=== PATIENT | male | born 1960 | race Caucasian/White ===

== ENCOUNTER 2018-06-15 02:49 | Outpatient (CLI) | payer MEDICAID, SELFPAY ==
[2018-06-15] MEDS: Breeza Beverage 473 ML BTL PO ×2 (09:34→09:35)
[2018-06-15] MEDS: Omnipaque 350 MG/ML 50 ML BTL PO (09:35)
[2018-06-15 09:41] LABS: BUN 15 mg/dL (7-18); CREATININE 0.92 mg/dL (0.70-1.30)
--- NOTE | 2018-06-15 10:57 | DI.CT_ITS ---
SYMPTOMS/DIAGNOSIS: BOWEL INCONTINENCE, R15.9, LEFT-SIDED ABDOMINAL PAIN X A COUPLE OF MONTHS, R10.9, URGENCY OF URINATION, R39.15 CT SCAN OF THE ABDOMEN AND PELVIS: CT scan of the abdomen and pelvis was performed following the uneventful administration of intravenous and oral contrast material. There are no priors for comparison. Mild dependent atelectatic changes are seen in the lung bases. There is diffuse decreased attenuation of the liver suggesting fatty infiltration. No evidence of a hepatic mass is present. The portal and superior mesenteric veins are patent. The portal and superior mesenteric veins are patent. The gallbladder is negative. No biliary ductal dilatation is seen. The pancreas and adrenal glands are unremarkable. The spleen is unremarkable. Incidental note is made of an accessory spleen. The kidneys show normal and symmetric enhancement. No suspicious solid renal masses or obstruction is identified. There is a 3.4 cm simple cyst in the superior pole of the right kidney. The urinary bladder is intact. The reproductive organs are unremarkable. There is atherosclerosis of the abdominal aorta without aneurysmal dilatation. Incidental note is made of a circumaortic left renal vein. No significant abdominal or pelvic adenopathy, ascites or pneumoperitoneum is present. The bowel is unremarkable. There are degenerative changes seen in the spine. IMPRESSION: 1. Findings suggestive of fatty infiltration of the liver. 2. No evidence of an acute abdomen.
[2018-06-15] MEDS: Omnipaque 350 MG/ML 100 ML BTL IJ (11:00)
== END 2018-06-15 03:09 ==
PROVIDERS: PCP Family Medicine; Visit Provider Family Medicine
DX: R10.32 Left lower quadrant pain (principal); R15.9 Full incontinence of feces; R39.15 Urgency of urination; K76.0 Fatty (change of) liver, not elsewhere classified; Z13.89 Encounter for screening for other disorder
CPT/HCPCS: 84520; 74177; 82565; J3490; Q9967

== ENCOUNTER 2018-06-22 15:05 | Outpatient (CLI) | payer MEDICARE, MEDICAID, SELFPAY ==
[2018-06-22 15:34] LABS: Abs Immature Grans 0.04 k/cumm (0.0-0.09); Absolute Basophil Count 0.03 k/cumm (0.0-0.2); Absolute Lymphocyte Count 1.98 k/cumm (1.2-3.4); Absolute Monocyte Count 0.58 k/cumm (0.11-0.7); Absolute Neutrophil Count 5.53 k/cumm (1.2-6.7); Basophils % 0.4; Eosinophils % 2.4; HGB 15.8 g/dL (13.5-17.5); Immature Grans % 0.5; Lymphocytes % 23.7; Mean Corp. HGB Concentration 34.3 g/dL (32.0-36.0); Mean Corpuscular Hemoglobin 31.6 pg (27.0-33.0); Mean Platelet Volume 9.4 fL (8.0-11.0); Monocytes % 6.9; Neutrophils % 66.1; Platelet Count 187 x1000/uL (130-400); RBC Distribution Width 13.4 % (11.8-14.1); White Blood Cell Count 8.36 k/cumm (4.4-10.8)
[2018-06-22 16:33] LABS: ALT 23 U/L (12-78); AST 18 U/L (15-37); Albumin 3.7 g/dL (3.4-5.0); Alkaline Phosphatase 68 U/L (46-116); Anion Gap 9.5 mmol/L (3-11); BUN 18 mg/dL (7-18); Bilirubin, Total 0.3 mg/dL (0.2-1.0); CO2 24.5 mmol/L (21.0-32.0); CREATININE 1.09 mg/dL (0.70-1.30); Calcium 8.2 mg/dL (8.5-10.1); Chloride 104 mmol/L (98-107); Glucose 163 mg/dL (70-100); Potassium 3.9 mmol/L (3.5-5.1); Sodium 138 mmol/L (136-145); Total Protein 6.6 g/dL (6.4-8.2)
[2018-06-23 13:54] LABS: PSA, Screening 0.6 ng/ml (0-3.5)
== END 2018-06-22 15:25 ==
PROVIDERS: PCP Family Medicine; Visit Provider Family Medicine
DX: R15.9 Full incontinence of feces (principal); R10.9 Unspecified abdominal pain; Z12.5 Encounter for screening for malignant neoplasm of prostate
CPT/HCPCS: 36415; 80053; 84153; 85025

== ENCOUNTER 2018-08-22 02:01 | Outpatient (CLI) | payer MEDICAID, SELFPAY ==
--- NOTE | 2018-08-22 11:08 | PFT_ITS ---
PULMONARY FUNCTION TEST REPORT Patient identification - Morro Sahni DATE OF - 64 DATE OF SERVICE - 08/22/2018 REQUESTING PROVIDER - Nathaniel Murray M.D. INTERPRETATION OF STUDY Spirometry shows mild obstructive airways disease with no significant bronchodilator response. LUNG VOLUMES - Lung volumes show no evidence of restriction. DIFFUSION CAPACITY- Normal. AIRWAY RESISTANCE - Normal. IMPRESSION Mild obstructive airways disease with no significant bronchodilator response. Clinical correlation recommended. Sonja Romero M.D. DAINA/antelmo T - 08/24/2018
[2018-08-22] MEDS: Albuterol HFA 18 GM 200 PUFF INH IH (15:15)
[2018-08-22] MEDS: Inhaler, Assist Device 1 EACH MC (15:15)
== END 2018-08-22 02:21 ==
PROVIDERS: PCP Family Medicine; Visit Provider Family Medicine
DX: R06.02 Shortness of breath (principal); F17.200 Nicotine dependence, unspecified, uncomplicated
CPT/HCPCS: 94060; 94150; 94726; 94729

== ENCOUNTER 2018-08-26 00:35 | Outpatient (CLI) | payer MEDICAID, SELFPAY ==
--- NOTE | 2018-08-26 15:01 | DI.CTLCSR_ITS ---
SYMPTOM/DIAGNOSIS: NICOTINE ADDICTION, F17.[address] FOR LUNG CANCER SCREENING: A low dose exam was performed. Comparison is made with chest CT dated 10 April 2016 and 23 January 2018, There is a stable right paratracheal lymph node measuring 3 cm transverse. No pulmonary nodules are identified. There is a minimal area of scarring in the lateral right upper lobe. Scarring is also seen posteriorly at the right lower lobe. No acute infiltrate, pleural or pericardial effusions are seen. IMPRESSION: Stable right paratracheal lymph node. No pulmonary nodules identified. Lung Rads Category 1. Annual low dose screening CT is recommended. Lung-RAD Category: Lung RADS Category 1- Negative
== END 2018-08-26 00:55 ==
PROVIDERS: PCP Family Medicine; Visit Provider Family Medicine
DX: Z12.2 Encounter for screening for malignant neoplasm of respiratory organs (principal); F17.200 Nicotine dependence, unspecified, uncomplicated; R59.0 Localized enlarged lymph nodes
CPT/HCPCS: G0297

== ENCOUNTER 2018-09-21 15:12 | Outpatient (REF) | payer MEDICAID, SELFPAY ==
[2018-09-21 22:50] LABS: TSH (W/Ref FT4) 1.02 uIU/mL (0.358-3.74)
== END 2018-09-21 15:32 ==
LOC: NCHCN 15:12
PROVIDERS: PCP Family Medicine; Visit Provider Family Medicine
DX: R06.02 Shortness of breath (principal); E03.9 Hypothyroidism, unspecified
CPT/HCPCS: 84443

== ENCOUNTER 2018-10-04 13:58 | Emergency (ER) | payer MEDICAID, SELFPAY ==
[2018-10-04 14:03] VITALS: BP 123/75; PULSE 70; RESP 16; TEMP 36.8; O2SAT 94
--- NOTE | 2018-10-04 14:20 | W.ED.GENAD ---
Discharge Plan Disposition Patient Disposition: HOME Condition: Stable Discharge Details Chief Complaint: RespSymp Clinical Impression: Sinusitis Primary Care Provider: SORAYA GILBERT ED Provider: Edmar Corea Home Meds and New Rx's Prescriptions: New amoxicillin-pot clavulanate [Augmentin] 875-125 mg tablet 1 tab PO BID Qty: 14 RF: 0 Continued sertraline 100 MG tablet 150 mg PO DAILY RF: 0 trazodone 100 MG tablet 100 mg PO HS RF: 0 Eliquis 5 MG tablet 5 mg PO BID RF: 0 levothyroxine 25 MCG tablet 200 mcg PO DAILY RF: 0 quetiapine 100 MG tablet 100 mg PO BID RF: 0 lamotrigine [Lamictal] 25 MG tablet 50 mg PO .QHS RF: 0 omeprazole 20 MG capsule,delayed release(DR/EC) 20 mg PO DAILY RF: 0 Centrum Silver 1 EACH tablet 1 tab PO DAILY RF: 0 Discharge Instructions Instructions: Sinusitis (ED) Additional Instructions: Return to emergency department for any new or worsening symptoms. You may continue to take otny-hel-[id number] pain medication as needed for discomfort and take antibiotics as prescribed and until fully complete. If not improving by the end of your antibiotics is recommended that you follow-up with your primary care provider for reassessment Referrals: SORAYA GILBERT [Primary Care Provider] - (As needed for reassessment) Discharge Data Discharge Date/Time-TO BE ENTERED AT DEPARTURE: 10/04/18 14:42 Medical Decision Making Patient presenting the emergency department for chief complaint of sinus pain and pressure. He states that he has had symptoms for 2 weeks and over the past couple days has noticed increased malaise, pressure, change of drainage to more yellow color, and fever and chills. Physical exam is consistent with sinusitis and no signs of sinus thrombosis, no neurological deficits, patient nonseptic. Patient placed on Augmentin and encouraged to return for new or worsening symptoms otherwise follow-up with primary care provider [facility] General Mode of arrival: ambulatory. Date/Time Provider Initiated Documentation: 10/04/18 14:07. Limitations to Documentation: no limitations. Information obtained by: patient. History of Present Illness 58 year old M presents to the emergency department with the chief complaint of Sinus infection, described as moderate, with intensity rated at 5. Quality is described as aching, and is localized to the face. Patient started experiencing this week(s) (2) and it has been constant. No relieving factors improve symptom(s), No exacerbating factors reported . Patient notes no other symptoms.. Related Data Home Medications Medication Instructions Recorded Confirmed sertraline 150 mg PO DAILY 03/27/16 10/04/18 trazodone 100 mg PO HS 08/24/16 10/04/18 levothyroxine 200 mcg PO DAILY 02/25/17 10/04/18 Centrum Silver 1 tab PO DAILY 01/23/18 10/04/18 lamotrigine [Lamictal] 50 mg PO .QHS 01/23/18 10/04/18 omeprazole 20 mg PO DAILY 01/23/18 10/04/18 quetiapine 100 mg PO BID 01/23/18 10/04/18 Eliquis 5 mg PO BID 02/04/18 10/04/18 amoxicillin-pot clavulanate 1 tab PO BID #14 tab 10/04/18 [Augmentin] Previous Rx's Medication Instructions Recorded amoxicillin-pot clavulanate 1 tab PO BID #14 tab 10/04/18 [Augmentin] Allergies Allergy/AdvReac Type Severity Reaction Status Date / Time No Known Allergies Allergy Unverified 10/04/18 14:07 General Stated Complaint: RespSymp LORA: 3 Review of Systems Constitutional Reports chills, Reports fever(s) and Reports headache(s) Eyes Denies blurry vision and Denies change in vision ENT Denies otalgia, Reports headache(s), Reports nasal discharge, Reports post nasal drip, Reports sinus pain and Reports sinus pressure Cardiovascular Denies chest pain Respiratory Reports cough Gastrointestinal Denies nausea and Denies vomiting Integumentary/Breasts Denies rash Neurologic Reports headache(s) [facility] Social History Smoking/Tobacco Use Status: Current every day Exam Const General: cooperative, comfortable and no acute distress Orientation: alert and awake [facility] Head: normal to inspection, normocephalic and atraumatic Ears: hearing grossly normal bilaterally and TM's normal bilaterally General nose exam: external nose normal Face and sinus: no erythema and sinus tenderness maxillary (Left more than right); not frontal and not ethmoid Mouth: oral mucosae normal, no drooling, no muffled voice and no trismus Throat: posterior oropharynx normal Neck Neck: normal visual inspection, full ROM, no lymphadenopathy, no meningeal signs, trachea midline and supple Resp Effort & Inspection: normal respiratory effort and able to speak in complete sentences Auscultation: clear to auscultation bilaterally Cardio Rate: regular rate Rhythm: regular rhythm Heart Sounds: S1 normal, S2 normal, normal S1 and S2, no click, no gallops, no murmurs and no rubs Skin General skin exam: no rashes or lesions noted and dry skin (warm) Neuro General: alert, awake, oriented x3, gait normal, moves all extremities and other (No focal neurological deficits noted) Cognition: normal cognition Speech: speech normal Course Vital Signs Temperature 36.8 C 10/04/18 14:03 Pulse 70 10/04/18 14:03 Respiratory Rate 16 10/04/18 14:03 Blood Pressure 123/75 10/04/18 14:03 Pulse Oximetry 94 L 10/04/18 14:03 Temperature 36.8 C 10/04/18 14:03 Temperature Source Skin 10/04/18 14:03 Pulse 70 10/04/18 14:03 Respiratory Rate 16 10/04/18 14:03 Respiratory Effort 10/04/18 14:08 Blood Pressure 123/75 10/04/18 14:03 Blood Pressure Position Sitting 10/04/18 14:03 Pulse Oximetry 94 L 10/04/18 14:03 Oxygen Delivery Method Room Air 10/04/18 14:03 Oxygen Flow Rate 0 10/04/18 14:03 Pain Level 5 10/04/18 14:03
--- NOTE | 2018-10-04 14:27 | ED.GENADUL_ITS ---
Discharge Plan Disposition Patient Disposition: HOME Condition: Stable Discharge Details Chief Complaint: RespSymp Clinical Impression: Sinusitis Primary Care Provider: SORAYA GILBERT ED Provider: Edmar Corea Home Meds and New Rx's Prescriptions: New amoxicillin-pot clavulanate [Augmentin] 875-125 mg tablet 1 tab PO BID Qty: 14 RF: 0 Continued sertraline 100 MG tablet 150 mg PO DAILY RF: 0 trazodone 100 MG tablet 100 mg PO HS RF: 0 Eliquis 5 MG tablet 5 mg PO BID RF: 0 levothyroxine 25 MCG tablet 200 mcg PO DAILY RF: 0 quetiapine 100 MG tablet 100 mg PO BID RF: 0 lamotrigine [Lamictal] 25 MG tablet 50 mg PO .QHS RF: 0 omeprazole 20 MG capsule,delayed release(DR/EC) 20 mg PO DAILY RF: 0 Centrum Silver 1 EACH tablet 1 tab PO DAILY RF: 0 Discharge Instructions Instructions: Sinusitis (ED) Additional Instructions: Return to emergency department for any new or worsening symptoms. You may continue to take yiiv-zep-[id number] pain medication as needed for discomfort and take antibiotics as prescribed and until fully complete. If not improving by the end of your antibiotics is recommended that you follow-up with your primary care provider for reassessment Referrals: SORAYA GILBERT [Primary Care Provider] - (As needed for reassessment) Discharge Data Discharge Date/Time-TO BE ENTERED AT DEPARTURE: 10/04/18 14:42 Medical Decision Making Patient presenting the emergency department for chief complaint of sinus pain and pressure. He states that he has had symptoms for 2 weeks and over the past couple days has noticed increased malaise, pressure, change of drainage to more yellow color, and fever and chills. Physical exam is consistent with sinusitis and no signs of sinus thrombosis, no neurological deficits, patient nonseptic. Patient placed on Augmentin and encouraged to return for new or worsening symptoms otherwise follow-up with primary care provider [facility] General Mode of arrival: ambulatory . Date/Time Provider Initiated Documentation: 10/04/18 14:07 . Limitations to Documentation: no limitations . Information obtained by: patient . History of Present Illness 58 year old M presents to the emergency department with the chief complaint of Sinus infection, described as moderate, with intensity rated at 5. Quality is described as aching, and is localized to the face. Patient started experien cing this week(s) (2) and it has been constant. No relieving factors improve symptom(s), No exacerbating factors reported . Patient notes no other symptoms.. Related Data Home Medications Medication Instructions Recorded Confirmed sertraline 150 mg PO DAILY 03/27/16 10/04/18 trazodone 100 mg PO HS 08/24/16 10/04/18 levothyroxine 200 mcg PO DAILY 02/25/17 10/04/18 Centrum Silver 1 tab PO DAILY 01/23/18 10/04/18 lamotrigine [Lamictal] 50 mg PO .QHS 01/23/18 10/04/18 omeprazole 20 mg PO DAILY 01/23/18 10/04/18 quetiapine 100 mg PO BID 01/23/18 10/04/18 Eliquis 5 mg PO BID 02/04/18 10/04/18 amoxicillin-pot clavulanate 1 tab PO BID #14 tab 10/04/18 [Augmentin] Previous Rx's Medication Instructions Recorded amoxicillin-pot clavulanate 1 tab PO BID #14 tab 10/04/18 [Augmentin] Allergies Allergy/AdvReac Type Severity Reaction Status Date / Time No Known Allergies Allergy Unverified 10/04/18 14:07 General Stated Complaint: RespSymp LORA: 3 Review of Systems Constitutional Reports chills, Reports fever(s) and Reports headache(s) Eyes Denies blurry vision and Denies change in vision ENT Denies otalgia, Reports headache(s), Reports nasal discharge, Reports post nasal drip, Reports sinus pain and Reports sinus pressure Cardiovascular Denies chest pain Respiratory Reports cough Gastrointestinal Denies nausea and Denies vomiting Integumentary/Breasts Denies rash Neurologic Reports headache(s) [facility] Social History Smoking/Tobacco Use Status: Current every day Exam Const General: cooperative, comfortable and no acute distress Orientation: alert and awake [facility] Head: normal to inspection, normocephalic and atraumatic Ears: hearing grossly normal bilaterally and TM's normal bilaterally General nose exam: external nose normal Face and sinus: no erythema and sinus tenderness maxillary (Left more than right); not frontal and not ethmoid Mouth: oral mucosae normal, no drooling, no muffled voice and no trismus Throat: posterior oropharynx normal Neck Neck: normal visual inspection, full ROM, no lymphadenopathy, no meningeal signs, trachea midline and supple Resp Effort & Inspection: normal respiratory effort and able to speak in complete sentences Auscultation: clear to auscultation bilaterally Cardio Rate: regular rate Rhythm: regular rhythm Heart Sounds: S1 normal, S2 normal, normal S1 and S2, no click, no gallops, no murmurs and no rubs Skin General skin exam: no rashes or lesions noted and dry skin (warm) Neuro General: alert, awake, oriented x3, gait normal, moves all extremities and other (No focal neurological deficits noted) Cognition: normal cognition Speech: speech normal Course Vital Signs Temperature 36.8 C 10/04/18 14:03 Pulse 70 10/04/18 14:03 Respiratory Rate 16 10/04/18 14:03 Blood Pressure 123/75 10/04/18 14:03 Pulse Oximetry 94 L 10/04/18 14:03 Temperature 36.8 C 10/04/18 14:03 Temperature Source Skin 10/04/18 14:03 Pulse 70 10/04/18 14:03 Respiratory Rate 16 10/04/18 14:03 Respiratory Effort 10/04/18 14:08 Blood Pressure 123/75 10/04/18 14:03 Blood Pressure Position Sitting 10/04/18 14:03 Pulse Oximetry 94 L 10/04/18 14:03 Oxygen Delivery Method Room Air 10/04/18 14:03 Oxygen Flow Rate 0 10/04/18 14:03 Pain Level 5 10/04/18 14:03
[2018-10-04] MEDS: Amoxicillin 875/Clav. 125 TAB PO (14:31)
[2018-10-04 14:37] VITALS: BP 123/75; PULSE 77; RESP 16; TEMP 37.6; O2SAT 95
== END 2018-10-04 14:42 | disposition home or self-care (01) ==
LOC: ER 14:39
PROVIDERS: Emergency Provider Nurse Practitioner Family; PCP Family Medicine
DX: J01.90 Acute sinusitis, unspecified (principal)
CPT/HCPCS: 99283

== ENCOUNTER 2018-11-29 11:09 | Emergency (ER) | payer SELFPAY ==
[2018-11-29 11:12] VITALS: BP 123/78; PULSE 72; RESP 20; TEMP 36.6; O2SAT 95
--- NOTE | 2018-11-29 11:27 | ED.GENADUL_ITS ---
Discharge Plan Disposition Patient Disposition: HOME Condition: Improving Discharge Details Chief Complaint: RespSymp Clinical Impression: Acute bronchitis with bronchospasm Primary Care Provider: SORAYA GILBERT ED Provider: Dank Marcial Home Meds and New Rx's Prescriptions: New azithromycin 250 mg tablet See Rx Instructions .ROUTE .COMPLEX Qty: 6 RF: 0 Continued sertraline 100 MG tablet 150 mg PO DAILY RF: 0 trazodone 100 MG tablet 100 mg PO HS RF: 0 Eliquis 5 MG tablet 5 mg PO BID RF: 0 levothyroxine 25 MCG tablet 200 mcg PO DAILY RF: 0 quetiapine 100 MG tablet 100 mg PO BID RF: 0 lamotrigine [Lamictal] 25 MG tablet 50 mg PO .QHS RF: 0 omeprazole 20 MG capsule,delayed release(DR/EC) 20 mg PO DAILY RF: 0 Centrum Silver 1 EACH tablet 1 tab PO DAILY RF: 0 Discharge Instructions Instructions: Acute Bronchitis (ED) Additional Instructions: Continue your efforts to decrease smoking. Take prednisone and antibiotics as prescribed. Continue regular medications. Return for any acute concerns per Please follow-up with regular doctor if not improving in 5 days time Medical Decision Making 58-year-old male presents from home with cough, congestion, production of yellow sputum. States he was treated with Augmentin 3 weeks ago for sinus infection. He continues to smoke. He is afebrile, well-appearing, with normal oxygenation. Does demonstrate a cough with bilateral end expiratory wheeze on exam. Consistent with acute bronchitis and bronchospasm. I will treat him with a course of antibiotics and oral steroids. He understands return precautions and is stable for discharge at this time HPI General Mode of arrival: ambulatory . Date/Time Provider Initiated Documentation: 11/29/18 11:13 . Limitations to Documentation: no limitations . Information obtained by: patient . History of Present Illness 58 year old M presents to the emergency department with the chief complaint of Cough, congestion, wheeze, sinus pressure, described as moderate, Quality is described as dull, and is localized to the chest. Patient reports no radiation. Patient started experiencing this day(s) and it has been constant. No relieving factors improve symptom(s), No exacerbating factors reported . Patient notes cough and fever/chills. Patient did receive the following treatments prior to arrival, none Related Data Home Medications Medication Instructions Recorded Confirmed sertraline 150 mg PO DAILY 03/27/16 11/29/18 trazodone 100 mg PO HS 08/24/16 11/29/18 levothyroxine 200 mcg PO DAILY 02/25/17 11/29/18 Centrum Silver 1 tab PO DAILY 01/23/18 11/29/18 lamotrigine [Lamictal] 50 mg PO .QHS 01/23/18 11/29/18 omeprazole 20 mg PO DAILY 01/23/18 11/29/18 quetiapine 100 mg PO BID 01/23/18 11/29/18 Eliquis 5 mg PO BID 02/04/18 11/29/18 azithromycin See Rx Instructions .ROUTE 11/29/18 .COMPLEX #6 tab Previous Rx's Medication Instructions Recorded azithromycin See Rx Instructions .ROUTE 11/29/18 .COMPLEX #6 tab Allergies Allergy/AdvReac Type Severity Reaction Status Date / Time No Known Allergies Allergy Unverified 11/29/18 11:14 General Stated Complaint: RespSymp LORA: 3 Review of Systems Review of Systems 8 systems reviewed and otherwise negative [facility] Social History Smoking and Tabacco status: Current every day Exam Narrative Exam Narrative: GEN: awake, alert, oriented 3. Pleasant, well groomed, interactive. HEAD: Normocephalic, atraumatic ENT: Mucous membranes moist, oropharynx unremarkable, External ear exam unremarkable EYES: PERRL, EOMI NECK: Full ROM, no LYDIA, no menigismus CHEST/RESP: Cough noted, bilateral end expiratory wheeze, speaking in full sentences CARDIOVASCULAR: RRR, no murmur, rub steve. 2+ Rad pulse bilateral ABDOMEN: Soft, nontender, no mass. +Bowel sounds EXT: Full ROM, no edema, no rash Neuro: Grossly normal neurologic exam, conversant, interactive. Psych: Speech fluent, thoughts congruent, affect normal Course Vital Signs Temperature 36.6 C 11/29/18 11:12 Pulse 72 11/29/18 11:12 Respiratory Rate 20 11/29/18 11:12 Blood Pressure 123/78 11/29/18 11:12 Pulse Oximetry 95 11/29/18 11:12 Temperature 36.6 C 11/29/18 11:12 Temperature Source Temporal Artery Scan 11/29/18 11:12 Pulse 72 11/29/18 11:12 Respiratory Rate 20 11/29/18 11:12 Respiratory Effort Non-Labored 11/29/18 11:12 Blood Pressure 123/78 11/29/18 11:12 Blood Pressure Position Sitting 11/29/18 11:12 Pulse Oximetry 95 11/29/18 11:12 Pain Level 8 11/29/18 11:12
== END 2018-11-29 11:37 | disposition home or self-care (01) ==
LOC: ER 11:38
PROVIDERS: Emergency Provider Emergency Medicine; PCP Family Medicine
DX: R09.89 Other specified symptoms and signs involving the circulatory and respiratory systems (principal); J20.9 Acute bronchitis, unspecified; F17.210 Nicotine dependence, cigarettes, uncomplicated
CPT/HCPCS: 99283

== ENCOUNTER 2019-01-16 11:58 | Emergency (ER) | payer SELFPAY ==
[2019-01-16 12:15] VITALS: BP 140/93; PULSE 66; RESP 18; TEMP 36.7; O2SAT 94
--- NOTE | 2019-01-16 12:30 | DI.US_ITS ---
SYMPTOM/DIAGNOSIS: RT KNEE PAIN, RECENT LACERATION TO ANNE DUPLEX VENOUS ULTRASOUND RIGHT LOWER EXTREMITY: Duplex evaluation of the deep venous system of the right lower extremity was performed according to the usual protocol. There is no evidence of deep venous thrombosis. Note is made of a linear high echogenicity finding in a superficial vein on the anterior lower leg corresponding to the area of the patient's recent injury. The findings may represent an old superficial thrombus. No evidence of acute thrombus or occlusion. CONCLUSION: No evidence of DVT. Please see above discussion.
--- NOTE | 2019-01-16 12:31 | W.ED.GENAD ---
Discharge Plan Disposition Patient Disposition: HOME Condition: Stable Discharge Details Chief Complaint: Vascular Clinical Impression: Knee pain, right Primary Care Provider: SORAYA GILBERT ED Provider: Edmar Corea Home Meds and New Rx's Prescriptions: New acetaminophen 500 mg tablet 1,000 mg PO Q6H PRN (Reason: pain) Qty: 30 RF: 0 Continued sertraline 100 MG tablet 150 mg PO DAILY RF: 0 trazodone 100 MG tablet 100 mg PO HS RF: 0 Xarelto 10 mg Tablet RF: 0 levothyroxine 25 MCG tablet 200 mcg PO DAILY RF: 0 quetiapine 100 MG tablet 100 mg PO BID RF: 0 lamotrigine [Lamictal] 25 MG tablet 50 mg PO .QHS RF: 0 omeprazole 20 MG capsule,delayed release(DR/EC) 20 mg PO DAILY RF: 0 Centrum Silver 1 EACH tablet 1 tab PO DAILY RF: 0 Discharge Instructions Instructions: Knee Pain (ED) Additional Instructions: You may slowly advance activity as tolerated and apply ice to the your knee for any discomfort. Continue to take [id number] acetaminophen 2 tablets every 6 hours as needed for pain. Feel free to return to the emergency department immediately for any new or significant worsening of symptoms otherwise continue to take your medications and follow-up with your primary care provider for reassessment. Referrals: SORAYA GILBERT [Primary Care Provider] - (As needed for reassessment or if not improving over the next week) Discharge Data Discharge Date/Time-TO BE ENTERED AT DEPARTURE: 01/16/19 14:50 Medical Decision Making Patient presenting to the emergency department for chief complaint of right knee pain for the past 10 days. Patient reports minor injury but has had some posterior knee pain radiating up through the inner thigh. Patient does state history of DVT and is on Xarelto for Leiden factor V deficiency. Patient denies any missing doses or other changes. Patient denies any shortness of breath chest pain syncope, patient does state occasional floaters that he sees his eyes but this is been going on for a while and denies any acute vision change. Physical exam of the ocular system shows no obvious emergent findings so patient was recommended to follow-up with [facility] for dilated eye exam. Physical exam of the right lower extremity does show a swollen knee with popliteal tenderness and some tenderness to the right thigh. Vascular exam is otherwise unremarkable. Given patient's history I do feel DVT study is warranted. DVT study was ordered for the right lower extremity. Preliminary report from the composite bond technician shows no signs of DVT. There is consideration of possible arthritis or chronic etiology to knee pain. Patient recommended to use [id number] acetaminophen as needed for discomfort and to follow-up with primary care provider in the next week if not improving. After discussion of diagnosis and plan of care patient is no further needs, questions, or concerns and states clear understanding to return to the emergency department for any worsening symptoms. HPI General Mode of arrival: ambulatory. Date/Time Provider Initiated Documentation: 01/16/19 12:19. Limitations to Documentation: no limitations. Information obtained by: patient and RN notes reviewed. History of Present Illness 59 year old M presents to the emergency department with the chief complaint of left knee pain, described as moderate, with intensity rated at 7. Quality is described as aching, and is localized to the left and lower extremity. Patient started experiencing this day(s) (10) and it has been constant. Patient did receive the following treatments prior to arrival, none Related Data Home Medications Medication Instructions Recorded Confirmed sertraline 150 mg PO DAILY 03/27/16 01/16/19 trazodone 100 mg PO HS 08/24/16 01/16/19 levothyroxine 200 mcg PO DAILY 02/25/17 01/16/19 Centrum Silver 1 tab PO DAILY 01/23/18 01/16/19 lamotrigine [Lamictal] 50 mg PO .QHS 01/23/18 01/16/19 omeprazole 20 mg PO DAILY 01/23/18 01/16/19 quetiapine 100 mg PO BID 01/23/18 01/16/19 Xarelto 01/16/19 acetaminophen 1,000 mg PO Q6H PRN #30 tab 01/16/19 Previous Rx's Medication Instructions Recorded acetaminophen 1,000 mg PO Q6H PRN #30 tab 01/16/19 Allergies Allergy/AdvReac Type Severity Reaction Status Date / Time No Known Allergies Allergy Unverified 01/16/19 12:19 General Stated Complaint: Vascular LORA: 3 Review of Systems Constitutional Denies chills, Denies fever(s) and Denies headache(s) Eyes Reports floaters ENT Denies headache(s) Cardiovascular Denies chest pain, Denies irregular heart rhythm, Reports claudication, Reports leg edema, Denies lightheadedness and Denies dyspnea Respiratory Denies dyspnea Gastrointestinal Denies abdominal pain Musculoskeletal Reports as per HPI Neurologic Reports confusion, Denies headache(s) and Denies sensory deficit Psychiatric Reports confusion [facility] Social History Smoking/Tobacco Use Status: Current every day Drug use: Never Do you feel safe in your relationship?: Yes Exam Const General: cooperative, healthy appearing, comfortable and no acute distress Orientation: alert, awake and oriented x3 Resp Effort & Inspection: normal respiratory effort and able to speak in complete sentences Cardio Rate: regular rate Rhythm: regular rhythm Heart Sounds: S1 normal and S2 normal Pulses: normal peripheral pulses Neuro General: alert, awake, oriented x3, moves all extremities and no focal motor deficits Extrem Right lower extremity: full ROM, normal capillary refill and knee Details: tenderness Location: of the popliteal fossa and swelling Course Vital Signs Temperature 36.7 C 01/16/19 12:15 Pulse 66 01/16/19 12:15 Respiratory Rate 18 01/16/19 12:15 Blood Pressure 140/93 H 01/16/19 12:15 Pulse Oximetry 94 L 01/16/19 12:15 Temperature 36.7 C 01/16/19 12:15 Temperature Source Temporal Artery Scan 01/16/19 12:15 Pulse 66 01/16/19 12:15 Respiratory Rate 18 01/16/19 12:15 Blood Pressure 140/93 H 01/16/19 12:15 Blood Pressure Position Sitting 01/16/19 12:15 Pulse Oximetry 94 L 01/16/19 12:15 Oxygen Delivery Method Room Air 01/16/19 12:15 Oxygen Flow Rate 0 01/16/19 12:15 Pain Level 7 01/16/19 12:15
--- NOTE | 2019-01-16 12:34 | ED.GENADUL_ITS ---
Discharge Plan Disposition Patient Disposition: HOME Condition: Stable Discharge Details Chief Complaint: Vascular Clinical Impression: Knee pain, right Primary Care Provider: SORAYA GILBERT ED Provider: Edmar Corea Home Meds and New Rx's Prescriptions: New acetaminophen 500 mg tablet 1,000 mg PO Q6H PRN (Reason: pain) Qty: 30 RF: 0 Continued sertraline 100 MG tablet 150 mg PO DAILY RF: 0 trazodone 100 MG tablet 100 mg PO HS RF: 0 Xarelto 10 mg Tablet RF: 0 levothyroxine 25 MCG tablet 200 mcg PO DAILY RF: 0 quetiapine 100 MG tablet 100 mg PO BID RF: 0 lamotrigine [Lamictal] 25 MG tablet 50 mg PO .QHS RF: 0 omeprazole 20 MG capsule,delayed release(DR/EC) 20 mg PO DAILY RF: 0 Centrum Silver 1 EACH tablet 1 tab PO DAILY RF: 0 Discharge Instructions Instructions: Knee Pain (ED) Additional Instructions: You may slowly advance activity as tolerated and apply ice to the your knee for any discomfort. Continue to take [id number] acetaminophen 2 tablets every 6 hours as needed for pain. Feel free to return to the emergency department immediately for any new or significant worsening of symptoms otherwise continue to take your medications and follow-up with your primary care provider for reassessment. Referrals: SORAYA GILBERT [Primary Care Provider] - (As needed for reassessment or if not improving over the next week) Discharge Data Discharge Date/Time-TO BE ENTERED AT DEPARTURE: 01/16/19 14:50 Medical Decision Making Patient presenting to the emergency department for chief complaint of right knee pain for the past 10 days. Patient reports minor injury but has had some posterior knee pain radiating up through the inner thigh. Patient does state history of DVT and is on Xarelto for Leiden factor V deficiency. Patient denies any missing doses or other changes. Patient denies any shortness of breath chest pain syncope, patient does state occasional floaters that he sees his eyes but this is been going on for a while and denies any acute vision change. Physical exam of the ocular system shows no obvious emergent findings so patient was recommended to follow-up with [facility] for dilated eye exam. Physical exam of the right lower extremity does show a swollen knee with popliteal tenderness and some tenderness to the right thigh. Vascular exam is otherwise unremarkable. Given patient's history I do feel DVT study is warranted. DVT study was ordered for the right lower extremity. Preliminary report from the scrub technician shows no signs of DVT. There is consideration of possible arthritis or chronic etiology to knee pain. Patient recommended to use [id number] acetaminophen as needed for discomfort and to follow-up with primary care provider in the next week if not improving. After discussion of diagnosis and plan of care patient is no further needs, questions, or concerns and states clear understanding to return to the emergency department for any worsening symptoms. HPI General Mode of arrival: ambulatory . Date/Time Provider Initiated Documentation: 01/16/19 12:19 . Limitations to Documentation: no limitations . Information obtained by: patient and RN notes reviewed . History of Present Illness 59 year old M presents to the emergency department with the chief complaint of left knee pain, described as moderate, with intensity rated at 7. Quality is described as aching, and is localized to the left and lower extremity. Patient started experiencing this day(s) (10) and it has been constant. Patient did receive the following treatments prior to arrival, none Related Data Home Medications Medication Instructions Recorded Confirmed sertraline 150 mg PO DAILY 03/27/16 01/16/19 trazodone 100 mg PO HS 08/24/16 01/16/19 levothyroxine 200 mcg PO DAILY 02/25/17 01/16/19 Centrum Silver 1 tab PO DAILY 01/23/18 01/16/19 lamotrigine [Lamictal] 50 mg PO .QHS 01/23/18 01/16/19 omeprazole 20 mg PO DAILY 01/23/18 01/16/19 quetiapine 100 mg PO BID 01/23/18 01/16/19 Xarelto 01/16/19 acetaminophen 1,000 mg PO Q6H PRN #30 tab 01/16/19 Previous Rx's Medication Instructions Recorded acetaminophen 1,000 mg PO Q6H PRN #30 tab 01/16/19 Allergies Allergy/AdvReac Type Severity Reaction Status Date / Time No Known Allergies Allergy Unverified 01/16/19 12:19 General Stated Complaint: Vascular LORA: 3 Review of Systems Constitutional Denies chills, Denies fever(s) and Denies headache(s) Eyes Reports floaters ENT Denies headache(s) Cardiovascular Denies chest pain, Denies irregular heart rhythm, Reports claudication, Reports leg edema, Denies lightheadedness and Denies dyspnea Respiratory Denies dyspnea Gastrointestinal Denies abdominal pain Musculoskeletal Reports as per HPI Neurologic Reports confusion, Denies headache(s) and Denies sensory deficit Psychiatric Reports confusion [facility] Social History Smoking/Tobacco Use Status: Current every day Drug use: Never Do you feel safe in your relationship?: Yes Exam Const General: cooperative, healthy appearing, comfortable and no acute distress Orientation: alert, awake and oriented x3 Resp Effort & Inspection: normal respiratory effort and able to speak in complete sentences Cardio Rate: regular rate Rhythm: regular rhythm Heart Sounds: S1 normal and S2 normal Pulses: normal peripheral pulses Neuro General: alert, awake, oriented x3, moves all extremities and no focal motor deficits Extrem Right lower extremity: full ROM, normal capillary refill and knee Details: tenderness Location: of the popliteal fossa and swelling Course Vital Signs Temperature 36.7 C 01/16/19 12:15 Pulse 66 01/16/19 12:15 Respiratory Rate 18 01/16/19 12:15 Blood Pressure 140/93 H 01/16/19 12:15 Pulse Oximetry 94 L 01/16/19 12:15 Temperature 36.7 C 01/16/19 12:15 Temperature Source Temporal Artery Scan 01/16/19 12:15 Pulse 66 01/16/19 12:15 Respiratory Rate 18 01/16/19 12:15 Blood Pressure 140/93 H 01/16/19 12:15 Blood Pressure Position Sitting 01/16/19 12:15 Pulse Oximetry 94 L 01/16/19 12:15 Oxygen Delivery Method Room Air 01/16/19 12:15 Oxygen Flow Rate 0 01/16/19 12:15 Pain Level 7 01/16/19 12:15
--- NOTE | 2019-01-16 15:29 | NUR.NOTE ---
Nursing Note: Left prior to receiving discharge instructions. They are mailed to him. Sallie Fowler.
== END 2019-01-16 14:50 | disposition home or self-care (01) ==
PROVIDERS: Emergency Provider Nurse Practitioner Family; PCP Family Medicine
DX: M25.561 Pain in right knee (principal); M25.461 Effusion, right knee; H43.393 Other vitreous opacities, bilateral; D68.51 Activated protein C resistance; Z79.01 Long term (current) use of anticoagulants
CPT/HCPCS: 99284; 93971

== ENCOUNTER 2019-09-26 07:23 | Outpatient (CLI) | payer SELFPAY ==
[2019-09-26 09:30] LABS: ALT 25 U/L (16-63); AST 13 U/L (15-37); Albumin 3.7 g/dL (3.4-5.0); Alkaline Phosphatase 61 U/L (46-116); Anion Gap 8.4 mmol/L (3-11); BUN 16 mg/dL (7-18); Bilirubin, Total 0.5 mg/dL (0.2-1.0); CO2 28.6 mmol/L (21.0-32.0); CREATININE 0.93 mg/dL (0.70-1.30); Calcium 8.4 mg/dL (8.5-10.1); Calculated LDL 141 mg/dL; Chloride 101 mmol/L (98-107); Cholesterol 199 mg/dL (<200); Glucose 121 mg/dL (74-106); HDL Cholesterol 27 mg/dL (40-60); Potassium 4.4 mmol/L (3.5-5.1); Sodium 138 mmol/L (136-145); TSH 0.25 uIU/mL (0.36-3.74); Total Protein 6.7 g/dL (6.4-8.2); Triglyceride 157 mg/dL (<150)
== END 2019-09-26 07:43 ==
PROVIDERS: PCP Family Medicine; Visit Provider Family Medicine
DX: E03.9 Hypothyroidism, unspecified (principal); R73.9 Hyperglycemia, unspecified; I82.90 Acute embolism and thrombosis of unspecified vein
CPT/HCPCS: 36415; 80053; 80061; 84443

== ENCOUNTER 2019-10-10 10:50 | Emergency (ER) | payer SELFPAY ==
[2019-10-10] VITALS (46 sets, daily range): BP systolic 131–164; BP diastolic 71–103; PULSE 63–77; RESP 10–22; TEMP 36.8; O2SAT 89–96
--- NOTE | 2019-10-10 11:07 | W.ED.GENAD ---
Discharge Plan Discharge Details Chief Complaint: Chest Pain Primary Care Provider: Elsa Morris ED Provider: Dank Marcial Home Meds and New Rx's Prescriptions: No Action atorvastatin 20 mg tablet 20 mg PO QHS RF: 0 metformin 500 mg tablet 500 mg PO DAILY RF: 0 albuterol sulfate [ProAir HFA] 90 mcg/actuation HFA aerosol inhaler 2 puff IH Q6H PRNRF: 0 Atrovent HFA 17 mcg/actuation HFA aerosol inhaler 2 puff IH QID RF: 0 Spiriva with HandiHaler 18 mcg capsule, w/inhalation device 1 cap IH DAILY RF: 0 sertraline 100 MG tablet 150 mg PO DAILY RF: 0 trazodone 100 MG tablet 100 mg PO HS RF: 0 Xarelto 10 mg Tablet 10 mg PO DAILY RF: 0 levothyroxine 175 mcg Tablet 175 mcg PO DAILY RF: 0 tamsulosin 0.4 mg Capsule 0.8 mg PO QHS RF: 0 quetiapine 100 MG tablet 100 mg PO BID RF: 0 lamotrigine [Lamictal] 25 MG tablet 50 mg PO .QHS RF: 0 omeprazole 20 MG capsule,delayed release(DR/EC) 20 mg PO DAILY RF: 0 Medical Decision Making 59-year-old male with a history of COPD, on Xarelto for history of PE, continues to smoke. He presents from home today complaining of approximately 3 weeks of cough, congestion, production of sputum and today had 3 minutes of transient left-sided chest discomfort with coughing that radiates to his shoulder and neck. He arrives with normal vital signs, oxygenating 92% on room air, in no acute distress. Differential diagnosis includes bronchitis with bronchospasm, COPD exacerbation, must exclude acute coronary syndrome, he states he has been adherent to his anticoagulant therapy and I do not feel PE is a significant consideration. Screening EKG, laboratories, chest x-ray obtained. Patient given DuoNeb updraft, Solu-Medrol. Chest x-ray without focal consolidation or other acute finding. Laboratories reveal a white blood cell count of 6, hematocrit 48, platelets 222. Chemistries reassuring, troponin negative x2. Records reviewed with note of unremarkable stress test in February 2018. Patient improved following DuoNeb updraft and Solu-Medrol. Is noted once sleeping that his oxygenation drops to 90 to 91% and he was placed on 1 L nasal cannula. With ambulation he normalizes. Given negative cardiac work-up, improvement of pain following ketorolac, I do feel this is consistent with bronchitis and COPD exacerbation. We will treat with a course of antibiotics as well as systemic steroid burst. He understands homecare as well as indications for repeat evaluation. He will follow-up with his primary care physician Dr. Saucedo for recheck. Lab Data Lab results reviewed: Yes I reviewed the patient's lab results. Labs: Laboratory Results - last 24 hr 10/10/19 10/10/19 11:00 11:00 WBC 6.64 RBC 5.40 Hgb 16.7 Hct 48.2 MCV 89.3 MCH 30.9 MCHC 34.6 RDW 13.3 Plt Count 222 MPV 9.4 Immature Gran % 0.5 Neutrophils % 56.1 Lymphocytes % 29.5 Monocytes % 10.8 Eosinophils % 2.3 Basophils % 0.8 Absolute Neutrophils 3.73 Absolute Lymphocytes 1.96 Absolute Monocytes 0.72 H Absolute Eosinophils 0.15 Absolute Basophils 0.05 Sodium 138 Potassium 4.3 Chloride 101 Carbon Dioxide 28.6 Anion Gap 8.4 BUN 13 Creatinine 0.95 Estimated GFR/1.73 m2 >= 60.00 Glucose 121 H Calcium 8.8 Magnesium 1.8 Total Bilirubin 0.5 AST 24 ALT 28 Alkaline Phosphatase 67 Troponin I < 0.05 Total Protein 7.4 Albumin 3.8 ECG Data Attestation: I personally reviewed and interpreted this ECG (s) as follows: Interpretation: Normal sinus rhythm, rate of 66, the QRS is narrow, there is no ST segment elevation, there is nonspecific ST segment changes in the inferior leads. EKG obtained 1410 hrs. reveals normal sinus rhythm, rate of 70, QRS is narrow, nonspecific ST changes in the lateral leads, no ST segment elevation present. HPI General Mode of arrival: ambulatory. Date/Time Provider Initiated Documentation: 10/10/19 10:51. Limitations to Documentation: no limitations. Information obtained by: patient. History of Present Illness 59 year old M presents to the emergency department with the chief complaint of Cough, congestion times weeks, left-sided chest and neck pain today, described as mild, Quality is described as other, and is localized to the chest. Patient neck. Patient started experiencing this minute(s) and it has been now resolved. No relieving factors improve symptom(s), No exacerbating factors reported . Patient notes cough and fever/chills; denies syncope. Patient did receive the following treatments prior to arrival, none Related Data Home Medications Medication Instructions Recorded Confirmed sertraline 150 mg PO DAILY 03/27/16 10/10/19 trazodone 100 mg PO HS 08/24/16 10/10/19 lamotrigine [Lamictal] 50 mg PO .QHS 01/23/18 10/10/19 omeprazole 20 mg PO DAILY 01/23/18 10/10/19 quetiapine 100 mg PO BID 01/23/18 10/10/19 Xarelto 10 mg PO DAILY 01/16/19 10/10/19 albuterol sulfate 90 mcg/actuation 2 puff IH Q6H PRN 10/10/19 10/10/19 aerosol inhaler atorvastatin 20 mg tablet 20 mg PO QHS 10/10/19 10/10/19 ipratropium bromide 17 2 puff IH QID 10/10/19 10/10/19 mcg/actuation HFA aerosol inhaler levothyroxine 175 mcg PO DAILY 10/10/19 10/10/19 metformin 500 mg tablet 500 mg PO DAILY 10/10/19 10/10/19 tamsulosin 0.8 mg PO QHS 10/10/19 10/10/19 tiotropium bromide 18 mcg capsule 1 cap IH DAILY 10/10/19 10/10/19 with inhalation device Allergies Allergy/AdvReac Type Severity Reaction Status Date / Time No Known Allergies Allergy Unverified 10/10/19 11:02 General Stated Complaint: Chest Pain LORA: 2 Review of Systems Narrative: Weeks of cough with congestion, production of sputum. Chronic lower extremity swelling that is unchanged. States chest discomfort was fleeting lasting 2 to 3 minutes, now abated [facility] Medical History COPD (chronic obstructive pulmonary disease) (Chronic) Factor V Leiden (Acute) Hypercholesterolemia (Acute) Hyperglycemia (Acute) Hypothyroid (Chronic) Insomnia (Acute) Obesity (BMI 35.0-39.9 without comorbidity) (Acute) Tobacco abuse (Acute) Social History Smoking/Tobacco Use Status: Current every day Alcohol Intake: former Drug use: Never Do you feel safe at home: Yes Do you feel safe in your relationship?: Yes Exam Narrative Exam Narrative: GEN: awake, alert, oriented 3. Pleasant, well groomed, interactive. HEAD: Normocephalic, atraumatic ENT: Mucous membranes moist, oropharynx unremarkable, External ear exam unremarkable EYES: PERRL, EOMI NECK: Full ROM, no LYDIA, no menigismus CHEST/RESP: Nontender, bilateral diminished breath sounds, end expiratory wheeze present bilaterally. CARDIOVASCULAR: RRR, no murmur, rub steve. 2+ Rad pulse bilateral ABDOMEN: Soft, nontender, no mass. +Bowel sounds EXT: Full ROM, 1+ symmetric pretibial edema, no rash Neuro: Grossly normal neurologic exam, conversant, interactive. Psych: Speech fluent, thoughts congruent, affect normal Course Vital Signs Vital signs: Vital Signs Temperature 36.8 C 10/10/19 10:56 Pulse 66 10/10/19 10:56 Respiratory Rate 19 10/10/19 10:56 Blood Pressure 134/82 10/10/19 10:56 Temperature 36.8 C 10/10/19 10:56 Temperature Source Temporal Artery Scan 10/10/19 10:56 Pulse 66 10/10/19 10:56 Respiratory Rate 19 10/10/19 10:56 Respiratory Effort Non-Labored 10/10/19 10:59 Blood Pressure 134/82 10/10/19 10:56 Blood Pressure Position Sitting 10/10/19 10:56 Oxygen Delivery Method Room Air 10/10/19 10:56 Oxygen Flow Rate 0 10/10/19 10:56 Pain Level 6 10/10/19 10:56
[2019-10-10] MEDS: Normal Saline Flush 10 ML SYR IVP ×2 (11:18→11:42)
[2019-10-10] MEDS: methylPREDNISolone SUCC 125 MG VIAL IVP (11:18)
[2019-10-10] MEDS: Albuterol/Ipratropium 3 ML UPD VIAL UPD (11:19)
[2019-10-10 11:22] LABS: Abs Immature Grans 0.03 k/cumm (0.0-0.09); Absolute Basophil Count 0.05 k/cumm (0.0-0.2); Absolute Eosinophil Count 0.15 k/cumm (0.0-0.7); Absolute Lymphocyte Count 1.96 k/cumm (1.2-3.4); Absolute Monocyte Count 0.72 k/cumm (0.11-0.7); Absolute Neutrophil Count 3.73 k/cumm (1.2-6.7); Basophils % 0.8; Eosinophils % 2.3; HCT 48.2 % (40.0-50.0); HGB 16.7 g/dL (13.5-17.5); Immature Grans % 0.5 %; Lymphocytes % 29.5; Mean Corp. HGB Concentration 34.6 g/dL (32.0-36.0); Mean Corpuscular Hemoglobin 30.9 pg (27.0-33.0); Mean Corpuscular Volume 89.3 fL (80-95); Mean Platelet Volume 9.4 fL (8.0-11.0); Monocytes % 10.8; Neutrophils % 56.1; Platelet Count 222 x1000/uL (130-400); RBC Distribution Width 13.3 % (11.8-14.1); White Blood Cell Count 6.64 k/cumm (4.4-10.8)
[2019-10-10 11:40] LABS: ALT 28 U/L (16-63); AST 24 U/L (15-37); Albumin 3.8 g/dL (3.4-5.0); Alkaline Phosphatase 67 U/L (46-116); Anion Gap 8.4 mmol/L (3-11); BUN 13 mg/dL (7-18); Bilirubin, Total 0.5 mg/dL (0.2-1.0); CO2 28.6 mmol/L (21.0-32.0); CREATININE 0.95 mg/dL (0.70-1.30); Calcium 8.8 mg/dL (8.5-10.1); Chloride 101 mmol/L (98-107); Glucose 121 mg/dL (74-106); Magnesium 1.8 mg/dL (1.8-2.4); Potassium 4.3 mmol/L (3.5-5.1); Sodium 138 mmol/L (136-145); Total Protein 7.4 g/dL (6.4-8.2)
[2019-10-10 11:41] LABS: Troponin I < 0.05 ng/Ml (<0.06)
[2019-10-10] MEDS: Ketorolac 15 MG/ML VIAL IVP (11:42)
--- NOTE | 2019-10-10 11:53 | DI.RAD_ITS ---
EXAM: XR CHEST 2V PA LATERAL INDICATION: Cough, congestion, wheeze. COMPARISON: CHEST 2 VIEWS PA,LAT from 02/04/2018 CT CHEST LUNG CANCER SCREEN from 08/26/2018 TECHNIQUE: 2D digital imaging was performed. FINDINGS: The heart size is normal. The aorta is mildly tortuous. Leads overlie the chest. The lungs appear clear. No infiltrate or effusion is seen. There is hardware in the lower cervical spine. IMPRESSION: No acute abnormality.
[2019-10-10] MEDS: Normal Saline 1,000 ML 125 ML IV (12:30)
[2019-10-10 14:48] LABS: Troponin I < 0.05 ng/Ml (<0.06)
== END 2019-10-10 15:18 | disposition home or self-care (01) ==
PROVIDERS: Emergency Provider Emergency Medicine; PCP Nurse Practitioner Community Health
DX: R07.9 Chest pain, unspecified (principal); J44.0 Chronic obstructive pulmonary disease with (acute) lower respiratory infection; J20.9 Acute bronchitis, unspecified; J44.1 Chronic obstructive pulmonary disease with (acute) exacerbation; Z79.01 Long term (current) use of anticoagulants; Z86.711 Personal history of pulmonary embolism; F17.210 Nicotine dependence, cigarettes, uncomplicated; D68.51 Activated protein C resistance
CPT/HCPCS: 36415; 80053; 93005; 94640; 96361; 96374; 96375; 99285; 71046; 83735; 84484; 85025; 93010; J1885; J2930; J7620

== ENCOUNTER 2019-10-12 15:36 | Emergency (ER) | payer SELFPAY ==
[2019-10-12] VITALS (19 sets, daily range): BP systolic 128–142; BP diastolic 77–89; PULSE 69–83; RESP 13–23; TEMP 36.8; O2SAT 87–96
--- NOTE | 2019-10-12 15:54 | ED.GENADUL_ITS ---
Discharge Plan Disposition Patient Disposition: HOME Condition: Stable Discharge Details Chief Complaint: Chest Pain Clinical Impression: Chest pain Primary Care Provider: Elsa Morris ED Provider: Morro Lipscomb Home Meds and New Rx's Prescriptions: Continued atorvastatin 20 mg tablet 20 mg PO QHS RF: 0 metformin 500 mg tablet 500 mg PO DAILY RF: 0 albuterol sulfate [ProAir HFA] 90 mcg/actuation HFA aerosol inhaler 2 puff IH Q6H PRNRF: 0 Atrovent HFA 17 mcg/actuation HFA aerosol inhaler 2 puff IH QID RF: 0 Spiriva with HandiHaler 18 mcg capsule, w/inhalation device 1 cap IH DAILY RF: 0 sertraline 100 MG tablet 150 mg PO DAILY RF: 0 trazodone 100 MG tablet 100 mg PO HS RF: 0 Xarelto 10 mg Tablet 10 mg PO DAILY RF: 0 levothyroxine 175 mcg Tablet 175 mcg PO DAILY RF: 0 tamsulosin 0.4 mg Capsule 0.8 mg PO QHS RF: 0 doxycycline hyclate 100 mg capsule 100 mg PO BID 10 Days Qty: 20 RF: 0 prednisone 20 mg tablet 40 mg PO DAILY 5 Days Qty: 10 RF: 0 quetiapine 100 MG tablet 100 mg PO BID RF: 0 lamotrigine [Lamictal] 25 MG tablet 50 mg PO .QHS RF: 0 omeprazole 20 MG capsule,delayed release(DR/EC) 20 mg PO DAILY RF: 0 Discharge Instructions Instructions: Chest Pain (ED) Additional Instructions: follow up with your primary care provider withiin 1 week. You should have follow up imaging done in a few months for the enlarged lymph node seen on your cat scan if you feel more ill, have worsening shortness of breath or pain return to the emergency department Medical Decision Making 59 yo male with hx of copd, dm, hld, prior PE on xarelto, who was placed on prednisone and doxycycline for copd exacerbation 2 days ago comes in with 1 day of pleuritic right sided chest pain. Denies fevers, falls, abd pain, vomit, can't think of anything that makes the pain better but taking deep breaths does make it worse. He has clear lungs, no murmurs, does have pitting edema of both legs to the mid tibia, no calf tenderness. Gvien his history and his pain and well score being moderate will obtain CTA to eval for possible Pe vs pna vs ptx. Pain is atypical for acs, ekg shows no acute findings, will obtain troponin. No tearing back pain and normal vascular exam so doubt dissection pt's imaging and lab work including delta troponin negative and no longer has pain. Given reassuring lab work and exam feel he can f/u with his pcp and return precautions given. Advised of the increased lymph node size and understands to relay this to pcp for future f/u imaging Differential Diagnosis Differential Diagnosis: pe, ptx, pna Medical Records Medical records reviewed: Yes I reviewed the patient's medical records. Imaging Data Radiologic Study: Attestation: I personally reviewed and interpreted this imaging study as follows: Imaging: CT Scan Radiologist's impression: IMPRESSION: 1. No pulmonary embolism. 2. Compared to 01/23/2018, there is slight increased size of a right paratracheal lymph node. Recommend attention on follow-up. 3. Stable dilated ascending aorta measuring up to 4.2 cm. Lab Data Lab results reviewed: Yes I reviewed the patient's lab results. ECG Data Attestation: I personally reviewed and interpreted this ECG (s) as follows: Prior ECG tracings: not available for review Interpretation: sinus rhythm, rate of 78, pr 168, qtc 456, no acute st t wave ischemic findings HPI General Mode of arrival: ambulatory . Date/Time Provider Initiated Documentation: 10/12/19 15:40 . Limitations to Documentation: no limitations . Information obtained by: patient . History of Present Illness 59 year old M presents to the emergency department with the chief complaint of right sided chest pain, described as moderate, Quality is described as aching, and is localized to the chest. Patient reports no radiation. Patient started experiencing this day(s) (1) and it has been constant. No relieving factors improve symptom(s), No exacerbating factors reported . Patient did receive the following treatments prior to arrival, none Related Data Home Medications Medication Instructions Recorded Confirmed sertraline 150 mg PO DAILY 03/27/16 10/10/19 trazodone 100 mg PO HS 08/24/16 10/10/19 lamotrigine [Lamictal] 50 mg PO .QHS 01/23/18 10/10/19 omeprazole 20 mg PO DAILY 01/23/18 10/10/19 quetiapine 100 mg PO BID 01/23/18 10/10/19 Xarelto 10 mg PO DAILY 01/16/19 10/10/19 albuterol sulfate 90 mcg/actuation 2 puff IH Q6H PRN 10/10/19 10/10/19 aerosol inhaler atorvastatin 20 mg tablet 20 mg PO QHS 10/10/19 10/10/19 doxycycline hyclate 100 mg PO BID 10 Days #20 cap 10/10/19 ipratropium bromide 17 2 puff IH QID 10/10/19 10/10/19 mcg/actuation HFA aerosol inhaler levothyroxine 175 mcg PO DAILY 10/10/19 10/10/19 metformin 500 mg tablet 500 mg PO DAILY 10/10/19 10/10/19 prednisone 40 mg PO DAILY 5 Days #10 tab 10/10/19 tamsulosin 0.8 mg PO QHS 10/10/19 10/10/19 tiotropium bromide 18 mcg capsule 1 cap IH DAILY 10/10/19 10/10/19 with inhalation device Previous Rx's Medication Instructions Recorded doxycycline hyclate 100 mg PO BID 10 Days #20 cap 10/10/19 prednisone 40 mg PO DAILY 5 Days #10 tab 10/10/19 Allergies Allergy/AdvReac Type Severity Reaction Status Date / Time No Known Allergies Allergy Unverified 10/12/19 15:44 General Stated Complaint: Chest Pain LORA: 2 Review of Systems All systems reviewed & are unremarkable except as noted in HPI and below Constitutional Constitutional: Denies chills, Denies fever(s) and Denies weakness Respiratory Respiratory: Denies cough Gastrointestinal Gastrointestinal: Denies abdominal pain, Denies nausea and Denies vomiting Neurologic Neurologic: Denies weakness Endocrine Endocrine: Denies heat intolerance REPLACED BY [facility] Social History Smoking/Tobacco Use Status: Current every day Tobacco Type: cigarettes Smoking packs per day: 1 Smoking cigarettes per day: 20.0 Alcohol Intake: former Drug use: Never Substance use type: does not use Do you feel safe at home: Yes Do you feel safe in your relationship?: Yes Exam Const General: no acute distress Orientation: alert HENND Head: normal to inspection Ears: external ears normal General nose exam: external nose normal Mouth: moist mucous membranes Eyes General: appearance normal, both eyes and all related structures Neck Neck: normal visual inspection Resp Effort & Inspection: normal respiratory effort and able to speak in complete sentences Cardio Rate: regular rate Skin General skin exam: no rashes or lesions noted Neuro General: alert and oriented x3 Extrem General: normal capillary refill Psych Mental Status: mental status grossly normal Course Vital Signs Vital signs: Vital Signs Temperature 36.8 C 10/12/19 15:39 Pulse 78 10/12/19 15:39 Respiratory Rate 18 10/12/19 15:39 Blood Pressure 140/88 10/12/19 15:39 Pulse Oximetry 94 L 10/12/19 15:39 Temperature 36.8 C 10/12/19 15:39 Temperature Source Skin 10/12/19 15:39 Pulse 78 10/12/19 15:39 Respiratory Rate 18 10/12/19 15:39 Respiratory Effort Non-Labored 10/12/19 15:52 Respiratory Depth Normal 10/12/19 15:52 Respiratory Pattern Normal 10/12/19 15:52 Blood Pressure 140/88 10/12/19 15:39 Blood Pressure Position Supine 10/12/19 15:39 Pulse Oximetry 94 L 10/12/19 15:39 Oxygen Delivery Method Room Air 10/12/19 15:39 Oxygen Flow Rate 0 10/12/19 15:39 Pain Level 8 10/12/19 15:39
[2019-10-12] MEDS: Aspirin 81 MG CHEW 324 MG CH (16:05)
[2019-10-12 16:10] LABS: Abs Immature Grans 0.06 k/cumm (0.0-0.09); Absolute Basophil Count 0.01 k/cumm (0.0-0.2); Absolute Lymphocyte Count 1.22 k/cumm (1.2-3.4); Absolute Monocyte Count 0.66 k/cumm (0.11-0.7); Absolute Neutrophil Count 7.52 k/cumm (1.2-6.7); Basophils % 0.1; HCT 46.8 % (40.0-50.0); HGB 15.9 g/dL (13.5-17.5); Immature Grans % 0.6 %; Lymphocytes % 12.9; Mean Corpuscular Hemoglobin 30.4 pg (27.0-33.0); Mean Corpuscular Volume 89.5 fL (80-95); Mean Platelet Volume 9.4 fL (8.0-11.0); Neutrophils % 79.4; Platelet Count 215 x1000/uL (130-400); RBC 5.23 m/cumm (4.50-6.00); RBC Distribution Width 13.5 % (11.8-14.1); White Blood Cell Count 9.47 k/cumm (4.4-10.8)
[2019-10-12 16:26] LABS: Prothrombin Time 10.3 sec (9.3-11.0)
[2019-10-12 16:33] LABS: ALT 30 U/L (16-63); AST 14 U/L (15-37); Albumin 3.8 g/dL (3.4-5.0); Alkaline Phosphatase 62 U/L (46-116); Anion Gap 8.8 mmol/L (3-11); BUN 18 mg/dL (7-18); Bilirubin, Total 0.4 mg/dL (0.2-1.0); CO2 27.2 mmol/L (21.0-32.0); CREATININE 0.95 mg/dL (0.70-1.30); Calcium 8.5 mg/dL (8.5-10.1); Chloride 100 mmol/L (98-107); Glucose 258 mg/dL (74-106); Lipase 71 U/L (73-393); NT-proBNP 451 pg/mL (<300); Potassium 4.5 mmol/L (3.5-5.1); Sodium 136 mmol/L (136-145); Total Protein 7.3 g/dL (6.4-8.2)
[2019-10-12 16:41] LABS: Troponin I < 0.05 ng/Ml (<0.06)
[2019-10-12] MEDS: Omnipaque 350 MG/ML 100 ML BTL IJ (16:45)
[2019-10-12] MEDS: Normal Saline - Diluent 50 ML VIAL IV (16:45)
--- NOTE | 2019-10-12 16:50 | DI.CT_ITS ---
EXAM: CT CHEST PE CTA CLINICAL HISTORY: shortness of breath, prior PE, LT SIDED CHEST PAIN TECHNIQUE: CT angiography of the chest was performed with a bolus infusion of 100 cc of Omnipaque 35 0. FINDINGS: There is no evidence of pulmonary embolic disease. Thoracic aorta measures up to 4.3 cm in diamete r, grossly unchanged from prior study of 01/23/2018. Note is again made of an enlarged pretracheal lymph node, this now measures 31 millimeters in diamete r as compared to 27 millimeters on prior study. Mild prominence subcarinal and right hilar nodes not ed. No focal pulmonary lesion identified but the enlarged pretracheal lymph node is somewhat suspici ous for neoplastic disease and additional evaluation with PET-CT should be considered. The lungs jocelynn ear clear. No pleural effusion. Tracheobronchial tree appears intact. Images obtained through the upper abdomen show unremarkable appearance of visualized portions of live r, spleen, pancreas, adrenals, and kidneys. IMPRESSION: No evidence of pulmonary embolic disease. Interval enlargement of pretracheal lymph node which now me asures about 31 millimeters in diameter. Additional evaluation with PET-CT may be obtained to evaluat e the possibility of neoplastic disease.
--- NOTE | 2019-10-12 17:13 | DI.VRAD_ITS ---
PROCEDURE INFORMATION: Exam: CT Angiography Chest With Contrast Exam date and time: 10/12/2019 4:47 PM Age: 59 years old Clinical indication: Other: Shortness of breath, prior pe TECHNIQUE: Imaging protocol: Computed tomographic angiography of the chest with intravenous contrast. 3D rendering: MIP and/or 3D reconstructed images were created by the technologist. Radiation optimization: All CT scans at this facility use at least one of these dose optimization techniques: automated exposure control; mA and/or kV adjustment per patient size (includes targeted exams where dose is matched to clinical indication); or iterative reconstruction. Contrast material: OMNIPAQUE 350; Contrast volume: 100 ml; Contrast route: IV; COMPARISON: CT CHEST FOR PULMONARY EMBOLUS 01/23/2018 2:45 PM FINDINGS: Pulmonary arteries: No pulmonary embolism to the segmental level. Evaluation of the subsegmental arteries is limited by suboptimal contrast bolus timing. Aorta: Unchanged dilated ascending aorta measuring up to 4.2 cm. Lungs: Centrilobular and paraseptal emphysema. Scattered regions of atelectasis/scar. Lungs are otherwise clear. Pleural space: Unremarkable. No pneumothorax. No pleural effusion. Heart: Unremarkable. No cardiomegaly. No pericardial effusion. Lymph nodes: Compared to 01/23/2018 there is slight interval increased size of a right paratracheal lymph node measuring 3.1 x 2.4 cm, previously 2.8 x 2.0 cm. Bones/joints: Unremarkable. No acute fracture. Soft tissues: Unremarkable. IMPRESSION: 1. No pulmonary embolism. 2. Compared to 01/23/2018, there is slight increased size of a right paratracheal lymph node. Recommend attention on follow-up. 3. Stable dilated ascending aorta measuring up to 4.2 cm. Dictated and Authenticated by: Phil Fang MD. Ordering:TANVI Hooker MD
[2019-10-12 18:39] LABS: Troponin I < 0.05 ng/Ml (<0.06)
--- NOTE | 2019-10-13 09:15 | NUR.NOTE ---
Nursing Note: Per Dr. Lipscomb, I spoke with Natalia at [facility] that the patient needed follow up for enlarged lymph node. She acknowledged and I faxed all the information from both the visits from this week to the PCP. Sallie Fowler.
== END 2019-10-12 18:56 | disposition home or self-care (01) ==
PROVIDERS: Emergency Provider Emergency Medicine; PCP Nurse Practitioner Community Health
DX: R07.81 Pleurodynia (principal); R60.9 Edema, unspecified; R59.0 Localized enlarged lymph nodes; J44.9 Chronic obstructive pulmonary disease, unspecified; E11.65 Type 2 diabetes mellitus with hyperglycemia; Z79.84 Long term (current) use of oral hypoglycemic drugs; F17.210 Nicotine dependence, cigarettes, uncomplicated
CPT/HCPCS: 36415; 71275; 80053; 83690; 93005; 99285; 83880; 84484; 85025; 85610; 85730; 93010; 99284; J3490

== ENCOUNTER 2019-10-18 18:15 | Outpatient (REF) | payer SELFPAY | END 2019-10-18 18:35 | LOC: NCHCN 18:15 | PROVIDERS: PCP Nurse Practitioner Community Health; Visit Provider Nurse Practitioner Community Health | DX: R69 Illness, unspecified (principal) ==

== ENCOUNTER 2019-10-23 10:48 | Outpatient (REF) | payer SELFPAY ==
--- NOTE | 2019-10-23 09:30 | SOFT_PTH ---
PATIENT: Morro Sahni LOC: [facility] U#:[id number] AGE/SX: 59/M ROOM: RE10/23/[address]: Carley Geller MD : [id number] BED: DIS: 10/23/2019 SPEC #: [id number] RECD: 10/23/19 13:01 STATUS: NICK REEduardo #: [id number] FRANCIS: 10/23/19 09:[address]: Carley Geller DEPT: Surgical Specimen RECD BY: Chantel Moran ENTERED: 10/23/19 13:02 SP TYPE: SOFT OTHR DR: Elsa Morris Tissues: 1 - SOFT TISSUE MISC (INC. LIPOMA) Procedures: GROSS AND MICRO LEVEL 3 Comments: [id number]
== END 2019-10-23 11:08 ==
LOC: LBN 10:48
PROVIDERS: PCP Nurse Practitioner Community Health; Visit Provider Surgery
DX: D17.0 Benign lipomatous neoplasm of skin and subcutaneous tissue of head, face and neck (principal)
CPT/HCPCS: 88304

== ENCOUNTER 2019-11-08 09:05 | Emergency (ER) | payer SELFPAY ==
[2019-11-08] VITALS (30 sets, daily range): BP systolic 111–155; BP diastolic 69–100; PULSE 66–78; RESP 18; TEMP 36.7–37.1; O2SAT 88–97
--- NOTE | 2019-11-08 09:33 | ED.GENADUL_ITS ---
Discharge Plan Disposition Patient Disposition: HOME Condition: Good Discharge Details Chief Complaint: SOB Clinical Impression: Bronchitis, COPD (chronic obstructive pulmonary disease) Primary Care Provider: Elsa Morris ED Provider: Martín Hopkins Home Meds and New Rx's Prescriptions: New doxycycline hyclate 100 mg tablet 100 mg PO BID Qty: 20 RF: 0 prednisone 50 MG tablet 50 mg PO DAILY Qty: 5 RF: 0 Continued atorvastatin 20 mg tablet 20 mg PO QHS RF: 0 metformin 500 mg tablet 500 mg PO DAILY RF: 0 albuterol sulfate [ProAir HFA] 90 mcg/actuation HFA aerosol inhaler 2 puff IH Q6H PRNRF: 0 Atrovent HFA 17 mcg/actuation HFA aerosol inhaler 2 puff IH QID RF: 0 Spiriva with HandiHaler 18 mcg capsule, w/inhalation device 1 cap IH DAILY RF: 0 omeprazole 20 mg capsule,delayed release(DR/EC) 20 mg PO BID RF: 0 sertraline 100 MG tablet 150 mg PO DAILY RF: 0 trazodone 100 MG tablet 100 mg PO HS RF: 0 Xarelto 10 mg Tablet 10 mg PO DAILY RF: 0 levothyroxine 175 mcg Tablet 175 mcg PO DAILY RF: 0 tamsulosin 0.4 mg Capsule 0.8 mg PO QHS RF: 0 quetiapine 100 MG tablet 100 mg PO BID RF: 0 lamotrigine [Lamictal] 25 MG tablet 50 mg PO .QHS RF: 0 Discharge Instructions Instructions: Acute Bronchitis (ED), COPD (Chronic Obstructive Pulmonary Disease) (ED) Additional Instructions: At this time I would recommend that you follow-up tomorrow for your EGD. Please take your inhaler every 4-6 hours for the next 2 days. Please take the prednisone as directed. I do feel you have a mild COPD exacerbation. There is also concerned that there is mild bronchitis or an early pneumonia in your right lower lobe of your lungs. If you do not have improvement of your cough or symptoms over the next 24 to 48 hours please start taking the doxycycline as directed. If you notice any worsening of your symptoms, or any new symptoms such as vomiting, diarrhea, fever, chills, shortness of breath, chest pain, numbness, weakness, or fainting , please return immediately to the emergency department for reevaluation. Please follow up with your primary care provider as soon as possible for reassessment and reevaluation. As always, it was a pleasure participating in your medical care today. Referrals: Elsa Morris [Primary Care Provider] - Medical Decision Making This is a 59-year-old male with a past medical history of COPD, factor V Leiden disease, on chronic Xarelto, with chronic bolus sensation in his throat for the last month for which she has an EGD scheduled for tomorrow. Patient presents today for evaluation of mild shortness of breath and fatigue for the last 5 days. He denies any cough, fever or chills. He denies any chest pain, arm pain, neck pain or shoulder pain. He states that this does not feel similar in any way to his previous pulmonary embolism. He states that it feels similar to his previous COPD episodes. He denies any recent surgeries, procedures, or long trips. He has been taking his Xarelto every day as directed. He denies any acute change in sensation for the chronic bolus sensation. He is able to drink solids and liquids well without any significant difficulty. He has no previous cardiac disease. Physical exam is notably unremarkable, vital signs are normal. Currently the patient states clearly that right now he has no chest pain no shortness of breath at all. He states that he does want to be checked out though prior to his EGD that is scheduled tomorrow. Signs and symptoms are clinically inconsistent PE or ACS. EKG is unchanged and otherwise unremarkable. Physical exam does demonstrate evidence of a small amount of crackles and mild wheeze in the right lower lung keyes. We will get an x-ray to rule out pneumonia, give a breathing treatment and steroids for concern for COPD exacerbation, and reassess closely. With symptoms for 5 days, and no associated chest pain or previous cardiac disease symptoms are clinically inconsistent with ACS. 11:45 AM Laboratory work-up is unremarkable, chest x-ray negative for acute process per radiology, however bedside ultrasound does show B-lines in the right lower lung field with a small amount of consolidation concerning for very focal/localized mild pneumonia. The patient's hemoglobin is normal, no white count, normal electrolytes, troponin is normal, TSH normal. After 2 breathing treatments the patient is feeling much better. At this time with normal vital signs, no significant symptoms at this time, and close follow-up with an EGD scheduled tomorrow, I do feel that he can be discharged home. With no chest pain and unremarkable work-up is symptoms are inconsistent with ACS. With his regular use of Xarelto PE/DVT is inconsistent with his current symptoms. At this time I will give doxycycline for home use but recommend not taking it unless his symptoms persist or worsen the next 24 to 48 hours. Will discontinue steroids as I feel there is a component of a COPD exacerbation. I have extensively reviewed the treatment plan and discharge instructions with the patient. I have addressed all patient concerns at this time. The patient was made aware of what symptoms to monitor for that would warrant a return to the emergency department. Discussed the plan with the patient, they demonstrate verbal understanding and agreement with our assessment and plan at this time. EKG 9: 17 Rate 67, intervals normal, sinus rhythm, no significant ST elevations or depressions, nonspecific T wave flattening in lead III and aVF, less than 1 mm nonspecific elevation in V1, with no reciprocal depressions. Consistent with prior EKG on 10/12/2019. No acute changes. FINDINGS: The heart size and pulmonary vasculature are unremarkable. The lungs are clear. No pleural effusion or pneumothorax is identified. The lungs appear hyperinflated consistent with underlying COPD. Degenerative changes are seen in the spine. IMPRESSION: No acute pulmonary process. HPI General Date/Time Provider Initiated Documentation: 11/08/19 09:17 . HPI Narrative: This is a 59-year-old male with a past medical history of COPD, factor V Leiden disease, on chronic Xarelto, with chronic bolus sensation in his throat for the last month for which she has an EGD scheduled for tomorrow. Patient presents today for evaluation of mild shortness of breath and fatigue for the last 5 days. He denies any cough, fever or chills. He denies any chest pain, arm pain, neck pain or shoulder pain. He states that this does not feel similar in any way to his previous pulmonary embolism. He states that it feels similar to his previous COPD episodes. He denies any recent surgeries, procedures, or long trips. He has been taking his Xarelto every day as directed. He denies any acute change in sensation for the chronic bolus sensation. He is able to drink solids and liquids well without any significant difficulty. He has no other complaints at this time. He denies any other modifying factors. Related Data Home Medications Medication Instructions Recorded Confirmed sertraline 150 mg PO DAILY 03/27/16 11/06/19 trazodone 100 mg PO HS 08/24/16 11/06/19 lamotrigine [Lamictal] 50 mg PO .QHS 01/23/18 11/06/19 quetiapine 100 mg PO BID 01/23/18 11/06/19 Xarelto 10 mg PO DAILY 01/16/19 11/06/19 albuterol sulfate 90 mcg/actuation 2 puff IH Q6H PRN 10/10/19 11/06/19 aerosol inhaler atorvastatin 20 mg tablet 20 mg PO QHS 10/10/19 11/06/19 ipratropium bromide 17 2 puff IH QID 10/10/19 11/06/19 mcg/actuation HFA aerosol inhaler levothyroxine 175 mcg PO DAILY 10/10/19 11/06/19 metformin 500 mg tablet 500 mg PO DAILY 10/10/19 11/06/19 tamsulosin 0.8 mg PO QHS 10/10/19 11/06/19 tiotropium bromide 18 mcg capsule 1 cap IH DAILY 10/10/19 11/06/19 with inhalation device omeprazole 20 mg capsule,delayed 20 mg PO BID 10/24/19 11/06/19 release doxycycline hyclate 100 mg PO BID #20 tab 11/08/19 prednisone 50 mg PO DAILY #5 tab 11/08/19 Previous Rx's Medication Instructions Recorded doxycycline hyclate 100 mg PO BID #20 tab 11/08/19 prednisone 50 mg PO DAILY #5 tab 11/08/19 Allergies Allergy/AdvReac Type Severity Reaction Status Date / Time varenicline [From Chantix] Allergy Severe Verified 11/08/19 09:17 General Stated Complaint: SOB LORA: 3 Review of Systems All systems reviewed & are unremarkable except as noted in HPI and below PFS Medical History (Updated 11/08/19 @ 11:49 by Martín Hopkins DO) Anxiety (Chronic) Barretts esophagus (Acute) Bipolar disorder (Acute) COPD (chronic obstructive pulmonary disease) (Chronic) Depression (Chronic) Enlarged lymph nodes (Acute) Factor V Leiden (Acute) GERD (gastroesophageal reflux disease) (Chronic) History of deep vein thrombosis (Acute) Hypercholesterolemia (Acute) Hyperglycemia (Acute) Hypothyroid (Chronic) Insomnia (Acute) Metabolic syndrome (Acute) Neck pain, chronic (Acute) Neuropathy (Acute) Obesity (BMI 35.0-39.9 without comorbidity) (Acute) ROYCE (obstructive sleep apnea) (Chronic) uses device Peripheral vascular disease (Chronic) Suicide attempt (Acute) Tobacco abuse (Acute) Urgency of urination (Acute) Surgical History History of discectomy (Acute) S/P partial thyroidectomy (Acute) Social History Smoking/Tobacco Use Status: Current every day Tobacco Type: cigarettes Smoking packs per day: 1 Smoking cigarettes per day: 20.0 Alcohol Intake: former Drug use: Never Substance use type: does not use Do you feel safe at home: Yes Do you feel safe in your relationship?: Yes Exam Narrative Exam Narrative: 1.Const: Well-nourished, Well-developed, appearing stated age 2.Eyes: PERRL, no conjunctival injection, and symmetrical lids. 3.ENT: Atraumatic external nose and ears. Moist MM. Neck: Symmetric, trachea midline, No thyromegaly. 4.CVS: +S1/S2, No murmurs or gallops. Peripheral pulses 2+ and equal in all extremities. Brisk capillary refill in all extremities. 5.RESP: Unlabored respiratory effort. Clear to auscultation bilaterally. No wheezes rales or rhonchi 6.GI: Soft, Nontender/Nondistended, No hepatosplenomegaly. No guarding or rebound. 7.MSK: Normocephalic/Atraumatic, Extremities w/o deformity or ttp No cyanosis or clubbing, Normal movement of all extremities, no calf tenderness. Posterior oropharynx is nonedematous, nonswollen, with no abnormalities. No signs of airway compromise whatsoever. 8.Skin: Warm, Dry. No rashes or lesions. 9.Neuro: field account director II-XII grossly intact. Sensation grossly intact, no focal neurologic deficits. 10.Psych: (AAO) x3. Appropriate mood and affect Course Vital Signs Vital signs: Vital Signs Temperature 37.1 C 11/08/19 09:14 Pulse 68 11/08/19 09:14 Respiratory Rate 18 11/08/19 09:14 Blood Pressure 111/69 11/08/19 09:14 Pulse Oximetry 95 11/08/19 09:14 Temperature 37.1 C 11/08/19 09:14 Temperature Source Skin 11/08/19 09:14 Pulse 68 11/08/19 09:14 Respiratory Rate 18 11/08/19 09:25 Respiratory Effort 11/08/19 09:25 Respiratory Depth Normal 11/08/19 09:25 Respiratory Pattern Normal 11/08/19 09:25 Blood Pressure 111/69 11/08/19 09:14 Blood Pressure Position Supine 11/08/19 09:14 Pulse Oximetry 95 11/08/19 09:14 Oxygen Delivery Method Room Air 11/08/19 09:14 Oxygen Flow Rate 0 11/08/19 09:14
[2019-11-08] MEDS: Albuterol/Ipratropium 3 ML UPD VIAL 6 ML UPD (09:38)
[2019-11-08] MEDS: methylPREDNISolone SUCC 125 MG VIAL IVP (09:38)
[2019-11-08 09:52] LABS: Abs Immature Grans 0.04 k/cumm (0.0-0.09); Absolute Basophil Count 0.03 k/cumm (0.0-0.2); Absolute Eosinophil Count 0.21 k/cumm (0.0-0.7); Absolute Lymphocyte Count 1.65 k/cumm (1.2-3.4); Absolute Monocyte Count 0.64 k/cumm (0.11-0.7); Absolute Neutrophil Count 3.25 k/cumm (1.2-6.7); Basophils % 0.5; Eosinophils % 3.6; HCT 45.8 % (40.0-50.0); HGB 15.7 g/dL (13.5-17.5); Immature Grans % 0.7 %; Lymphocytes % 28.4; Mean Corp. HGB Concentration 34.3 g/dL (32.0-36.0); Mean Corpuscular Hemoglobin 30.6 pg (27.0-33.0); Mean Corpuscular Volume 89.3 fL (80-95); Mean Platelet Volume 9.3 fL (8.0-11.0); Neutrophils % 55.8; Platelet Count 202 x1000/uL (130-400); RBC 5.13 m/cumm (4.50-6.00); RBC Distribution Width 13.4 % (11.8-14.1); White Blood Cell Count 5.82 k/cumm (4.4-10.8)
[2019-11-08 10:12] LABS: ALT 29 U/L (16-63); AST 18 U/L (15-37); Albumin 3.7 g/dL (3.4-5.0); Alkaline Phosphatase 58 U/L (46-116); Anion Gap 6.1 mmol/L (3-11); BUN 12 mg/dL (7-18); Bilirubin, Total 0.5 mg/dL (0.2-1.0); CO2 28.9 mmol/L (21.0-32.0); Calcium 8.2 mg/dL (8.5-10.1); Chloride 101 mmol/L (98-107); Glucose 191 mg/dL (74-106); Sodium 136 mmol/L (136-145); TSH (W/Ref FT4) 1.36 uIU/mL (0.36-3.74); Total Protein 6.8 g/dL (6.4-8.2)
[2019-11-08 10:17] LABS: Troponin I < 0.05 ng/Ml (<0.06)
--- NOTE | 2019-11-08 10:27 | DI.RAD_ITS ---
EXAM: XR CHEST 2V PA LATERAL INDICATION: crackle/wheeze right lower lung keyes. COMPARISON: XR CHEST 2V PA LATERAL from 10/10/2019 TECHNIQUE: 2D digital imaging was performed. FINDINGS: The heart size and pulmonary vasculature are unremarkable. The lungs are clear. No pleural effusion or pneumothorax is identified. The lungs appear hyperinflated consistent with underlying COPD. Deg enerative changes are seen in the spine. IMPRESSION: No acute pulmonary process.
== END 2019-11-08 12:06 | disposition home or self-care (01) ==
PROVIDERS: Emergency Provider Student in an Organized Health Care Education/Training Program; PCP Nurse Practitioner Community Health
DX: J44.0 Chronic obstructive pulmonary disease with (acute) lower respiratory infection; J20.9 Acute bronchitis, unspecified; J44.1 Chronic obstructive pulmonary disease with (acute) exacerbation; R09.89 Other specified symptoms and signs involving the circulatory and respiratory systems; F17.210 Nicotine dependence, cigarettes, uncomplicated; D68.51 Activated protein C resistance; Z79.01 Long term (current) use of anticoagulants
CPT/HCPCS: 36415; 80053; 93005; 94640; 96374; 99285; 71046; 84443; 84484; 85025; 93010; J2930; J7620

== ENCOUNTER 2019-12-01 07:30 | Day surgery (SDC) | payer SELFPAY ==
--- NOTE | 2019-11-09 11:10 | PDOC.ANES ---
Date of service: 11/09/19 Time of Service: 11:11 Anesthesia Note Report Anesthesia Note: Patient seen in SDS room and discussed 11/08/2019 ER visit with patient. Informed patient that his gastroscopy would be postponed today until patient has completed dose of steroids and antibiotics prescribed and is improving from respiratory illness. Discussed case with Dr. Geller and stated that case was not emergent, and should be postponed today. Her office will reach out to the patient and reschedule the procedure. Patient verbalized understanding.
[2019-12-01 07:41] VITALS: BP 136/90; PULSE 68; RESP 16; TEMP 36.5; O2SAT 92
[2019-12-01] MEDS: Lactated Ringers 1,000 ML 80 ML IV (08:15)
--- NOTE | 2019-12-01 09:00 | W.PM.DSUDISC ---
Discharge Plan Disposition Patient Disposition: HOME Condition: Good Discharge Details Reason For Visit: Barretts esophagus Attending Provider: Carley Geller Primary Care Provider: Elsa Morris Home Meds and New Rx's Prescriptions: Continued atorvastatin 20 mg tablet 20 mg PO QHS RF: 0 metformin 500 mg tablet 500 mg PO DAILY RF: 0 albuterol sulfate [ProAir HFA] 90 mcg/actuation HFA aerosol inhaler 2 puff IH Q6H PRNRF: 0 Atrovent HFA 17 mcg/actuation HFA aerosol inhaler 2 puff IH QID RF: 0 Spiriva with HandiHaler 18 mcg capsule, w/inhalation device 1 cap IH DAILY RF: 0 omeprazole 20 mg capsule,delayed release(DR/EC) 20 mg PO BID RF: 0 sertraline 100 MG tablet 150 mg PO DAILY RF: 0 trazodone 100 MG tablet 100 mg PO HS RF: 0 Xarelto 10 mg Tablet 10 mg PO HS RF: 0 levothyroxine 175 mcg Tablet 175 mcg PO DAILY RF: 0 tamsulosin 0.4 mg Capsule 0.8 mg PO QHS RF: 0 quetiapine 100 MG tablet 100 mg PO BID RF: 0 lamotrigine [Lamictal] 25 MG tablet 50 mg PO .QHS RF: 0 doxycycline hyclate 100 mg tablet 100 mg PO BID Qty: 20 RF: 0 prednisone 50 MG tablet 50 mg PO DAILY Qty: 5 RF: 0 Discharge Instructions Additional Instructions: Findings: Your EGD showed minimal Barretts change in the esophagus. Routine biopsies were done. Follow up: Plan for a routine EGD in 3 years depending on biopsy results. Please call if you develop: fevers >101.5 Nausea or Vomiting Abdominal pain that is not transient DAY SURGERY UNIT POST EGD INSTRUCTIONS 1. Because there will be medication in your system for the next 24 hours, you may feel a little sleepy. Your coordination will be affected. Therefore: a. Do not drive or operate dangerous equipment for 24 hours. b. Do not drink alcohol beverages for 24 hours (not even beer). c. Plan to go home and rest for the day. 2. Generally there are no restrictions on your activity after a day or so has gone by, but you may feel a bit fatigued for a few days. 3 After you arrive home you may have a light meal and return to a normal diet as you can tolerate it without feeling sick to your stomach. 4. After surgery, you may feel pain or discomfort. This should be only transient, but if it persists please contact your doctor. 5. If there are any questions regarding the findings of your procedure, please feel free to contact your doctor. 6. If you are unable to contact your doctor with a problem, contact the hospital at [phone]. 7. Continue all your regular medications unless directed otherwise. I understand the above instructions and have no questions. Signature of Patient or Responsible Adult Escort Date/Time Name of Responsible Adult Escort Signature of Nurse Date/Time Activity:: Activity as Tolerated Diet:: As Tolerated Discharge Orders Discharge Orders: Discharge Order (Routine); Ordered 12/01/19 Ordered By: Carley Geller DS: Diagnosis Discharge Diagnosis (1) Barretts esophagus: Status: Acute
--- NOTE | 2019-12-01 09:17 | STOM_PTH ---
PATIENT: Morro Sahni LOC: [facility] U#:[id number] AGE/SX: 59/M ROOM: RE12/01/[address]: Carley Geller MD : [id number] BED: DIS: 12/01/2019 SPEC #: [id number] RECD: 12/01/19 11:39 STATUS: NICK REEduardo #: [id number] FRANCIS: 12/01/19 09:[address]: Carley Geller DEPT: Surgical Specimen RECD BY: Chantel Moran ENTERED: 12/01/19 11:40 SP TYPE: STOMACH OTHR DR: Elsa Morris Tissues: 1 - STOMACH BIOPSY 2 - ESOPHAGUS BIOPSY Procedures: GROSS AND MICRO LEVEL 4 Comments: [id number]
[2019-12-01 09:57] VITALS: BP 121/78; PULSE 69; RESP 18; TEMP 36.4; O2SAT 93
--- NOTE | 2019-12-01 11:41 | ENDO_ITS ---
DATE OF PROCEDURE December 01, 2019 PREOPERATIVE DIAGNOSIS History of Delaney's esophagus. POSTOPERATIVE DIAGNOSES Delaney's esophagus. PROCEDURE EGD with gastric and distal esophageal biopsies. SURGEON Carley Geller M.D. ANESTHESIA General. INDICATIONS This is 59-year-old man who had Delaney's diagnosed during an EGD in 2011. He was due for a followup. He currently denies symptoms with no significant heartburn or dysphagia. He did have a recent chest CT done to rule out PE that showed an enlarged right paratracheal lymph node. PROCEDURE DESCRIPTION The patient was placed in the left lateral decubitus position. Propofol was titrated to sedation. The scope was advanced into his esophagus under direct visualization and down into the stomach and duode num. There was no duodenitis or ulcers noted. The stomach itself showed some minimal gastritis. On retroflexed view with the fundus and lesser curvature was normal. Along the greater curvature, the re was a tiny submucosal nodule. The overlying tissue was biopsied. This was sent as gastric biopsy. The GE junction was inspected. There was one area of gastric epithelium that was located proximal to the GE junction. This covered only about a cm or two. This was the area of two or three circular depo sits near each other. This area was biopsied. Its appearance was consistent with some minimal Delaney 's change. The air was suctioned from the stomach and the scope was withdrawn with no other esophagea l lesions found. He tolerated the procedure well and was stable to Recovery. He will likely need a followup EGD in three years, but this will be based on the biopsy results.
== END 2019-12-01 10:10 | disposition home or self-care (01) ==
PROVIDERS: PCP Nurse Practitioner Community Health; Visit Provider Surgery
PROC: 0DJ68ZZ Inspection of Stomach, Via Natural or Artificial Opening Endoscopic (ICD-10-PCS; CPT 43235; principal; 2019-12-01 09:00)
DX: R91.8 Other nonspecific abnormal finding of lung field; Z87.19 Personal history of other diseases of the digestive system; K21.0 Gastro-esophageal reflux disease with esophagitis; K31.89 Other diseases of stomach and duodenum; J44.9 Chronic obstructive pulmonary disease, unspecified; G47.33 Obstructive sleep apnea (adult) (pediatric); Z99.89 Dependence on other enabling machines and devices
CPT/HCPCS: 43239; 88305; J2001; J2704

== ENCOUNTER 2020-01-16 11:05 | Outpatient (REF) | payer SELFPAY ==
[2020-01-16 19:53] LABS: TSH 0.06 uIU/mL (0.36-3.74)
== END 2020-01-16 11:25 ==
LOC: NCHCN 11:05
PROVIDERS: PCP Nurse Practitioner Community Health; Visit Provider Nurse Practitioner Community Health
DX: E03.9 Hypothyroidism, unspecified (principal)
CPT/HCPCS: 84443

== ENCOUNTER 2020-02-08 11:26 | Observation (INO) | payer SELFPAY ==
[2020-02-08] VITALS (48 sets, daily range): BP systolic 118–147; BP diastolic 56–88; PULSE 64–90; RESP 9–22; TEMP 36.7–37.6; O2SAT 90–97
[2020-02-08] MEDS: Normal Saline 1,000 ML 125 ML IV ×2 (11:41→21:10)
[2020-02-08] MEDS: Normal Saline Flush 10 ML SYR IVP (11:41)
--- NOTE | 2020-02-08 11:45 | DI.CT_ITS ---
EXAM: CT CHEST PE CTA CLINICAL HISTORY: Chest pain right, shortness of breath, factor V. TECHNIQUE: Imaging Protocol: Axial CT angiography was performed with multi-slice acquisition and mu lti-planar and/or 3D reconstructions. CONTRAST MATERIAL: Intravenous: Omnipaque 350 Contrast volume:100 cc COMPARISON: CT CHEST WITH CONTRAST from 04/10/[address] CHEST PE CTA from 10/12/2019 FINDINGS: Pulmonary Arteries: No evidence of filling defect to suggest pulmonary emboli. Tracheobronchial tree: Patent where visualized. Mediastinum and Lilia: Stable 3 centimeter right paratracheal lymph node mildly enlarged hilar lymph n odes. Pulmonary parenchyma: No consolidation or dominant measurable mass. Mild emphysematous changes.. Pleura: No effusion or pneumothorax. Heart: The heart is not dilated. No coronary artery calcifications are seen. Aorta: Thoracic aorta non-dilated. [id number] calcification. Upper abdomen: Unremarkable. Bones: Mild degenerative changes in the thoracic spine. IMPRESSION: No evidence of pulmonary embolism. No acute abnormality. RADIATION DOSE DELIVERED: Total DLP DATA REPOSITORY: All CT scans at this facility are submitted to the National Radiology Data Registry (NRDR) Dose Index Registry (DIR) with the [employer] (A[employer]). RADIATION OPTIMIZATION: All CT scans at this facility use at least one of these dose optimization te chniques: automated exposure control; mA and/or kV adjustment per patient size (includes targeted exa ms where dose is matched to clinical indication); or iterative reconstruction.
--- NOTE | 2020-02-08 11:52 | ED.GENADUL_ITS ---
Discharge Plan Disposition Patient Disposition: HOME Condition: Serious Discharge Details Chief Complaint: Chest Pain Clinical Impression: Chest pain, Shortness of breath Primary Care Provider: Elsa Morris ED Provider: Chin Hdez Home Meds and New Rx's Prescriptions: No Action atorvastatin 20 mg tablet 20 mg PO QHS RF: 0 metformin 500 mg tablet 500 mg PO DAILY RF: 0 albuterol sulfate [ProAir HFA] 90 mcg/actuation HFA aerosol inhaler 2 puff IH Q6H PRNRF: 0 Atrovent HFA 17 mcg/actuation HFA aerosol inhaler 2 puff IH QID RF: 0 Spiriva with HandiHaler 18 mcg capsule, w/inhalation device 1 cap IH DAILY RF: 0 omeprazole 20 mg capsule,delayed release(DR/EC) 20 mg PO BID RF: 0 sertraline 100 MG tablet 150 mg PO DAILY RF: 0 trazodone 100 MG tablet 100 mg PO HS RF: 0 Xarelto 10 mg Tablet 10 mg PO HS RF: 0 levothyroxine 175 mcg Tablet 175 mcg PO DAILY RF: 0 tamsulosin 0.4 mg Capsule 0.8 mg PO QHS RF: 0 quetiapine 100 MG tablet 100 mg PO BID RF: 0 lamotrigine [Lamictal] 25 MG tablet 50 mg PO .QHS RF: 0 Medical Decision Making 12:00 --60-year-old male with multiple medical problems including multiple risk factors for coronary artery disease, factor V Leiden deficiency, on Xarelto, here with intermittent chest discomfort over the past couple weeks, worse this morning with associated shortness of breath. Patient is hemodynamically stable. Consider ACS. Screening ECG was reviewed and interpreted by me: Sinus rhythm 84 bpm, normal axis, no STEMI, subtle ST depressions are noted V4 to V6, these were present although somewhat less pronounced on prior ECG 11/08/2019. Initial troponin is negative. Consider pulmonary embolism. CT is pending. 2:00 -- CT chest was interpreted by radiology:IMPRESSION: No evidence of pulmonary embolism. No acute abnormality. 2:06 -- I spoke with the hospitalist on-call, no call [place] [employer], discussed ED presentation and course including diagnostic results. Plan will be for hospitalization given risk factors for ACS, plan to trend troponins. Care transition to [employer] Alc[facility]. Lab Data Lab results reviewed: Yes I reviewed the patient's lab results. HPI General Mode of arrival: ambulatory . Date/Time Provider Initiated Documentation: 02/08/20 11:31 . Limitations to Documentation: no limitations . Information obtained by: patient . HPI Narrative: 60-year-old male with history of factor V Leiden deficiency, on Xarelto, multiple other medical problems including COPD, GERD, obesity, smoking, metabolic syndrome, hyperglycemia, hypercholesterolemia, here with chief complaint of chest discomfort. Patient notes intermittent chest discomfort described as shortness of breath and tightness in his chest. Symptoms were much worse earlier today. He continues to have mild tight sensation right parasternal chest. He continues to have associated mild shortness of breath. He does note that he had low-grade fever of 99 ?F yesterday. He has chronic unchanged smoker's cough . No recent long distance travel. No known sick contacts related to COVID-19 illness. Patient states he has been taking his Xarelto as prescribed. Related Data Home Medications Medication Instructions Recorded Confirmed sertraline 150 mg PO DAILY 03/27/16 02/08/20 trazodone 100 mg PO HS 08/24/16 02/08/20 lamotrigine [Lamictal] 50 mg PO .QHS 01/23/18 02/08/20 quetiapine 100 mg PO BID 01/23/18 02/08/20 Xarelto 10 mg PO HS 01/16/19 02/08/20 albuterol sulfate 90 mcg/actuation 2 puff IH Q6H PRN 10/10/19 02/08/20 aerosol inhaler atorvastatin 20 mg tablet 20 mg PO QHS 10/10/19 02/08/20 ipratropium bromide 17 2 puff IH QID 10/10/19 02/08/20 mcg/actuation HFA aerosol inhaler levothyroxine 175 mcg PO DAILY 10/10/19 02/08/20 metformin 500 mg tablet 500 mg PO DAILY 10/10/19 02/08/20 tamsulosin 0.8 mg PO QHS 10/10/19 02/08/20 tiotropium bromide 18 mcg capsule 1 cap IH DAILY 10/10/19 02/08/20 with inhalation device omeprazole 20 mg capsule,delayed 20 mg PO BID 10/24/19 02/08/20 release Allergies Allergy/AdvReac Type Severity Reaction Status Date / Time varenicline [From Chantix] Allergy Severe Verified 12/01/19 07:54 General Stated Complaint: Chest Pain LORA: 2 Review of Systems All systems reviewed & are unremarkable except as noted in HPI and below Constitutional Constitutional: Denies fever(s) Cardiovascular Cardiovascular: Reports chest pain and Reports dyspnea Respiratory Respiratory: Reports dyspnea Gastrointestinal Gastrointestinal: Reports nausea and Denies vomiting [facility] Medical History Anxiety (Chronic) Barretts esophagus (Acute) Bipolar disorder (Acute) COPD (chronic obstructive pulmonary disease) (Chronic) Depression (Chronic) Enlarged lymph nodes (Acute) Factor V Leiden (Acute) GERD (gastroesophageal reflux disease) (Chronic) History of deep vein thrombosis (Acute) Hypercholesterolemia (Acute) Hyperglycemia (Acute) Hypothyroid (Chronic) Insomnia (Acute) Metabolic syndrome (Acute) Neck pain, chronic (Acute) Neuropathy (Acute) Obesity (BMI 35.0-39.9 without comorbidity) (Acute) ROYCE (obstructive sleep apnea) (Chronic) uses device Peripheral vascular disease (Chronic) Prediabetes (Acute) Suicide attempt (Acute) Tobacco abuse (Acute) Urgency of urination (Acute) Surgical History History of discectomy (Acute) c5-c6 S/P partial thyroidectomy (Acute) pt. states this is a total thyroidectomy Social History Smoking/Tobacco Use Status: Current every day Tobacco Type: cigarettes Smoking packs per day: 1 Smoking cigarettes per day: 20.0 Tobacco: How many years used: 45 Alcohol Intake: former Drug use: Never Substance use type: does not use Do you feel safe at home: Yes Do you feel safe in your relationship?: Yes Exam Const General: cooperative and no acute distress HENMT Head: normocephalic Mouth: moist mucous membranes Eyes Conjunctivae: normal conjunctivae Sclera: normal sclerae Neck Neck: trachea midline and supple Resp Auscultation: clear to auscultation bilaterally, no rales, no rhonchi and no wheezes Cardio Jugular venous pressure: no JVD Rate: regular rate and not tachycardic Rhythm: regular rhythm GI Palpation: soft, not firm, no guarding, no masses, not rigid and nontender Skin General skin exam: no rashes or lesions noted Neuro General: patient alert, patient awake and tone normal Extrem General: no calf tenderness and no edema Psych Appearance: grossly normal Mental Status: mental status grossly normal Course Vital Signs Vital signs: Vital Signs Temperature 37.4 C 02/08/20 11:33 Pulse 85 02/08/20 11:33 Respiratory Rate 16 02/08/20 11:33 Blood Pressure 140/87 02/08/20 11:33 Pulse Oximetry 94 L 02/08/20 11:33 Temperature 37.4 C 02/08/20 11:33 Temperature Source Tympanic 02/08/20 11:33 Pulse 85 02/08/20 11:33 Respiratory Rate 16 02/08/20 11:33 Respiratory Effort Short of Breath 02/08/20 11:36 Blood Pressure 140/87 02/08/20 11:33 Blood Pressure Position Sitting 02/08/20 11:33 Pulse Oximetry 94 L 02/08/20 11:33 Oxygen Delivery Method Room Air 02/08/20 11:33 Oxygen Flow Rate 0 02/08/20 11:33 Pain Level 6 02/08/20 11:33
[2020-02-08 12:04] LABS: Abs Immature Grans 0.06 k/cumm (0.0-0.09); Absolute Basophil Count 0.03 k/cumm (0.0-0.2); Absolute Eosinophil Count 0.13 k/cumm (0.0-0.7); Absolute Lymphocyte Count 1.72 k/cumm (1.2-3.4); Absolute Monocyte Count 0.68 k/cumm (0.11-0.7); Absolute Neutrophil Count 4.97 k/cumm (1.2-6.7); Basophils % 0.4; Eosinophils % 1.7; HCT 45.4 % (40.0-50.0); HGB 15.9 g/dL (13.5-17.5); Immature Grans % 0.8 %; Lymphocytes % 22.7; Mean Corpuscular Hemoglobin 31.2 pg (27.0-33.0); Mean Corpuscular Volume 89.2 fL (80-95); Mean Platelet Volume 9.6 fL (8.0-11.0); Neutrophils % 65.4; Platelet Count 228 x1000/uL (130-400); RBC 5.09 m/cumm (4.50-6.00); RBC Distribution Width 13.2 % (11.8-14.1); White Blood Cell Count 7.59 k/cumm (4.4-10.8)
[2020-02-08 12:16] LABS: PTT Activated 24.7 sec (21.0-31.4); Prothrombin Time 10.2 sec (9.3-11.0)
[2020-02-08 12:21] LABS: ALT 37 U/L (16-63); AST 19 U/L (15-37); Albumin 3.7 g/dL (3.4-5.0); Alkaline Phosphatase 64 U/L (46-116); Anion Gap 9.1 mmol/L (3-11); BUN 18 mg/dL (7-18); Bilirubin, Total 0.4 mg/dL (0.2-1.0); CO2 25.9 mmol/L (21.0-32.0); CREATININE 1.07 mg/dL (0.70-1.30); Calcium 8.8 mg/dL (8.5-10.1); Chloride 98 mmol/L (98-107); Glucose 202 mg/dL (74-106); Magnesium 1.8 mg/dL (1.8-2.4); Potassium 4.1 mmol/L (3.5-5.1); Sodium 133 mmol/L (136-145); Total Protein 7.1 g/dL (6.4-8.2)
[2020-02-08 12:24] LABS: Troponin I < 0.05 ng/Ml (<0.06)
[2020-02-08] MEDS: Omnipaque 350 MG/ML 100 ML BTL IJ (12:53)
[2020-02-08] MEDS: Normal Saline - Diluent 50 ML VIAL IV (12:54)
--- NOTE | 2020-02-08 15:26 | HPE_ITS ---
Date of service: 02/08/20 Time of Service: 15:26 Assessment and Plan Assessment and plan (1) Chest pain: Status: Acute Assessment and plan: will refer to observation, first troponin negative, will cycle. place on telemetry. continue statin. cardiology referral, may be outpatient if not available while here. (2) COPD (chronic obstructive pulmonary disease): Status: Chronic Assessment and plan: stable. continue home inhalers. overnight oximetry, concern for ROYCE with history of fatigue and snoring that wakes me up (3) Barretts esophagus: Status: Acute Assessment and plan: continue omeprazole. Qualifiers: Delaney's esophagus type: without dysplasia Qualified Code(s): K22.70 - Delaney's esophagus without dysplasia (4) Hypothyroid: Status: Chronic Assessment and plan: last TSH January 2020 0.06 (5) Hypercholesterolemia: Status: Acute Assessment and plan: continue statin (6) Factor V Leiden: Status: Acute Assessment and plan: on xarelto, continue History of Present Illness History of Present Illness Chief Complaint: chest pain Review of Systems Constitutional Constitutional: Reports fatigue and Reports lethargy Eyes Eyes: Denies change in vision ENT Ears, Nose, Mouth, and Throat: Denies vertigo and Denies dizziness Cardiovascular Cardiovascular: Reports chest pain (right sided, no aleviating or aggravating factors identified) and Reports dyspnea (associated with cp) Respiratory Respiratory: Denies cough, Reports dyspnea (associated with cp) and Denies wheezing Gastrointestinal Gastrointestinal: Denies abdominal pain Genitourinary Genitourinary: Denies dysuria Musculoskeletal Musculoskeletal: Denies back pain and Denies myalgias Integumentary/Breasts Skin/Breast: Denies new lesions Neurologic Neurologic: Denies confusion, Denies vertigo and Denies dizziness Psychiatric Psychiatric: Denies confusion Endocrine Endocrine: Reports fatigue Allergic/Immunologic Allergic/Immunologic: Denies wheezing [facility] Medical History Anxiety (Chronic) Barretts esophagus (Acute) Bipolar disorder (Acute) COPD (chronic obstructive pulmonary disease) (Chronic) Depression (Chronic) Enlarged lymph nodes (Acute) Factor V Leiden (Acute) GERD (gastroesophageal reflux disease) (Chronic) History of deep vein thrombosis (Acute) Hypercholesterolemia (Acute) Hyperglycemia (Acute) Hypothyroid (Chronic) Insomnia (Acute) Metabolic syndrome (Acute) Neck pain, chronic (Acute) Neuropathy (Acute) Obesity (BMI 35.0-39.9 without comorbidity) (Acute) ROYCE (obstructive sleep apnea) (Chronic) uses device Peripheral vascular disease (Chronic) Prediabetes (Acute) Suicide attempt (Acute) Tobacco abuse (Acute) Urgency of urination (Acute) Surgical History History of discectomy (Acute) c5-c6 S/P partial thyroidectomy (Acute) pt. states this is a total thyroidectomy Social History Smoking/Tobacco Use Status: Current every day Tobacco Type: cigarettes Smoking packs per day: 1 Smoking cigarettes per day: 20.0 Tobacco: How many years used: 45 Alcohol Intake: former Drug use: Never Substance use type: does not use Do you feel safe at home: Yes Do you feel safe in your relationship?: Yes Meds Home Medications and Allergies Home Medications Medication Instructions Recorded Confirmed Type sertraline 150 mg PO DAILY 03/27/16 02/08/20 History trazodone 100 mg PO HS 08/24/16 02/08/20 History lamotrigine [Lamictal] 50 mg PO .QHS 01/23/18 02/08/20 History quetiapine 100 mg PO BID 01/23/18 02/08/20 History Xarelto 10 mg PO HS 01/16/19 02/08/20 History albuterol sulfate 90 mcg/actuation 2 puff IH Q6H PRN 10/10/19 02/08/20 History aerosol inhaler atorvastatin 20 mg tablet 20 mg PO QHS 10/10/19 02/08/20 History ipratropium bromide 17 2 puff IH QID 10/10/19 02/08/20 History mcg/actuation HFA aerosol inhaler levothyroxine 175 mcg PO DAILY 10/10/19 02/08/20 History metformin 500 mg tablet 500 mg PO DAILY 10/10/19 02/08/20 History tamsulosin 0.8 mg PO QHS 10/10/19 02/08/20 History tiotropium bromide 18 mcg capsule 1 cap IH DAILY 10/10/19 02/08/20 History with inhalation device omeprazole 20 mg capsule,delayed 20 mg PO BID 10/24/19 02/08/20 History release Allergies Allergy/AdvReac Type Severity Reaction Status Date / Time varenicline [From Chantix] Allergy Severe Verified 12/01/19 07:54 Exam Const General: cooperative, healthy appearing, comfortable and no acute distress Nutritional Appearance: obese HENMT Head: normal to inspection, normocephalic and atraumatic Mouth: oral mucosae normal Resp Effort & Inspection: normal respiratory effort Auscultation: rales bilaterally at the base Cardio Rate: regular rate Rhythm: regular rhythm GI Inspection: distended and obesity Palpation: soft Auscultation: normal bowel sounds Neuro General: patient alert, patient awake and patient oriented x3 Results Labs Result diagrams: 02/08/20 11:40 02/08/20 11:40 Labs: Laboratory Results - last 24 hr 02/08/20 02/08/20 02/08/20 11:40 11:40 11:40 WBC 7.59 RBC 5.09 Hgb 15.9 Hct 45.4 MCV 89.2 MCH 31.2 MCHC 35.0 RDW 13.2 Plt Count 228 MPV 9.6 Immature Gran % 0.8 Neutrophils % 65.4 Lymphocytes % 22.7 Monocytes % 9.0 Eosinophils % 1.7 Basophils % 0.4 Absolute Neutrophils 4.97 Absolute Lymphocytes 1.72 Absolute Monocytes 0.68 Absolute Eosinophils 0.13 Absolute Basophils 0.03 PT 10.2 INR 1.0 APTT 24.7 Sodium 133 L Potassium 4.1 Chloride 98 Carbon Dioxide 25.9 Anion Gap 9.1 BUN 18 Creatinine 1.07 Estimated GFR/1.73 m2 >= 60.00 Glucose 202 H Calcium 8.8 Magnesium 1.8 Total Bilirubin 0.4 AST 19 ALT 37 Alkaline Phosphatase 64 Troponin I < 0.05 Total Protein 7.1 Albumin 3.7 Last Vital Signs Temp 37.6 C H 02/08/20 13:14 Pulse 64 02/08/20 15:00 Resp 14 02/08/20 15:10 BP 133/83 02/08/20 15:00 Pulse Ox 95 02/08/20 15:10 COVID-19 Screening Traveled to [place] from one of the affected countries or regions?: NO Recent travel in the [place] within the last 14 days?: No Recent out of the country travel within the last 14 days?: No Exposure or possible exposure to illness during travel?: No Had IN PERSON contact w/suspected or confirmed C-19 person: No Have you had the following symptoms in the past few days?: Yes Symptoms noted since travel?: Fever Medical treatment received for symptoms/illness related to travel?: fever yesterday at home - no otc medications states smokers cough without change
[2020-02-08 18:04] LABS: Troponin I < 0.05 ng/Ml (<0.06)
[2020-02-08] MEDS: QUEtiapine 100 MG TAB PO (21:08)
[2020-02-08] MEDS: Varenicline 1 MG TAB PO (21:08)
[2020-02-08] MEDS: Rivaroxaban 10 MG TABLET PO (21:08)
[2020-02-08] MEDS: Tamsulosin 0.4 MG CAPCR 0.8 MG PO (21:08)
[2020-02-08] MEDS: diphenhydrAMINE 25 MG CAP PO (21:09)
[2020-02-08] MEDS: Omeprazole 20 MG CAPCR PO (21:09)
[2020-02-08] MEDS: lamoTRIgine 25 MG TAB 50 MG PO (21:09)
[2020-02-08] MEDS: Atorvastatin 20 MG TAB PO (21:10)
[2020-02-08] MEDS: traZODone 100 MG TAB PO (21:10)
[2020-02-09 03:00] VITALS: BP 121/87; PULSE 67; RESP 18; TEMP 36.3; O2SAT 89
[2020-02-09] MEDS: Normal Saline 1,000 ML 125 ML IV (05:05)
[2020-02-09 06:48] LABS: Abs Immature Grans 0.05 k/cumm (0.0-0.09); Absolute Basophil Count 0.02 k/cumm (0.0-0.2); Absolute Eosinophil Count 0.24 k/cumm (0.0-0.7); Absolute Monocyte Count 0.67 k/cumm (0.11-0.7); Absolute Neutrophil Count 3.71 k/cumm (1.2-6.7); Basophils % 0.3; Eosinophils % 3.5; HCT 43.9 % (40.0-50.0); HGB 15.2 g/dL (13.5-17.5); Immature Grans % 0.7 %; Lymphocytes % 31.9; Mean Corp. HGB Concentration 34.6 g/dL (32.0-36.0); Mean Corpuscular Volume 89.4 fL (80-95); Mean Platelet Volume 9.6 fL (8.0-11.0); Monocytes % 9.7; Neutrophils % 53.9; Platelet Count 216 x1000/uL (130-400); RBC 4.91 m/cumm (4.50-6.00); RBC Distribution Width 13.2 % (11.8-14.1); White Blood Cell Count 6.89 k/cumm (4.4-10.8)
[2020-02-09 07:14] LABS: Anion Gap 5.9 mmol/L (3-11); BUN 12 mg/dL (7-18); CO2 29.1 mmol/L (21.0-32.0); CREATININE 0.93 mg/dL (0.70-1.30); Calcium 7.9 mg/dL (8.5-10.1); Chloride 103 mmol/L (98-107); Glucose 113 mg/dL (74-106); Potassium 4.2 mmol/L (3.5-5.1); Sodium 138 mmol/L (136-145)
[2020-02-09 07:15] VITALS: BP 108/71; PULSE 67; RESP 17; TEMP 36.1; O2SAT 94
[2020-02-09 07:15] LABS: Troponin I < 0.05 ng/Ml (<0.06)
[2020-02-09] MEDS: Tiotropium Bromide-Respimat 10 PUFF INH IH (07:56)
[2020-02-09 08:24] LABS: COVID-19 RT-PCR UVMMC Result Negative (Negative)
[2020-02-09] MEDS: Levothyroxine 175 MCG TAB PO (08:25)
[2020-02-09] MEDS: Sertraline 50 MG TAB 150 MG PO (08:25)
[2020-02-09] MEDS: Varenicline 1 MG TAB PO (08:25)
[2020-02-09] MEDS: QUEtiapine 100 MG TAB PO (08:25)
[2020-02-09] MEDS: Omeprazole 20 MG CAPCR PO (08:25)
[2020-02-09] MEDS: metFORMIN 500 MG TAB PO (08:25)
[2020-02-09] MEDS: Metoprolol 12.5 MG TAB PO (09:12)
--- NOTE | 2020-02-09 10:37 | DSE_ITS ---
DS: Diagnosis Discharge Diagnosis (1) Chest pain: Start date: 02/09/20 Start time: 10:38 Status: Acute Asessment and Plan: Cardiology unavailable at this time. CP has stopped, Teley revealing SR in 60-90's. trops have been flat negative Will need outpatient studies for Echo, Stress and Sleep study to evaluate for CPAP need. Currently on xaralto for factor v, could benefit from ASA will defer to cardiology if they want patient to take asa. Will start low dose BB as this has been proven to help prevent cardiac events. Will need follow up on dosage and any potential side effects, this was discussed with patient. (2) COPD (chronic obstructive pulmonary disease): Start date: 02/09/20 Start time: 10:39 Status: Chronic Asessment and Plan: Not exacerbated at this time continue current regimen, overnight oximetery with 18 event and 87.9 average oxygen level, will need Sleep study patient would benefit from CPAP (3) Barretts esophagus: Start date: 02/09/20 Start time: 10:40 Status: Acute Asessment and Plan: continue omeprazole (4) Hypothyroid: Start date: 02/09/20 Start time: 10:42 Status: Chronic Asessment and Plan: last Tsh 0.06 (5) Hypercholesterolemia: Start date: 02/09/20 Start time: 10:42 Status: Acute Asessment and Plan: continue statin (6) Factor V Leiden: Start date: 02/09/20 Start time: 10:43 Status: Acute Asessment and Plan: Continue xaralto Above case discussed with Dr. Machado who is in agreement. Discharge Plan Disposition Patient Disposition: HOME Condition: Stable Discharge Details Chief Complaint: Chest Pain Clinical Impression: Chest pain, Shortness of breath Reason For Visit: CHEST PAIN Admit Date/Time: 02/08/20 14:07 Admit Provider: James Machado Attending Provider: James Machado Primary Care Provider: Elsa Morris ED Provider: Chin Hdez Hospital Course Hospital Course: 60 y.o male with PMH of hypothyroid, hyperlipidemia, Factor V on xaralto, COPD, Barretts esophagus, admitted to [facility] after presenting to ED with here with intermittent chest discomfort over the past couple weeks, worse the morning of admission with associated shortness of breath. Patient is hemodynamically stable. Labs in the ED unremarkable, CT with no PE, no acute abnormality. Troponins negative. Patient was admitted to hospital medicine for further management. Over the course, CP was gone. Telemetry revealing SR with 60-90's rate. Cardiology unavailable today, therefore with negative flat trops and no chest pain it is reasonable he have outpatient stress and Echo. Also start on BB, continue xaralto, continue statin add BB low dose. He did have an overnight sleep study to evaluate for possible sleep apnea. He had 18 events with average SPO2 of 87.9%. He will need an outpatient sleep study for CPAP. He denies CP, SOB NVD. Home Meds and New Rx's Prescriptions: New metoprolol tartrate [Lopressor] 50 mg tablet 12.5 mg PO DAILY Qty: 14 RF: 0 Continued atorvastatin 20 mg tablet 20 mg PO QHS RF: 0 metformin 500 mg tablet 500 mg PO DAILY RF: 0 albuterol sulfate [ProAir HFA] 90 mcg/actuation HFA aerosol inhaler 2 puff IH Q6H PRNRF: 0 Atrovent HFA 17 mcg/actuation HFA aerosol inhaler 2 puff IH QID RF: 0 Spiriva with HandiHaler 18 mcg capsule, w/inhalation device 1 cap IH DAILY RF: 0 omeprazole 20 mg capsule,delayed release(DR/EC) 20 mg PO BID RF: 0 sertraline 100 MG tablet 150 mg PO DAILY RF: 0 trazodone 100 MG tablet 100 mg PO HS RF: 0 Xarelto 10 mg Tablet 10 mg PO HS RF: 0 tamsulosin 0.4 mg Capsule 0.8 mg PO QHS RF: 0 quetiapine 100 MG tablet 100 mg PO BID RF: 0 lamotrigine [Lamictal] 25 MG tablet 50 mg PO .QHS RF: 0 No Action levothyroxine 175 mcg Tablet 175 mcg PO DAILY RF: 0 Discharge Instructions Instructions: Chest Pain (GEN), Sleep Apnea (GEN) Additional Instructions: Follow up with PCP in 1 week Follow up with Cardiology in 1-2 weeks Outpatient sleep study, echo and stress test recommended You have been started on low dose metoprolol which is a beta todd, shown to have positive effects in heart disease, follow up regarding dosing increasing and side effects. This can affect your heart rate and blood pressure, if you feel dizzy or lightheaded, consult your primary immediately. Overnight sleep study revealed you would benefit from a CPAP for sleep apnea, follow up for sleep study to obtain CPAP machine. Stand Alone Forms: Nursing Discharge Form Activity:: Activity as Tolerated Equipment/Supplies:: No Equipment Needed Diet:: Carb Counting Discharge Orders Discharge Orders: Discharge Order (Routine); Ordered 02/09/20 Ordered By: Alondra Triana DS: Summary Status at Discharge Functional status at discharge: independent ambulation Overall status at discharge: patient is back to baseline Mental Status: mental status grossly normal Speech and Movement: speech and movement normal Mood: congruent mood Affect: normal affect Exam Const General: cooperative, healthy appearing, comfortable and no acute distress Nutritional Appearance: obese HENMT Head: normal to inspection, normocephalic and atraumatic Mouth: oral mucosae normal Resp Effort & Inspection: normal respiratory effort Auscultation: rales bilaterally at the base Cardio Rate: regular rate Rhythm: regular rhythm GI Inspection: distended and obesity Palpation: soft Auscultation: normal bowel sounds Neuro General: patient alert, patient awake and patient oriented x3 Psych Mental Status: mental status grossly normal Speech and Movement: speech and movement normal Mood: congruent mood Affect: normal affect DS: Data Vitals/I&O Vitals and I&O: Vital Signs Temperature 36.1 C L 02/09/20 07:15 Temperature Source Tympanic 02/09/20 07:15 Pulse 67 02/09/20 07:15 Pulse Rhythm Regular 02/09/20 03:00 Pulse 66 02/08/20 15:10 Respiratory Rate 17 02/09/20 07:15 Respiratory Effort Non-Labored 02/09/20 03:00 Respiratory Depth Normal 02/09/20 03:00 Respiratory Pattern Normal 02/09/20 03:00 Blood Pressure 108/71 02/09/20 07:15 Blood Pressure Mean 95 02/08/20 15:00 Blood Pressure Position Sitting 02/08/20 11:33 Pulse Oximetry 94 L 02/09/20 07:15 Oxygen Delivery Method Nasal Cannula 02/09/20 07:15 Oxygen Flow Rate 1 02/09/20 07:15 Pain Level 0 02/09/20 07:15 Comment RN notified 02/08/20 22:50 Intake & Output 02/08/20 02/08/20 02/09/20 11:59 23:59 11:59 Intake Total 1400 / 1400 1469.583 / 1469.583 Output Total 825 / 825 Balance 575 / 575 1469.583 / 1469.583 Weight 117.934 kg 117.934 kg 120.9 kg Intake: IV 1000 / 1000 989.583 / 989.583 Oral 400 / 400 480 / 480 Output: Urine 825 / 825 Other: Comment voiding independently. Data Completed and Pending Completed studies during hospitalization [Text1]: Exam(s) a CT:CT chest PE CTA EXAM: CT CHEST PE CTA CLINICAL HISTORY: Chest pain right, shortness of breath, factor V. TECHNIQUE: Imaging Protocol: Axial CT angiography was performed with multi- slice acquisition and multi-planar and/or 3D reconstructions. CONTRAST MATERIAL: Intravenous: Omnipaque 350 Contrast volume:100 cc COMPARISON: CT CHEST WITH CONTRAST from 04/10/[address] CHEST PE CTA from 10/12/2019 FINDINGS: Pulmonary Arteries: No evidence of filling defect to suggest pulmonary emboli. Tracheobronchial tree: Patent where visualized. Mediastinum and Lilia: Stable 3 centimeter right paratracheal lymph node mildly enlarged hilar lymph nodes. Pulmonary parenchyma: No consolidation or dominant measurable mass. Mild emphysematous changes.. Pleura: No effusion or pneumothorax. Heart: The heart is not dilated. No coronary artery calcifications are seen. Aorta: Thoracic aorta non-dilated. Isan-hf-gdhmosat calcification. Upper abdomen: Unremarkable. Bones: Mild degenerative changes in the thoracic spine. IMPRESSION: No evidence of pulmonary embolism. No acute abnormality. Labs on day of discharge: Labs from last 24 hours 02/09/20 02/09/20 02/08/20 06:10 06:10 15:35 WBC 6.89 RBC 4.91 Hgb 15.2 Hct 43.9 MCV 89.4 MCH 31.0 MCHC 34.6 RDW 13.2 Plt Count 216 MPV 9.6 Immature Gran % 0.7 Neutrophils % 53.9 Lymphocytes % 31.9 Monocytes % 9.7 Eosinophils % 3.5 Basophils % 0.3 Absolute Neutrophils 3.71 Absolute Lymphocytes 2.20 Absolute Monocytes 0.67 Absolute Eosinophils 0.24 Absolute Basophils 0.02 PT INR APTT Sodium 138 Potassium 4.2 Chloride 103 Carbon Dioxide 29.1 Anion Gap 5.9 BUN 12 D Creatinine 0.93 Estimated GFR/1.73 m2 >= 60.00 Glucose 113 H D Calcium 7.9 L Magnesium Total Bilirubin AST ALT Alkaline Phosphatase Troponin I < 0.05 < 0.05 Total Protein Albumin COVID-19 PCR Nasopharyn COVID-19 PCR Ref Test Perform Site 02/08/20 02/08/20 02/08/20 14:40 11:40 11:40 WBC 7.59 RBC 5.09 Hgb 15.9 Hct 45.4 MCV 89.2 MCH 31.2 MCHC 35.0 RDW 13.2 Plt Count 228 MPV 9.6 Immature Gran % 0.8 Neutrophils % 65.4 Lymphocytes % 22.7 Monocytes % 9.0 Eosinophils % 1.7 Basophils % 0.4 Absolute Neutrophils 4.97 Absolute Lymphocytes 1.72 Absolute Monocytes 0.68 Absolute Eosinophils 0.13 Absolute Basophils 0.03 PT 10.2 INR 1.0 APTT 24.7 Sodium Potassium Chloride Carbon Dioxide Anion Gap BUN Creatinine Estimated GFR/1.73 m2 Glucose Calcium Magnesium Total Bilirubin AST ALT Alkaline Phosphatase Troponin I Total Protein Albumin COVID-19 PCR Negative Nasopharyn COVID-19 PCR Not Applicable Ref Test Perform Site [facility] lab 02/08/20 11:40 WBC RBC Hgb Hct MCV MCH MCHC RDW Plt Count MPV Immature Gran % Neutrophils % Lymphocytes % Monocytes % Eosinophils % Basophils % Absolute Neutrophils Absolute Lymphocytes Absolute Monocytes Absolute Eosinophils Absolute Basophils PT INR APTT Sodium 133 L Potassium 4.1 Chloride 98 Carbon Dioxide 25.9 Anion Gap 9.1 BUN 18 Creatinine 1.07 Estimated GFR/1.73 m2 >= 60.00 Glucose 202 H Calcium 8.8 Magnesium 1.8 Total Bilirubin 0.4 AST 19 ALT 37 Alkaline Phosphatase 64 Troponin I < 0.05 Total Protein 7.1 Albumin 3.7 COVID-19 PCR Nasopharyn COVID-19 PCR Ref Test Perform Site [facility] Medical History Anxiety (Chronic) Barretts esophagus (Acute) Bipolar disorder (Acute) COPD (chronic obstructive pulmonary disease) (Chronic) Depression (Chronic) Enlarged lymph nodes (Acute) Factor V Leiden (Acute) GERD (gastroesophageal reflux disease) (Chronic) History of deep vein thrombosis (Acute) Hypercholesterolemia (Acute) Hyperglycemia (Acute) Hypothyroid (Chronic) Insomnia (Acute) Metabolic syndrome (Acute) Neck pain, chronic (Acute) Neuropathy (Acute) Obesity (BMI 35.0-39.9 without comorbidity) (Acute) ROYCE (obstructive sleep apnea) (Chronic) uses device Peripheral vascular disease (Chronic) Prediabetes (Acute) Suicide attempt (Acute) Tobacco abuse (Acute) Urgency of urination (Acute) Surgical History History of discectomy (Acute) c5-c6 S/P partial thyroidectomy (Acute) pt. states this is a total thyroidectomy Social History Smoking/Tobacco Use Status: Current every day Tobacco Type: cigarettes Smoking packs per day: 1 Smoking cigarettes per day: 20.0 Tobacco: How many years used: 45 Alcohol Intake: former Drug use: Never Substance use type: does not use Do you feel safe at home: Yes Do you feel safe in your relationship?: Yes
--- NOTE | 2020-02-09 10:52 | PDOC.CMIN ---
- If Service Date Differs Date of service: 02/09/20 Time of Service: 16:34 Care Management Initial Assess REASON FOR HOSPITALIZATION:: Chest Pain PAST MEDICAL HISTORY/PAST SURGICAL HISTORY:: Anxiety, Barretts esophagus, Bipolar disorder, COPD, Depression, enlarged lymph nodes, factor V Leiden, GERD, deep vein thrombosis, hypercholesterolemia, hyperglycemia, hypothyroid, insomnia, metabolic syndrome, neck pain, neuropathy, obesity, ROYCE, PVD, prediabetes, suicide attempt, tobacco abuse, urgency of urination, discectomy, partial thyroidectomy PREVIOUS FUNCTIONAL STATUS/SOCIAL/FAMILY SUPPORTS:: Morro resides in an apartment at the [facility]. He works for [employer] at their [facility] location. He is independent with ADLs in the community, transports himself with his own vehicle and describes himself as working disabled. CURRENT FUNCTIONAL STATUS:: Morro is laying on his bed, preparing for discharge. He describes a visit with his father who is currently inpatient at [facility], which was difficult as his father did not recognize him. He is pleasant in interaction and forthcoming with information. ADVANCE DIRECTIVES:: None on file at [facility]. Has patient been provided with information about the portal?: Yes Did the patient sign up for the portal?: No CODE STATUS:: Full Code INSURANCE COVERAGE / FINANCIAL ISSUES:: Self Pay, Morro reports he will be covered under his work insurance sometime next month. He states he did not accept MCR under his disability benefit and is ineligible for [facility]. He is aware of the financial costs of follow up imaging and stress test recommended and has applied for Financial Assistance. CM reviewed limitations to FA for the procedures recommended upon discharge including ECHO, MRI and Stress Test. CURRENT HOME/COMMUNITY SERVICES/EQUIPMENT:: No current services or equipment. PRIMARY CARE PHYSICIAN:: Elsa Saucedo POTENTIAL DISCHARGE NEEDS:: Follow up appointments, imaging and stress test, as well as PCP. PATIENT/FAMILY EDUCATION NEEDS:: Review discharge instructions, discuss Ask Me Three. ANTICIPATED BARRIERS TO DISCHARGE:: None identified at this time. TRANSPORTATION:: Via private vehicle. PLAN:: Morro will return home when ready per MD. He will follow up with his PCP and additional appointments including MRI, Stress Test and ECHO. He will transport himself home.
--- NOTE | 2020-02-09 13:34 | PDOC.CMDIS ---
LACE Index Scoring Tool - Questions: Length of Stay (in days): 1 Acuity (Admit via E.D.?): Yes Comorbidities: PVD, Chronic Pulmonary Disease E.D. Visits: 4 - Answers: Total Score: 11 Risk of Readmission: High Risk Care Management Discharge Reason for Hospitalization: Chest Pain Discharge Plan: Morro will return home when ready per MD. He will follow up with his PCP and additional appointments including MRI, Stress Test and ECHO. He will transport himself home. Patient/Family Education Needs: Review discharge instructions, discuss self care needs upon discharge.
== END 2020-02-09 11:54 | disposition home or self-care (01) ==
LOC: ER 14:43 → MS 22:06
PROVIDERS: Nurse Practitioner Acute Care; Admitting Provider Internal Medicine; Emergency Provider Student in an Organized Health Care Education/Training Program; PCP Nurse Practitioner Community Health; Visit Provider Internal Medicine
DX: R07.9 Chest pain, unspecified (principal); R06.02 Shortness of breath; J44.9 Chronic obstructive pulmonary disease, unspecified; K22.70 Barrett's esophagus without dysplasia; E03.9 Hypothyroidism, unspecified; E78.00 Pure hypercholesterolemia, unspecified; D68.51 Activated protein C resistance; Z79.01 Long term (current) use of anticoagulants; R73.03 Prediabetes; Z79.84 Long term (current) use of oral hypoglycemic drugs; F17.210 Nicotine dependence, cigarettes, uncomplicated; Z03.818 Encounter for observation for suspected exposure to other biological agents ruled out
CPT/HCPCS: 36415; 71275; 80048; 80053; 93005; 94640; 96360; 96361; 99220; 99239; 99285; U0003; 83735; 84484; 85025; 85610; 85730; 93010; 94762; 99217; G0378; J3490

== ENCOUNTER 2020-05-07 08:38 | Outpatient (REF) | payer SELFPAY ==
[2020-05-07 21:34] LABS: TSH 2.28 uIU/mL (0.36-3.74)
== END 2020-05-07 08:58 ==
LOC: NCHCN 08:38
PROVIDERS: PCP Nurse Practitioner Community Health; Visit Provider Nurse Practitioner Community Health
DX: E03.9 Hypothyroidism, unspecified (principal)
CPT/HCPCS: 84443

== ENCOUNTER 2020-06-20 12:40 | Emergency (ER) | payer OTHER, SELFPAY ==
[2020-06-20] VITALS (26 sets, daily range): BP systolic 115–133; BP diastolic 59–87; PULSE 62–83; RESP 2–18; TEMP 37.1; O2SAT 86–100
--- NOTE | 2020-06-20 13:00 | DI.RAD_ITS ---
EXAM: XR PORTABLE CHEST AP CLINICAL HISTORY: SOB, R/O Pnuemonia, PUI. TECHNIQUE: 2D digital imaging was performed. COMPARISON: CR XR CHEST 2V PA LATERAL from 11/08/2019 FINDINGS: LUNGS: Clear. No pleural abnormality seen. HEART: Normal. MEDIASTINUM: Normal. OTHER FINDINGS: None. IMPRESSION: No acute pulmonary findings. DATA REPOSITORY: RADIATION DOSE DELIVERED: Total DLP
--- NOTE | 2020-06-20 13:00 | RT.EKG_ITS ---
APPROVED REPORT Exam: Resting ECG Patient Location: E HR:64 bpm ECG Measurements Heart Rate 64 AXIS CO 187 P 67 QRSd 100 QRS -23 QT 433 T [id number] QTc 447 Conclusion Sinus rhythm...normal P axis, V-rate 60- 99 Nonspecific T abnormalities, lateral leads...T <-0.10mV, I aVL V5 V6
--- NOTE | 2020-06-20 13:07 | ED.GENADUL_ITS ---
Discharge Plan Disposition Patient Disposition: HOME Condition: Stable Discharge Details Clinical Impression: Shortness of breath, COPD (chronic obstructive pulmonary disease) Primary Care Provider: Elsa Morris ED Provider: Chelle Mcgrath Home Meds and New Rx's Prescriptions: New prednisone 20 mg tablet 60 mg PO DAILY 5 Days Qty: 15 RF: 0 No Action atorvastatin 20 mg tablet 20 mg PO QHS RF: 0 metformin 500 mg tablet 500 mg PO DAILY RF: 0 albuterol sulfate [ProAir HFA] 90 mcg/actuation HFA aerosol inhaler 2 puff IH Q6H PRNRF: 0 Atrovent HFA 17 mcg/actuation HFA aerosol inhaler 2 puff IH QID RF: 0 Spiriva with HandiHaler 18 mcg capsule, w/inhalation device 1 cap IH DAILY RF: 0 omeprazole 20 mg capsule,delayed release(DR/EC) 20 mg PO BID RF: 0 sertraline 100 MG tablet 150 mg PO DAILY RF: 0 trazodone 100 MG tablet 100 mg PO HS RF: 0 Xarelto 10 mg Tablet 10 mg PO HS RF: 0 levothyroxine 175 mcg Tablet 175 mcg PO DAILY RF: 0 tamsulosin 0.4 mg Capsule 0.8 mg PO QHS RF: 0 quetiapine 100 MG tablet 100 mg PO BID RF: 0 lamotrigine [Lamictal] 25 MG tablet 50 mg PO .QHS RF: 0 metoprolol tartrate [Lopressor] 50 mg tablet 12.5 mg PO DAILY Qty: 14 RF: 0 Discharge Instructions Instructions: COPD (Chronic Obstructive Pulmonary Disease) (ED) Additional Instructions: Follow up with primary care provider in 3-5 days. Return to ED sooner if any worsening or concerns. Increase oral fluids. Please take Tylenol or Ibuprofen with food every 4-6 hours as needed for pain and swelling. Return to the ED for any worsening chest pain, worsening shortness of breath, fever or concerns. Referrals: Elsa Morris [Primary Care Provider] - Discharge Data Discharge Date/Time-TO BE ENTERED AT DEPARTURE: 06/20/20 15:39 Medical Decision Making Patient is a [age]-year-old male who presents the ER with chief complaint of shortness of breath, headache, increased urination and increased stools for the last 2 days. Patient does have a history of COPD, Delaney's esophagus, anxiety, bipolar disorder, depression, factor V Leiden, peripheral vascular disease. He is a current day smoker. Denies any alcohol. Denies any sick contacts or travel. He reports taking his normal medications including his inhalers today. He does have expiratory wheezes bilaterally to auscultation. Labs are largely within normal limits no leukocytosis, CMP shows 135 sodium, glucose 155, troponin is less than 0.05 Chest x-ray shows no evidence for infiltrate or pleural effusion. 1511: Patient reevaluation, wheezing has decreased status post albuterol ipratropium nebulizer. Patient states he feels much better. Discussed repeat troponin which is due at 4:00 patient declined waiting for this at this time. Will do another additional nebulizer prior to discharging home. HPI General Mode of arrival: ambulatory . Date/Time Provider Initiated Documentation: 06/20/20 12:53 . Limitations to Documentation: no limitations . Information obtained by: patient . HPI Narrative: Patient is a [age]-year-old male who presents the ER with chief complaint of shortness of breath, headache, increased urination and increased stools for the last 2 days. Patient does have a history of COPD, Delaney's esophagus, anxiety, bipolar disorder, depression, factor V Leiden, peripheral vascular disease. He is a current day smoker. Denies any alcohol. Denies any sick contacts or travel. He reports taking his normal medications including his inhalers today. He does have expiratory wheezes bilaterally to auscultation. Related Data Home Medications Medication Instructions Recorded Confirmed sertraline 150 mg PO DAILY 03/27/16 06/20/20 trazodone 100 mg PO HS 08/24/16 06/20/20 lamotrigine [Lamictal] 50 mg PO .QHS 01/23/18 06/20/20 quetiapine 100 mg PO BID 01/23/18 06/20/20 Xarelto 10 mg PO HS 01/16/19 06/20/20 albuterol sulfate 90 mcg/actuation 2 puff IH Q6H PRN 10/10/19 06/20/20 aerosol inhaler atorvastatin 20 mg tablet 20 mg PO QHS 10/10/19 06/20/20 ipratropium bromide 17 2 puff IH QID 10/10/19 06/20/20 mcg/actuation HFA aerosol inhaler levothyroxine 175 mcg PO DAILY 10/10/19 06/20/20 metformin 500 mg tablet 500 mg PO DAILY 10/10/19 06/20/20 tamsulosin 0.8 mg PO QHS 10/10/19 06/20/20 tiotropium bromide 18 mcg capsule 1 cap IH DAILY 10/10/19 06/20/20 with inhalation device omeprazole 20 mg capsule,delayed 20 mg PO BID 10/24/19 06/20/20 release metoprolol tartrate [Lopressor] 12.5 mg PO DAILY #14 tab 02/09/20 06/20/20 prednisone 60 mg PO DAILY 5 Days #15 tab 06/20/20 Previous Rx's Medication Instructions Recorded metoprolol tartrate [Lopressor] 12.5 mg PO DAILY #14 tab 02/09/20 prednisone 60 mg PO DAILY 5 Days #15 tab 06/20/20 Allergies Allergy/AdvReac Type Severity Reaction Status Date / Time varenicline [From Chantix] Allergy Severe Verified 06/20/20 12:54 General Stated Complaint: GenMedical LORA: 3 Review of Systems Narrative: Constitutional: Negative for weight loss, alert and oriented, well groomed, normal body habitus, appears comfortable. HEENT: Denies trauma, blurry vision, nasal discharge, sore throat, trouble swallowing. Positive headaches. Chest: Denies chest pain, palpitations, irregular rhythm, hypertension. Respiratory: Denies hemoptysis. Positive shortness of breath and productive cough. GI: Denies abdominal pain, nausea, vomiting, diarrhea, constipation. : Denies dysuria, hematuria, flank pain, rectal bleeding. Positive increased frequency of urination. Neuro: Denies dizziness, blurry vision, weakness, syncope, headache or facial numbness. Hematologic: Denies easy bruising, intolerance to heat or cold, hair loss. [facility] Medical History (Updated 06/20/20 @ 15:23 by Chelle Mcgrath) Anxiety Barretts esophagus Bipolar disorder COPD (chronic obstructive pulmonary disease) Depression Enlarged lymph nodes Factor V Leiden GERD (gastroesophageal reflux disease) History of deep vein thrombosis Hypercholesterolemia Hyperglycemia Hypothyroid Insomnia Metabolic syndrome Neck pain, chronic Neuropathy Obesity (BMI 35.0-39.9 without comorbidity) ROYCE (obstructive sleep apnea) uses device Peripheral vascular disease Prediabetes Suicide attempt Tobacco abuse Urgency of urination Surgical History History of discectomy c5-c6 S/P partial thyroidectomy pt. states this is a total thyroidectomy Social History Smoking/Tobacco Use Status: Current every day Tobacco Type: cigarettes Smoking packs per day: 1 Smoking cigarettes per day: 20.0 Tobacco: How many years used: 45 Alcohol Intake: former Drug use: Never Substance use type: does not use Do you feel safe at home: Yes Do you feel safe in your relationship?: Yes Exam Narrative Exam Narrative: Constitutional: Alert and oriented x3. Appears stated age. Normal body habitus. Head: Normocephalic, no trauma. Eyes: Pupils PERRLA, Red reflex noted, EOM's intact. Eyelids symmetrical without lesions, discharge, or swelling. ENT: Bilateral TM's WNL, External ear normal to inspection, no mastoid TTP, swelling, or erythema, Nasal turbinates WNL, no nasal discharge. Normal dentition, Posterior pharynx WNL, no exudate. Chest: RRR, Normal S1, S2, distal pulses intact. Resp: Lungs positive wheezes bilaterally, rales, or rhonchi. Musculoskeletal: Normal gait, 5/5 strength to all four extremities. Skin: No suspicious rashes or lesions. Capillary refill less than 2 sec. Neurologic: Cranial nerves II-XII intact. Alert and oriented x 3. DTR's intact. Hematologic/Lymphatic: No ecchymosis, no lymphadenopathy. Course Vital Signs Vital signs: Vital Signs Temperature 37.1 C 06/20/20 12:48 Pulse 68 06/20/20 12:48 Respiratory Rate 18 06/20/20 12:48 Blood Pressure 129/87 06/20/20 12:48 Pulse Oximetry 92 06/20/20 12:48 Temperature 37.1 C 06/20/20 12:48 Temperature Source Oral 06/20/20 12:48 Pulse 68 06/20/20 12:48 Respiratory Rate 18 06/20/20 12:57 Respiratory Effort 06/20/20 12:57 Respiratory Depth Normal 06/20/20 12:57 Respiratory Pattern Normal 06/20/20 12:57 Blood Pressure 129/87 06/20/20 12:48 Blood Pressure Position Supine 06/20/20 12:48 Pulse Oximetry 92 06/20/20 12:48 Oxygen Delivery Method Room Air 06/20/20 12:48 Oxygen Flow Rate 0 06/20/20 12:48 Pain Level 0 06/20/20 12:48
[2020-06-20] MEDS: methylPREDNISolone SUCC 125 MG VIAL IVP (13:34)
[2020-06-20] MEDS: Normal Saline 1,000 ML 1000 ML IV (13:35)
[2020-06-20 13:42] LABS: Abs Immature Grans 0.03 10^3/uL (0.0-0.06); Absolute Basophil Count 0.05 10^3/uL (0.0-0.2); Absolute Eosinophil Count 0.14 10^3/uL (0.0-0.7); Absolute Lymphocyte Count 2.01 10^3/uL (1.2-3.4); Absolute Monocyte Count 0.67 10^3/uL (0.1-0.8); Absolute Neutrophil Count 5.21 10^3/uL (1.2-6.7); Basophils % 0.6; Eosinophils % 1.7; HCT 47.9 % (40.0-50.0); HGB 16.1 g/dL (13.5-17.5); Immature Grans % 0.4; Lymphocytes % 24.8; MCHC 33.6 % (32.0-36.0); MCV 92.1 fL (80-95); MPV 9.6 fL (8.0-11.0); Monocytes % 8.3; Neutrophils % 64.2; Nucleated RBC 0 %; Platelet Count 196 10^3/uL (130-400); RDW 12.4 % (11.8-14.1); RDW-SD 42.4 fL; WBC 8.11 10^3/uL (4.4-10.8)
[2020-06-20] MEDS: Albuterol/Ipratropium 3 ML UPD VIAL UPD ×2 (13:42→15:42)
[2020-06-20 13:59] LABS: ALT 30 U/L (16-63); AST 18 U/L (15-37); Albumin 3.8 g/dL (3.4-5.0); Alkaline Phosphatase 63 U/L (46-116); Anion Gap 5.5 mmol/L (3-11); BUN 13 mg/dL (7-18); Bilirubin, Total 0.4 mg/dL (0.2-1.0); CO2 29.5 mmol/L (21.0-32.0); CREATININE 0.96 mg/dL (0.70-1.30); Calcium 8.7 mg/dL (8.5-10.1); Chloride 100 mmol/L (98-107); Glucose 155 mg/dL (74-106); Magnesium 1.9 mg/dL (1.8-2.4); Potassium 4.2 mmol/L (3.5-5.1); Sodium 135 mmol/L (136-145); Total Protein 7.4 g/dL (6.4-8.2)
[2020-06-20 14:01] LABS: Troponin I < 0.05 ng/mL (<0.06)
== END 2020-06-20 15:39 | disposition home or self-care (01) ==
PROVIDERS: Emergency Provider Registered Nurse Emergency; PCP Nurse Practitioner Community Health
DX: J44.9 Chronic obstructive pulmonary disease, unspecified (principal); R73.03 Prediabetes; Z79.84 Long term (current) use of oral hypoglycemic drugs; D68.51 Activated protein C resistance; F17.210 Nicotine dependence, cigarettes, uncomplicated
CPT/HCPCS: 36415; 80053; 93005; 94640; 96361; 96374; 99285; 71045; 83735; 84484; 85025; 93010; 99284; J2930; J7620

== ENCOUNTER 2020-07-08 18:23 | Outpatient (REF) | payer OTHER, SELFPAY ==
[2020-07-08 22:06] LABS: TSH 2.77 uIU/mL (0.36-3.74)
== END 2020-07-08 18:43 ==
LOC: NCHCN 18:23
PROVIDERS: PCP Nurse Practitioner Community Health; Visit Provider Nurse Practitioner Community Health
DX: E03.9 Hypothyroidism, unspecified (principal)
CPT/HCPCS: 84443

== ENCOUNTER 2020-08-01 16:37 | Emergency (ER) | payer SELFPAY ==
[2020-08-01 16:37] VITALS: BP 133/93; PULSE 94; RESP 16; TEMP 36.4; O2SAT 96
--- NOTE | 2020-08-01 16:52 | ED.GENADUL_ITS ---
Discharge Plan Disposition Patient Disposition: HOME Condition: Improving Discharge Details Clinical Impression: Chemical burn of eyelid, right Primary Care Provider: Elsa Mroris ED Provider: Wendy Lopez Home Meds and New Rx's Prescriptions: Continued atorvastatin 20 mg tablet 20 mg PO QHS RF: 0 metformin 500 mg tablet 500 mg PO DAILY RF: 0 albuterol sulfate [ProAir HFA] 90 mcg/actuation HFA aerosol inhaler 2 puff IH Q6H PRNRF: 0 Atrovent HFA 17 mcg/actuation HFA aerosol inhaler 2 puff IH QID RF: 0 Spiriva with HandiHaler 18 mcg capsule, w/inhalation device 1 cap IH DAILY RF: 0 omeprazole 20 mg capsule,delayed release(DR/EC) 20 mg PO BID RF: 0 sertraline 100 MG tablet 150 mg PO DAILY RF: 0 trazodone 100 MG tablet 100 mg PO HS RF: 0 Xarelto 10 mg Tablet 10 mg PO HS RF: 0 levothyroxine 175 mcg Tablet 175 mcg PO DAILY RF: 0 tamsulosin 0.4 mg Capsule 0.8 mg PO QHS RF: 0 quetiapine 100 MG tablet 100 mg PO BID RF: 0 lamotrigine [Lamictal] 25 MG tablet 50 mg PO .QHS RF: 0 metoprolol tartrate [Lopressor] 50 mg tablet 12.5 mg PO DAILY Qty: 14 RF: 0 Discharge Instructions Instructions: [facility] (ED) Additional Instructions: Apply a half-inch ribbon of the topical erythromycin ointment to the right inner lower eyelid 4 times daily for the next week. You can wash the skin of your chest and abdomen with soap and water. Follow up with your primary care doctor in 1 week as needed. Follow-up with [facility] next week for reevaluation. Return to the emergency department with any worsening or new concerning symptoms. Discharge Data Discharge Date/Time-TO BE ENTERED AT DEPARTURE: 08/01/20 19:11 Discharge Physician: Wendy Lopez Medical Decision Making 60-year-old male who presents with possible chemical burn to his eyes, face and torso after cutting a pipe at work when he was splashed with commercial ladle cleaner on his face and chest. Eyes flushed at work and by EMS. Visual acuity right eye 20/40, left eye 20/80, both eyes 20/32. He admits to known history of poor vision in left eye. Patient denies any eye pain and is complaining only of puffy sensation of the skin around his right eye. pH of eye 7. Fluorescein stain to right eye negative for corneal or scleral abrasion but does note uptake on the inner right lower lateral eyelid. There is no obvious foreign body noted. No hayden or lesions noted to skin of face, chest or abdomen. Case discussed with poison control who stated that as pH of eye is normal at 7, no other acute recommendations at this time if fluorescein staining negative. Patient given erythromycin ointment to apply within the right lower eyelid. Patient placed on care management list to arrange for follow-up appointment with [facility]. Advised to follow up with the primary care doctor for re-evaluation. Usual and customary return precautions given prior to discharge. Medical Records Medical records reviewed: Yes I reviewed the patient's medical records. HPI General Mode of arrival: ambulatory . Date/Time Provider Initiated Documentation: 08/01/20 16:56 . Limitations to Documentation: no limitations . Information obtained by: patient . HPI Narrative: Patient is a 60-year-old male with a history of COPD, obesity, peripheral vascular disease, prediabetes, bipolar disorder, factor V Leyden deficiency, hyperlipidemia who presents for evaluation after commercial ladle cleaner splashed in his face and chest at work just prior to arrival. Patient states he was cutting a pipe while wearing a face shield when the ladle cleaner splashed up from the place hitting his face under the shield as well as the chest and abdomen. Patient states his eyes were flushed at work and EMS flushed his eyes with 1.5 L of sterile water. Patient does not wear contacts or glasses. He denies pain in his eye, eye irritation, blurry vision and states he only feels a puffiness around his right eye. He denies any symptoms in his left eye. He denies any burning or itching of his chest or abdomen. Related Data Home Medications Medication Instructions Recorded Confirmed sertraline 150 mg PO DAILY 03/27/16 08/01/20 trazodone 100 mg PO HS 08/24/16 08/01/20 lamotrigine [Lamictal] 50 mg PO .QHS 01/23/18 08/01/20 quetiapine 100 mg PO BID 01/23/18 08/01/20 Xarelto 10 mg PO HS 01/16/19 08/01/20 albuterol sulfate 90 mcg/actuation 2 puff IH Q6H PRN 10/10/19 08/01/20 aerosol inhaler atorvastatin 20 mg tablet 20 mg PO QHS 10/10/19 08/01/20 ipratropium bromide 17 2 puff IH QID 10/10/19 08/01/20 mcg/actuation HFA aerosol inhaler levothyroxine 175 mcg PO DAILY 10/10/19 08/01/20 metformin 500 mg tablet 500 mg PO DAILY 10/10/19 08/01/20 tamsulosin 0.8 mg PO QHS 10/10/19 08/01/20 tiotropium bromide 18 mcg capsule 1 cap IH DAILY 10/10/19 08/01/20 with inhalation device omeprazole 20 mg capsule,delayed 20 mg PO BID 10/24/19 08/01/20 release metoprolol tartrate [Lopressor] 12.5 mg PO DAILY #14 tab 02/09/20 08/01/20 Previous Rx's Medication Instructions Recorded metoprolol tartrate [Lopressor] 12.5 mg PO DAILY #14 tab 02/09/20 Allergies Allergy/AdvReac Type Severity Reaction Status Date / Time varenicline [From Glikniktix] Allergy Severe Verified 08/01/20 16:43 General Stated Complaint: EyeProblem LORA: 2 Review of Systems All systems reviewed & are unremarkable except as noted in HPI and below Constitutional Constitutional: Reports as per HPI, Denies chills and Denies fever(s) Eyes Eyes: Denies blurry vision ENT Ears, Nose, Mouth, and Throat: Denies dizziness, Denies sore throat and Denies throat swelling Cardiovascular Cardiovascular: Denies chest pain and Denies dyspnea Respiratory Respiratory: Denies cough and Denies dyspnea Gastrointestinal Gastrointestinal: Denies abdominal pain, Denies diarrhea and Denies vomiting Genitourinary Genitourinary: Denies hematuria and Denies dysuria Musculoskeletal Musculoskeletal: Denies back pain and Denies numbness Integumentary/Breasts Skin/Breast: Denies lesions and Denies rash Neurologic Neurologic: Denies dizziness, Denies localized weakness and Denies numbness Allergic/Immunologic Allergic/Immunologic: Denies throat swelling [facility] Medical History (Updated 08/01/20 @ 18:52 by Wendy Lopez DO) Anxiety Barretts esophagus Bipolar disorder COPD (chronic obstructive pulmonary disease) Depression Enlarged lymph nodes Factor V Leiden GERD (gastroesophageal reflux disease) History of deep vein thrombosis Hypercholesterolemia Hyperglycemia Hypothyroid Insomnia Metabolic syndrome Neck pain, chronic Neuropathy Obesity (BMI 35.0-39.9 without comorbidity) ROYCE (obstructive sleep apnea) uses device Peripheral vascular disease Prediabetes Suicide attempt Tobacco abuse Urgency of urination Surgical History History of discectomy c5-c6 S/P partial thyroidectomy pt. states this is a total thyroidectomy Social History Smoking/Tobacco Use Status: Current every day Tobacco Type: cigarettes Smoking packs per day: 1 Smoking cigarettes per day: 20.0 Tobacco: How many years used: 45 Smoking risk assessment performed?: Yes Alcohol Intake: former Drug use: Never Substance use type: does not use Do you feel safe at home: Yes Do you feel safe in your relationship?: Yes Exam Const General: cooperative and no acute distress Orientation: alert, awake and oriented x3 HENMT Head: normal to inspection Ears: hearing grossly normal bilaterally and external ears normal General nose exam: external nose normal Mouth: oral mucosae normal Throat: posterior oropharynx normal Eyes General: appearance normal, both eyes and all related structures Eyelids: eyelid abnormality right upper eyelid (very minimal edema) without erythema, without foreign bodies, without lacerations and nontender, right lower eyelid (very minimal edema) without erythema, without foreign bodies, without lacerations and nontender, left upper eyelid without erythema, without swelling and nontender and left lower eyelid without erythema, without swelling and nontender Conjunctivae: conjunctivae normal Sclera: sclerae normal Cornea: corneas normal Pupils: PERRL EOM: EOM intact bilaterally Neck Neck: normal visual inspection Chest Chest: normal inspection of the chest, normal palpation of entire chest wall, no tenderness and No rash Resp Effort & Inspection: normal respiratory effort and able to speak in complete sentences Auscultation: clear to auscultation bilaterally Cardio Rate: regular rate Rhythm: regular rhythm GI Inspection: normal to inspection and obesity Palpation: soft, no masses and nontender Auscultation: hypoactive bowel sounds Skin General skin exam: no rashes or lesions noted Neuro General: patient alert, patient awake and patient oriented x3 Motor: muscle tone normal throughout Extrem General: normal to inspection and full ROM Psych Appearance: grossly normal Affect: normal affect Course Vital Signs Vital signs: Vital Signs Temperature 97.5 F L 08/01/20 16:37 Pulse 94 H 08/01/20 16:37 Respiratory Rate 16 08/01/20 16:37 Blood Pressure 133/93 H 08/01/20 16:37 Pulse Oximetry 96 08/01/20 16:37 Temperature 97.5 F L 08/01/20 16:37 Temperature Source Temporal Artery Scan 08/01/20 16:37 Pulse 94 H 08/01/20 16:37 Respiratory Rate 16 08/01/20 16:37 Respiratory Effort 08/01/20 16:45 Blood Pressure 133/93 H 08/01/20 16:37 Blood Pressure Position Sitting 08/01/20 16:37 Pulse Oximetry 96 08/01/20 16:37 Oxygen Delivery Method Room Air 08/01/20 16:37 Oxygen Flow Rate 0 08/01/20 16:37 Pain Level 7 08/01/20 16:37 Comment 08/01/20 16:37
[2020-08-01] MEDS: Erythromycin Ophth Oint 3.5 GM TUBE OU (19:08)
--- NOTE | 2020-08-02 10:44 | CMACTNOTE_ITS ---
- If Service Date Differs Date of service: 08/02/20 Time of Service: 10:44 Care Management Activity Note Morro presents to the ED for a chemical burn to the right eyelid. At the request of Dr. Lopez, ED provider, GM coordinates a referral to [facility] [place] [facility] for a follow up appointment.
== END 2020-08-01 19:11 | disposition home or self-care (01) ==
PROVIDERS: Emergency Provider Physician Assistant; PCP Nurse Practitioner Community Health
DX: T65.891A Toxic effect of other specified substances, accidental (unintentional), initial encounter (principal); T26.51XA Corrosion of right eyelid and periocular area, initial encounter; Y92.59 Other trade areas as the place of occurrence of the external cause; Y99.0 Civilian activity done for income or pay; J44.9 Chronic obstructive pulmonary disease, unspecified; F17.210 Nicotine dependence, cigarettes, uncomplicated
CPT/HCPCS: 99284

== ENCOUNTER 2020-08-09 03:03 | Outpatient (CLI) | payer OTHER, SELFPAY ==
[2020-08-11 11:44] LABS: SARS-CoV-2 RNA Not Detected (NotDetected); SARS-CoV-2 RNA Source Nasal/Nares
== END 2020-08-09 03:23 ==
PROVIDERS: PCP Nurse Practitioner Community Health; Visit Provider Nurse Practitioner
DX: Z11.59 Encounter for screening for other viral diseases (principal); Z01.818 Encounter for other preprocedural examination
CPT/HCPCS: U0003

== ENCOUNTER 2020-08-16 11:44 | Outpatient (CLI) | payer OTHER, SELFPAY ==
[2020-08-20 15:52] LABS: Patient Race White; SARS-CoV-2 RNA Undetected (Undetected); SARS-CoV-2 Specimen Source Nasal
== END 2020-08-16 12:04 ==
PROVIDERS: PCP Nurse Practitioner Community Health; Visit Provider Nurse Practitioner Community Health
DX: Z20.828 Contact with and (suspected) exposure to other viral communicable diseases (principal)
CPT/HCPCS: U0003

== ENCOUNTER → 2020-10-01 15:41 | Outpatient (REF) | payer OTHER, SELFPAY ==
--- OUTSIDE RECORDS SUMMARY | 2020-10-01 15:44 | XMS_ITS ---
:1960 Author Care Team Providers Name Role Phone [facility] Primary Care Provider [phone] Allergies Code Code System Name Reaction Severity Status Onset 334340 RxNorm Chantix ? ? Active ? Medications Name Status Start Date Stop Date ? ? albuterol sulfate (bulk) Active ? Not berhane ilable atorvastatin 20 mg tablet Active ? Not av ailable Take 1 tablet every day by oral route. Atrovent HFA 17 mcg/actuation aerosol inhaler Active ? Not available Inhale 2 puffs 4 times a day by inhalation route. Chantix 1 mg tablet Completed ? 05/09/2020 Take 1 tablet twice a day by oral route. Flomax 0.4 mg capsule Completed ? 05/09/2020 Take 1 capsule every day by oral route. lamotrigine 25 mg (35) tablets in a dose pack Active ? Not available Take by oral route. metformin 500 mg tablet Active ? Not avai lable Take 1 tablet twice a day by oral route. metoprolol tartrate Active ? Not availabl e omeprazole 20 mg capsule,delayed release Active ? Not available Take 1 capsule every day by oral route. Proair Digihaler 90 mcg/actuation aerosol powder breath act, sen sor Completed ? 05/09/2020 Inhale 2 puffs every 4 hours by inhalation route. quetiapine 100 mg tablet Active ? Not berhane ilable Take 1 tablet twice a day by oral route. sertraline 100 mg tablet Active ? Not berhane ilable Take 1 tablet every day by oral route. Spiriva with HandiHaler 18 mcg and inhalation capsules Active ? Not available Inhale by inhalation route. tamsulosin Active ? Not available trazodone 100 mg tablet Active ? Not avai lable Take 1 tablet twice a day by oral route. Xarelto 10 mg tablet Active ? Not availab le Take 1 tablet every day by oral route. zolpidem 5 mg tablet Completed ? 08/28/2020 Take 1-2 PO night of sleep if needed Problems Name Status Onset Date Source ? Hypothyroidism Active 05/07/2020 ? Metabolic Syndrome X Active 05/07/2020 ? Blood Coagulation Disorder Active 05/07/2020 ? Bipolar Disorder Active 05/07/2020 ? Anxiety Active 05/07/2020 ? Nicotine Dependence Active 05/07/2020 ? Smoker Active 05/07/2020 ? Depressive Disorder Active 05/07/2020 ? Obstructive Sleep Apnea Syndrome Active 05/07/2020 ? Neuropathy Active 05/07/2020 ? Peripheral Vascular Disease Active 05/07/2020 ? Deep Venous Thrombosis Active 05/07/2020 ? Chronic Obstructive Lung Disease Active 05/07/2020 ? Gastroesophageal Reflux Disease Active 05/07/2020 ? Delaney's Esophagus Active 05/07/2020 ? Neck Pain Active 05/07/2020 ? Excessive Daytime Sleepiness - Normal Night Active 01/2020 ? Sleep Fatigue Active 05/07/2020 ? Mass of Skin Active 05/07/2020 ? Lymphadenopathy Active 05/07/2020 ? Chest Pain Active 05/07/2020 ? Hyperglycemia Active 05/07/2020 ? Procedures None recorded. Results Lab Results None recorded. Past Encounters 08/28/2020 Obstructive Sleep Apnea Syndrome Katie Mendes [facility]ARE UN[facility] NURSE: [address] [place] [phone], Ph. 06/13/2020 Obstructive Sleep Apnea Syndrome Katie Mendes CRITICAL [facility]ARE UN[facility] NURSE: [address] [place] [phone], Ph. 05/09/2020 Excessive Daytime Sleepiness - Normal Ni ght Sleep; Nicotine Dependence Katie Mendes CR[facility]ARE UN[facility] NURSE: [address] [place] [phone], Ph. Social History Tobacco Smoking Status Heavy Tobacco Smoker (1 PPD) Vaccine List Vaccine Type influenza, injectable, quadrivalent 10/02/2019 pneumococcal polysaccharide PPV23 10/05/2006 Td (adult) 10/05/2006 Tdap 09/13/2012 Plan of Care Reminders Provider Appointments None ? ? recorded. Lab None ? ? recorded. Referral None ? ? recorded. Procedures None ? ? recorded. Surgeries None ? ? recorded. Imaging None ? ? recorded. Vitals 08/28/2020 10:00AM Office 15 Height Weight BMI Blood Pressure 181.61 cm 120.2 kg 36.4 kg/m2 113/81 mm[Hg] 06/13/2020 08:00AM Office 30 Height Weight BMI Blood Pressure 180.34 cm 119.61 kg 36.8 kg/m2 124/78 mm[Hg] 05/09/2020 02:00PM New Patient 45 Height Weight BMI Blood Pressure 180.34 cm 120.43 kg 37 kg/m2 127/81 mm[Hg]
--- OUTSIDE RECORDS SUMMARY | 2020-10-01 15:44 | XMS_ITS | Encounter Summary ---
:1960 Author Care Team Providers Name Role Phone Elsa Morris [facility] Primary Care Provider [phone] Reason for Visit None recorded. Assessment and Plan 1. Obstructive sleep apnea syndr ome ROYCE with COPD overlap syndrome with an AHI of 7.7/hr and significant hypoxemia with sp02 batsheva of 76% and 308 minutes spent with oxygen saturation <88%. He is edentulous. He recently starte d on CPAP 6-16cm. I have ordered a titra tion study to assess need for supplemental oxygen but this has not yet been completed. He is having a large air leak at 4.5 hours a night. I suspect his chin is d ropping and he is losing it that way. I am ordering a chin strap. I also gave him an Saida View size medium to try. He still feels sleepy but his ESS improved from 20 to 12/24 since starting CPAP. He is running out of water in humidifier ever y night despite using only 5 hours and humidity set at 1/5. I changed his setting form adaptive to fixed today. I also increased the pressure to 7-16 cm. He will schedule the titration study today at [facility] out and I will see him back in couple of months. I provided greater than 25 minutes in e care of this patient, more than half the time was spent in [id number] counseling. ? CPAP supplies Discussion Note: None recorded.Patient educational handouts: No information available. Plan of Care Reminders Provider Appointments Procedure 60 Sl S5 Tech 10/17/2020 8:00PM ? Office 15 Anaya giang 10/17/2020 MD Nick 11:15AM ? Office 30 Davidson Mendes, 11/07/2020 [employer] 8:00AM Lab None ? ? recorded. Referral None ? ? recorded. Procedures None ? ? recorded. Surgeries None ? ? recorded. Imaging None ? ? recorded. Medications Name Start Date ? ? albuterol sulfate (bulk) ? atorvastatin 20 mg tablet ? Take 1 tablet every day by oral route. Atrovent HFA 17 mcg/actuation aerosol inhaler ? Inhale 2 puffs 4 times a day by inhalation route. lamotrigine 25 mg (35) tablets in a dose pack ? Take by oral route. metformin 500 mg tablet ? Take 1 tablet twice a day by oral route. metoprolol tartrate ? omeprazole 20 mg capsule,delayed release ? Take 1 capsule every day by oral route. quetiapine 100 mg tablet ? Take 1 tablet twice a day by oral route. sertraline 100 mg tablet ? Take 1 tablet every day by oral route. Spiriva with HandiHaler 18 mcg and inhalation capsules ? Inhale by inhalation route. tamsulosin ? trazodone 100 mg tablet ? Take 1 tablet twice a day by oral route. Xarelto 10 mg tablet ? Take 1 tablet every day by oral route. Medications Administered None recorded. Vitals Height Weight BMI Blood Pressure 5 ft 11.5 in 265 lbs 36.4 kg/m2 113/81 mm[Hg] Results Lab Results None recorded. Allergies Code Code System Name Reaction Severity Onset 552685 RxNorm Chantix ? ? ? Problems Name Status Onset Date Source ? [...] Hyperglycemia Active 05/07/2020 ? Procedures None recorded. Vaccine List Vaccine Type influenza, injectable, quadrivalent 10/02/2019 pneumococcal polysaccharide PPV23 10/05/2006 Td (adult) 10/05/2006 Tdap 09/13/2012 Social History Tobacco Smoking Status Heavy Tobacco Smoker (1 PPD) Alcohol intake None Live alone or with others? with others Notes: wit h girlfriend Animal exposure? Y Notes: one dog Are you currently employed? Y Education 12 Blind or serious difficulty N seeing Hard of hearing or deaf in Y Notes: wea rs hearing aids one or both ears? Caffeine intake Moderate Notes: 2 cups of coffee and 3 sodas a day Occupation property maintence Tobacco-years of use 40 Functional Status No Impairment. Past Encounters 08/28/2020 Obstructive Sleep Apnea Syndrome Katie Mendes, [employer]: [address] [place] [phone], Ph. History of Present Illness Note: <p>Morro Sahni has a visit for PSG results.</p><p>
</p><p>Morro was seen by me on 06/13/20. He has a medical history to include neuropathy, COPD, GERD, Bar rett's esophagis, depression, enlarged lymph nodes, hypothyroidism and obesity. He noted symptoms ofdaytime sleepiness (ESS 20), snoring, witness apneas, and frequent night sweats.</p><p>Polysomnogram was completed on {{DATE 05/16/2020}} (BMI 36.96). Sleep efficiency was {{90# 80}}%, AHI { {7.7# NUMBER}}/hr, RDI {{13.3# NUMBER}}/hr, REM AHI {{21.6# NUMBER}}/hr, REM RDI {{33.7# NUMBER}}/hr, supine AHI {{15# NUMBER}}/hr, right lateral AHI {{6# NUMBER}}/hr, left lateral AHI {{1# NUMBER}}/hr, sp02 batsheva {{76# NUMBER}}%, {{308# NUMBER}} minutes were spent at a saturation <88%, arousalindex {{17# NUMBER}}/hr, PLMi {{8.5# NUMBER}}/hr, PLM arousal index {{0.1# NUMBER}}/hr. EKG showed {{NSR*}}. Loud snoring heard throughout the night. Almost constant BLE muscle fasciculations. Last visit I ordered CPAP 6-16 cm and a titration study not done yet).</p><p>
</p>& lt;p>Morro says he is having a lot of problems with losing pressure out of the vent so he feelslike he is not getting enough air. There is no leak from under the mask seal that he is aware of. Hestarted with a nasal mask and had oral air leak. He now has full face mask. He says the humidifier runs out of water every night even though it is now set at a 1/5. This is within five hours of use. Hedoes not burn wood or feel his house is very dry. He goes to bed at 11 pm and falls asleep easily most nights. He is not aware of waking up. A couple of times a week he wakes and the mask and/or CPAP is off. He gets up at 6 am on work days and 9 am on days off. He is not sure if he snores as he sleepsalone. He says he does not feel any better rested (but ESS is down from to 09/26 since starting).Night sweats are improved. </p><p>
</p><p>ESS today 09/26</p>& lt;p>
</p><p>COMPLIANCE REVIEW: {{07/29/20- 08/27/20# DATES}}, Used {{30# 25 30}}/30 days, average use {{5# 5 6}} hours {{44# number}} minutes a night, mean pressure {{6.5# 8 9}}cm, 90 th percentile pressure {{7.2# 9 10}}cm, time in large air leak {{4 hours 32# 5 10}} m inutes, AHI {{4.4# 1 2}}/hour.</p>Review of Systems: ROS as noted in the HPI Review of Systems None recorded. Physical Exam ? Notes: <p>General: A&O, well groome d {{over weight obese * morbidly obese normal weight thin}}.
HEAD: no rmocephalic & atraumatic.
EYES: non icteric.
LUNGS: CTA all f ields. Good air movement.
CARDIO: RRR without murmur, gallop or thrill.
NEURO: A&O. Normal gait.
PSYCH: Normal mood and affect.
CUTANEOUS: no overt lesions or rashes</p>
[2020-10-01 21:26] LABS: HGB 16.4 g/dL (13.5-17.5); MCH 30.9 pg (27.0-33.0); MCHC 34.2 % (32.0-36.0); MCV 90.6 fL (80-95); MPV 10.1 fL (8.0-11.0); Platelet Count 195 10^3/uL (130-400); RDW 12.2 % (11.8-14.1); RDW-SD 40.5 fL; WBC 8.28 10^3/uL (4.4-10.8)
[2020-10-01 21:35] LABS: ALT 36 U/L (16-63); AST 15 U/L (15-37); Albumin 3.9 g/dL (3.4-5.0); Alkaline Phosphatase 72 U/L (46-116); Anion Gap 7.8 mmol/L (3-11); BUN 16 mg/dL (7-18); Bilirubin, Total 0.5 mg/dL (0.2-1.0); CO2 29.2 mmol/L (21.0-32.0); CREATININE 1.14 mg/dL (0.70-1.30); Calcium 8.6 mg/dL (8.5-10.1); Calculated LDL 71 mg/dL (<100); Chloride 100 mmol/L (98-107); Cholesterol 126 mg/dL (<200); Glucose 235 mg/dL (74-106); HDL Cholesterol 26 mg/dL (40-60); Sodium 137 mmol/L (136-145); Total Protein 6.6 g/dL (6.4-8.2); Triglyceride 148 mg/dL (<150)
== END ==
LOC: NCHCN 15:41
PROVIDERS: PCP Nurse Practitioner Community Health; Visit Provider Internal Medicine
DX: E11.9 Type 2 diabetes mellitus without complications (principal); E78.5 Hyperlipidemia, unspecified; D68.9 Coagulation defect, unspecified
CPT/HCPCS: 80053; 80061; 85027

== ENCOUNTER 2020-10-14 02:21 | Outpatient (CLI) | payer OTHER, SELFPAY ==
[2020-10-15 13:21] LABS: COVID-19 RT-PCR UVMMC Result Negative (Negative)
== END 2020-10-14 02:41 ==
PROVIDERS: PCP Nurse Practitioner Community Health; Visit Provider Nurse Practitioner
DX: Z11.52 Encounter for screening for COVID-19 (principal); Z01.818 Encounter for other preprocedural examination
CPT/HCPCS: U0003

== ENCOUNTER → 2020-10-14 16:14 | Outpatient (REF) | payer OTHER, SELFPAY ==
[2020-10-14 21:02] LABS: TSH 0.49 uIU/mL (0.36-3.74)
== END ==
LOC: NCHCN 16:14
PROVIDERS: PCP Nurse Practitioner Community Health; Visit Provider Nurse Practitioner Community Health
DX: R63.5 Abnormal weight gain (principal); E03.9 Hypothyroidism, unspecified
CPT/HCPCS: 84443

== ENCOUNTER 2021-01-13 09:32 | Outpatient (REF) | payer MEDICARE, MEDICAID, SELFPAY ==
[2021-01-13 14:28] LABS: Anion Gap 8.2 mmol/L (3-11); BUN 17 mg/dL (7-18); CO2 29.8 mmol/L (21.0-32.0); CREATININE 0.9 mg/dL (0.70-1.30); Calcium 8.3 mg/dL (8.5-10.1); Chloride 103 mmol/L (98-107); Glucose 134 mg/dL (74-106); Potassium 4.2 mmol/L (3.5-5.1); Sodium 141 mmol/L (136-145); TSH 3.76 uIU/mL (0.36-3.74)
== END 2021-01-13 09:33 | disposition home or self-care (01) ==
LOC: NCHCN 09:32
PROVIDERS: PCP Nurse Practitioner Family; Visit Provider Nurse Practitioner Community Health
DX: E03.9 Hypothyroidism, unspecified (principal); R60.0 Localized edema; E88.81 Metabolic syndrome and other insulin resistance
CPT/HCPCS: 80048; 84443

== ENCOUNTER 2021-02-03 16:20 | Emergency (ER) | payer MEDICARE, MEDICAID, SELFPAY ==
--- NOTE | 2021-02-03 16:15 | RT.EKG_ITS ---
APPROVED REPORT Exam: Resting ECG Reason for Exam: dizzy Patient Location: E HR:62 bpm ECG Measurements Heart Rate 62 AXIS TN 192 P 33 QRSd 103 QRS -10 QT 422 T [id number] QTc 429 Conclusion Sinus rhythm...normal P axis, V-rate 60- 99
[2021-02-03 16:30] VITALS: BP 140/82; PULSE 69; RESP 20; TEMP 36.7; O2SAT 96
--- NOTE | 2021-02-03 16:38 | W.ED.GENAD ---
Discharge Plan Disposition Patient Disposition: HOME Condition: Stable Discharge Details Clinical Impression: Chest pain Primary Care Provider: Elsa Morris ED Provider: Morro Lipscomb Home Meds and New Rx's Prescriptions: Continued atorvastatin 20 mg tablet 20 mg PO QHS RF: 0 metformin 500 mg tablet 500 mg PO DAILY RF: 0 albuterol sulfate [ProAir HFA] 90 mcg/actuation HFA aerosol inhaler 2 puff IH Q6H PRNRF: 0 Atrovent HFA 17 mcg/actuation HFA aerosol inhaler 2 puff IH QID RF: 0 Spiriva with HandiHaler 18 mcg capsule, w/inhalation device 1 cap IH DAILY RF: 0 omeprazole 20 mg capsule,delayed release(DR/EC) 20 mg PO BID RF: 0 tamsulosin [Flomax] 0.4 mg capsule 0.4 mg PO QHS RF: 0 Trelegy Ellipta 100-62.5-25 mcg blister with device 1 inh inhalation DAILY RF: 0 sertraline 100 MG tablet 150 mg PO DAILY RF: 0 trazodone 100 MG tablet 100 mg PO HS RF: 0 Xarelto 10 mg Tablet 10 mg PO HS RF: 0 levothyroxine 175 mcg Tablet 175 mcg PO DAILY RF: 0 tamsulosin 0.4 mg Capsule 0.8 mg PO QHS RF: 0 quetiapine 100 MG tablet 100 mg PO BID RF: 0 lamotrigine [Lamictal] 25 MG tablet 50 mg PO .QHS RF: 0 metoprolol tartrate [Lopressor] 50 mg tablet 12.5 mg PO DAILY Qty: 14 RF: 0 Discharge Instructions Instructions: Chest Pain (ED) Additional Instructions: your blood work and cat scan did not show any concerning findings at this time follow up with your primary care provider as soon as possible if you feel more ill, have worsening pain or difficulty breathing return to the emergency department Medical Decision Making 61 yo male with hx of factor V leiden on xarelto, copd, bipolar, gerd, who comes in with 3 days of feeling tired and not sleeping well and today having a pressure sensation in the anterior chest. Denies any radiation of the pain and no diaphoresis, n/v or dyspnea. No prior cardiac history per the patient. Denies any falls or trauma.He doesn't feel weak just tired and despite feeling tired is having trouble sleeping at night. He has no abdominal tenderness, clear lungs, no leg swelling or calf pain, no focal motor or sensation deficits, cN II-XII intact and normal speech. Unclear etiology for his symptoms, will obtain troponin to evaluate for nstemi. No hypoxia or tachycardia and is on xarelto so doubt PE. No tearing back pain but dissection is on the differential, will obtain cta thorax as well. Patients labs and imaging show no acute findings and he remains stable. He hall had over 3 hours of symptoms so do not feel repeat troponin indicated. He has a heart score of 3, offered admission for obsevation but he declined and has capacity to make his own decisions. I advised him to follow up with his primary care provider as soon as possible and return precautions also given Differential Diagnosis Differential Diagnosis: anemia, nstemi, dissection, pneumonia Medical Records Medical records reviewed: Yes I reviewed the patient's medical records. Imaging Data Radiologic Study: Attestation: I personally reviewed and interpreted this imaging study as follows: Imaging: CT Scan Radiologist's impression: IMPRESSION: 1. Negative for pulmonary arterial embolism. 2. Negative for hiatal hernia or findings suggesting esophagitis, also negative for focal pneumonia. 3. There is evidence of mild chronic airways inflammatory disease, again more noticeable in the right lower lobe. 4. Other findings include fatty liver, probable simple right renal cortical cyst, bilateral accessory renal arteries and atherosclerosis. Lab Data Lab results reviewed: Yes I reviewed the patient's lab results. ECG Data Attestation: I personally reviewed and interpreted this ECG (s) as follows: Prior ECG tracings: available for review Interpretation: sinus rhythm, rate of 62, pr 192, qtc 429 HPI General Date/Time Provider Initiated Documentation: 02/03/21 16:28. Limitations to Documentation: no limitations. Information obtained by: patient. History of Present Illness 61 year old M presents to the emergency department with the chief complaint of Tired, described as moderate, Patient started experiencing this day(s) (3) and it has been constant. No relieving factors improve symptom(s), No exacerbating factors reported . Patient notes chest pain. Related Data Home Medications Medication Instructions Recorded Confirmed sertraline 150 mg PO DAILY 03/27/16 08/01/20 trazodone 100 mg PO HS 08/24/16 08/01/20 lamotrigine [Lamictal] 50 mg PO .QHS 01/23/18 08/01/20 quetiapine 100 mg PO BID 01/23/18 08/01/20 Xarelto 10 mg PO HS 01/16/19 08/01/20 albuterol sulfate 90 mcg/actuation 2 puff IH Q6H PRN 10/10/19 08/01/20 aerosol inhaler atorvastatin 20 mg tablet 20 mg PO QHS 10/10/19 08/01/20 ipratropium bromide 17 2 puff IH QID 10/10/19 08/01/20 mcg/actuation HFA aerosol inhaler levothyroxine 175 mcg PO DAILY 10/10/19 08/01/20 metformin 500 mg tablet 500 mg PO DAILY 10/10/19 08/01/20 tamsulosin 0.8 mg PO QHS 10/10/19 08/01/20 tiotropium bromide 18 mcg capsule 1 cap IH DAILY 10/10/19 08/01/20 with inhalation device omeprazole 20 mg capsule,delayed 20 mg PO BID 10/24/19 08/01/20 release metoprolol tartrate [Lopressor] 12.5 mg PO DAILY #14 tab 02/09/20 08/01/20 fluticasone fur. 100 mcg-umeclid 1 inh INHALATION DAILY 01/22/21 62.5 mcg-vilant 25 mcg inhalat.powder tamsulosin 0.4 mg capsule 0.4 mg PO QHS 01/22/21 Previous Rx's Medication Instructions Recorded metoprolol tartrate [Lopressor] 12.5 mg PO DAILY #14 tab 02/09/20 Allergies Allergy/AdvReac Type Severity Reaction Status Date / Time [facility] Allergy Severe Verified 02/03/21 16:33 bee pollen Allergy Unknown Unverified 02/03/21 16:33 bee venom protein (honey bee) Allergy Unknown Unverified 02/03/21 16:33 General Stated Complaint: Chest Pain LORA: 2 Review of Systems All systems reviewed & are unremarkable except as noted in HPI and below Constitutional Constitutional: Denies chills, Denies fever(s) and Denies weakness Cardiovascular Cardiovascular: Denies dyspnea Respiratory Respiratory: Denies cough and Denies dyspnea Gastrointestinal Gastrointestinal: Denies abdominal pain, Denies nausea and Denies vomiting Musculoskeletal Musculoskeletal: Denies joint swelling Neurologic Neurologic: Denies weakness [facility] Medical History (Updated 02/03/21 @ 18:39 by Morro Lipscomb MD) Anxiety Barretts esophagus Bilateral lower extremity edema Bipolar disorder BMI 36.0-36.9,adult Cigarette smoker Clotting disorder COPD (chronic obstructive pulmonary disease) Depression DVT (deep venous thrombosis) Enlarged lymph nodes Factor V Leiden GERD (gastroesophageal reflux disease) History of deep vein thrombosis History of depression History of neck pain Hypercholesterolemia Hyperglycemia Hyperlipidemia Hypothyroid Insomnia Intention tremor Mass of thoracic structure Metabolic syndrome Neck pain, chronic Neuropathy Nightmares Obesity (BMI 35.0-39.9 without comorbidity) ROYCE (obstructive sleep apnea) uses device Peripheral vascular disease Prediabetes Slipping, tripping and stumbling without falling due to stepping from one level to another, initial encounter Smoker Suicide attempt Tobacco abuse Type 2 diabetes mellitus Type 2 diabetes mellitus without complications Urgency of urination Surgical History History of discectomy c5-c6 S/P partial thyroidectomy pt. states this is a total thyroidectomy Social History Smoking/Tobacco Use Status: Current every day Tobacco Type: cigarettes Smoking packs per day: 1 Smoking cigarettes per day: 20.0 Tobacco: How many years used: 45 Smoking risk assessment performed?: Yes Alcohol Intake: former Drug use: Never Substance use type: does not use Do you feel safe at home: Yes Do you feel safe in your relationship?: Yes Exam Const General: no acute distress Orientation: alert HENMT Head: normal to inspection Ears: external ears normal General nose exam: external nose normal Mouth: moist mucous membranes Eyes General: appearance normal, both eyes and all related structures Neck Neck: normal visual inspection Resp Effort & Inspection: normal respiratory effort and able to speak in complete sentences Cardio Rate: regular rate GI Palpation: soft, not rigid and nontender Skin General skin exam: no rashes or lesions noted Neuro General: patient alert and patient oriented x3 Extrem General: normal to inspection Psych Mental Status: mental status grossly normal Course Vital Signs Vital signs: Vital Signs Temperature 36.7 C 02/03/21 16:30 Pulse 69 02/03/21 16:30 Respiratory Rate 20 02/03/21 16:30 Blood Pressure 140/82 02/03/21 16:30 Pulse Oximetry 96 02/03/21 16:30 Temperature 36.7 C 02/03/21 16:30 Temperature Source Skin 02/03/21 16:30 Pulse 69 02/03/21 16:30 Respiratory Rate 20 02/03/21 16:30 Respiratory Effort Non-Labored 02/03/21 16:33 Blood Pressure 140/82 02/03/21 16:30 Blood Pressure Position Sitting 02/03/21 16:30 Pulse Oximetry 96 02/03/21 16:30 Oxygen Delivery Method Room Air 02/03/21 16:30 Oxygen Flow Rate 0 02/03/21 16:30 Pain Level 0 02/03/21 16:30
[2021-02-03 16:53] LABS: Abs Immature Grans 0.05 10^3/uL (0.0-0.06); Absolute Basophil Count 0.06 10^3/uL (0.0-0.2); Absolute Lymphocyte Count 2.61 10^3/uL (1.2-3.4); Absolute Monocyte Count 0.76 10^3/uL (0.1-0.8); Absolute Neutrophil Count 5.73 10^3/uL (1.2-6.7); Basophils % 0.6; Eosinophils % 2.1; HCT 48.9 % (40.0-50.0); HGB 16.8 g/dL (13.5-17.5); Immature Grans % 0.5; Lymphocytes % 27.7; MCH 31.8 pg (27.0-33.0); MCHC 34.4 % (32.0-36.0); MCV 92.6 fL (80-95); MPV 9.1 fL (8.0-11.0); Monocytes % 8.1; Nucleated RBC 0 %; Platelet Count 219 10^3/uL (130-400); RBC 5.28 10^6/uL (4.36-5.78); RDW 12.6 % (11.8-14.1); RDW-SD 43.2 fL; WBC 9.41 10^3/uL (4.4-10.8)
--- NOTE | 2021-02-03 17:00 | DI.CT_ITS ---
Exam(s) CT THORAX CTA EXAM: CT THORAX CTA CLINICAL HISTORY: chest pain. TECHNIQUE: Imaging Protocol: Axial CT angiography was performed with multi-slice acquisition and mu lti-planar and/or 3D reconstructions. CONTRAST MATERIAL: Intravenous: Omnipaque 350 Contrast volume:[address] CHEST LUNG CANCER SCREEN from 08/26/[address] CHEST LUNG CANCER SCREEN from 08/26/[address] CHEST PE CTA from 10/12/[address] CHEST PE CTA from 02/08/2020 FINDINGS: Tracheobronchial tree: Patent where visualized. Pulmonary parenchyma: No consolidation or dominant measurable mass. There is scarring or atelectasis in the lung bases. Pulmonary Arteries: No evidence of filling defect to suggest pulmonary emboli. Mediastinum and Lilia: The right paratracheal lymph node now measures 2.5 cm compared with 3 cm on the prior examination. No significant mediastinal or axillary adenopathy is present. There is stable m ild tissue in the anterior mediastinum which may represent residual thymic tissue. It is unchanged c ompared to examinations dating back to 2018. Visualized thyroid gland: Unremarkable. Pleura: No effusion or pneumothorax. Heart: The heart is not dilated. Mild coronary artery calcification. No pericardial effusion. Aorta: Thoracic aorta non-dilated. Mild atherosclerosis. No dissection. Upper abdomen: There is diffuse fatty infiltration of the liver. There is a stable right renal cyst . Soft tissues: Unremarkable. Bones: Degenerative changes in the spine. IMPRESSION: 1. No evidence of pulmonary embolism, thoracic aortic dissection or aneurysm. 2. Mild chronic parenchymal changes. RADIATION DOSE DELIVERED: 711.25mGy.cm Total DLP 711.25mGy.cm Total DLP DATA REPOSITORY: All CT scans at this facility are submitted to the National Radiology Data Registry (NRDR) Dose Index Registry (DIR) with the [employer] (ACR). RADIATION OPTIMIZATION: All CT scans at this facility use at least one of these dose optimization te chniques: automated exposure control; mA and/or kV adjustment per patient size (includes targeted exa ms where dose is matched to clinical indication); or iterative reconstruction.
[2021-02-03 17:08] LABS: ALT 42 U/L (16-63); AST 18 U/L (15-37); Albumin 4.3 g/dL (3.4-5.0); Alkaline Phosphatase 77 U/L (46-116); Anion Gap 8.8 mmol/L (3-11); BUN 15 mg/dL (7-18); Bilirubin, Total 0.5 mg/dL (0.2-1.0); CO2 30.2 mmol/L (21.0-32.0); CREATININE 1.1 mg/dL (0.70-1.30); Calcium 8.8 mg/dL (8.5-10.1); Chloride 101 mmol/L (98-107); Glucose 107 mg/dL (74-106); PTT Activated 23.7 sec (21.0-27.5); Potassium 4.3 mmol/L (3.5-5.1); Sodium 140 mmol/L (136-145); Total Protein 7.9 g/dL (6.4-8.2)
[2021-02-03 17:09] LABS: Troponin I < 0.05 ng/mL (<0.06)
[2021-02-03] MEDS: Omnipaque 350 MG/ML 100 ML BTL IJ (17:56)
[2021-02-03] MEDS: Normal Saline - Diluent 50 ML VIAL IV (17:57)
--- NOTE | 2021-02-03 18:28 | DI.VRAD_ITS ---
PROCEDURE INFORMATION: Exam: CTA Chest With Contrast Exam date and time: 02/03/2021 5:51 PM Age: 61 years old Clinical indication: Patient HX: Chest pain; PT states burning sensation in center of chest TECHNIQUE: Imaging protocol: Computed tomographic angiography of the chest with contrast. 3D rendering (Not supervised by radiologist): MIP and/or 3D reconstructed images were created by the technologist. COMPARISON: CT CHEST PE CTA 02/08/2020 12:36 PM FINDINGS: Limitations: None. Pulmonary arteries: Normal caliber and contrast opacification. Arterial contrast enhancement is diagnostic. Aorta: Normal caliber aorta. Mild diffuse aortosclerosis. Great vessels off aortic arch: Normal caliber. No significant stenosis. Other arteries: Bilateral accessory renal arteries. Trachea: Normal. Bronchial tree: Normal caliber. No endobronchial masses or stenoses. Lungs: Mild posterior right lower lobe peribronchial thickening subtending and area pleuroparenchymal scarring. Much milder peribronchial thickening elsewhere. No focal lung consolidation or other suspicious finding. Pleural spaces: Normal. Heart: Normal. Coronary arteries: Mild scattered calcification. Mediastinal space: There is greater than the usual amount of residual thymic tissue. No thymic mass. Lymph nodes: Numerous sub threshold mediastinal lymph nodes, none pathologically enlarged. Liver: Abnormal diffuse low attenuating liver indicating hepatic steatosis. Kidneys and ureters: Chronic right renal intracortical mass with uniform low-density is technically indeterminate with this single-phase study though probably a benign cyst. Bones/joints: No acute fracture or suspicious lesion. Soft tissues: Normal. IMPRESSION: 1. Negative for pulmonary arterial embolism. 2. Negative for hiatal hernia or findings suggesting esophagitis, also negative for focal pneumonia. 3. There is evidence of mild chronic airways inflammatory disease, again more noticeable in the right lower lobe. 4. Other findings include fatty liver, probable simple right renal cortical cyst, bilateral accessory renal arteries and atherosclerosis. Dictated and Authenticated by: Cedrick Amaya MD. Ordering:TANVI Hooker MD
== END 2021-02-03 18:50 | disposition home or self-care (01) ==
PROVIDERS: Emergency Provider Emergency Medicine; PCP Nurse Practitioner Community Health
DX: R07.89 Other chest pain (principal)
CPT/HCPCS: 71275; 80053; 93005; 99285; 84484; 85025; 85610; 85730; 93010; 99283; J3490

== ENCOUNTER 2021-04-14 10:31 | Outpatient (CLI) | payer MEDICARE, MEDICAID, SELFPAY ==
[2021-04-14 17:06] LABS: Vitamin B12 260 pg/mL (193-986)
[2021-04-16 14:47] LABS: Albumin 63.1 % (55.8-66.1); Total Protein 6.4 g/dL (6.3-8.2)
== END 2021-04-14 10:32 | disposition home or self-care (01) ==
LOC: LBO 10:34
PROVIDERS: PCP Nurse Practitioner Community Health; Visit Provider Psychiatry & Neurology Neurology
DX: G62.9 Polyneuropathy, unspecified (principal); R26.89 Other abnormalities of gait and mobility; G25.0 Essential tremor
CPT/HCPCS: 36415; 82607; 84165

== ENCOUNTER 2021-05-27 14:00 | Emergency (ER) | payer MEDICARE, MEDICAID, SELFPAY ==
[2021-05-27 14:12] VITALS: BP 124/79; PULSE 66; RESP 18; TEMP 36.7; O2SAT 96
--- NOTE | 2021-05-27 14:30 | DI.US_ITS ---
Exam(s) US LOWER EXTREMITY VENOUS LT EXAM: US LOWER EXTREMITY VENOUS LT CLINICAL HISTORY: left leg pain and swelling, hx of dvt. TECHNIQUE: Lower extremity venous ultrasound performed using grayscale, color-flow, and spectral Do ppler analysis. COMPARISON: No exams were available for comparison FINDINGS: Thrombus is visible beginning in the proximal femoral vein extending into the popliteal vein measurin g 30 cm in length. Thrombus is also noted in the greater saphenous vein from the mid thigh through t he proximal calf, 21 cm in length.. No hematoma or Pérez's cyst is seen. IMPRESSION: Deep venous thrombosis involving femoral through popliteal veins. The superficial thrombosis of the saphenous vein from the mid thigh through the calf. DATA REPOSITORY:
--- NOTE | 2021-05-27 14:47 | NUR.NOTE ---
Patient to ultrasound per cart.Nursing Note:
[2021-05-27 15:22] VITALS: BP 108/64; PULSE 60; RESP 16; O2SAT 96
--- NOTE | 2021-05-27 15:22 | NUR.NOTE ---
Returns from radiologyNursing Note:
--- NOTE | 2021-05-27 15:27 | ED.GENADUL_ITS ---
Discharge Plan Disposition Patient Disposition: HOME Condition: Stable Discharge Details Clinical Impression: Factor V Leiden, DVT (deep venous thrombosis) Primary Care Provider: Elsa Morris ED Provider: Chantel Booker Home Meds and New Rx's Prescriptions: New Xarelto 15 mg tablet 15 mg PO DAILY Qty: 42 RF: 0 Continued propranolol 10 mg tablet 10 mg PO BID Qty: 180 RF: 3 atorvastatin 20 mg tablet 20 mg PO QHS RF: 0 albuterol sulfate [ProAir HFA] 90 mcg/actuation HFA aerosol inhaler 2 puff IH Q6H PRNRF: 0 omeprazole 20 mg capsule,delayed release(DR/EC) 20 mg PO DAILY RF: 0 sertraline 100 MG tablet 150 mg PO DAILY RF: 0 trazodone 100 mg tablet 100 mg PO HS RF: 0 levothyroxine 175 mcg Tablet 175 mcg PO DAILY RF: 0 quetiapine 100 MG tablet 100 mg PO BID RF: 0 lamotrigine [Lamictal] 25 MG tablet 50 mg PO .QHS RF: 0 Discontinued Xarelto 10 mg Tablet 10 mg PO HS RF: 0 Discharge Instructions Additional Instructions: Take the 15 mg starter pack of Xarelto as prescribed, please call your doctor tomorrow to let them know you have required a DVT You are confirming that your prescription will be covered by your insurance Please return immediately should you develop chest pain, shortness of breath, or with any new or worsening complaints, do not miss a dose of the increased amount of your Xarelto Please use caution with all your daily activities as this medication can make you bleed easily Discharge Data Discharge Date/Time-TO BE ENTERED AT DEPARTURE: 05/27/21 16:24 Medical Decision Making Patient with extensive DVT to left lower extremity per ultrasound and radiology per interpretation, femoral vein to popliteal, no distal involvement, superficial thrombophlebitis to greater saphenous As patient is on prophylactic dose of Xarelto I did consult with pharmacy and they recommend after he discontinued his Xarelto for a week and a half that we initiate baseline protocol with 15 mg of Xarelto twice daily for 21 days He will need close outpatient follow-up with his primary care physician as he will need an attended course of Xarelto I did involve Wendy, care management to ensure that this patient Xarelto would be covered by his insurance Patient has no signs or symptoms of pulmonary embolism at this time He is discharged home in stable condition with stable vitals, he is not hypoxic, tachypneic, or tachycardic, he has no signs or symptoms of pulmonary embolism at this time although we did discuss the need to return immediately should he develop worsening symptoms He is alert, oriented, of the past day Medical Records Medical records reviewed: Yes I reviewed the patient's medical records. HPI General Mode of arrival: ambulatory . Date/Time Provider Initiated Documentation: 05/27/21 14:14 . Limitations to Documentation: no limitations . Information obtained by: patient . HPI Narrative: This 61-year-old gentleman with history of factor V Leiden, COPD, tobacco abuse, hypercholesterolemia, hypothyroidism, metabolic syndrome, hyperlipidemia presents with reports of left leg swelling and pain. He states he has a history of DVT and PE and is anticoagulated typically on Xarelto. He states there was an issue with insuranc e and he did not have his Xarelto for a week and a half. He resumed his Xarelto 3 days ago. He is only taking his prophylactic dose of 10 mg. He adamantly denies any chest pain or shortness of breath. He denies any dizziness or weakness. he denies any fever or chills. On patient denies any falls or injuries. He states he has not had no DVT for the past several months. Related Data Home Medications Medication Instructions Recorded Confirmed sertraline 150 mg PO DAILY 03/27/16 05/27/21 lamotrigine [Lamictal] 50 mg PO .QHS 01/23/18 05/27/21 quetiapine 100 mg PO BID 01/23/18 05/27/21 albuterol sulfate 90 mcg/actuation 2 puff IH Q6H PRN 10/10/19 05/27/21 aerosol inhaler atorvastatin 20 mg tablet 20 mg PO QHS 10/10/19 05/27/21 levothyroxine 175 mcg PO DAILY 10/10/19 05/27/21 omeprazole 20 mg capsule,delayed 20 mg PO DAILY 10/24/19 05/27/21 release trazodone 100 mg tablet 100 mg PO HS 03/17/21 05/27/21 propranolol 10 mg tablet 10 mg PO BID #180 tab 04/17/21 05/27/21 rivaroxaban [Xarelto] 15 mg PO DAILY #42 tab 05/27/21 Previous Rx's Medication Instructions Recorded propranolol 10 mg tablet 10 mg PO BID #180 tab 04/17/21 rivaroxaban [Xarelto] 15 mg PO DAILY #42 tab 05/27/21 Allergies Allergy/AdvReac Type Severity Reaction Status Date / Time varenicline [From Chantix] Allergy Severe Verified 05/27/21 14:15 bee pollen Allergy Unknown Unverified 05/27/21 14:15 bee venom protein (honey bee) Allergy Unknown Unverified 05/27/21 14:15 General Stated Complaint: Vascular LORA: 3 Review of Systems All systems reviewed & are unremarkable except as noted in HPI and below PFSH Medical History Anxiety Barretts esophagus Bilateral lower extremity edema Bipolar disorder BMI 36.0-36.9,adult Cigarette smoker Clotting disorder COPD (chronic obstructive pulmonary disease) Depression DVT (deep venous thrombosis) Enlarged lymph nodes Factor V Leiden GERD (gastroesophageal reflux disease) History of neck pain Hyperlipidemia Hypothyroid Insomnia Intention tremor Mass of thoracic structure Metabolic syndrome Neuropathy Nightmares Obesity (BMI 35.0-39.9 without comorbidity) ROYCE (obstructive sleep apnea) uses device Peripheral vascular disease Smoker Suicide attempt Tobacco abuse Type 2 diabetes mellitus Urgency of urination Surgical History History of discectomy c5-c6 S/P appendectomy S/P partial thyroidectomy pt. states this is a total thyroidectomy Family History Other Diabetes Heart disease Hyperlipidemia Social History (Updated 04/17/21 @ 12:24 by Ileana Lewis LPN) Smoking/Tobacco Use Status: Current every day Tobacco: How many years used: 45 Smoking risk assessment performed?: Yes Alcohol Intake: former Drug use: Never Substance use type: does not use Household members: significant other Number of Children: 2 number of grandchildren: 5 current occupation: disabled Pets and animals: Yes Pets and animals: dog(s) What type of physical activity do you participate in: none Seatbelt use: always Do you feel safe at home: Yes Do you feel safe in your relationship?: Yes Exam Const General: cooperative and no acute distress Eyes Sclera: sclerae normal Chest Chest: normal inspection of the chest Resp Effort & Inspection: normal respiratory effort Cardio Rate: regular rate Rhythm: regular rhythm Skin General skin exam: no rashes or lesions noted Neuro General: patient alert and patient oriented x3 Sensory Exam: no sensory deficits noted Extrem Other: Left medial thigh with area of superficial thrombophlebitis, swelling noted to left lower extremity, distal pulses intact, sensation intact distally Course Vital Signs Vital signs: Vital Signs Temperature 36.7 C 05/27/21 14:12 Pulse 66 05/27/21 14:12 Respiratory Rate 18 05/27/21 14:12 Blood Pressure 124/79 05/27/21 14:12 Pulse Oximetry 96 05/27/21 14:12 Temperature 36.7 C 05/27/21 14:12 Pulse 60 05/27/21 15:22 Respiratory Rate 16 05/27/21 15:22 Respiratory Effort Non-Labored 05/27/21 14:18 Respiratory Depth Normal 05/27/21 14:18 Respiratory Pattern Normal 05/27/21 14:18 Blood Pressure 108/64 05/27/21 15:22 Blood Pressure Position Sitting 05/27/21 14:12 Pulse Oximetry 96 05/27/21 15:22 Oxygen Delivery Method Room Air 05/27/21 15:22 Oxygen Flow Rate 0 05/27/21 15:22 Pain Level 5 05/27/21 14:18 Comment 05/27/21 14:12
[2021-05-27 16:10] VITALS: BP 113/80; PULSE 60; RESP 16; O2SAT 95
--- NOTE | 2021-05-27 16:13 | NUR.NOTE ---
SENT REFERRAL TO [facility] FOLLOW UP AND PCP TO SCHEDULE US
--- NOTE | 2021-05-28 11:08 | CMPROGNOTE_ITS ---
- If Service Date Differs Date of service: 05/27/21 Time of Service: 16:00 Care Management Progress Note Morro is seen in the ED for a DVT. At the request of ED provider, GM contacts Morro's pharmacy, [facility] in [place], to ensure Xarelto prescription does not require prior authorization.
== END 2021-05-27 16:24 | disposition home or self-care (01) ==
PROVIDERS: Emergency Provider Physician Assistant; PCP Nurse Practitioner Community Health
DX: I82.412 Acute embolism and thrombosis of left femoral vein (principal); I82.812 Embolism and thrombosis of superficial veins of left lower extremity; D68.51 Activated protein C resistance; Z79.01 Long term (current) use of anticoagulants
CPT/HCPCS: 99284; 93971

== ENCOUNTER 2021-05-31 12:20 | Emergency (ER) | payer MEDICARE, MEDICAID, SELFPAY ==
--- NOTE | 2021-05-31 12:15 | RT.EKG_ITS ---
APPROVED REPORT Exam: Resting ECG Reason for Exam: possible clot Patient Location: E HR:57 bpm ECG Measurements Heart Rate 57 AXIS IN 210 P 44 QRSd 103 QRS -15 QT 428 T -38 QTc 417 Conclusion Sinus bradycardia...rate< 60 Prolonged IN interval...IN >210, V-rate 50- 90 Physician: no stemi, unchanged from 02/03/21
[2021-05-31 12:24] VITALS: BP 136/90; PULSE 60; TEMP 36.2; O2SAT 96
--- NOTE | 2021-05-31 12:32 | DI.CT_ITS ---
Exam(s) CT CHEST PE CTA EXAM: CT CHEST PE CTA CLINICAL HISTORY: SOB, known DVT. TECHNIQUE: Imaging Protocol: Axial CT angiography was performed with multi-slice acquisition and mu lti-planar and/or 3D reconstructions. CONTRAST MATERIAL: Intravenous: Omnipaque 350 Contrast volume:100 mL COMPARISON: CT CT THORAX CTA from 02/03/2021 FINDINGS: Tracheobronchial tree: Patent where visualized. Pulmonary parenchyma: No consolidation or dominant measurable mass. Mild centrilobular and paraseptal emphysematous changes are present. There is again seen infiltrate, atelectasis or scarring in the r ight lung base. Pulmonary Arteries: No evidence of filling defect to suggest pulmonary emboli. Mediastinum and Lilia: There is again seen a 2.9 x 2.4 cm right paratracheal lymph node. Visualized thyroid gland: There appear to again the surgical clips in the thyroid bed. Please correl ate clinically. Pleura: No effusion or pneumothorax. Heart: The heart is not dilated. Mild coronary artery calcification. No pericardial effusion. Aorta: Stable dilatation of the ascending aorta to of 4.4 cm. Atherosclerosis. No evidence of disse ction. Upper abdomen: Diffuse decreased attenuation of the liver consistent with fatty infiltration. Cyst in the superior pole of the right kidney. This is unchanged compared to prior examination. Soft tissues: Unremarkable. Bones: Within normal limits for the patient's age. IMPRESSION: 1. No evidence of pulmonary embolism or thoracic aortic dissection. 2. Stable enlarged mediastinal lymph node of uncertain clinical significance. RADIATION DOSE DELIVERED: 598.56mGy.cm Total DLP DATA REPOSITORY: All CT scans at this facility are submitted to the National Radiology Data Registry (NRDR) Dose Index Registry (DIR) with the [employer] ([employer]). RADIATION OPTIMIZATION: All CT scans at this facility use at least one of these dose optimization te chniques: automated exposure control; mA and/or kV adjustment per patient size (includes targeted exa ms where dose is matched to clinical indication); or iterative reconstruction.
--- NOTE | 2021-05-31 12:42 | ED.GENADUL_ITS ---
Discharge Plan Disposition Patient Disposition: HOME Condition: Stable Discharge Details Clinical Impression: Lightheadedness, Abrasion of ear, Chest pain Primary Care Provider: Elsa Morris ED Provider: Meagan Yates Home Meds and New Rx's Prescriptions: Continued propranolol 10 mg tablet 10 mg PO BID Qty: 180 RF: 3 atorvastatin 20 mg tablet 20 mg PO QHS RF: 0 albuterol sulfate [ProAir HFA] 90 mcg/actuation HFA aerosol inhaler 2 puff IH Q6H PRNRF: 0 omeprazole 20 mg capsule,delayed release(DR/EC) 20 mg PO DAILY RF: 0 sertraline 100 MG tablet 150 mg PO DAILY RF: 0 trazodone 100 mg tablet 100 mg PO HS RF: 0 levothyroxine 175 mcg Tablet 175 mcg PO DAILY RF: 0 Xarelto 15 mg tablet 15 mg PO BID RF: 0 metformin 500 mg tablet extended release 24 hr 1,000 mg PO BID RF: 0 vitamin L14-jurmn acid 500-400 mcg Tablet PO RF: 0 quetiapine 100 MG tablet 100 mg PO BID RF: 0 lamotrigine [Lamictal] 25 MG tablet 50 mg PO .QHS RF: 0 Discharge Instructions Instructions: Chest Pain (ED) Additional Instructions: Your imaging and labs are reassuring here today. No evidence of pulmonary embolism, heart attack, or other immediately life-threatening pathology. However, I would like for you to keep your upcoming appointment with your primary care physician. Please continue with his Xarelto as prescribed. Please discuss possible need for echocardiogram as well as stress testing with your primary care. If you develop any new or worsening symptoms to seek care urgently once again. Referrals: Elsa Morris [Primary Care Provider] - Medical Decision Making Patient is a pleasant 61 year old male presenting today with c/c of lightheadedness, CP and SOB that began this morning. Past medical history is pertinent for recent diagnosis of extensive DVT of the left lower extremity, type 2 diabetes, hyperlipidemia, hypothyroidism, hypercholesterolemia, factor V Leiden deficiency, COPD. Patient was seen here on 05/27/2021 after missing 1.5 of his prophylactic Xarelto due to insurance issues. Patient was found to have a 30 cm DVT to the left femoral vein. Patient was started on therapeutic dose of Xarelto. Advised on return precautions. States that this morning he developed shortness of breath, pleuritic chest and lightheadedness that is current with exertion. He states history of like when he has had pulmonary embolism historically. Numbness distally Xarelto since being prescribed increased dose. Left lower extremity remains unchanged. He denies any fevers or chills. States he has some mild nausea but no vomiting. Patient states his last PE was several years ago. No history of NM or CAD to his knowledge. On exam, patient does appear ill, fatigued. Appears anxious. He is hemodynamically stable. He appears quite fatigued. 50+ distal pulses in all extremities. His lungs are clear. Normal cardiac rotation. Do not appreciate any lower extremity swelling. Primarily concerned for PE at this time. Will obtain CT for PE protocol as well as baseline labs. Will obtain troponin in the event this is coming ACS event, BNP to evaluate for any cardiac strain associated with this. Reviewed previous notes. Patient has had stress test in 2018 which was negative. No echo on file. Contacted [facility] as he has been hospitalized there in the past, no one is available to share any records today. Bedside ultrasound was performed by Dr. Hopkins. EKG was obtained and reviewed by Dr. Hopkins. Patient is in sinus bradycardic rhythm with a rate of 57. Prolonged NC #210, no acute ischemic changes, unchanged from 02/03/2021. Labs reviewed. No leukocytosis, stable H&H. BNP is not elevated compared to previous. CMP without sigfnicant abnormality. CT reviewed by radiology: FINDINGS: Pulmonary arteries: Normal. No pulmonary emboli. Aorta: The aorta and major branches demonstrate mild atherosclerotic calcification. 4.4 cm fusiform dilatation of the ascending aorta with no appreciable changed since February 03, 2021. Lungs: No focal area of consolidation. No suspicious pulmonary nodules. Minimal dependent atelectasis and/or scar. Pleural spaces: Unremarkable. No pneumothorax. No pleural effusion. Heart: There are mild coronary vascular calcifications. Mediastinal space: Stable minimal soft tissue density in the anterior mediastinal space consistent with residual thymus. Lymph nodes: Stable 2.3 cm short axis right paratracheal lymph node. Multiple additional subcentimeter mediastinal lymph nodes and minimal soft tissue fullness both gavin similar to prior studies. Spleen: 18 mm splenule incidentally noted. Visualized portion of the spleen is unremarkable. Kidneys and ureters: Partially visualized 2.7 cm simple appearing right renal cyst. Stomach and bowel: There is nonspecific gastric wall thickening. This is likely due to incomplete distention. Bones/joints: Orthopedic hardware base of cervical spine consistent with anterior fusion partially visualized. No acute fracture. Soft tissues: Unremarkable. IMPRESSION: 1. No pulmonary embolus or other acute findings. 2. Stable mediastinal adenopathy of uncertain origin. Correlation with clinical history suggested. 3. Stable fusiform dilatation of ascending aorta. 4. Mild coronary vascular calcifications. Discussed these findings with the patient. He haw been asymptomatic since arrivval here. Patient ambulated by nursing staff. VS remained stable, no recurrence of his symptoms. Patient denies lighthededness, SOB or CP with ambulation. Repeat troponin remains WNL. Discussed again with patient. He was able to ambualte to the bathroom with no symptoms. However, he did note some blood in his right ear. He uses hearing aids. Has a small abrasion at the superior aspect of the canal. No evidence of infection. Bleeding has stopped. Consistent with injury, likely from hearing aid. No evidence of infection. He and I discussed treatmetn options. He is on appropriate treatment for his DVT. He is asymptomatic. He prefers d/c to home. As workup is without signficant abnormality and he has been aysmptomatic, I agree with this course. Advised he speak with is PCP regarding possible outpatient echo and stress test. Strict return precautions discussed. Patient lives with s/o, is able to return promptly if any worsening symptoms. jAll of his questions and cocnerns were addressed, he is in agreement with this plan. HPI General Mode of arrival: ambulatory . Date/Time Provider Initiated Documentation: 05/31/21 12:23 . Limitations to Documentation: no limitations . Information obtained by: patient, RN notes reviewed and old records reviewed . History of Present Illness 61 year old M presents to the emergency department with the chief complaint of dizziness, SOB, CP, described as moderate and similar to prior episodes (feels like PE in the past), with intensity rated at 5. Quality is described as aching, and is localized to the chest. Patient reports no radiation. Patient started experiencing this hour(s) and it has been constant. Immobilization improves symptom(s), Movement worsens symptoms . Patient notes chest pain, nausea/vomiting (nausea, no vomiting) and shortness of breath; denies cough, fever/chills, rash, syncope and weakness. Patient did receive the following treatments prior to arrival, other (on Xarelto) Related Data Home Medications Medication Instructions Recorded Confirmed sertraline 150 mg PO DAILY 03/27/16 05/31/21 lamotrigine [Lamictal] 50 mg PO .QHS 01/23/18 05/31/21 quetiapine 100 mg PO BID 01/23/18 05/31/21 albuterol sulfate 90 mcg/actuation 2 puff IH Q6H PRN 10/10/19 05/31/21 aerosol inhaler atorvastatin 20 mg tablet 20 mg PO QHS 10/10/19 05/31/21 levothyroxine 175 mcg PO DAILY 10/10/19 05/31/21 omeprazole 20 mg capsule,delayed 20 mg PO DAILY 10/24/19 05/31/21 release trazodone 100 mg tablet 100 mg PO HS 03/17/21 05/31/21 propranolol 10 mg tablet 10 mg PO BID #180 tab 04/17/21 05/31/21 Xarelto 15 mg PO BID 05/31/21 05/31/21 metformin 1,000 mg PO BID 05/31/21 05/31/21 vitamin [id number]-[id number] acid tab PO 05/31/21 Previous Rx's Medication Instructions Recorded propranolol 10 mg tablet 10 mg PO BID #180 tab 04/17/21 Allergies Allergy/AdvReac Type Severity Reaction Status Date / Time varenicline [From Chantix] Allergy Severe Verified 05/31/21 12:57 bee pollen Allergy Unknown Unverified 05/31/21 12:57 bee venom protein (honey bee) Allergy Unknown Unverified 05/31/21 12:57 General Stated Complaint: Dizzy/Sync LORA: 3 Review of Systems Constitutional Constitutional: Reports as per HPI, Denies chills, Denies fever(s), Denies headache(s), Denies lethargy and Denies poor appetite ENT Ears, Nose, Mouth, and Throat: Reports dizziness (lightheaded) and Denies headache(s) Cardiovascular Cardiovascular: Reports as per HPI, Denies chest pain with activity, Reports leg edema, Reports lightheadedness, Reports dyspnea and Reports dyspnea on exertion Respiratory Respiratory: Reports as per HPI, Denies chest congestion, Denies cough, Denies hemoptysis, Reports pain on inspiration, Reports pain with cough, Reports dyspnea, Reports dyspnea on exertion and Denies wheezing Gastrointestinal Gastrointestinal: Reports as per HPI, Denies abdominal pain, Denies diarrhea, Denies nausea and Denies vomiting Genitourinary Genitourinary: Denies system reviewed and no additional complaints, except as documented (denies change in urinary habits) Musculoskeletal Musculoskeletal: Reports as per HPI and Denies back pain Integumentary/Breasts Skin/Breast: Reports as per HPI and Denies rash Neurologic Neurologic: Reports as per HPI, Reports dizziness (lightheaded) and Denies headache(s) Allergic/Immunologic Allergic/Immunologic: Denies wheezing PFSH Medical History Anxiety Barretts esophagus Bilateral lower extremity edema Bipolar disorder BMI 36.0-36.9,adult Cigarette smoker Clotting disorder COPD (chronic obstructive pulmonary disease) Depression DVT (deep venous thrombosis) Enlarged lymph nodes Factor V Leiden GERD (gastroesophageal reflux disease) History of neck pain Hyperlipidemia Hypothyroid Insomnia Intention tremor Mass of thoracic structure Metabolic syndrome Neuropathy Nightmares Obesity (BMI 35.0-39.9 without comorbidity) ROYCE (obstructive sleep apnea) uses device Peripheral vascular disease Smoker Suicide attempt Tobacco abuse Type 2 diabetes mellitus Urgency of urination Surgical History History of discectomy c5-c6 S/P appendectomy S/P partial thyroidectomy pt. states this is a total thyroidectomy Family History Other Diabetes Heart disease Hyperlipidemia Social History Smoking/Tobacco Use Status: Current every day Tobacco Type: cigarettes Tobacco: How many years used: 45 Smoking risk assessment performed?: Yes Alcohol Intake: former Drug use: Never Substance use type: does not use Household members: significant other Number of Children: 2 number of grandchildren: 5 current occupation: disabled Pets and animals: Yes Pets and animals: dog(s) What type of physical activity do you participate in: none Seatbelt use: always Do you feel safe at home: Yes Do you feel safe in your relationship?: Yes Exam Const General: cooperative, comfortable, no acute distress, well developed and ill appearing acutely Nutritional Appearance: well nourished and overweight Orientation: alert, awake and oriented x3 Chest Chest: normal inspection of the chest, normal palpation of entire chest wall and no crepitus Resp Effort & Inspection: normal respiratory effort, able to speak in complete sentences and no respiratory distress Auscultation: clear to auscultation bilaterally, no rales, no rhonchi and no wheezes Cardio Rate: regular rate Rhythm: regular rhythm Heart Sounds: S1 normal and S2 normal GI Inspection: normal to inspection, no edema and non-distended Palpation: soft, no hepatosplenomegaly, not firm, no guarding, not rigid and nontender Auscultation: normal bowel sounds Skin General skin exam: no rashes or lesions noted Trauma: no lacerations or abrasions Neuro General: patient alert, patient awake and patient oriented x3 Cognition: normal cognition Speech: speech normal Gait: normal gait Extrem General: normal to inspection, capillary refill normal, no pedal edema, no calf tenderness, normal gait and other (2+ distal pulses) Psych Appearance: grossly normal and well kempt Mental Status: mental status grossly normal Speech and Movement: speech and movement normal Course Vital Signs Vital signs: Vital Signs Temperature 36.2 C L 05/31/21 12:24 Pulse 60 05/31/21 12:24 Blood Pressure 136/90 05/31/21 12:24 Pulse Oximetry 96 05/31/21 12:24 Temperature 36.2 C L 05/31/21 12:24 Temperature Source Temporal Artery Scan 05/31/21 12:24 Pulse 60 05/31/21 12:24 Respiratory Effort Non-Labored 05/31/21 12:27 Blood Pressure 136/90 05/31/21 12:24 Blood Pressure Position Sitting 05/31/21 12:24 Pulse Oximetry 96 05/31/21 12:24 Oxygen Delivery Method Room Air 05/31/21 12:24 Oxygen Flow Rate 0 05/31/21 12:24 Pain Level 5 05/31/21 12:24
[2021-05-31 12:50] LABS: Abs Immature Grans 0.04 10^3/uL (0.0-0.06); Absolute Basophil Count 0.04 10^3/uL (0.0-0.2); Absolute Eosinophil Count 0.19 10^3/uL (0.0-0.7); Absolute Lymphocyte Count 1.76 10^3/uL (1.2-3.4); Absolute Monocyte Count 0.67 10^3/uL (0.1-0.8); Absolute Neutrophil Count 3.96 10^3/uL (1.2-6.7); Basophils % 0.6; Eosinophils % 2.9; HCT 46.8 % (40.0-50.0); HGB 15.8 g/dL (13.5-17.5); Immature Grans % 0.6; Lymphocytes % 26.4; MCH 30.6 pg (27.0-33.0); MCHC 33.8 % (32.0-36.0); MCV 90.5 fL (80-95); MPV 9.2 fL (8.0-11.0); Monocytes % 10.1; Neutrophils % 59.4; Nucleated RBC 0 %; Platelet Count 223 10^3/uL (130-400); RBC 5.17 10^6/uL (4.36-5.78); RDW 12.1 % (11.8-14.1); RDW-SD 40.8 fL; WBC 6.66 10^3/uL (4.4-10.8)
[2021-05-31 13:00] LABS: Magnesium 2.1 mg/dL (1.8-2.4)
[2021-05-31 13:07] LABS: ALT 34 U/L (16-63); AST 16 U/L (15-37); Albumin 3.7 g/dL (3.4-5.0); Alkaline Phosphatase 65 U/L (46-116); Anion Gap 5.8 mmol/L (3-11); BUN 13 mg/dL (7-18); Bilirubin, Total 0.6 mg/dL (0.2-1.0); CO2 28.2 mmol/L (21.0-32.0); CREATININE 0.9 mg/dL (0.70-1.30); Calcium 8.8 mg/dL (8.5-10.1); Chloride 103 mmol/L (98-107); Glucose 131 mg/dL (74-106); Potassium 4.3 mmol/L (3.5-5.1); Sodium 137 mmol/L (136-145); Total Protein 7.1 g/dL (6.4-8.2)
[2021-05-31 13:08] LABS: Troponin I < 0.05 ng/mL (<0.06)
[2021-05-31] MEDS: Omnipaque 350 MG/ML 100 ML BTL IJ (13:19)
[2021-05-31 13:28] LABS: INR 1.1 (0.9-1.1); PTT Activated 27.4 sec (21.0-27.5); Prothrombin Time 10.7 sec (9.3-11.0)
[2021-05-31 13:30] LABS: NT-proBNP 363 pg/mL (<300)
--- NOTE | 2021-05-31 14:28 | DI.VRAD_ITS ---
PROCEDURE INFORMATION: Exam: CTA Chest With Contrast Exam date and time: 05/31/2021 1:17 PM Age: 61 years old Clinical indication: Other: SOB, known dvt TECHNIQUE: Imaging protocol: Computed tomographic angiography of the chest with contrast. 3D rendering (Not supervised by radiologist): MIP and/or 3D reconstructed images were created by the technologist. Radiation optimization: All CT scans at this facility use at least one of these dose optimization techniques: automated exposure control; mA and/or kV adjustment per patient size (includes targeted exams where dose is matched to clinical indication); or iterative reconstruction. Contrast material: OMNIPAQUE 350; Contrast volume: 100 ml; Contrast route: INTRAVENOUS (IV); COMPARISON: CT THORAX CTA 02/03/2021 5:53 PM FINDINGS: Pulmonary arteries: Normal. No pulmonary emboli. Aorta: The aorta and major branches demonstrate mild atherosclerotic calcification. 4.4 cm fusiform dilatation of the ascending aorta with no appreciable changed since February 03, 2021. Lungs: No focal area of consolidation. No suspicious pulmonary nodules. Minimal dependent atelectasis and/or scar. Pleural spaces: Unremarkable. No pneumothorax. No pleural effusion. Heart: There are mild coronary vascular calcifications. Mediastinal space: Stable minimal soft tissue density in the anterior mediastinal space consistent with residual thymus. Lymph nodes: Stable 2.3 cm short axis right paratracheal lymph node. Multiple additional subcentimeter mediastinal lymph nodes and minimal soft tissue fullness both gavin similar to prior studies. Spleen: 18 mm splenule incidentally noted. Visualized portion of the spleen is unremarkable. Kidneys and ureters: Partially visualized 2.7 cm simple appearing right renal cyst. Stomach and bowel: There is nonspecific gastric wall thickening. This is likely due to incomplete distention. Bones/joints: Orthopedic hardware base of cervical spine consistent with anterior fusion partially visualized. No acute fracture. Soft tissues: Unremarkable. IMPRESSION: 1. No pulmonary embolus or other acute findings. 2. Stable mediastinal adenopathy of uncertain origin. Correlation with clinical history suggested. 3. Stable fusiform dilatation of ascending aorta. 4. Mild coronary vascular calcifications. Dictated and Authenticated by: Shane Small MD. Ordering:MINDY Rhodes MD
[2021-05-31 14:54] VITALS: BP 138/95; PULSE 58; RESP 18; TEMP 36.4; O2SAT 96
[2021-05-31 15:45] VITALS: PULSE 51; O2SAT 97
[2021-05-31 15:46] VITALS: BP 149/88; PULSE 54; RESP 17; O2SAT 97
[2021-05-31 16:09] LABS: Troponin I < 0.05 ng/mL (<0.06)
== END 2021-05-31 16:50 | disposition home or self-care (01) ==
PROVIDERS: Emergency Provider Physician Assistant; PCP Nurse Practitioner Community Health
DX: R42 Dizziness and giddiness (principal); R07.9 Chest pain, unspecified; R06.02 Shortness of breath; S00.411A Abrasion of right ear, initial encounter; X58.XXXA Exposure to other specified factors, initial encounter
CPT/HCPCS: 36415; 71275; 80053; 93005; 99285; 83735; 83880; 84484; 85025; 85610; 85730; 93010; 99284; J3490

== ENCOUNTER 2021-06-07 18:22 | Emergency (ER) | payer MEDICARE, MEDICAID, SELFPAY ==
[2021-06-07 18:25] VITALS: BP 130/70; PULSE 72; RESP 16; TEMP 36.2; O2SAT 96
[2021-06-07 18:31] VITALS: RESP 16
--- NOTE | 2021-06-07 18:53 | ED.GENADUL_ITS ---
Discharge Plan Disposition Patient Disposition: HOME Condition: Stable Discharge Details Clinical Impression: DVT (deep venous thrombosis), Left leg pain Primary Care Provider: Elsa Morris ED Provider: Morro Lipscomb Home Meds and New Rx's Prescriptions: Continued propranolol 10 mg tablet 10 mg PO BID Qty: 180 RF: 3 atorvastatin 20 mg tablet 20 mg PO QHS RF: 0 albuterol sulfate [ProAir HFA] 90 mcg/actuation HFA aerosol inhaler 2 puff IH Q6H PRNRF: 0 omeprazole 20 mg capsule,delayed release(DR/EC) 20 mg PO DAILY RF: 0 sertraline 100 MG tablet 150 mg PO DAILY RF: 0 trazodone 100 mg tablet 100 mg PO HS RF: 0 levothyroxine 175 mcg Tablet 175 mcg PO DAILY RF: 0 Xarelto 15 mg tablet 15 mg PO BID RF: 0 metformin 500 mg tablet extended release 24 hr 1,000 mg PO BID RF: 0 vitamin B31-leldl acid 500-400 mcg Tablet 1 tab PO DAILY RF: 0 quetiapine 100 MG tablet 100 mg PO BID RF: 0 lamotrigine [Lamictal] 25 MG tablet 50 mg PO .QHS RF: 0 Discharge Instructions Additional Instructions: It is unlikely that your clot has moved or changed significantly since restarting your xarelto follow up as scheduled with your primary care provider this week if you feel more ill, have chest pain, fevers or difficulty breathing return to the emergency department Medical Decision Making 61 yo male with hx of factor V leiden who was diagnosed with left leg dvt from the femoral vein to popliteal vein and was associated with being off his xarelto for over a week. He was then seen a few days later for lightheadedness, had negative cta and labs and discharged. He has noticed some discomfort in mid medial thigh for a day with no known injuries. He denies fevers and no dyspnea or chest pain/pressure. He says the pain is mild. He is walking without a limp and normal gait. He has mild tenderness to the mid medial thigh, no significant leg swelling or calf tenderness, no erythema or warmth. Full range of motion of the leg. Discussed with pt that his dvt is in the femoral and popliteal vein and unlikely to have changed significantly with how long he has been back on anticoagulation and do not feel repeat u/s indicated. HAs no findings to suggest underlying infectious etiology. He has f/u this week with his pcp and return precautions given Differential Diagnosis Differential Diagnosis: dvt, strain, muscle spasm HPI General Mode of arrival: ambulatory . Date/Time Provider Initiated Documentation: 06/07/21 18:23 . Limitations to Documentation: no limitations . Information obtained by: patient . History of Present Illness 61 year old M presents to the emergency department with the chief complaint of left thigh pain, described as mild, with intensity rated at 4. Quality is described as aching, and is localized to the left and lower extremity. Patient reports no radiation. Patient started experiencing this day(s) (1) and it has been constant. No relieving factors improve symptom(s), No exacerbating factors reported . Patient notes no other symptoms.. Related Data Home Medications Medication Instructions Recorded Confirmed sertraline 150 mg PO DAILY 03/27/16 06/07/21 lamotrigine [Lamictal] 50 mg PO .QHS 01/23/18 06/07/21 quetiapine 100 mg PO BID 01/23/18 06/07/21 albuterol sulfate 90 mcg/actuation 2 puff IH Q6H PRN 10/10/19 06/07/21 aerosol inhaler atorvastatin 20 mg tablet 20 mg PO QHS 10/10/19 06/07/21 levothyroxine 175 mcg PO DAILY 10/10/19 06/07/21 omeprazole 20 mg capsule,delayed 20 mg PO DAILY 10/24/19 06/07/21 release trazodone 100 mg tablet 100 mg PO HS 03/17/21 06/07/21 propranolol 10 mg tablet 10 mg PO BID #180 tab 04/17/21 06/07/21 Xarelto 15 mg PO BID 05/31/21 06/07/21 metformin 1,000 mg PO BID 05/31/21 06/07/21 vitamin C57-dngkj acid 1 tab PO DAILY 05/31/21 06/07/21 Previous Rx's Medication Instructions Recorded propranolol 10 mg tablet 10 mg PO BID #180 tab 04/17/21 Allergies Allergy/AdvReac Type Severity Reaction Status Date / Time varenicline [From Chantix] Allergy Severe Verified 06/07/21 18:36 bee pollen Allergy Unknown Unverified 06/07/21 18:36 bee venom protein (honey bee) Allergy Unknown Unverified 06/07/21 18:36 General Stated Complaint: Vascular LORA: 3 Review of Systems All systems reviewed & are unremarkable except as noted in HPI and below Constitutional Constitutional: Denies chills, Denies fever(s) and Denies weakness Cardiovascular Cardiovascular: Denies chest pain and Denies dyspnea Respiratory Respiratory: Denies cough and Denies dyspnea Gastrointestinal Gastrointestinal: Denies abdominal pain, Denies nausea and Denies vomiting Musculoskeletal Musculoskeletal: Denies joint swelling Neurologic Neurologic: Denies weakness PFSH Medical History Anxiety Barretts esophagus Bilateral lower extremity edema Bipolar disorder BMI 36.0-36.9,adult Cigarette smoker Clotting disorder COPD (chronic obstructive pulmonary disease) Depression DVT (deep venous thrombosis) Enlarged lymph nodes Factor V Leiden GERD (gastroesophageal reflux disease) History of neck pain Hyperlipidemia Hypothyroid Insomnia Intention tremor Mass of thoracic structure Metabolic syndrome Neuropathy Nightmares Obesity (BMI 35.0-39.9 without comorbidity) ROYCE (obstructive sleep apnea) uses device Peripheral vascular disease Smoker Suicide attempt Tobacco abuse Type 2 diabetes mellitus Urgency of urination Surgical History History of discectomy c5-c6 S/P appendectomy S/P partial thyroidectomy pt. states this is a total thyroidectomy Family History Other Diabetes Heart disease Hyperlipidemia Social History Smoking/Tobacco Use Status: Current every day Tobacco Type: cigarettes Tobacco: How many years used: 45 Smoking risk assessment performed?: Yes Alcohol Intake: former Drug use: Never Substance use type: does not use Household members: significant other Number of Children: 2 number of grandchildren: 5 current occupation: disabled Pets and animals: Yes Pets and animals: dog(s) What type of physical activity do you participate in: none Seatbelt use: always Do you feel safe at home: Yes Do you feel safe in your relationship?: Yes Exam Const General: no acute distress Orientation: alert HENMT Head: normal to inspection Ears: external ears normal General nose exam: external nose normal Mouth: moist mucous membranes Eyes General: appearance normal, both eyes and all related structures Neck Neck: normal visual inspection Resp Effort & Inspection: normal respiratory effort and able to speak in complete sen tences Cardio Rate: regular rate Skin General skin exam: no rashes or lesions noted Neuro General: patient alert and patient oriented x3 Extrem General: normal to inspection Psych Mental Status: mental status grossly normal Course Vital Signs Vital signs: Vital Signs Temperature 36.2 C L 06/07/21 18:25 Pulse 72 06/07/21 18:25 Respiratory Rate 16 06/07/21 18:25 Blood Pressure 130/70 06/07/21 18:25 Pulse Oximetry 96 06/07/21 18:25 Temperature 36.2 C L 06/07/21 18:25 Temperature Source Temporal Artery Scan 06/07/21 18:25 Pulse 72 06/07/21 18:25 Respiratory Rate 16 06/07/21 18:31 Respiratory Effort Non-Labored 06/07/21 18:31 Respiratory Depth Normal 06/07/21 18:31 Respiratory Pattern Normal 06/07/21 18:31 Blood Pressure 130/70 06/07/21 18:25 Blood Pressure Position Sitting 06/07/21 18:25 Pulse Oximetry 96 06/07/21 18:25 Oxygen Delivery Method Room Air 06/07/21 18:25 Oxygen Flow Rate 0 06/07/21 18:25 Pain Level 10 06/07/21 18:31
[2021-06-07 19:15] VITALS: BP 132/72; PULSE 78; RESP 18; O2SAT 95
== END 2021-06-07 19:20 | disposition home or self-care (01) ==
PROVIDERS: Emergency Provider Emergency Medicine; PCP Nurse Practitioner Community Health
DX: I82.412 Acute embolism and thrombosis of left femoral vein (principal); Z79.01 Long term (current) use of anticoagulants; M79.605 Pain in left leg; Z86.718 Personal history of other venous thrombosis and embolism
CPT/HCPCS: 99282

== ENCOUNTER → 2021-06-23 12:49 | Outpatient (BNVA) | payer MEDICARE, MEDICAID, SELFPAY | PROVIDERS: PCP Nurse Practitioner Community Health; Visit Provider Psychiatry & Neurology Neurology | DX: R26.89 Other abnormalities of gait and mobility (principal); I82.409 Acute embolism and thrombosis of unspecified deep veins of unspecified lower extremity; D68.51 Activated protein C resistance; M48.02 Spinal stenosis, cervical region; G99.2 Myelopathy in diseases classified elsewhere; G25.0 Essential tremor | CPT/HCPCS: 99213 ==

== ENCOUNTER 2021-07-09 16:26 | Emergency (ER) | payer MEDICARE, MEDICAID, SELFPAY ==
[2021-07-09 16:30] VITALS: BP 124/92; PULSE 68; RESP 16; TEMP 36.6; O2SAT 97
--- NOTE | 2021-07-09 16:54 | ED.GENADUL_ITS ---
Discharge Plan Disposition Patient Disposition: HOME Condition: Stable Discharge Details Clinical Impression: Diarrhea Primary Care Provider: Elsa Morris ED Provider: Meagan Yates Home Meds and New Rx's Prescriptions: Continued propranolol 10 mg tablet 10 mg PO BID Qty: 180 RF: 3 atorvastatin 20 mg tablet 20 mg PO QHS RF: 0 albuterol sulfate [ProAir HFA] 90 mcg/actuation HFA aerosol inhaler 2 puff IH Q6H PRNRF: 0 omeprazole 20 mg capsule,delayed release(DR/EC) 20 mg PO DAILY RF: 0 sertraline 100 MG tablet 150 mg PO DAILY RF: 0 levothyroxine 175 mcg Tablet 175 mcg PO DAILY RF: 0 Xarelto 15 mg tablet 15 mg PO BID RF: 0 metformin 500 mg tablet extended release 24 hr 1,000 mg PO BID RF: 0 vitamin E23-wwuhv acid 500-400 mcg Tablet 1 tab PO DAILY RF: 0 melatonin 10 mg Tablet 20 mg PO .QHS RF: 0 quetiapine 100 MG tablet 100 mg PO BID RF: 0 lamotrigine [Lamictal] 25 MG tablet 50 mg PO .QHS RF: 0 Discharge Instructions Instructions: High Fiber Diet (ED), Acute Diarrhea (ED) Additional Instructions: Your labs and exam are reassuring here today. It is also good that your stool is becoming slightly more formed. Please continue to encourage hydration. Please try to stick with high-fiber diet, see attached information. You may use Imodium to help with the diarrhea, please take as directed on the packaging. Please only use this for the next 2 days. Please follow-up with your primary care next week for reevaluation. If develop fever/chills, increased pain, bloody diarrhea or other new/worsening symptoms please seek care urgently once again. Referrals: Elsa Morris [Primary Care Provider] - Discharge Data Discharge Date/Time-TO BE ENTERED AT DEPARTURE: 07/09/21 18:37 Medical Decision Making Patient is a pleasant 61 year old male presenting today with c/c of diarrhea. Reports that this started about 5 days ago. States that it occurs after eating. Has had 3 soft BM today. States that stools are becoming more firm as the days ago on. Denies fevers/chills. No abdomal pain. Denies BRBPR, no melena. Past surgical history pertient for appendectomy. No change in appetite. No N/V. On exam, patient appears nontoxic. VS stable. Lungs clear. Normal cardiac exam. Abdomen benign. No peritoneal findings. Normal bowel sounds. Patient and I discussed differential. He denies this from being associated with food, no known sick contacts. No recent antibiotics. As he has had the diarrhea for 5 days, will obtain baseline labs to evaluate for any potential electrolyte abnormalities. Will give IV hydration for possible dehydration associated with his diarrhea. Labs reviewed. No sigfnicant abnormality. Patient had 1 BM here, it was too formed for c.diff testing. Doubt c. diff without triggering cause and stool becoming more formed. Discussed findnigs with [facility] patient. Advised that he may try short course of immodium. Patient had an appointment this afternoon with PCP but missed it secodnary to being here. I advised he call to reschedule so tht he can be rechecked in the next week. return precautions discussed. Encouraged hydration. All of his quesitons and concerns were addressed, he is in agreement with this plan. HPI General Mode of arrival: ambulatory . Date/Time Provider Initiated Documentation: 07/09/21 16:54 . Limitations to Documentation: no limitations . Information obtained by: patient and RN notes reviewed . History of Present Illness 61 year old M presents to the emergency department with the chief complaint of diarrhea, described as moderate, Quality is described as other (denies pain), and is localized to the abdomen. Patient started experiencing this day(s) (5) and it has been intermittent. No relieving factors improve symptom(s), Eating worsens symptoms . Patient notes shortness of breath; denies chest pain, cough, fever/chills, loss of appetite, nausea/vomiting and rash. Patient did receive the following treatments prior to arrival, none Related Data Home Medications Medication Instructions Recorded Confirmed sertraline 150 mg PO DAILY 03/27/16 07/09/21 lamotrigine [Lamictal] 50 mg PO .QHS 01/23/18 07/09/21 quetiapine 100 mg PO BID 01/23/18 07/09/21 albuterol sulfate 90 mcg/actuation 2 puff IH Q6H PRN 10/10/19 07/09/21 aerosol inhaler atorvastatin 20 mg tablet 20 mg PO QHS 10/10/19 07/09/21 levothyroxine 175 mcg PO DAILY 10/10/19 07/09/21 omeprazole 20 mg capsule,delayed 20 mg PO DAILY 10/24/19 07/09/21 release propranolol 10 mg tablet 10 mg PO BID #180 tab 04/17/21 07/09/21 Xarelto 15 mg PO BID 05/31/21 07/09/21 metformin 1,000 mg PO BID 05/31/21 07/09/21 vitamin P38-kziao acid 1 tab PO DAILY 05/31/21 07/09/21 melatonin 20 mg PO .QHS 07/09/21 07/09/21 Previous Rx's Medication Instructions Recorded propranolol 10 mg tablet 10 mg PO BID #180 tab 04/17/21 Allergies Allergy/AdvReac Type Severity Reaction Status Date / Time varenicline [From Chantix] Allergy Severe Verified 07/09/21 16:34 bee pollen Allergy Unknown Unverified 07/09/21 16:34 bee venom protein (honey bee) Allergy Unknown Unverified 07/09/21 16:34 General Stated Complaint: Nausea/Vomit/Diar LORA: 3 Review of Systems Constitutional Constitutional: Reports as per HPI, Denies chills, Denies fatigue, Denies fever(s) and Denies headache(s) ENT Ears, Nose, Mouth, and Throat: Denies headache(s) Cardiovascular Cardiovascular: Reports as per HPI, Denies chest pain and Denies dyspnea Respiratory Respiratory: Reports as per HPI, Denies cough and Denies dyspnea Gastrointestinal Gastrointestinal: Reports as per HPI, Denies melena, Denies bloating, Denies hematochezia, Reports change in bowel habits, Denies cramping, Reports diarrhea, Reports loose stools, Denies nausea and Denies vomiting Genitourinary Genitourinary: Denies system reviewed and no additional complaints, except as documented (patient denies any change in urinary habits) Musculoskeletal Musculoskeletal: Reports as per HPI and Denies back pain Integumentary/Breasts Skin/Breast: Reports as per HPI and Denies rash Neurologic Neurologic: Reports as per HPI and Denies headache(s) Endocrine Endocrine: Denies fatigue [facility] Medical History Anxiety Barretts esophagus Bilateral lower extremity edema Bipolar disorder BMI 36.0-36.9,adult Cigarette smoker Clotting disorder COPD (chronic obstructive pulmonary disease) Depression DVT (deep venous thrombosis) Enlarged lymph nodes Factor V Leiden GERD (gastroesophageal reflux disease) History of neck pain Hyperlipidemia Hypothyroid Insomnia Intention tremor Mass of thoracic structure Metabolic syndrome Neuropathy Nightmares Obesity (BMI 35.0-39.9 without comorbidity) ROYCE (obstructive sleep apnea) uses device Peripheral vascular disease Smoker Suicide attempt Tobacco abuse Type 2 diabetes mellitus Urgency of urination Surgical History History of discectomy c5-c6 S/P appendectomy S/P partial thyroidectomy pt. states this is a total thyroidectomy Family History Other Diabetes Heart disease Hyperlipidemia Social History Smoking/Tobacco Use Status: Current every day Tobacco Type: cigarettes Tobacco: How many years used: 45 Smoking risk assessment performed?: Yes Alcohol Intake: former Drug use: Never Substance use type: does not use Household members: significant other Number of Children: 2 number of grandchildren: 5 current occupation: disabled Pets and animals: Yes Pets and animals: dog(s) What type of physical activity do you participate in: none Seatbelt use: always Do you feel safe at home: Yes Do you feel safe in your relationship?: Yes Exam Const General: cooperative, healthy appearing, comfortable, no acute distress, well developed and anxious Nutritional Appearance: average body habitus and well nourished Orientation: alert and awake HENFL Head: normal to inspection Mouth: moist mucous membranes Resp Effort & Inspection: normal respiratory effort, able to speak in complete sentences and no respiratory distress Auscultation: clear to auscultation bilaterally, no rales, no rhonchi and no wheezes Cardio Rate: regular rate Rhythm: regular rhythm Heart Sounds: S1 normal and S2 normal GI Inspection: normal to inspection Palpation: soft, no hepatosplenomegaly, not firm, no guarding, no pulsatile masses and nontender Percussion: normal to percussion Auscultation: normal bowel sounds Back/Spine/Pelvis Back: no CVA tenderness Skin General skin exam: no rashes or lesions noted Trauma: no lacerations or abrasions Neuro General: patient alert and patient awake Cognition: normal cognition Speech: speech normal Gait: normal gait Psych Appearance: grossly normal and well kempt Mental Status: mental status grossly normal Speech and Movement: speech and movement normal Course Vital Signs Vital signs: Vital Signs Temperature 36.6 C 07/09/21 16:30 Pulse 68 07/09/21 16:30 Respiratory Rate 16 07/09/21 16:30 Blood Pressure 124/92 H 07/09/21 16:30 Pulse Oximetry 97 07/09/21 16:30 Temperature 36.6 C 07/09/21 16:30 Temperature Source Skin 07/09/21 16:30 Pulse 68 07/09/21 16:30 Respiratory Rate 16 07/09/21 16:30 Respiratory Effort Non-Labored 07/09/21 16:30 Blood Pressure 124/92 H 07/09/21 16:30 Blood Pressure Position Sitting 07/09/21 16:30 Pulse Oximetry 97 07/09/21 16:30 Oxygen Delivery Method Room Air 07/09/21 16:30 Oxygen Flow Rate 0 07/09/21 16:30 Pain Level 0 07/09/21 16:30
[2021-07-09] MEDS: Normal Saline 1,000 ML 1000 ML IV (16:59)
[2021-07-09 17:07] LABS: Abs Immature Grans 0.04 10^3/uL (0.0-0.06); Absolute Basophil Count 0.06 10^3/uL (0.0-0.2); Absolute Eosinophil Count 0.22 10^3/uL (0.0-0.7); Absolute Lymphocyte Count 1.94 10^3/uL (1.2-3.4); Absolute Monocyte Count 0.65 10^3/uL (0.1-0.8); Absolute Neutrophil Count 4.51 10^3/uL (1.2-6.7); Basophils % 0.8; HCT 48.9 % (40.0-50.0); HGB 16.4 g/dL (13.5-17.5); Immature Grans % 0.5; Lymphocytes % 26.1; MCH 30.6 pg (27.0-33.0); MCHC 33.5 % (32.0-36.0); MCV 91.2 fL (80-95); MPV 9.4 fL (8.0-11.0); Monocytes % 8.8; Neutrophils % 60.8; Nucleated RBC 0 %; Platelet Count 236 10^3/uL (130-400); RBC 5.36 10^6/uL (4.36-5.78); RDW 12.8 % (11.8-14.1); WBC 7.42 10^3/uL (4.4-10.8)
[2021-07-09 17:55] LABS: ALT 41 U/L (16-63); AST 18 U/L (15-37); Albumin 3.9 g/dL (3.4-5.0); Alkaline Phosphatase 66 U/L (46-116); Anion Gap 7.6 mmol/L (3-11); BUN 13 mg/dL (7-18); Bilirubin, Total 0.7 mg/dL (0.2-1.0); CO2 27.4 mmol/L (21.0-32.0); Calcium 8.6 mg/dL (8.5-10.1); Chloride 102 mmol/L (98-107); Glucose 125 mg/dL (74-106); Sodium 137 mmol/L (136-145); Total Protein 7.6 g/dL (6.4-8.2)
[2021-07-09 18:35] VITALS: BP 139/87; PULSE 62; TEMP 36.2; O2SAT 96
== END 2021-07-09 18:37 | disposition home or self-care (01) ==
PROVIDERS: Emergency Provider Physician Assistant; PCP Nurse Practitioner Community Health
DX: R19.7 Diarrhea, unspecified (principal)
CPT/HCPCS: 36415; 80053; 96360; 99284; 83630; 83735; 85025; 99283

== ENCOUNTER 2021-07-16 22:56 | Outpatient (REF) | payer MEDICARE, MEDICAID, SELFPAY ==
[2021-07-16 22:31] LABS: TSH 2.21 uIU/mL (0.36-3.74)
== END 2021-07-16 22:57 | disposition home or self-care (01) ==
LOC: NCHCN 22:56
PROVIDERS: PCP Nurse Practitioner Community Health; Visit Provider Nurse Practitioner Community Health
DX: R22.2 Localized swelling, mass and lump, trunk (principal)
CPT/HCPCS: 84443

== ENCOUNTER → 2021-08-12 08:30 | Outpatient (BNVA) | payer MEDICARE, MEDICAID, SELFPAY | PROVIDERS: PCP Nurse Practitioner Community Health; Referring Provider Nurse Practitioner Community Health; Visit Provider Surgery | DX: K22.70 Barrett's esophagus without dysplasia (principal); R19.7 Diarrhea, unspecified; D68.51 Activated protein C resistance; J44.9 Chronic obstructive pulmonary disease, unspecified; I82.409 Acute embolism and thrombosis of unspecified deep veins of unspecified lower extremity | CPT/HCPCS: 99213; 99214 ==

== ENCOUNTER 2021-09-02 02:35 | Outpatient (CLI) | payer MEDICARE, MEDICAID, SELFPAY ==
[2021-09-02 12:21] LABS: Source Nasal/Nares
[2021-09-02 15:08] LABS: COVID-19 PCR Negative (Negative)
== END 2021-09-02 02:36 | disposition home or self-care (01) ==
LOC: LBO 02:35
PROVIDERS: PCP Nurse Practitioner Community Health; Visit Provider Surgery
DX: Z20.822 Contact with and (suspected) exposure to COVID-19 (principal)
CPT/HCPCS: 87635

== ENCOUNTER 2021-09-29 03:43 | Outpatient (CLI) | payer MEDICARE, MEDICAID, SELFPAY ==
[2021-09-29 10:33] LABS: Source Nasal/Nares
[2021-09-29 14:17] LABS: COVID-19 PCR Negative (Negative)
== END 2021-09-29 03:44 | disposition home or self-care (01) ==
LOC: LBO 03:43
PROVIDERS: PCP Nurse Practitioner Community Health; Visit Provider Surgery
DX: Z20.822 Contact with and (suspected) exposure to COVID-19 (principal)
CPT/HCPCS: 87635

== ENCOUNTER 2021-10-01 07:09 | Day surgery (SDC) | payer MEDICARE, MEDICAID, SELFPAY ==
--- NOTE | 2021-10-01 06:36 | HPE_ITS ---
Assessment and Plan Assessment and plan (1) Screening for colon cancer: Status: Acute Assessment and plan: Mr. Sanhi is a 61-year-old gentleman who had a colonoscopy about 9 years ago which was normal. He did develop some watery diarrhea a month or two ago. It has slowly been getting better so I suspect that he might have had a viral infection which is just taking a while to resolve. He does feel like when he eats anything with high fiber it makes his diarrhea worse. We did discuss that if he did have a viral infection sometimes there can be some lingering inflammation and a low fiber diet would be appropriate for the next 3 to 4 weeks until hopefully his diarrhea is completely resolved. He did lose some weight at the beginning of all of this but his weight has now stabilized. We will proceed with a screening colonoscopy. Colonoscopy under sedation (2) Barretts esophagus: Status: Acute Assessment and plan: Mr. Sahni is a 61-year-old gentleman with a past medical history of Delaney's esophagitis. He does take omeprazole on a daily basis but continues to have some breakthrough symptoms depending on what he eats. It has been a while since he had an upper endoscopy for surveillance and as he has been losing some weight we will repeat his upper endoscopy. My biggest concern is keeping him from having a DVT while off of his Xarelto. My plan would be to put him on Lovenox, weight-based, forward 2 days before the procedure and 2 days post procedure. I would like to discuss his case with hematology and make sure that this would be the right thing to do for him. Risks, benefits and complications have been reviewed. Complications include but are not limited to bleeding, pain, perforation, sore throat, aspiration, and adverse reaction to the medications. Questions were entertained and answered to their satisfaction and they wished to proceed. No guarantees were given or implied. EGD under sedation Qualifiers: Delaney's esophagus type: without dysplasia Qualified Code(s): K22.70 - Delaney's esophagus without dysplasia History of Present Illness Narrative: Mr Sahni is a pleasant 61-year-old gentleman who has a past medical history significant for factor V Leiden deficiency, COPD, GERD, diabetes and sleep apnea. About 2 to 3 months ago he started with acute onset of diarrhea. At that time he was going to the bathroom 5-6 times a day and it was watery stools. They were never bloody. Over the last few weeks his diarrhea has slowed down to 2-3 loose bowel movements a day. He continues to not have any blood. He also denies any melena. He did have some weight loss for the first couple of months that he had diarrhea but over the last few weeks his weight has stabilized. His last colonoscopy was about 9 years ago and was normal per patient. He did have an EGD in the past as well and he was diagnosed with Delaney's. He at this time does not complain of any dysphagia. He is chronically on a PPI and has breakthr ough symptoms if he eats something spicy or tomato-based. If he does get heartburn from what he eats he will take an extra omeprazole at night. He was taken off his Xarelto back in May for a surgery and developed a DVT. Per our anesthesia guidelines he would be able to have a procedure done 3 months out from his DVT. That would put him at the end of August. He does have a hematology appointment but it is not until November. He has neck issues and is awaiting this appointment in order to be able to have surgery on his C-spine. He denies a family history of colon, rectal or esophageal cancer. He does continue to smoke. He was admitted to [facility] back in February for chest discomfort. His troponins continued to be negative throughout his 24-hour stay. He was set up with cardiology. Per patient he did have a stress test which was normal I will try to get those results. His last stress test which we have on file was in 2019 which was also normal. No changes in his health since he was last seen Review of Systems Cardiovascular Cardiovascular: Denies chest pain, Denies chest pain at rest, Denies irregular heart rhythm, Denies dyspnea and Denies dyspnea on exertion Respiratory Respiratory: Denies cough, Denies dyspnea and Denies dyspnea on exertion Gastrointestinal Gastrointestinal: Reports as per HPI Genitourinary Genitourinary: Denies dysuria, Denies urinary incontinence and Denies urinary urgency Endocrine Endocrine: Reports system reviewed and no additional complaints, except as documented Hematologic/Lymphatic Hematologic/Lymphatic: Denies easy bruising and Denies lymphadenopathy PFSH All Active Problems Screening for colon cancer (Acute) Barretts esophagus (Acute) Diarrhea (Acute) Myelopathy concurrent with and due to spinal stenosis of cervical region (Acute) DVT (deep venous thrombosis) (Chronic) Lightheadedness (Acute) Abrasion of ear (Acute) Left leg pain (Acute) Essential tremor (Acute) Babinski reflex (Acute) Imbalance (Acute) Nightmares (Acute) Cigarette smoker (Acute) Type 2 diabetes mellitus without complications (Acute) Hyperlipidemia (Acute) Metabolic syndrome (Acute) Hypothyroid (Chronic) Hypercholesterolemia (Acute) Factor V Leiden (Acute) Chest pain (Acute) Shortness of breath (Acute) Skin mass (Acute) Sensorineural hearing loss of both ears (Acute) Lipoma (Acute) Bronchitis (Acute) COPD (chronic obstructive pulmonary disease) (Chronic) Barretts esophagus (Acute) Medical History Anxiety Bilateral lower extremity edema Bipolar disorder BMI 36.0-36.9,adult Clotting disorder COPD (chronic obstructive pulmonary disease) Depression DVT (deep venous thrombosis) Enlarged lymph nodes GERD (gastroesophageal reflux disease) History of neck pain Insomnia Intention tremor Mass of thoracic structure Neuropathy Obesity (BMI 35.0-39.9 without comorbidity) ROYCE (obstructive sleep apnea) uses device Peripheral vascular disease Smoker Suicide attempt Tobacco abuse Type 2 diabetes mellitus Urgency of urination Surgical History History of discectomy c5-c6 S/P appendectomy S/P partial thyroidectomy pt. states this is a total thyroidectomy Family History Other Diabetes Heart disease Hyperlipidemia Social History Smoking/Tobacco Use Status: Current every day Tobacco Type: cigarettes Tobacco: How many years used: 45 Smoking risk assessment performed?: Yes Alcohol Intake: former Drug use: Never Substance use type: does not use Household members: significant other Number of Children: 2 number of grandchildren: 5 current occupation: disabled Pets and animals: Yes Pets and animals: dog(s) What type of physical activity do you participate in: none Seatbelt use: always Do you feel safe at home: Yes Do you feel safe in your relationship?: Yes Meds Allergies and Home Medications Allergies Allergy/AdvReac Type Severity Reaction Status Date / Time varenicline [From Chantix] Allergy Severe Verified 10/01/21 07:40 bee pollen Allergy Unknown Anaphylaxis Verified 10/01/21 07:40 bee venom protein (honey bee) Allergy Unknown Anaphylaxis Verified 10/01/21 07:40 Home Medications Medication Instructions Recorded Confirmed Type sertraline 150 mg PO DAILY 03/27/16 10/01/21 History lamotrigine [Lamictal] 50 mg PO .QHS 01/23/18 10/01/21 History quetiapine 100 mg PO BID 01/23/18 10/01/21 History albuterol sulfate 90 mcg/actuation 2 puff IH Q6H PRN 10/10/19 10/01/21 History aerosol inhaler atorvastatin 20 mg tablet 20 mg PO QHS 10/10/19 10/01/21 History levothyroxine 175 mcg PO DAILY 10/10/19 10/01/21 History omeprazole 20 mg capsule,delayed 20 mg PO DAILY 10/24/19 10/01/21 History release propranolol 10 mg tablet 10 mg PO BID #180 tab 04/17/21 10/01/21 Rx metformin 1,000 mg PO BID 05/31/21 10/01/21 History vitamin X25-lvvtf acid 1 tab PO DAILY 05/31/21 09/30/21 History melatonin 20 mg PO .QHS 07/09/21 09/30/21 History acetylcysteine 600 mg capsule 1,200 mg PO DAILY cap 07/29/21 10/01/21 History fluticasone fur. 100 mcg-umeclid 1 inh INHALATION DAILY 07/29/21 10/01/21 History 62.5 mcg-vilant 25 mcg inhalat.powder prazosin 1 mg capsule 1 mg PO QHS 07/29/21 10/01/21 History rivaroxaban 15 mg tablet 20 mg PO BID tab 07/29/21 10/01/21 History tamsulosin 0.4 mg capsule 0.4 mg PO DAILY 07/29/21 09/30/21 History Exam Const General: healthy appearing and comfortable Resp Effort & Inspection: normal respiratory effort Auscultation: clear to auscultation bilaterally Cardio Rate: regular rate Rhythm: regular rhythm Heart Sounds: no click, no gallops and no murmurs
--- NOTE | 2021-10-01 06:38 | PDOC.DSDIS_ITS ---
Discharge Plan Disposition Patient Disposition: HOME Condition: Good Discharge Details Reason For Visit: [place]/EGD Attending Provider: Mariana Morrow Primary Care Provider: Elsa Morris Home Meds and New Rx's Prescriptions: Continued propranolol 10 mg tablet 10 mg PO BID Qty: 180 RF: 3 atorvastatin 20 mg tablet 20 mg PO QHS RF: 0 albuterol sulfate [ProAir HFA] 90 mcg/actuation HFA aerosol inhaler 2 puff IH Q6H PRNRF: 0 omeprazole 20 mg capsule,delayed release(DR/EC) 20 mg PO DAILY RF: 0 tamsulosin [Flomax] 0.4 mg capsule 0.4 mg PO DAILY RF: 0 Trelegy Ellipta 100-62.5-25 mcg blister with device 1 inh inhalation DAILY RF: 0 prazosin 1 mg capsule 1 mg PO QHS RF: 0 acetylcysteine 600 mg capsule 1,200 mg PO DAILY RF: 0 Xarelto 15 mg tablet 20 mg PO BID RF: 0 sertraline 100 MG tablet 150 mg PO DAILY RF: 0 levothyroxine 175 mcg Tablet 175 mcg PO DAILY RF: 0 metformin 500 mg tablet extended release 24 hr 1,000 mg PO BID RF: 0 vitamin I12-jficy acid 500-400 mcg Tablet 1 tab PO DAILY RF: 0 melatonin 10 mg Tablet 20 mg PO .QHS RF: 0 quetiapine 100 MG tablet 100 mg PO BID RF: 0 lamotrigine [Lamictal] 25 MG tablet 50 mg PO .QHS RF: 0 Discharge Instructions Instructions: Colorectal Polyps (DC), Hemorrhoids (DC) Additional Instructions: Findings: GAstritis Internal hemorrhoids 2 colorectal polyps Follow up: 3-5 years Please call if you develop: fevers >101.5 Nausea or Vomiting Abdominal pain that is not transient Rectal bleeding that is more then a tbsp A hard abdomen and inability to pass gas DAY SURGERY UNIT POST ENDOSCOPY INSTRUCTIONS Instructions for everyone who is given Anesthesia: For your safety, please do the following for the next 24 Hours: a. Do not drive or operate dangerous equipment b. Do not drink alcohol beverages or use any recreational drugs for the first 24 hours or while taking pain medications. The medications in your body may have a reaction that can be dangerous. c. Do not make any important decisions or sign any important papers 1. Generally there are no restrictions on your activity after a day or so has gone by, but you may feel a bit fatigued for a few days. 2. After you arrive home you may have a light meal and return to a normal diet as you can tolerate it without feeling sick to your stomach. 3. After surgery, you may feel pain or discomfort. This should be only transient, but if it persists please contact your doctor. 4. If there are any questions regarding the findings of your procedure, please feel free to contact your doctor. 6. If you are unable to contact your doctor with a problem, contact the hospital at [phone]. 7. Continue all your regular medications unless directed otherwise. I understand the above instructions and have no questions. Signature of Patient or Responsible Adult Escort Date/Time Name of Responsible Adult Escort Signature of Nurse Date/Time Activity:: Activity as Tolerated Diet:: As Tolerated Discharge Orders Discharge Orders: Discharge Order (Routine); Ordered 10/01/21 Ordered By: Mariana Morrow DS: Diagnosis Discharge Diagnosis (1) Screening for colon cancer: Status: Acute (2) Barretts esophagus: Status: Acute
--- NOTE | 2021-10-01 06:39 | ENDO_ITS ---
Date of service: 10/01/21 Time of Service: 10:03 Endoscopy Report DATE OF PROCEDURE: 10/01/21 PRE-OP DIAGNOSIS: Hx of Delaney's and screening colonoscopy PROCEDURE: 1. EGD with biopsies 2. Colonoscopy with polypectomy SURGEON: Mariana Morrow ANESTHESIA TYPE: General:No Airway (Niels Garner, DARION) ESTIMATED BLOOD LOSS: 5 PATHOLOGY: other (Antrum bx, body bx, gastric polyp bx, GE junction bx, Transverse polyp and descending polyp) COMPLICATIONS: None DISPOSITION: same day INDICATIONS: (1) Barretts esophagus: Mr. Sahni is a 61-year-old gentleman with a past medical history of Delaney's esophagitis. He does take omeprazole on a daily basis but continues to have some breakthrough symptoms depending on what he eats. It has been a while since he had an upper endoscopy for surveillance and as he has been losing some weight we will repeat his upper endoscopy. My biggest concern is keeping him from having a DVT while off of his Xarelto. My plan would be to put him on Lovenox, weight-based, forward 2 days before the procedure and 2 days post procedure. I would like to discuss his case with hematology and make sure that this would be the right thing to do for him. Risks, benefits and complications have been reviewed. Complications include but are not limited to bleeding, pain, perforation, sore throat, aspiration, and adverse reaction to the medications. Questions were entertained and answered to their satisfaction and they wished to proceed. No guarantees were given or implied. EGD under sedation (2) Screening for colon cancer: Mr. Sahni is a 61-year-old gentleman who had a colonoscopy about 9 years ago which was normal. He did develop some watery diarrhea a month or two ago. It has slowly been getting better so I suspect that he might have had a viral infection which is just taking a while to resolve. He does feel like when he eats anything with high fiber it makes his diarrhea worse. We did discuss that if he did have a viral infection sometimes there can be some lingering inflammation and a low fiber diet would be appropriate for the next 3 to 4 weeks until hopefully his diarrhea is completely resolved. He did lose some weight at the beginning of all of this but his weight has now stabilized. We will proceed with a screening colonoscopy. Colonoscopy under sedation PREP: Miralax/Dulcolax PROCEDURE START TIME: 09:05 PROCEDURE END TIME: 09:50 COLONOSCOPY RETRACTION TIME: 16 minutes FINDINGS: Mild inflammation of the stomach Gastric polyp colon polyps PROCEDURE DESCRIPTION: After informed consent was obtained the patient was take to the procedure room and placed in a supine position. Monitors were appl ied and a time out was done. The patients name, date of , procedure type, allergies to medications and metal in their body was reviewed. A bite block was placed and the patient was sedated. Once sedated and comfortable the gastroscope was advanced through the oropharynx which was grossly normal into the esophagus. The proximal and mid- esophagus were normal. In the distal esophagus there was mild inflammation noted. The scope was advanced into the stomach and through the pylorus into the 3rd portion of the duodenum. The duodenum was noted to be normal. The scope was retracted back into the stomach. There was mild inflammation noted in the antrum and body. Biopsies were done to rule out H. pylori. There were no ulcers. There was one polyp in the cardia which was removed. The scope was retro-flexed. The cardia and fundus were noted to be normal. There was no hiatal hernia noted. The scope was retracted back into the esophagus and biopsies were done of the GE junction to rule out Delaney's. The Z line was regular. The GE junction was at 45 cm. While the patient was still sedated they were placed in a left decubitous position. A rectal exam was done. External exam was normal. Internal exam revealed a normal sphincter tone and no palpable masses. The prostate felt smooth. The scope was then introduced and retro-flexed. Grade 1 internal hemorrhoids were identified. There were no masses or polyps identified on retroflexion. The scope was then advanced to the cecum without difficulty. The ileocecal valve and appendiceal orifice were identified. The prep was adequate. The scope was then slowly retracted over 16 minutes back into the rectum. Polyps were removed with cold forceps in the Transverse colon and descending colon. There was no diverticulosis noted. The scope was removed and the patient was woken up and taken back to Same day surgery in stable condition. The patient tolerated the procedure well and there were no immediate compli cations. Follow up: 3-5 years for next colonoscopy and 3 years for EGD
[2021-10-01 07:25] VITALS: BP 126/86; PULSE 65; RESP 16; TEMP 36.5; O2SAT 97
[2021-10-01] MEDS: Lactated Ringers 1,000 ML 80 ML IV (07:30)
--- NOTE | 2021-10-01 07:59 | ANES.PREOP_ITS ---
General Info Date of Service Date Performed: 10/01/21 Height: 5 ft 11 in Weight: 108.2 kg Body Mass Index (BMI): 33.3 Surgical Procedure: Operation Date: 10/01/21 09:05 Proposed Procedures Side Surgeon p Colonoscopy/Gastroscopy Mariana Morrow MD Meds Allergies and Home Medications Allergies Allergy/AdvReac Type Severity Reaction Status Date / Time varenicline [From Chantix] Allergy Severe Verified 10/01/21 07:40 bee pollen Allergy Unknown Anaphylaxis Verified 10/01/21 07:40 bee venom protein (honey bee) Allergy Unknown Anaphylaxis Verified 10/01/21 07:40 Home Medication Medication Instructions Recorded sertraline 150 mg PO DAILY 03/27/16 lamotrigine [Lamictal] 50 mg PO .QHS 01/23/18 quetiapine 100 mg PO BID 01/23/18 albuterol sulfate 90 mcg/actuation 2 puff IH Q6H PRN 10/10/19 aerosol inhaler atorvastatin 20 mg tablet 20 mg PO QHS 10/10/19 levothyroxine 175 mcg PO DAILY 10/10/19 omeprazole 20 mg capsule,delayed 20 mg PO DAILY 10/24/19 release propranolol 10 mg tablet 10 mg PO BID #180 tab 04/17/21 metformin 1,000 mg PO BID 05/31/21 vitamin X61-useik acid 1 tab PO DAILY 05/31/21 melatonin 20 mg PO .QHS 07/09/21 acetylcysteine 600 mg capsule 1,200 mg PO DAILY cap 07/29/21 fluticasone fur. 100 mcg-umeclid 1 inh INHALATION DAILY 07/29/21 62.5 mcg-vilant 25 mcg inhalat.powder prazosin 1 mg capsule 1 mg PO QHS 07/29/21 rivaroxaban 15 mg tablet 20 mg PO BID tab 07/29/21 tamsulosin 0.4 mg capsule 0.4 mg PO DAILY 07/29/21 Current Visit Medications: Current Medications Generic Name Dose Route Start Last Admin Trade Name Freq PRN Reason Stop Dose Admin Hyoscyamine Sulfate 0.125 mg 10/01/21 06:38 Hyoscyamine 0.125 Mg Sl/Oral/Chew SL DIRECTED PRN Ringer's Solution 1,000 mls @ 80 mls/hr 10/01/21 06:00 10/01/21 07:30 IV 10/03/21 23:59 80 mls/hr INFUSION CITLALI Administration IV Miscellaneous Supplies 1 each 10/01/21 06:00 Iv Access IV 10/03/21 23:59 DIRECTED CITLALI Ondansetron HCl 4 mg 10/01/21 06:38 Ondansetron 4 Mg/2 Ml Vial IVP Q4H PRN PRN Nausea / Vomiting Sodium Chloride 0 ml 10/01/21 06:00 Normal Saline Flush 10 Ml Syr IV 10/03/21 23:59 PRN PRN Sodium Chloride 0 ml 10/01/21 06:00 Normal Saline 10 Ml Vial IJ 10/03/21 23:59 DIRECTED PRN Sterile Water 0 ml 10/01/21 06:00 Water,Injection,Sterile 10 Ml Vial IJ 10/03/21 23:59 DIRECTED PRN PFSH Active Problems Active Problems: Problem Status Onset Code Screening for colon cancer Z12.11 Barretts esophagus K22.70 Diarrhea R19.7 Myelopathy concurrent with and due to spinal stenosis of cervical region M48.02, G99.2 DVT (deep venous thrombosis) I82.409 Lightheadedness R42 Abrasion of ear S00.419A Left leg pain M79.605 Essential tremor G25.0 Babinski reflex R29.2 Imbalance R26.89 Nightmares F51.5 Cigarette smoker F17.210 Type 2 diabetes mellitus without complications E11.9 Hyperlipidemia E78.5 Metabolic syndrome E88.81 Hypothyroid E03.9 Hypercholesterolemia E78.00 Factor V Leiden D68.51 Chest pain R07.9 Shortness of breath R06.02 Skin mass R22.9 Sensorineural hearing loss of both ears H90.3 Lipoma D17.9 Bronchitis J40 COPD (chronic obstructive pulmonary disease) J44.9 Barretts esophagus K22.70 Medical History Medical History Anxiety Bilateral lower extremity edema Bipolar disorder BMI 36.0-36.9,adult Clotting disorder COPD (chronic obstructive pulmonary disease) Depression DVT (deep venous thrombosis) Enlarged lymph nodes GERD (gastroesophageal reflux disease) History of neck pain Insomnia Intention tremor Mass of thoracic structure Neuropathy Obesity (BMI 35.0-39.9 without comorbidity) ROYCE (obstructive sleep apnea) uses device Peripheral vascular disease Smoker Suicide attempt Tobacco abuse Type 2 diabetes mellitus Urgency of urination Surgical History Surgical History History of discectomy c5-c6 S/P appendectomy S/P partial thyroidectomy pt. states this is a total thyroidectomy Tobacco Smoking/Tobacco Use Status: Current every day Tobacco Type: cigarettes Smoking cigarettes per day: 15 Tobacco: How many years used: 45 Alcohol Alcohol Intake: former Substance Use Substance use: Never Substance use type: does not use Vital Signs and Lab Results Vital Signs Most Recent Vital Signs in EMR: Most Recent Vital Signs Temp Pulse Resp BP Pulse Ox 36.5 C 65 16 126/86 97 10/01/21 07:25 10/01/21 07:25 10/01/21 07:25 10/01/21 07:25 10/01/21 07:25 Point of Care Results Point of Care Results: Finger Stick Blood Glucose 105 10/01/21 07:28 Lab Results Blood Type / Crossmatch: No Data to Display Complete Blood Count: No Data to Display Complete Metabolic Panel: No Data to Display Liver Function Panel: No Data to Display Coagulation Panel: No Data to Display Cardiac Panel: 2 No Data to Display Arterial Blood Gas: No Data to Display Venous Blood Gas: No Data to Display Pancreas Panel: No Data to Display Thyroid Panel: No Data to Display Infectious Disease: Coronavirus (COVID-19)(PCR) Negative (Negative) 09/29/21 09:22 09/29/21 Coronavirus 2019 Source Nasal/Nares 09/29/21 09:22 09/29/21 Blood Cultures: No Data to Display Toxicology Panel: No Data to Display Anesthesia Assessment and Plan Anesthesia History Personal History: Delayed Emergence Family History: No Family History of Anesthesia Complications Exercise Tolerance Exercise Tolerance: Metabolic Equivalents>4 Pertinent Negatives Pertinent Negatives: No Symptoms of GERD, No Major Cardiovascular Symptoms or Complaints, No Major Pulmonary Symptoms or Complaints (Uses inhaler daily to control COPD sx's / SMOKER) and No History of CVA/TIA Cardiac & Pulmonary Exam Cardiac Exam: Normal S1/S2 Heart Sounds Pulmonary Exam: Clear Bilateral Breath Sounds Implantable Cardiac Device Does patient have a Pacemaker or an ICD?: No Airway Exam Known Difficult Airway: No Mallampati Class: 1 Mouth Opening: Normal (> 3cm) Thyromental Distance: Greater than 3 cm Neck Range of Motion: Full ROM Neck Circumference: Normal Teeth Condition: Edentulous ASA Classification ASA Score: ASA 2 Emergency Case?: No NPO Status NPO Status: NPO Clears >2 hours, Solids >8 hours Anesthesia Plan Resuscitation Status: Full Code Anesthesia Technique: General Anesthesia Airway Planned: Natural Airway Monitors Used: Standard Monitors
[2021-10-01 08:03] VITALS: BMI 33.3
--- NOTE | 2021-10-01 09:08 | STOM_PTH ---
PATIENT: Morro Sahni LOC: [facility] U#:[id number] AGE/SX: 61/M ROOM: RE10/01/[address]: Mariana Morrow MD : [id number] BED: DIS: 10/01/2021 SPEC #: [id number] RECD: 10/01/21 12:47 STATUS: NICK REEduardo #: [id number] FRANCIS: 10/01/21 09:[address]: Mariana Morrow DEPT: Surgical Specimen RECD BY: Chantel Moran ENTERED: 10/01/21 12:49 SP TYPE: STOMACH OTHR DR: Elsa Morris Tissues: 1 - STOMACH BIOPSY 2 - STOMACH BIOPSY 3 - STOMACH BIOPSY 4 - ESOPHAGUS BIOPSY 5 - BIOPSY BOWEL 6 - BIOPSY BOWEL Procedures: GROSS AND MICRO LEVEL 4 Comments: [id number]
[2021-10-01 10:01] VITALS: BP 117/84; PULSE 62; RESP 16; TEMP 36.6; O2SAT 93
--- NOTE | 2021-10-01 10:02 | W.ANESPOSTOP ---
Postoperative Evaluation Date, Time and Location Date Performed: 10/01/21 Time Performed: 10:02 Patient Location: Day Surgery Unit Vital Signs Most Recent Imported Vital Signs: Most Recent Vital Signs Temp Pulse Resp BP Pulse Ox 36.5 C 65 16 126/86 97 10/01/21 07:25 10/01/21 07:25 10/01/21 07:25 10/01/21 07:25 10/01/21 07:25 Most Recent Manually Entered Vital Signs: Adult Blood Pressure: 117/84 Heart Rate: 62 Respirations: 12 Oxygen Saturation (%): 94 Temperature (C): 36.3 C Pain Score (0-10 Scale): 0 Pain Score Most Recent Pain Score: Most Recent Pain Score Pain Level 0 10/01/21 07:25 Assessment Mental Status: Awake (Alert & Oriented to Patient Baseline) Airway and Respiratory Function: Patent airway with normal (patient baseline) respiratory exam Cardiovascular Function: Hemodynamically Stable Hydration Status: Adequately Hydrated Nausea & Vomiting: No Nausea or Vomiting Pain: Pt. Denies Any Pain Peripheral Nerve Block: Patient did not receive a nerve block
[2021-10-01 10:03] VITALS: BP 117/84; PULSE 62; RESP 12; TEMPC 36.3; O2SAT 94
[2021-10-01 10:32] VITALS: BP 127/89; PULSE 62; RESP 16; TEMP 36.5; O2SAT 93
== END 2021-10-01 10:55 | disposition home or self-care (01) ==
LOC: SUR 07:10
PROVIDERS: PCP Nurse Practitioner Community Health; Visit Provider Surgery
PROC: (CPT 45380; principal; 2021-10-01 09:00)
DX: Z12.11 Encounter for screening for malignant neoplasm of colon (principal); D12.3 Benign neoplasm of transverse colon; D12.2 Benign neoplasm of ascending colon; K31.89 Other diseases of stomach and duodenum; K22.70 Barrett's esophagus without dysplasia; K64.0 First degree hemorrhoids; K31.7 Polyp of stomach and duodenum; E11.9 Type 2 diabetes mellitus without complications; J44.9 Chronic obstructive pulmonary disease, unspecified; D68.2 Hereditary deficiency of other clotting factors
CPT/HCPCS: 45380; 43239; 88305

== ENCOUNTER 2021-10-09 18:40 | Outpatient (REF) | payer MEDICARE, MEDICAID, SELFPAY ==
[2021-10-11 10:19] LABS: COVID-19 RT-PCR UVMMC Result Negative (Negative)
== END 2021-10-09 18:41 | disposition home or self-care (01) ==
LOC: NCHCN 18:40
PROVIDERS: PCP Nurse Practitioner Community Health; Visit Provider Registered Nurse
DX: Z20.822 Contact with and (suspected) exposure to COVID-19 (principal)
CPT/HCPCS: U0003

== ENCOUNTER 2021-11-28 18:50 | Outpatient (REF) | payer MEDICARE, MEDICAID, SELFPAY ==
[2021-11-30 11:07] LABS: COVID-19 RT-PCR UVMMC Result Negative (Negative)
== END 2021-11-28 18:51 | disposition home or self-care (01) ==
LOC: LBN 18:50
PROVIDERS: PCP Family Medicine; Visit Provider Family Medicine
DX: Z20.822 Contact with and (suspected) exposure to COVID-19 (principal)
CPT/HCPCS: U0003

== ENCOUNTER 2021-11-28 19:13 | Outpatient (CLI) | payer MEDICARE, MEDICAID, SELFPAY ==
[2021-11-28 13:40] LABS: Abs Immature Grans 0.04 10^3/uL (0.0-0.06); Absolute Basophil Count 0.07 10^3/uL (0.0-0.2); Absolute Lymphocyte Count 2.53 10^3/uL (1.2-3.4); Absolute Monocyte Count 0.72 10^3/uL (0.1-0.8); Basophils % 0.7; Eosinophils % 2.1; HCT 49.5 % (40.0-50.0); HGB 16.7 g/dL (13.5-17.5); Immature Grans % 0.4; MCH 30.5 pg (27.0-33.0); MCHC 33.7 % (32.0-36.0); MCV 90.3 fL (80-95); MPV 8.8 fL (8.0-11.0); Monocytes % 7.7; Neutrophils % 62.1; Nucleated RBC 0 %; Platelet Count 245 10^3/uL (130-400); RBC 5.48 10^6/uL (4.36-5.78); RDW 12.6 % (11.8-14.1); RDW-SD 41.9 fL; WBC 9.36 10^3/uL (4.4-10.8)
[2021-11-28 13:45] LABS: Bilirubin Negative (Negative); Blood Trace-intact (Negative); Clarity Clear (Clear); Glucose Negative (Negative); Ketones Negative (Negative); Leukocyte Esterase Small (Negative); Nitrite Negative (Negative); Urobilinogen 0.2 EU/dL (Up TO 0.2); pH 6.5 (5-8)
[2021-11-28 13:50] LABS: Bacteria Negative HPF (Negative); C & S Indicated? Yes; Casts 0-2 Hyaline LPF (Negative); Crystals Negative HPF (Negative); Epithelial Cells Rare HPF (Negative); Mucus Negative (Negative); RBC 0-2 HPF (0-2)
[2021-11-28 13:51] LABS: ALT 30 U/L (16-63); AST 16 U/L (15-37); Albumin 4.3 g/dL (3.4-5.0); Alkaline Phosphatase 67 U/L (46-116); Anion Gap 6.5 mmol/L (3-11); BUN 12 mg/dL (7-18); Bilirubin, Total 0.7 mg/dL (0.2-1.0); CO2 30.5 mmol/L (21.0-32.0); CREATININE 0.9 mg/dL (0.70-1.30); Calcium 8.7 mg/dL (8.5-10.1); Chloride 100 mmol/L (98-107); Glucose 117 mg/dL (74-106); Potassium 3.9 mmol/L (3.5-5.1); Sodium 137 mmol/L (136-145); Total Protein 7.9 g/dL (6.4-8.2)
== END 2021-11-28 19:14 | disposition home or self-care (01) ==
LOC: LBO 19:17
PROVIDERS: PCP Family Medicine; Visit Provider Family Medicine
DX: R11.2 Nausea with vomiting, unspecified (principal); Z00.00 Encounter for general adult medical examination without abnormal findings
CPT/HCPCS: 36415; 80053; 81003; 81015; 85025; 87086

== ENCOUNTER 2021-11-28 19:17 | Outpatient (CLI) | payer MEDICARE, MEDICAID, SELFPAY ==
--- NOTE | 2021-11-28 12:45 | DI.US_ITS ---
Exam(s) US ABDOMEN LIMITED EXAM: US ABDOMEN LIMITED CLINICAL HISTORY: nausea, RUQ abd pain R10.11 R11.0 NAUSEA TECHNIQUE: Ultrasound abdomen performed using standard protocol. COMPARISON: CT CT CHEST PE CTA from 05/31/2021 FINDINGS: There is no ascites evident. LIVER: There is hyperechoic indicating steatosis. There are no discrete focal hepatic lesions identi fied. GALLBLADDER/BILIARY: There is subtle densities in the gallbladder lumen including what appears to be a 5 millimeter polyp and possible 7 millimeter calculus. There is no gallbladder wall edema or peric holecystic fluid. The common hepatic duct isnot dilated, measuring 3-4mm at the level of devin hepatis. PANCREAS: There is no evidence of pancreatic mass nor dilatation of the pancreatic duct. RIGHT KIDNEY:No evidence of solid mass, calculus, nor hydronephrosis. No cortical cysts evident. IMPRESSION: 1. Cholelithiasis and/or small polyp. No evidence of cholecystitis. Common hepatic duct is not dil ated 2. Attic steatosis noted, as evident on the prior CT scan of May 2021 3. There is no ascites. DATA REPOSITORY:
== END 2021-11-28 19:37 ==
PROVIDERS: PCP Family Medicine; Visit Provider Family Medicine
DX: R10.11 Right upper quadrant pain (principal); R11.0 Nausea; K80.20 Calculus of gallbladder without cholecystitis without obstruction; K76.0 Fatty (change of) liver, not elsewhere classified
CPT/HCPCS: 36415; 80053; 76705; 81003; 81015; 85025; 87086

== ENCOUNTER 2021-11-30 13:04 | Emergency (ER) | payer MEDICARE, MEDICAID, SELFPAY ==
[2021-11-30] VITALS (16 sets, daily range): BP systolic 126–141; BP diastolic 69–84; PULSE 54–96; RESP 14–24; TEMP 37; O2SAT 93–97
--- NOTE | 2021-11-30 13:15 | RT.EKG_ITS ---
APPROVED REPORT Exam: Resting ECG Reason for Exam: nausea Patient Location: E HR:56 bpm ECG Measurements Heart Rate 56 AXIS OK 198 P 45 QRSd 100 QRS -15 QT 436 T 243 QTc 423 Conclusion Sinus bradycardia...rate< 60. Sinus. No STEMI. I have reviewed and interpreted ECG and agree with software generated interpretation.
--- NOTE | 2021-11-30 13:36 | W.ED.GENAD ---
Discharge Plan Disposition Patient Disposition: HOME Condition: Improving Discharge Details Clinical Impression: Chronic nausea Primary Care Provider: Raymundo Arango ED Provider: Madiha Lopez Home Meds and New Rx's Prescriptions: Continued propranolol 10 mg tablet 10 mg PO BID Qty: 180 3RF ondansetron 8 mg tablet,disintegrating 8 mg PO Q8H PRN (Reason: nausea and vomiting) Qty: 14 0RF trazodone 100 mg tablet 100 mg PO HS Qty: 30 3RF atorvastatin 20 mg tablet 20 mg PO QHS 0RF albuterol sulfate [ProAir HFA] 90 mcg/actuation HFA aerosol inhaler 2 puff IH Q6H PRN0RF omeprazole 20 mg capsule,delayed release(DR/EC) 20 mg PO DAILY 0RF Trelegy Ellipta 100-62.5-25 mcg blister with device 1 inh inhalation DAILY 0RF prazosin 1 mg capsule 1 mg PO QHS 0RF acetylcysteine 600 mg capsule 1,200 mg PO DAILY 0RF sertraline 100 MG tablet 150 mg PO DAILY 0RF levothyroxine 175 mcg Tablet 175 mcg PO DAILY 0RF metformin 500 mg tablet extended release 24 hr 1,000 mg PO BID 0RF Label Comments: TAKE 4 TABLETS BY MOUTH ONCE DAILY vitamin V74-ulrad acid 500-400 mcg Tablet 1 tab PO DAILY 0RF melatonin 10 mg Tablet 20 mg PO .QHS 0RF quetiapine 100 MG tablet 100 mg PO BID 0RF lamotrigine [Lamictal] 25 MG tablet 50 mg PO .QHS 0RF Xarelto 20 mg tablet 20 mg PO HS 0RF Label Comments: TAKE 1 TABLET BY MOUTH EVERY DAY Trelegy Ellipta 100-62.5-25 mcg blister with device INHALATION 0RF Label Comments: INHALE 1 PUFF BY MOUTH EVERY DAY acetylcysteine 600 mg capsule 0RF acetylcysteine 600 mg capsule 600 mg PO BID 0RF Discharge Instructions Instructions: Acute Nausea and Vomiting (ED) Additional Instructions: Your lab work, EKG and imaging today is reassuring and shows no evidence of acute concerning or significant findings. Your CAT scan did note evidence of a 10 mm mass within your left kidney and is recommended for further evaluation potentially with an MRI as an outpatient. You have been placed on care management list to arrange for a follow-up appoint with your primary care doctor within the next week for reevaluation of your nausea and to schedule this outpatient MRI. Take the Zofran that you have at home as needed and directed for your nausea. Return immediately to the emergency department if you develop any worsening or new concerning symptoms. Discharge Data Discharge Physician: Madiha Lopez Medical Decision Making 57-year-old male with a history of anxiety, depression, GERD, hypertension, hyperlipidemia, metabolic syndrome, diabetes, chronic smoker, COPD, Delaney's esophagus, history of DVT on Xarelto presents for chronic nausea for the past week. EKG done on arrival notes a rate of 56, sinus, no STEMI and nondiagnostic. Vitals within normal limits. Patient appears comfortable and nontoxic. His abdomen is soft and nontender.. Considering patient's age and history including tobacco smoking, will obtain CT chest abdomen pelvis to rule out mass or other acute process. Will obtain screening labs and give a dose of Pepcid, Zofran fluids and reassess. Labs and imaging reviewed. Normal white blood cell count and electrolytes. Normal lipase. Urinalysis negative. CT chest notes a stable thoracic aortic aneurysm seen in previous imaging without any other acute findings. CT abdomen notes a 10 mm left kidney mass. This is discussed with virtual radiologist Dr. Rosales who recommends considering an outpatient MRI for further evaluation. Results discussed with patient. Patient reassessed and he feels better. Patient feels comfortable going home. He states he has Zofran at home. Patient placed on care management list to arrange for follow-up appointment with his primary care doctor this week for reevaluation and for referral for outpatient MRI patient of the left kidney mass for further evaluation of the left kidney mass. Medical Records Medical records reviewed: Yes I reviewed the patient's medical records. Imaging Data Radiologic Study: Radiologist's impression: Addendum created by Christian Rosales MD on 11/30/2021 4:54:36 PM EST: THIS REPORT CONTAINS FINDINGS THAT MAY BE CRITICAL TO PATIENT CARE. The findings were verbally communicated via telephone conference with madiha lopez at 4:54 PM EST on 11/30/2021. The findings were acknowledged and understood. Initial report created on 11/30/2021 4:29:17 PM EST: CT Chest With Contrast; Diagnostic Exam date and time: 11/30/2021 2:01 PM Age: 61 years old Clinical indication: Other: Chronic nausea, R/O acute process, mass TECHNIQUE: Imaging protocol: Diagnostic computed tomography of the chest with contrast. Radiation optimization: All CT scans at this facility use at least one of these dose optimization techniques: automated exposure control; mA and/or kV adjustment per patient size (includes targeted exams where dose is matched to clinical indication); or iterative reconstruction. Contrast material: OMNIPAQUE 350; Contrast volume: 100 ml; Contrast route: INTRAVENOUS (IV);? COMPARISON: CT CHEST PE CTA 05/31/2021 1:31 PM FINDINGS: Lungs: Bibasilar atelectasis Pleural spaces: Small left pleural effusion. Heart: Unremarkable. No cardiomegaly. No pericardial effusion. Aorta: Unruptured aneurysm of the ascending aorta 4.2 x 4 cm.. Lymph nodes: 2.8 x 2.7 cm enlarged lymph node adjacent to the trachea. Series 4, image 21.. Bones/joints: Anterior cervical fusion Soft tissues: Unremarkable. IMPRESSION: 1. Unruptured aneurysm of the ascending aorta 4.2 x 4 cm.. 2. 2.8 x 2.7 cm enlarged lymph node adjacent to the trachea. Series 4, image 21.. 3. Small left pleural effusion. CT Abdomen And Pelvis With Contrast Exam date and time: 11/30/2021 2:01 PM Age: 61 years old Clinical indication: Other: Chronic nausea, R/O acute process, mass TECHNIQUE: Imaging protocol: Computed tomography of the abdomen and pelvis with contrast. Radiation optimization: All CT scans at this facility use at least one of these dose optimization techniques: automated exposure control; mA and/or kV adjustment per patient size (includes targeted exams where dose is matched to clinical indication); or iterative reconstruction. Contrast material: OMNIPAQUE 350; Contrast volume: 100 ml; Contrast route: INTRAVENOUS (IV);? COMPARISON: CT CHEST PE CTA 05/31/2021 1:31 PM FINDINGS: Liver: Normal. No mass. Gallbladder and bile ducts: Normal. No calcified stones. No ductal dilation. Pancreas: Normal. No ductal dilation. Spleen: Normal. No splenomegaly. Adrenal glands: Normal. No mass. Kidneys and ureters: 3 cm simple cyst right kidney. . No follow-up imaging recommended . 10 mm low-attenuation area anterior left kidney 30 Hounsfield units. Series 4, image 80.. Stomach and bowel: Unremarkable. No obstruction. No mucosal thickening. Appendix: No evidence of appendicitis. Intraperitoneal space: Unremarkable. No free air. No significant fluid collection. Vasculature: Unremarkable. No abdominal aortic aneurysm. Lymph nodes: Unremarkable. No enlarged lymph nodes. Urinary bladder: Unremarkable as visualized. Reproductive: Unremarkable as visualized. Bones/joints: Unremarkable. No acute fracture. Soft tissues: Bilateral inguinal hernias contain fat IMPRESSION: 10 mm low-attenuation area anterior left kidney 30 Hounsfield units. Series 4, image 80.Recommend MR without and with contrast or CT without and with contrast. MR is preferred for masses under 1.5 cm. . Lab Data Lab results reviewed: Yes I reviewed the patient's lab results. Labs: Laboratory Tests Range/Units 11/30/21 11/30/21 11/30/21 13:50 13:50 14:20 WBC (4.4-10.8) 10^3/uL 6.96 RBC (4.36-5.78) 10^6/uL 5.05 Hgb (13.5-17.5) g/dL 15.7 Hct (40.0-50.0) % 45.6 MCV (80-95) fL 90.3 MCH (27.0-33.0) pg 31.1 MCHC (32.0-36.0) % 34.4 RDW (11.8-14.1) % 13.0 Plt Count (130-400) 10^3/uL 216 MPV (8.0-11.0) fL 9.3 Immature Gran % 0.4 Neutrophils % 60.9 Lymphocytes % 27.9 Monocytes % 6.9 Eosinophils % 3.2 Basophils % 0.7 Nucleated RBC % % 0 Absolute Neutrophils (1.2-6.7) 10^3/uL 4.24 Absolute Lymphocytes (1.2-3.4) 10^3/uL 1.94 Absolute Monocytes (0.1-0.8) 10^3/uL 0.48 Absolute Eosinophils (0.0-0.7) 10^3/uL 0.22 Absolute Basophils (0.0-0.2) 10^3/uL 0.05 Sodium (136-145) mmol/L 138 Potassium (3.5-5.1) mmol/L 4.3 Chloride (98-107) mmol/L 103 Carbon Dioxide (21.0-32.0) mmol/L 25.8 Anion Gap (3-11) mmol/L 9.2 BUN (7-18) mg/dL 17 Creatinine (0.70-1.30) mg/dL 0.9 Estimated GFR/1.73 m2 (mL/min/1.73m2) >= 60.00 Glucose (74-106) mg/dL 164 H Calcium (8.5-10.1) mg/dL 8.4 L Total Bilirubin (0.2-1.0) mg/dL 0.6 AST (15-37) U/L 16 ALT (16-63) U/L 30 Alkaline Phosphatase (46-116) U/L 57 Total Protein (6.4-8.2) g/dL 6.9 Albumin (3.4-5.0) g/dL 3.6 Lipase (73-393) U/L 49 Urine Color (Yellow) Yellow Urine Clarity (Clear) Clear Urine pH (5-8) 5.5 Ur Specific [place] (1.005-1.025) >= 1.030 H Urine Protein (Negative) mg/dL Negative Urine Ketones (Negative) mg/dL Negative Urine Blood (Negative) Negative Urine Nitrite (Negative) Negative Urine Bilirubin (Negative) Negative Urine Urobilinogen (Up TO 0.2) EU/dL 0.2 Ur Leukocyte Esterase (Negative) Negative Urine Glucose (Negative) mg/dL Negative ECG Data Attestation: I personally reviewed and interpreted this ECG (s) as follows: Interpretation: Rate of 56, sinus, no STEMI. HPI General Mode of arrival: ambulatory. Date/Time Provider Initiated Documentation: 11/30/21 13:32. Limitations to Documentation: no limitations. Information obtained by: patient. HPI Narrative: Patient is a 61-year-old male with a history of anxiety, depression, GERD, COPD, chronic smoker, obesity, diabetes Delaney's esophagus, metabolic syndrome, DVT on xarelto presents from home for nausea for the past week. Patient states his nausea has been constant but denies any vomiting. He states he normally has a daily bowel movement but states he has only had 3 bowel movements this week. He denies any significant diarrhea, rectal bleeding. He denies any abdominal pain at any time. He states he has been able to eat and keep down food but states he has had a diminished appetite. Patient went to the [facility] 2 days ago for the symptoms and had outpatient labs which were unremarkable and a gallbladder ultrasound which noted gallstones. Patient states he was given Zofran which she took once with relief. Patient states he is here because he does not know why he is sick. He is vaccinated for COVID and denies any known exposure to coronavirus. Patient states he lives at the [facility] and believes that the car monoxide detectors are working properly. Related Data Home Medications Medication Instructions Recorded Confirmed sertraline 100 mg tablet 150 mg PO DAILY 03/27/16 11/30/21 lamotrigine 25 mg tablet (Lamictal) 50 mg PO .QHS 01/23/18 11/30/21 quetiapine 100 mg tablet 100 mg PO BID 01/23/18 11/30/21 albuterol sulfate 90 mcg/actuation 2 puff IH Q6H PRN 10/10/19 11/30/21 aerosol inhaler (ProAir HFA) atorvastatin 20 mg tablet 20 mg PO QHS 10/10/19 11/28/21 levothyroxine 175 mcg tablet 175 mcg PO DAILY 10/10/19 11/30/21 omeprazole 20 mg capsule,delayed 20 mg PO DAILY 10/24/19 11/30/21 release propranolol 10 mg tablet 10 mg PO BID #180 tab 04/17/21 11/30/21 metformin 500 mg tablet,extended 1,000 mg PO BID 05/31/21 11/30/21 release 24 hr vitamin B12 500 mcg-folic acid 400 1 tab PO DAILY 05/31/21 11/30/21 mcg tablet melatonin 10 mg tablet 20 mg PO .QHS 07/09/21 11/30/21 acetylcysteine 600 mg capsule 1,200 mg PO DAILY cap 07/29/21 11/28/21 fluticasone fur. 100 mcg-umeclid 1 inh INHALATION DAILY 07/29/21 11/30/21 62.5 mcg-vilant 25 mcg inhalat.powder (Trelegy Ellipta) prazosin 1 mg capsule 1 mg PO QHS 07/29/21 11/30/21 ondansetron 8 mg disintegrating 8 mg PO Q8H PRN #14 tab 11/28/21 11/30/21 tablet trazodone 100 mg tablet 100 mg PO HS #30 tab 11/28/21 11/30/21 acetylcysteine 600 mg capsule 600 mg PO BID 11/30/21 11/30/21 acetylcysteine 600 mg capsule mg 11/30/21 11/30/21 fluticasone fur. 100 mcg-umeclid INHALATION 11/30/21 11/30/21 62.5 mcg-vilant 25 mcg inhalat.powder (Trelegy Ellipta) rivaroxaban 20 mg tablet (Xarelto) 20 mg PO HS 11/30/21 11/30/21 Previous Rx's Medication Instructions Recorded propranolol 10 mg tablet 10 mg PO BID #180 tab 04/17/21 ondansetron 8 mg disintegrating 8 mg PO Q8H PRN #14 tab 11/28/21 tablet trazodone 100 mg tablet 100 mg PO HS #30 tab 11/28/21 Allergies Allergy/AdvReac Type Severity Reaction Status Date / Time varenicline [From Chantix] Allergy Severe Verified 11/30/21 13:27 bee pollen Allergy Unknown Anaphylaxis Verified 11/30/21 13:27 bee venom protein (honey bee) Allergy Unknown Anaphylaxis Verified 11/30/21 13:27 General Stated Complaint: Abd Prob LORA: 3 Review of Systems All systems reviewed & are unremarkable except as noted in HPI and below Constitutional Constitutional: Reports as per HPI, Denies chills and Denies fever(s) Eyes Eyes: Denies blurry vision ENT Ears, Nose, Mouth, and Throat: Denies dizziness, Denies sore throat and Denies throat swelling Cardiovascular Cardiovascular: Denies chest pain and Denies dyspnea Respiratory Respiratory: Denies cough and Denies dyspnea Gastrointestinal Gastrointestinal: Denies abdominal pain, Denies diarrhea, Reports nausea and Reports vomiting Genitourinary Genitourinary: Denies hematuria and Denies dysuria Musculoskeletal Musculoskeletal: Denies back pain and Denies numbness Integumentary/Breasts Skin/Breast: Denies lesions and Denies rash Neurologic Neurologic: Denies dizziness, Denies localized weakness and Denies numbness Allergic/Immunologic Allergic/Immunologic: Denies throat swelling PFSH All Active Problems (Updated 11/30/21 @ 17:21 by Madiha Lopez DO) Chronic nausea (Acute) Bipolar disorder (Acute) Tubular adenoma of colon (Acute) Screening for colon cancer (Acute) Barretts esophagus (Acute) Diarrhea (Acute) Myelopathy concurrent with and due to spinal stenosis of cervical region (Acute) DVT (deep venous thrombosis) (Chronic) Lightheadedness (Acute) Abrasion of ear (Acute) Left leg pain (Acute) Essential tremor (Acute) Babinski reflex (Acute) Imbalance (Acute) Nightmares (Acute) Cigarette smoker (Acute) Type 2 diabetes mellitus without complications (Acute) Hyperlipidemia (Acute) Metabolic syndrome (Acute) Hypothyroid (Chronic) Hypercholesterolemia (Acute) Factor V Leiden (Acute) Chest pain (Acute) Shortness of breath (Acute) Skin mass (Acute) Sensorineural hearing loss of both ears (Acute) Lipoma (Acute) Bronchitis (Acute) COPD (chronic obstructive pulmonary disease) (Chronic) Barretts esophagus (Acute) Medical History (Updated 11/30/21 @ 17:21 by Madiha Lopez DO) Anxiety Bilateral lower extremity edema BMI 36.0-36.9,adult Clotting disorder COPD (chronic obstructive pulmonary disease) Depression DVT (deep venous thrombosis) Enlarged lymph nodes GERD (gastroesophageal reflux disease) History of neck pain Insomnia Intention tremor Mass of thoracic structure Neuropathy Obesity (BMI 35.0-39.9 without comorbidity) ROYCE (obstructive sleep apnea) uses device Peripheral vascular disease Smoker Suicide attempt Tobacco abuse Type 2 diabetes mellitus Urgency of urination Surgical History (Updated 10/07/21 @ 07:48 by Lizeth Bird RN) History of colonoscopy (~09/2021) History of discectomy c5-c6 History of esophagogastroduodenoscopy (EGD) (~09/2021) S/P appendectomy S/P partial thyroidectomy pt. states this is a total thyroidectomy Family History (Updated 11/14/21 @ 11:32 by Sindy Hoffmann) Mother , 67 Heart disease Father , 82 Depression Diabetes Sister , 11 Brain cancer Sister Depression Diabetes Hyperlipidemia Hypertension Son Substance use disorder Daughter Depression Diabetes Paternal Grandfather , 73 Diabetes Hyperlipidemia Paternal Grandmother , 83 Diabetes Heart disease Social History (Updated 11/14/21 @ 11:30 by Sindy Hoffmann) Smoking/Tobacco Use Status: Current every day Tobacco Type: cigarettes Tobacco: How many years used: 45 Quit status: considering quitting Second Hand Exposure: Yes Smoking risk assessment performed?: Yes Alcohol Intake: former Drug use: Never Substance use type: does not use Household members: significant other Number of Children: 2 number of grandchildren: 5 Communication Needs: Hard of Hearing Do you need help understanding health information?: Never current occupation: disabled Pets and animals: Yes Pets and animals: dog(s) Sexually active: No Do you think of yourself as: straight/heterosexual Current gender identity: neither exclusively male nor female What is your relationship status?: living with partner How often do you talk on the phone with friends or family?: three or more times per week How often do you get together with friends or relatives?: once per week How often do you attend alevism or jain services?: decline to answer Do you belong to any clubs or organized social groups?: no Panel score (0-1 are the most socially isolated patients): 2 Duration: < 15 minutes/day Frequency: 1-2 times per week Maira/Tenriism: Other Special maira needs: No Seatbelt use: always Helmet use: No Drive 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 Do you feel safe at home: Yes Do you feel safe in your relationship?: Yes Exam Const General: cooperative and no acute distress Nutritional Appearance: obese morbidly obese Orientation: alert, awake and oriented x3 HENMT Head: normal to inspection Mouth: oral mucosae normal Eyes General: appearance normal, both eyes and all related structures Neck Neck: normal visual inspection Resp Effort & Inspection: normal respiratory effort and able to speak in complete sentences Auscultation: clear to auscultation bilaterally Cardio Rate: regular rate Skin General skin exam: no rashes or lesions noted Neuro General: patient alert, patient awake and patient oriented x3 Motor: muscle tone normal throughout Extrem General: normal to inspection and full ROM Psych Appearance: grossly normal Affect: normal affect Course Vital Signs Vital signs: Vital Signs Temperature 98.6 F 11/30/21 13:21 Pulse 96 H 11/30/21 13:21 Respiratory Rate 16 11/30/21 13:21 Blood Pressure 141/83 H 11/30/21 13:21 Pulse Oximetry 96 11/30/21 13:21 Temperature 98.6 F 11/30/21 13:21 Temperature Source Temporal Artery Scan 11/30/21 13:21 Pulse 96 H 11/30/21 13:21 Respiratory Rate 16 11/30/21 13:21 Blood Pressure 141/83 H 11/30/21 13:21 Blood Pressure Position Sitting 11/30/21 13:21 Pulse Oximetry 96 11/30/21 13:21 Oxygen Delivery Method Room Air 02/27/22 13:21 Oxygen Flow Rate 0 11/30/21 13:21 Pain Level 0 11/30/21 13:21
[2021-11-30 13:57] LABS: Abs Immature Grans 0.03 10^3/uL (0.0-0.06); Absolute Basophil Count 0.05 10^3/uL (0.0-0.2); Absolute Eosinophil Count 0.22 10^3/uL (0.0-0.7); Absolute Lymphocyte Count 1.94 10^3/uL (1.2-3.4); Absolute Monocyte Count 0.48 10^3/uL (0.1-0.8); Absolute Neutrophil Count 4.24 10^3/uL (1.2-6.7); Basophils % 0.7; Eosinophils % 3.2; HCT 45.6 % (40.0-50.0); HGB 15.7 g/dL (13.5-17.5); Immature Grans % 0.4; Lymphocytes % 27.9; MCH 31.1 pg (27.0-33.0); MCHC 34.4 % (32.0-36.0); MCV 90.3 fL (80-95); MPV 9.3 fL (8.0-11.0); Monocytes % 6.9; Neutrophils % 60.9; Nucleated RBC 0 %; Platelet Count 216 10^3/uL (130-400); RBC 5.05 10^6/uL (4.36-5.78); RDW-SD 42.9 fL; WBC 6.96 10^3/uL (4.4-10.8)
--- NOTE | 2021-11-30 14:00 | DI.CT_ITS ---
Exam(s) CT CHEST/ABD/PEL W EXAM: CT CHEST/ABD/PEL W CLINICAL HISTORY: chronic nausea, r/o acute process, mass. TECHNIQUE: Imaging Protocol: Axial computed tomography images with coronal and sagittal reformatted images were created and reviewed CONTRAST MATERIAL: Intravenous: Omnipaque 350 Contrast volume:100 ml Oral: no COMPARISON: CT CT CHEST W/CONTRAST/PE from 12/10/2004 CT CHEST WITH CONTRAST from 04/10/2016 CT CHEST FOR PULMONARY EMBOLUS from 01/23/2018 CT CHEST FOR PULMONARY EMBOLUS from 02/04/[address] CHEST PE CTA from 05/31/2021 FINDINGS: CHEST: Tracheobronchial tree: Patent where visualized. Mediastinum and Lilia: Stable right paratracheal lymph node versus fluid collection. Pulmonary parenchyma: No consolidation or dominant measurable mass. Mild dependent changes. Pleura: Trace left pleural effusion. No pneumothorax. Aorta: Stable dilatation the ascending aorta 4.2 cm Heart: Normal size. Coronary artery calcifications. Bones: Unremarkable for age. No lytic or blastic lesions. Anterior fusion lower cervical spine. De generative disc changes. ABDOMEN: Liver: Fatty infiltration. Focal fatty sparing adjacent to gallbladder.. No measurable mass. Gallbladder and biliary tract: No radiodense calculus or dilation. Pancreas: Normal density, no abnormal calcifications or inflammatory process. Spleen: Normal. Kidneys: Normal size, contour and axis. No radiodense stones or obstructive uropathy. No masses seen. Stable cysts upper and lower pole right kidney. Stable tiny cyst lower pole left kidney. Adrenal glands: No masses seen. Aorta: Abdominal portion non-dilated. Atherosclerotic changes. Mild mural thrombus. Lymph nodes: Within normal limits. Soft tissues: Unremarkable. PELVIS: Bladder: Symmetric distention, no gross wall thickening. Bowel: No obstruction or bowel wall thickening. Peritoneal cavity: No ascites, collection or mesenteric inflammatory response. Bones: Degenerative disc changes. Reproductive organs: Within normal limits. IMPRESSION: No acute abnormality in the chest abdomen or pelvis.. RADIATION DOSE DELIVERED: 1,805.83mGy.cm Total DLP DATA REPOSITORY: All CT scans at this facility are submitted to the National Radiology Data Registry (NRDR) Dose Index Registry (DIR) with the [employer] (ACR). RADIATION OPTIMIZATION: All CT scans at this facility use at least one of these dose optimization te chniques: automated exposure control; mA and/or kV adjustment per patient size (includes targeted exa ms where dose is matched to clinical indication); or iterative reconstruction.
[2021-11-30 14:19] LABS: ALT 30 U/L (16-63); AST 16 U/L (15-37); Albumin 3.6 g/dL (3.4-5.0); Alkaline Phosphatase 57 U/L (46-116); Anion Gap 9.2 mmol/L (3-11); BUN 17 mg/dL (7-18); Bilirubin, Total 0.6 mg/dL (0.2-1.0); CO2 25.8 mmol/L (21.0-32.0); CREATININE 0.9 mg/dL (0.70-1.30); Calcium 8.4 mg/dL (8.5-10.1); Chloride 103 mmol/L (98-107); Glucose 164 mg/dL (74-106); Lipase 49 U/L (73-393); Potassium 4.3 mmol/L (3.5-5.1); Sodium 138 mmol/L (136-145); Total Protein 6.9 g/dL (6.4-8.2)
[2021-11-30 14:33] LABS: Bilirubin Negative (Negative); Blood Negative (Negative); Clarity Clear (Clear); Glucose Negative (Negative); Ketones Negative (Negative); Leukocyte Esterase Negative (Negative); Nitrite Negative (Negative); Specific Gravity >= 1.030 (1.005-1.025); Urobilinogen 0.2 EU/dL (Up TO 0.2); pH 5.5 (5-8)
[2021-11-30] MEDS: Normal Saline Flush 10 ML SYR IVP ×2 (14:34→15:02)
[2021-11-30] MEDS: Normal Saline 500 ML IV (14:34)
[2021-11-30] MEDS: Famotidine 20 MG/2 ML VIAL IVP (14:34)
[2021-11-30] MEDS: Normal Saline 100 ML 400 ML (14:34)
[2021-11-30] MEDS: Ondansetron 4 MG/2 ML VIAL IVP (14:34)
[2021-11-30] MEDS: Omnipaque 350 MG/ML 100 ML BTL IJ (15:01)
--- NOTE | 2021-11-30 16:30 | DI.VRAD_ITS ---
Addendum created by Christian Rosales MD on 11/30/2021 4:54:36 PM EST: THIS REPORT CONTAINS FINDINGS THAT MAY BE CRITICAL TO PATIENT CARE. The findings were verbally communicated via telephone conference with madiha tsai at 4:54 PM EST on 11/30/2021. The findings were acknowledged and understood. Initial report created on 11/30/2021 4:29:17 PM EST: PROCEDURE INFORMATION: Exam: CT Chest With Contrast; Diagnostic Exam date and time: 11/30/2021 2:01 PM Age: 61 years old Clinical indication: Other: Chronic nausea, R/O acute process, mass TECHNIQUE: Imaging protocol: Diagnostic computed tomography of the chest with contrast. Radiation optimization: All CT scans at this facility use at least one of these dose optimization techniques: automated exposure control; mA and/or kV adjustment per patient size (includes targeted exams where dose is matched to clinical indication); or iterative reconstruction. Contrast material: OMNIPAQUE 350; Contrast volume: 100 ml; Contrast route: INTRAVENOUS (IV); COMPARISON: CT CHEST PE CTA 05/31/2021 1:31 PM FINDINGS: Lungs: Bibasilar atelectasis Pleural spaces: Small left pleural effusion. Heart: Unremarkable. No cardiomegaly. No pericardial effusion. Aorta: Unruptured aneurysm of the ascending aorta 4.2 x 4 cm.. Lymph nodes: 2.8 x 2.7 cm enlarged lymph node adjacent to the trachea. Series 4, image 21.. Bones/joints: Anterior cervical fusion Soft tissues: Unremarkable. IMPRESSION: 1. Unruptured aneurysm of the ascending aorta 4.2 x 4 cm.. 2. 2.8 x 2.7 cm enlarged lymph node adjacent to the trachea. Series 4, image 21.. 3. Small left pleural effusion. PROCEDURE INFORMATION: Exam: CT Abdomen And Pelvis With Contrast Exam date and time: 11/30/2021 2:01 PM Age: 61 years old Clinical indication: Other: Chronic nausea, R/O acute process, mass TECHNIQUE: Imaging protocol: Computed tomography of the abdomen and pelvis with contrast. Radiation optimization: All CT scans at this facility use at least one of these dose optimization techniques: automated exposure control; mA and/or kV adjustment per patient size (includes targeted exams where dose is matched to clinical indication); or iterative reconstruction. Contrast material: OMNIPAQUE 350; Contrast volume: 100 ml; Contrast route: INTRAVENOUS (IV); COMPARISON: CT CHEST PE CTA 05/31/2021 1:31 PM FINDINGS: Liver: Normal. No mass. Gallbladder and bile ducts: Normal. No calcified stones. No ductal dilation. Pancreas: Normal. No ductal dilation. Spleen: Normal. No splenomegaly. Adrenal glands: Normal. No mass. Kidneys and ureters: 3 cm simple cyst right kidney. . No follow-up imaging recommended . 10 mm low-attenuation area anterior left kidney 30 Hounsfield units. Series 4, image 80.. Stomach and bowel: Unremarkable. No obstruction. No mucosal thickening. Appendix: No evidence of appendicitis. Intraperitoneal space: Unremarkable. No free air. No significant fluid collection. Vasculature: Unremarkable. No abdominal aortic aneurysm. Lymph nodes: Unremarkable. No enlarged lymph nodes. Urinary bladder: Unremarkable as visualized. Reproductive: Unremarkable as visualized. Bones/joints: Unremarkable. No acute fracture. Soft tissues: Bilateral inguinal hernias contain fat IMPRESSION: 10 mm low-attenuation area anterior left kidney 30 Hounsfield units. Series 4, image 80.Recommend MR without and with contrast or CT without and with contrast. MR is preferred for masses under 1.5 cm. . Dictated and Authenticated by: Christian Rosales MD. Ordering:CARLA Nguyen MD
--- NOTE | 2021-11-30 18:13 | NUR.NOTE ---
faxed request to [facility] for evaluation and follow up. Dr. Haider recommends Outpatient MRI for 1 cm Mass.
== END 2021-11-30 17:52 | disposition home or self-care (01) ==
PROVIDERS: Emergency Provider Physician Assistant; PCP Family Medicine
DX: R11.0 Nausea (principal); N28.89 Other specified disorders of kidney and ureter
CPT/HCPCS: 36415; 74177; 80053; 83690; 93005; 96361; 96374; 96375; 99285; 71260; 81003; 85025; 93010; 99284; J2405; J3490

== ENCOUNTER 2021-12-05 11:08 | Outpatient (CLI) | payer MEDICARE, MEDICAID, SELFPAY ==
[2021-12-05 12:27] LABS: Source Nasal/Nares
[2021-12-05 17:20] LABS: COVID-19 PCR Negative (Negative)
== END 2021-12-05 11:09 | disposition home or self-care (01) ==
PROVIDERS: PCP Family Medicine; Visit Provider Neurological Surgery
DX: Z20.822 Contact with and (suspected) exposure to COVID-19 (principal)
CPT/HCPCS: 87635; U0005

== ENCOUNTER → 2021-12-22 08:16 | Outpatient (BNVA) | payer MEDICARE, MEDICAID, SELFPAY | PROVIDERS: PCP Family Medicine; Referring Provider Family Medicine; Visit Provider Psychiatry & Neurology Neurology | DX: G25.0 Essential tremor (principal); Z98.890 Other specified postprocedural states; R26.89 Other abnormalities of gait and mobility; R29.2 Abnormal reflex; D68.51 Activated protein C resistance | CPT/HCPCS: 99442 ==

== ENCOUNTER 2022-01-05 02:54 | Outpatient (CLI) | payer MEDICARE, MEDICAID, SELFPAY ==
--- NOTE | 2022-01-05 | DI.RAD_ITS ---
Exam(s) XR CERVICAL SP COOPER TRAUMA 2-3V EXAM: XR CERVICAL SP COOPER TRAUMA 2-3V CLINICAL HISTORY: EVALUATE INSTRUEMENTATION ALIGNMENT, ARTHRODESIS,H/O C3-4 ACDF 12/08/21. TECHNIQUE: 2D digital imaging was performed. COMPARISON: MR MR CERVICAL SPINE WO from 03/27/2021 FINDINGS: 3 views There has been interval bilevel fusion surgery. At C3-4 level there is an anterior fusion plate secu red by 2 screws in each vertebra and there is an intervertebral disc space plug at this level which i s confined to the anterior half of the disc space. The disc space at this level exhibits normal heig ht and there is no evidence of loosening of the hardware at this level. At C6-7 level there is also and anterior fusion plate noted which was previously present on the MRI s can of the March 2021. There is fusion of anterior osseous elements at this level, as evident on the MRI of 03/27/2021. No hardware fracture nor loosening evident of the hardware at this level.. The amount of mild disc space narrowing at C 4-5 and C5-6 levels is unchanged from the MRI scan of . There is no narrowing of C2-3 level. There is no opposite of the spinolaminar line. IMPRESSION: Satisfactory appearance, as described above. DATA REPOSITORY: RADIATION DOSE DELIVERED:
== END 2022-01-05 03:14 ==
PROVIDERS: PCP Family Medicine; Visit Provider Neurological Surgery
DX: M48.02 Spinal stenosis, cervical region (principal); Z98.1 Arthrodesis status
CPT/HCPCS: 72040

== ENCOUNTER 2022-02-05 20:09 | Emergency (ER) | payer MEDICARE, MEDICAID, SELFPAY ==
[2022-02-05 20:16] VITALS: BP 147/92; PULSE 71; RESP 22; TEMP 37.2; O2SAT 96
--- NOTE | 2022-02-05 20:30 | DI.CT_ITS ---
Exam(s) CT HEAD WO EXAM: CT HEAD WO CLINICAL HISTORY: fall, head trauma. TECHNIQUE: Imaging Protocol: Axial computed tomography images with coronal and sagittal reformatted images were created and reviewed COMPARISON: CT HEAD WITHOUT CONTRAST from 02/06/2010 FINDINGS: There are no skull fractures nor fluid in the visualized paranasal sinuses. There is no evidence of intracranial hemorrhage, mass effect, or shift of midline structures. There are no extra-axial fluid collections. The ventricles are not enlarged or shifted and there is no blo od within the ventricular system nor within the basal cisterns. IMPRESSION: No acute intracranial findings on this noninfused CT scan of the brain. RADIATION DOSE DELIVERED: 800.64mGy.cm Total DLP DATA REPOSITORY: All CT scans at this facility are submitted to the National Radiology Data Registry (NRDR) Dose Index Registry (DIR) with the [employer] (A[employer]). RADIATION OPTIMIZATION: All CT scans at this facility use at least one of these dose optimization te chniques: automated exposure control; mA and/or kV adjustment per patient size (includes targeted exa ms where dose is matched to clinical indication); or iterative reconstruction.
--- NOTE | 2022-02-05 20:32 | DI.RAD_ITS ---
Exam(s) XR RIBS LT PA CHEST 3V EXAM: XR RIBS LT PA CHEST 3V CLINICAL HISTORY: fall, left chest pain. TECHNIQUE: 2D digital imaging was performed. COMPARISON: CR XR PORTABLE CHEST AP from 06/20/2020 FINDINGS: Left rib cage 4 views: There is a minimally displaced fracture of the posterior aspect of the left 5t h rib. No other obvious rib fractures. No rib lesions. Chest x-ray single PA view: Heart size normal. Mediastinum is not widened. Lungs are clear. No inf iltrates nor pleural effusions. No pneumothorax. No lung contusion IMPRESSION: There is a minimally displaced fracture of the posterior aspect of the left 5th rib. No pneumothorax no other lung findings. Incidentally noted is a fusion plate in the lower cervical spine DATA REPOSITORY: RADIATION DOSE DELIVERED:
--- NOTE | 2022-02-05 20:34 | ED.GENADUL_ITS ---
Discharge Plan Disposition Patient Disposition: HOME Condition: Stable Discharge Details Clinical Impression: Fall, Abrasion of elbow, left, Left rib fracture, Contusion of head Primary Care Provider: Raymundo Arango ED Provider: Chin Hdez Home Meds and New Rx's Prescriptions: Continued trazodone 100 mg tablet 100 mg PO HS Qty: 30 3RF sildenafil 50 mg tablet 50 mg PO DAILY PRN (Reason: sexual activity) Qty: 10 11RF Rx Instructions: administer 30 minutes to 4 hours before activity prazosin 1 mg capsule 1 mg PO QHS 0RF acetylcysteine 600 mg capsule 1,200 mg PO DAILY 0RF Xarelto 20 mg tablet 20 mg PO HS Qty: 90 3RF atorvastatin 20 mg tablet 20 mg PO QHS Qty: 90 3RF albuterol sulfate [ProAir HFA] 90 mcg/actuation HFA aerosol inhaler 2 puff IH Q6H PRN (Reason: shortness of breath or wheezing) Qty: 8.5 11RF Trelegy Ellipta 100-62.5-25 mcg blister with device 1 inh inhalation DAILY Qty: 60 5RF metformin 500 mg tablet extended release 24 hr 1,000 mg PO BID Qty: 360 3RF omeprazole 20 mg capsule,delayed release(DR/EC) 20 mg PO DAILY Qty: 90 3RF propranolol 10 mg tablet 10 mg PO BID Qty: 180 3RF sertraline 100 mg tablet 150 mg PO DAILY Qty: 135 1RF quetiapine 100 mg tablet 100 mg PO BID Qty: 180 1RF levothyroxine 175 mcg Tablet 175 mcg PO DAILY 0RF vitamin P60-vgkoh acid 500-400 mcg Tablet 1 tab PO DAILY 0RF melatonin 10 mg tablet 10 mg PO .QHS 0RF lamotrigine [Lamictal] 25 MG tablet 50 mg PO .QHS 0RF Discharge Instructions Instructions: How to Use an Incentive Spirometer (ED), Rib Fracture (ED), Abrasion (ED), Fall Prevention (ED) Additional Instructions: Please perform incentive spirometry every 2 hours while awake for the next 1 week. Please take acetaminophen (tylenol) - 650mg every 6 hours by mouth as needed for pain. Apply lidocaine patches. Dose according to label. Please contact your primary care physician to arrange follow-up. Return to the ER immediately for any worsening or new concerning symptoms. Referrals: Raymundo Arango MD [Primary Care Provider] - Medical Decision Making 2037?test 62-year-old male on rivaroxaban, here after recent fall from pickup truck bed to the ground with head trauma and injury to his left chest. Patient mentating well, neurologically intact. No respiratory distress. Hemodynamically stable. Consider acute life-threatening intracranial traumatic hemorrhage. Plan to obtain CT of the head. Consider pneumothorax and rib fracture and will obtain x-ray series. -- Chest x-ray was reviewed and interpreted by radiology: Minimally displaced fracture and left posterior fifth rib, no pneumothorax. CT of the head was interpreted by radiology: No acute intracranial abnormality. Patient reassessed and is remained stable. Wound was cleansed and dressed by nursing. Patient is due for tetanus immunization which will be provided today. All results were discussed with the patient. Usual customary discharge instructions were reviewed with the patient. He was provided incentive spirometry and instructed on use by nursing. Lidocaine patch was placed for pain. He was encouraged to continue to use these as well as Tylenol for discomfort. HPI General Mode of arrival: ambulatory . Date/Time Provider Initiated Documentation: 02/05/22 20:15 . Limitations to Documentation: no limitations . Information obtained by: patient . HPI Narrative: 62-year-old male presents with chief complaint of head injury. Patient notes he slipped and fell off the back of a pickup and fell to the ground striking his head. He did not lose consciousness but did see stars. Patient is on rivaroxaban. Patient has mild head discomfort left parietal. No modifiers. He also note left-sided anterior lateral rib pain. He states he landed on his posterior right back. Rib pain is worse with deep inspiration. He has no associated abdominal pain. No neck pain or back pain. No numbness or tingling Related Data Home Medications Medication Instructions Recorded Confirmed lamotrigine 25 mg tablet (Lamictal) 50 mg PO .QHS 01/23/18 02/05/22 levothyroxine 175 mcg tablet 175 mcg PO DAILY 10/10/19 02/05/22 vitamin B12 500 mcg-folic acid 400 1 tab PO DAILY 05/31/21 02/05/22 mcg tablet acetylcysteine 600 mg capsule 1,200 mg PO DAILY cap 07/29/21 02/05/22 prazosin 1 mg capsule 1 mg PO QHS 07/29/21 02/05/22 trazodone 100 mg tablet 100 mg PO HS #30 tab 11/28/21 02/05/22 melatonin 10 mg tablet 10 mg PO .QHS tab 12/05/21 02/05/22 sildenafil 50 mg tablet 50 mg PO DAILY PRN #10 tab 12/29/21 02/05/22 albuterol sulfate 90 mcg/actuation 2 puff IH Q6H PRN #8.5 g 01/05/22 02/05/22 aerosol inhaler (ProAir HFA) atorvastatin 20 mg tablet 20 mg PO QHS #90 tab 01/05/22 02/05/22 fluticasone fur. 100 mcg-umeclid 1 inh INHALATION DAILY #60 ea 01/05/22 02/05/22 62.5 mcg-vilant 25 mcg inhalat.powder (Trelegy Ellipta) metformin 500 mg tablet,extended 1,000 mg PO BID #360 tab 01/05/22 02/05/22 release 24 hr omeprazole 20 mg capsule,delayed 20 mg PO DAILY #90 cap 01/05/22 02/05/22 release propranolol 10 mg tablet 10 mg PO BID #180 tab 01/05/22 02/05/22 rivaroxaban 20 mg tablet (Xarelto) 20 mg PO HS #90 tab 01/05/22 02/05/22 quetiapine 100 mg tablet 100 mg PO BID #180 tab 01/30/22 02/05/22 sertraline 100 mg tablet 150 mg PO DAILY #135 tab 01/30/22 02/05/22 Previous Rx's Medication Instructions Recorded trazodone 100 mg tablet 100 mg PO HS #30 tab 11/28/21 sildenafil 50 mg tablet 50 mg PO DAILY PRN #10 tab 12/29/21 albuterol sulfate 90 mcg/actuation 2 puff IH Q6H PRN #8.5 g 01/05/22 aerosol inhaler (ProAir HFA) atorvastatin 20 mg tablet 20 mg PO QHS #90 tab 01/05/22 fluticasone fur. 100 mcg-umeclid 1 inh INHALATION DAILY #60 ea 01/05/22 62.5 mcg-vilant 25 mcg inhalat.powder (Trelegy Ellipta) metformin 500 mg tablet,extended 1,000 mg PO BID #360 tab 01/05/22 release 24 hr omeprazole 20 mg capsule,delayed 20 mg PO DAILY #90 cap 01/05/22 release propranolol 10 mg tablet 10 mg PO BID #180 tab 01/05/22 rivaroxaban 20 mg tablet (Xarelto) 20 mg PO HS #90 tab 01/05/22 quetiapine 100 mg tablet 100 mg PO BID #180 tab 01/30/22 sertraline 100 mg tablet 150 mg PO DAILY #135 tab 01/30/22 Allergies Allergy/AdvReac Type Severity Reaction Status Date / Time varenicline [From Chantix] Allergy Severe Verified 02/05/22 20:20 bee pollen Allergy Unknown Anaphylaxis Verified 02/05/22 20:20 bee venom protein (honey bee) Allergy Unknown Anaphylaxis Verified 02/05/22 20:20 General Stated Complaint: Trauma LORA: 2 PFSH All Active Problems (Updated 02/05/22 @ 22:40 by Chin Hdez MD) Fall (Acute) Abrasion of elbow, left (Acute) Left rib fracture (Acute) Contusion of head (Acute) Obstructive sleep apnea (Chronic) Ascending aortic aneurysm (Acute) 12/2021-4.[address] scan Personal history of nicotine dependence (Acute) 12/2019-10/05 ppd, prior 1 to 2 pack/day history, estimated 30-87-vafc-year history Hypothyroidism (acquired) (Acute) Spindle cell lipoma (Acute) soft tissue of scalp, excision Bowel incontinence (Acute) Multinodular goiter (Acute) s/p thyroidectomy Peritracheal mass (Acute) Bipolar disorder (Acute) Tubular adenoma of colon (Acute) Barretts esophagus (Acute) Remote diagnosis, unclear how this was diagnosed 12/2021-EGD with biopsy was unremarkable Myelopathy concurrent with and due to spinal stenosis of cervical region (Acute) 12/2021-cervical fusion at [facility] DVT (deep venous thrombosis) (Chronic) Essential tremor (Acute) Type 2 diabetes mellitus without complications (Acute) hgba1c 8.5% Hyperlipidemia (Acute) Hypothyroid (Chronic) Associated with thyroidectomy for benign reasons Factor V Leiden (Acute) Per patient 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 Sensorineural hearing loss of both ears (Acute) hearing aids Lipoma (Acute) COPD (chronic obstructive pulmonary disease) (Chronic) Medical History Anxiety Bilateral lower extremity edema BMI 36.0-36.9,adult Clotting disorder COPD (chronic obstructive pulmonary disease) Depression DVT (deep venous thrombosis) Enlarged lymph nodes GERD (gastroesophageal reflux disease) History of drug overdose History of neck injury History of neck pain Insomnia Intention tremor Mass of thoracic structure Neuropathy Obesity (BMI 35.0-39.9 without comorbidity) ROYCE (obstructive sleep apnea) uses device Peripheral vascular disease Pulmonary embolism Smoker Suicide attempt (~2011) Tobacco abuse Type 2 diabetes mellitus Urgency of urination Surgical History H/O arthroscopy of right knee H/O total thyroidectomy (~2015) History of biopsy thyroid fna, stomach and esophagus 12/01/19 History of colonoscopy (~09/2021) History of discectomy c5-c6 History of esophagogastroduodenoscopy (EGD) (~09/2021) History of surgical procedure parathroid autotransplantation S/P appendectomy S/P partial thyroidectomy pt. states this is a total thyroidectomy Family History Mother , 67 Heart disease Father , 82 Depression Diabetes Sister , 11 Brain cancer Sister Depression Diabetes Hyperlipidemia Hypertension Son Substance use disorder Daughter Depression Diabetes Paternal Grandfather , 73 Diabetes Hyperlipidemia Paternal Grandmother , 83 Diabetes Heart disease Social History Smoking/Tobacco Use Status: Current every day Tobacco Type: cigarettes Tobacco: How many years used: 45 Quit status: considering quitting Second Hand Exposure: Yes Smoking risk assessment performed?: Yes Alcohol Intake: former Drug use: Never Substance use type: does not use Household members: significant other Number of Children: 2 number of grandchildren: 5 Communication Needs: Hard of Hearing Do you need help understanding health information?: Never current occupation: disabled Pets and animals: Yes Pets and animals: dog(s) Sexually active: No Do you think of yourself as: straight/heterosexual Current gender identity: neither exclusively male nor female What is your relationship status?: living with partner How often do you talk on the phone with friends or family?: three or more times per week How often do you get together with friends or relatives?: once per week How often do you attend catholic or islam services?: decline to answer Do you belong to any clubs or organized social groups?: no Panel score (0-1 are the most socially isolated patients): 2 Duration: < 15 minutes/day Frequency: 1-2 times per week Maira/Uatsdin: Other Special maira needs: No Seatbelt use: always Helmet use: No Drive intox or ride w/intox refrigerated company driver: No Do you feel safe at home: Yes Do you feel safe in your relationship?: Yes Exam Const General: cooperative and no acute distress HENMT Head: normocephalic Mouth: moist mucous membranes Eyes EOM: EOM intact bilaterally Neck Neck: trachea midline and supple Chest Chest: no crepitus and tenderness rib (Anterior lateral left 4-6) Resp Auscultation: clear to auscultation bilaterally, no rales, no rhonchi and no wheezes Cardio Rate: regular rate and not tachycardic Rhythm: regular rhythm GI Palpation: soft, not firm, no guarding, no masses, not rigid and nontender Back/Spine/Pelvis Cervical Spine: cervical ROM normal, No cervical spinal tenderness and No step off deformity Thoracic/Lumbar Spine: No thoracic spinal tenderness and No lumbar spinal tenderness Skin Trauma: abrasion (lt elbow) Neuro General: patient alert, patient awake, patient oriented x3 and tone normal Cognition: normal cognition Speech: speech normal Motor: strength 5/5 throughout Sensory Exam: no sensory deficits noted Extrem Left upper extremity: elbow/forearm Details: normal ROM and abrasion; Negative for no tenderness Psych Appearance: grossly normal Mental Status: mental status grossly normal Speech and Movement: speech and movement normal Course Vital Signs Vital signs: Vital Signs Temperature 37.2 C 02/05/22 20:16 Pulse 71 02/05/22 20:16 Respiratory Rate 02/05/22 20:16 Blood Pressure 147/92 H 02/05/22 20:16 Pulse Oximetry 96 02/05/22 20:16 Temperature 37.2 C 02/05/22 20:16 Temperature Source Temporal Artery Scan 02/05/22 20:16 Pulse 71 02/05/22 20:16 Respiratory Rate 02/05/22 20:16 Respiratory Effort 02/05/22 20:27 Respiratory Pattern Normal 02/05/22 20:27 Blood Pressure 147/92 H 02/05/22 20:16 Blood Pressure Position Sitting 02/05/22 20:16 Pulse Oximetry 96 02/05/22 20:16 Oxygen Delivery Method Room Air 02/05/22 20:16 Oxygen Flow Rate 0 02/05/22 20:16 Pain Level 9 02/05/22 20:16
--- NOTE | 2022-02-05 21:30 | DI.VRAD_ITS ---
PROCEDURE INFORMATION: Exam: CT Head Without Contrast Exam date and time: 02/05/2022 8:49 PM Age: 62 years old Clinical indication: Injury or trauma; Fall; Concussion/head injury; Consciousness not specified; Injury date: 02/05/22; Injury details: PT stated he fell from the tailgate of a parked truck; Additional info: Head trauma TECHNIQUE: Imaging protocol: Computed tomography of the head without contrast. Radiation optimization: All CT scans at this facility use at least one of these dose optimization techniques: automated exposure control; mA and/or kV adjustment per patient size (includes targeted exams where dose is matched to clinical indication); or iterative reconstruction. COMPARISON: MR BRAIN WO 04/16/2021 8:08 AM FINDINGS: Brain: Normal. No hemorrhage. Unremarkable white matter. No mass effect. Cerebral ventricles: No ventriculomegaly. Paranasal sinuses: Visualized sinuses are unremarkable. No fluid levels. Mastoid air cells: Visualized mastoid air cells are well aerated. Bones/joints: Unremarkable. No acute fracture. Soft tissues: Unremarkable. IMPRESSION: No acute intracranial abnormality. Dictated and Authenticated by: Adrienne Jenkins MD. Ordering:MOON Neely MD
--- NOTE | 2022-02-05 22:03 | DI.VRAD_ITS ---
PROCEDURE INFORMATION: Exam: XR Left Ribs with PA Chest Exam date and time: 02/05/2022 8:50 PM Age: 62 years old Clinical indication: Injury or trauma; Fall; Rib area, left side; Blunt trauma; Additional info: Head trauma TECHNIQUE: Imaging protocol: XR Left ribs with PA chest. Views: 3 views COMPARISON: CT CHEST/ABD/PEL W 11/30/2021 3:09 PM FINDINGS: Lungs: No consolidation. Pleural spaces: No pleural effusion. No pneumothorax. Heart/Mediastinum: No cardiomegaly. Bones/joints: There is a minimally displaced fracture at the posterior left 5th rib. IMPRESSION: 1. Minimally displaced fracture in the left posterior 5th rib. 2. No consolidation in the visualized lung keyes. Dictated and Authenticated by: Adrienne Jenkins MD. Ordering:MOON Neely MD
[2022-02-05] MEDS: Acetaminophen 325 MG TAB 650 MG PO (22:30)
[2022-02-05] MEDS: Lidocaine 5% Patch 1 PATCH TP (22:30)
[2022-02-05 22:54] VITALS: BP 149/96; PULSE 66; RESP 18; O2SAT 96
== END 2022-02-05 22:47 | disposition home or self-care (01) ==
PROVIDERS: Emergency Provider Student in an Organized Health Care Education/Training Program; PCP Family Medicine
DX: S00.83XA Contusion of other part of head, initial encounter (principal); S22.32XA Fracture of one rib, left side, initial encounter for closed fracture; S50.312A Abrasion of left elbow, initial encounter; W17.89XA Other fall from one level to another, initial encounter
CPT/HCPCS: 71101; 90471; 99284; 70450; 99283

== ENCOUNTER 2022-02-25 04:22 | Outpatient (CLI) | payer MEDICARE, MEDICAID, SELFPAY ==
[2022-02-25 09:22] LABS: Hemoglobin A1C 6.3 % (<5.7)
[2022-02-25 10:20] LABS: COMMENT (LAB VIEW ONLY) 145.18 mg/dL; Microalb ug/mg Crea 14.5 ug/mg Cr
[2022-02-25 10:29] LABS: ALT 29 U/L (16-63); AST 17 U/L (15-37); Albumin 4.1 g/dL (3.4-5.0); Alkaline Phosphatase 80 U/L (46-116); Anion Gap 10.1 mmol/L (3-11); BUN 17 mg/dL (7-18); Bilirubin, Total 0.5 mg/dL (0.2-1.0); CO2 25.9 mmol/L (21.0-32.0); CREATININE 0.9 mg/dL (0.70-1.30); Calcium 8.9 mg/dL (8.5-10.1); Chloride 104 mmol/L (98-107); Glucose 130 mg/dL (74-106); Potassium 4.5 mmol/L (3.5-5.1); Sodium 140 mmol/L (136-145); TSH (W/Ref FT4) 1.95 uIU/mL (0.36-3.74); Total Protein 6.8 g/dL (6.4-8.2)
[2022-02-25 10:49] LABS: Vitamin B12 308 pg/mL (193-986)
[2022-02-26 07:40] LABS: Calculated LDL 71 mg/dL (<100); Cholesterol 126 mg/dL (<200); HDL Cholesterol 30 mg/dL (40-60); Triglyceride 128 mg/dL (<150)
[2022-02-26 09:35] LABS: Hepatitis C Ab w Rflx HCV PCR Negative (Negative)
[2022-02-26 09:50] LABS: HIV-1/2 Ag & Ab Screen Negative (Negative)
== END 2022-02-25 04:23 | disposition home or self-care (01) ==
LOC: LBO 04:22
PROVIDERS: Psychiatry & Neurology Neurology; PCP Family Medicine; Visit Provider Family Medicine
DX: E11.9 Type 2 diabetes mellitus without complications; E03.9 Hypothyroidism, unspecified; E78.5 Hyperlipidemia, unspecified; Z11.59 Encounter for screening for other viral diseases; Z12.5 Encounter for screening for malignant neoplasm of prostate; Z87.891 Personal history of nicotine dependence; G99.2 Myelopathy in diseases classified elsewhere; M48.02 Spinal stenosis, cervical region
CPT/HCPCS: 36415; 80053; 80061; 84153; 86803; 87389; 82043; 82570; 82607; 83036; 84443

== ENCOUNTER → 2022-06-22 10:15 | Outpatient (BNVA) | payer MEDICARE, MEDICAID, SELFPAY | PROVIDERS: Referring Provider Family Medicine; Visit Provider Psychiatry & Neurology Neurology | DX: R26.89 Other abnormalities of gait and mobility (principal); Z98.890 Other specified postprocedural states; E11.42 Type 2 diabetes mellitus with diabetic polyneuropathy; E53.9 Vitamin B deficiency, unspecified; D68.51 Activated protein C resistance; Z79.01 Long term (current) use of anticoagulants; Z86.73 Personal history of transient ischemic attack (TIA), and cerebral infarction without residual deficits; R13.10 Dysphagia, unspecified; R22.1 Localized swelling, mass and lump, neck; Z87.891 Personal history of nicotine dependence | CPT/HCPCS: 99215 ==

== ENCOUNTER 2022-09-14 13:59 | Emergency (ER) | payer MEDICARE, MEDICAID, SELFPAY ==
[2022-09-14 14:04] VITALS: BP 141/100; PULSE 55; RESP 16; TEMP 37.4; O2SAT 96
--- NOTE | 2022-09-14 14:45 | DI.RAD_ITS ---
Exam(s) XR CHEST 2V PA LATERAL EXAM: XR CHEST 2V PA LATERAL CLINICAL HISTORY: flu, increased cough, crackles LLL. TECHNIQUE: 2D digital imaging was performed. COMPARISON: CR,XR XR RIBS LT PA CHEST 3V from 02/05/2022 FINDINGS: 2 views: Fusion plate again noted in the lower cervical spine. Heart size is normal. The mediastinum is not widened. Lungs are clear. No infiltrates nor pleural effusions. Previously described fracture in the posterior aspect of the left 5th rib is again noted. No obvious new additional fractures evident. IMPRESSION: No acute pulmonary findings. Left 5th rib fracture again noted. DATA REPOSITORY: RADIATION DOSE DELIVERED:
--- NOTE | 2022-09-14 14:54 | W.ED.GENAD ---
Discharge Plan Disposition Patient Disposition: Home Condition: Good Discharge Details Clinical Impression: Flu, Pneumonia Primary Care Provider: Yanick Gauthier ED Provider: Meagan Yates Home Meds and New Rx's Prescriptions: New doxycycline hyclate 100 mg tablet 100 mg PO BID Qty: 10 0RF ondansetron 4 mg tablet,disintegrating 4 mg PO Q6H PRN (Reason: nausea and vomiting) Qty: 10 0RF Continued levothyroxine 175 mcg tablet 175 mcg PO DAILY Qty: 90 3RF epinephrine [EpiPen] 0.3 mg/0.3 mL auto-injector 0.3 ml subcut ONCE PRN (Reason: hypersensitivity reaction) Qty: 2 1RF Rx Instructions: as a single dose; may repeat once sildenafil 50 mg tablet 50 mg PO DAILY PRN (Reason: sexual activity) Qty: 10 11RF Rx Instructions: administer 30 minutes to 4 hours before activity prazosin 1 mg capsule 1 mg PO QHS Xarelto 20 mg tablet 20 mg PO HS Qty: 90 3RF atorvastatin 20 mg tablet 20 mg PO QHS Qty: 90 3RF albuterol sulfate [ProAir HFA] 90 mcg/actuation HFA aerosol inhaler 2 puff IH Q6H PRN (Reason: shortness of breath or wheezing) Qty: 8.5 11RF Trelegy Ellipta 100-62.5-25 mcg blister with device 1 inh inhalation DAILY Qty: 60 5RF metformin 500 mg tablet extended release 24 hr 1,000 mg PO BID Qty: 360 3RF omeprazole 20 mg capsule,delayed release(DR/EC) 20 mg PO DAILY Qty: 90 3RF propranolol 10 mg tablet 10 mg PO BID Qty: 180 3RF sertraline 100 mg tablet 150 mg PO DAILY Qty: 135 1RF quetiapine 100 mg tablet 100 mg PO BID Qty: 180 1RF cyanocobalamin (vitamin B-12) 1,000 mcg/mL solution 1,000 mcg IM .COMPLEX Qty: 25 0RF Rx Instructions: 1,000 mcg intramuscularly Once weekly for 4 weeks then once monthly; (DME) insulin syringe-needle U-100 [Advocate Syringes] 1 mL 30 gauge x 5/16 syringe See Rx Instructions .Route Qty: 10 1RF Rx Instructions: As directed trazodone 100 mg tablet 100 mg PO HS Qty: 30 5RF vitamin O42-goafs acid 500-400 mcg Tablet 1 tab PO DAILY lamotrigine [Lamictal] 25 MG tablet 50 mg PO .QHS Discharge Instructions Instructions: Influenza (ED), Pneumonia (ED) Additional Instructions: Your labs and imaging are reassuring here today. However, with your increased symtoms and crackles heard in your left lower lung, we will treat you for possible bacterial pneumonia that may be developing as you recover from your recent flu infection. If you develop shortness of breath, difficulty breathing, chest pain or other new/worsening symptoms please seek care urgently once again. Please follow up with primary care in the next 1-2 weeks for reevaluation. Referrals: Yanick Gauthier NP [Primary Care Provider] - Discharge Data Discharge Date/Time-TO BE ENTERED AT DEPARTURE: 09/14/22 16:37 Medical Decision Making <ELOSIA Hendrix - Last Filed: 09/29/22 07:39> Patient is a pleasant 62-year-old male presenting today with chief complaint of increased fatigue, cough general malaise, anorexia. Patient has known flu. Was diagnosed 6 days ago. Did take Tamiflu. States that initially he was feeling improved. However, he states he did have a fever associated with the initial illness about 2 days ago. However, over the past 24 hours his symptoms have worsened prompting him to seek care in the urgent care. They are concerned for potential dehydration and sent him here. Patient does report that he has had very limited p.o. intake associated with decreased appetite. Denies any fevers or chills over the past 48 hours. Denies any chest pain or shortness of breath. No recent travel. Patient is a smoker. Past medical history pertinent fo diabetes, factor V. Patient is on a beta-todd. Takes rivaroxaban, states he has been taking this medication as prescribed. On exam, patient appears nontoxic. He has some crackles in the left lower lobe. Does appear slightly dehydrated on ENT exam. Abdomen benign. Patient reports chronic lower extremity edema but none is appreciated today. No calf tenderness. This may be associated with continued influenza infection. Alternative, patient may have developed a bacterial pneumonia in the setting of a previous viral pneumonia which would account for his increased symptoms and crackles in the left lower lobe. As the patient has had diminished p.o. intake and has had minimal fluids, will hydrate the patient. With his limited p.o. intake, also considered potential electrolyte abnormalities and will obtain baseline labs. Will give Zofran for nausea. At the end of my shift, care transitioned to Saad Corea NP <Edmar Corea NP - Last Filed: 09/16/22 11:08> Medical Records Medical records narrative: 1600- Patient not signed out to me and was discharged by Meagan AMIN. Sign Out No HPI <ELOISA Hendrix - Last Filed: 09/29/22 07:39> General Date/Time Provider Initiated Documentation: 09/14/22 14:43. Limitations to Documentation: no limitations. Information obtained by: patient and RN notes reviewed. History of Present Illness 62 year old M presents to the emergency department with the chief complaint of flu symptoms, diminished PO intake, described as moderate, with intensity rated at 7 (general body aches). Quality is described as aching, Patient started experiencing this day(s) and it has been constant. No relieving factors improve symptom(s), No exacerbating factors reported . Patient notes cough, fever/chills, loss of appetite and malaise; denies chest pain, headaches, nausea/vomiting, rash, shortness of breath and weakness. Patient did receive the following treatments prior to arrival, none Related Data Home Medications Medication Instructions Recorded Confirmed lamotrigine 25 mg tablet (Lamictal) 50 mg PO .QHS 01/23/18 09/18/22 vitamin B12 500 mcg-folic acid 400 1 tab PO DAILY 05/31/21 09/18/22 mcg tablet prazosin 1 mg capsule 1 mg PO QHS 07/29/21 09/18/22 sildenafil 50 mg tablet 50 mg PO DAILY PRN sexual activity 12/29/21 09/18/22 #10 tabs albuterol sulfate 90 mcg/actuation 2 puff inhalation Q6H PRN 01/05/22 09/18/22 aerosol inhaler (ProAir HFA) shortness of breath or wheezing #8.5 grams atorvastatin 20 mg tablet 20 mg PO QHS #90 tabs 01/05/22 09/18/22 fluticasone fur. 100 mcg-umeclid 1 inh inhalation DAILY #60 ea 01/05/22 09/18/22 62.5 mcg-vilant 25 mcg inhalat.powder (Trelegy Ellipta) metformin 500 mg tablet,extended 1,000 mg PO BID #360 tabs 01/05/22 09/18/22 release 24 hr omeprazole 20 mg capsule,delayed 20 mg PO DAILY #90 caps 01/05/22 09/18/22 release propranolol 10 mg tablet 10 mg PO BID #180 tabs 01/05/22 09/18/22 rivaroxaban 20 mg tablet (Xarelto) 20 mg PO HS #90 tabs 01/05/22 09/18/22 quetiapine 100 mg tablet 100 mg PO BID #180 tabs 01/30/22 09/18/22 sertraline 100 mg tablet 150 mg PO DAILY #135 tabs 01/30/22 09/18/22 epinephrine 0.3 mg/0.3 mL 0.3 ml subcut ONCE PRN 03/06/22 09/18/22 injection, auto-injector (EpiPen) hypersensitivity reaction #2 ea levothyroxine 175 mcg tablet 175 mcg PO DAILY #90 tabs 03/06/22 09/18/22 cyanocobalamin (vitamin B-12) 1,000 mcg IM .COMPLEX #25 mL 08/05/22 09/18/22 1,000 mcg/mL injection solution insulin syringe-needle U-100 1 mL #10 ea 08/05/22 09/18/22 30 gauge x 5/16 (Advocate Syringes) trazodone 100 mg tablet 100 mg PO HS #30 tabs 08/24/22 09/18/22 doxycycline hyclate 100 mg tablet 100 mg PO BID #10 tabs 09/14/22 09/18/22 ondansetron 4 mg disintegrating 4 mg PO Q6H PRN nausea and 09/14/22 09/18/22 tablet vomiting #10 tabs Previous Rx's Medication Instructions Recorded sildenafil 50 mg tablet 50 mg PO DAILY PRN sexual activity 12/29/21 #10 tabs albuterol sulfate 90 mcg/actuation 2 puff inhalation Q6H PRN 01/05/22 aerosol inhaler (ProAir HFA) shortness of breath or wheezing #8.5 grams atorvastatin 20 mg tablet 20 mg PO QHS #90 tabs 01/05/22 fluticasone fur. 100 mcg-umeclid 1 inh inhalation DAILY #60 ea 01/05/22 62.5 mcg-vilant 25 mcg inhalat.powder (Trelegy Ellipta) metformin 500 mg tablet,extended 1,000 mg PO BID #360 tabs 01/05/22 release 24 hr omeprazole 20 mg capsule,delayed 20 mg PO DAILY #90 caps 01/05/22 release propranolol 10 mg tablet 10 mg PO BID #180 tabs 01/05/22 rivaroxaban 20 mg tablet (Xarelto) 20 mg PO HS #90 tabs 01/05/22 quetiapine 100 mg tablet 100 mg PO BID #180 tabs 01/30/22 sertraline 100 mg tablet 150 mg PO DAILY #135 tabs 01/30/22 epinephrine 0.3 mg/0.3 mL 0.3 ml subcut ONCE PRN 03/06/22 injection, auto-injector (EpiPen) hypersensitivity reaction #2 ea levothyroxine 175 mcg tablet 175 mcg PO DAILY #90 tabs 03/06/22 cyanocobalamin (vitamin B-12) 1,000 mcg IM .COMPLEX #25 mL 08/05/22 1,000 mcg/mL injection solution insulin syringe-needle U-100 1 mL #10 ea 08/05/22 30 gauge x 5/16 (Advocate Syringes) trazodone 100 mg tablet 100 mg PO HS #30 tabs 08/24/22 doxycycline hyclate 100 mg tablet 100 mg PO BID #10 tabs 09/14/22 ondansetron 4 mg disintegrating 4 mg PO Q6H PRN nausea and 09/14/22 tablet vomiting #10 tabs Allergies Allergy/AdvReac Type Severity Reaction Status Date / Time bee pollen Allergy Unknown Anaphylaxis Verified 09/18/22 09:46 bee venom protein (honey bee) Allergy Unknown Anaphylaxis Verified 09/18/22 09:46 varenicline [From Chantix] AdvReac Severe Nausea Verified 09/18/22 09:46 General Stated Complaint: GenMedical LORA: 3 Review of Systems <ELOISA Hendrix - Last Filed: 09/29/22 07:39> Constitutional Constitutional: Reports as per HPI and Denies headache(s) Eyes Eyes: Reports as per HPI, Denies eye discharge and Denies irritation ENT Ears, Nose, Mouth, and Throat: Reports as per HPI and Denies headache(s) Cardiovascular Cardiovascular: Reports as per HPI, Denies chest pain and Denies dyspnea Respiratory Respiratory: Reports as per HPI and Denies dyspnea Gastrointestinal Gastrointestinal: Reports as per HPI, Denies abdominal pain, Denies change in bowel habits, Denies nausea and Denies vomiting Integumentary/Breasts Skin/Breast: Reports as per HPI and Denies rash Neurologic Neurologic: Reports as per HPI and Denies headache(s) PFSH <ELOISA Hendrix - Last Filed: 09/29/22 07:39> All Active Problems Flu (Acute) Pneumonia (Acute) Diabetic peripheral neuropathy (Acute) Dysphagia (Acute) Obstructive sleep apnea (Chronic) 03/2022, PCPAP recommneded Ascending aortic aneurysm (Acute) 12/2021-4.[address] scan Personal history of nicotine dependence (Acute) 12/2019-1 ppd, prior 1 to 2 pack/day history, estimated 83-58-vndc-year history Hypothyroidism (acquired) (Acute) Spindle cell lipoma (Acute) soft tissue of scalp, excision Bowel incontinence (Acute) Multinodular goiter (Acute) s/p thyroidectomy 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-2021 Bipolar disorder (Acute) Tubular adenoma of colon (Acute) 2020, due 2025 Barretts esophagus (Acute) Remote diagnosis, unclear how this was diagnosed 12/2021-EGD with biopsy was unremarkable Myelopathy concurrent with and due to spinal stenosis of cervical region (Acute) 12/2021-cervical fusion at [facility] DVT (deep venous thrombosis) (Chronic) Essential tremor (Acute) Type 2 diabetes mellitus without complications (Acute) hgba1c 8.5% Hyperlipidemia (Acute) Hypothyroid (Chronic) Associated with thyroidectomy for benign reasons Factor V Leiden (Acute) Per patient 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 Sensorineural hearing loss of both ears (Acute) hearing aids Lipoma (Acute) COPD (chronic obstructive pulmonary disease) (Chronic) Medical History Anxiety Bilateral lower extremity edema BMI 36.0-36.9,adult Clotting disorder COPD (chronic obstructive pulmonary disease) Depression DVT (deep venous thrombosis) Enlarged lymph nodes GERD (gastroesophageal reflux disease) History of drug overdose History of neck injury History of neck pain Insomnia Intention tremor Left rib fracture Mass of thoracic structure Neuropathy Obesity (BMI 35.0-39.9 without comorbidity) ROYCE (obstructive sleep apnea) uses device Peripheral vascular disease Pulmonary embolism Smoker Suicide attempt (~2011) Tobacco abuse Type 2 diabetes mellitus Urgency of urination Surgical History H/O arthroscopy of right knee H/O total thyroidectomy (~2015) History of biopsy thyroid fna, stomach and esophagus 12/01/19 History of colonoscopy (~09/2021) History of discectomy c5-c6 History of esophagogastroduodenoscopy (EGD) (~09/2021) History of surgical procedure parathroid autotransplantation S/P appendectomy S/P partial thyroidectomy pt. states this is a total thyroidectomy Family History Mother , 67 Heart disease Father , 82 Depression Diabetes Sister , 11 Brain cancer Sister Depression Diabetes Hyperlipidemia Hypertension Son Substance use disorder Daughter Depression Diabetes Paternal Grandfather , 73 Diabetes Hyperlipidemia Paternal Grandmother , 83 Diabetes Heart disease Social History Smoking/Tobacco Use Status: Current every day Tobacco Type: cigarettes Tobacco: How many years used: 45 Quit status: considering quitting Second Hand Exposure: Yes Smoking risk assessment performed?: Yes Alcohol Intake: former Drug use: Never Substance use type: does not use Household members: significant other Number of Children: 2 number of grandchildren: 5 Communication Needs: Hard of Hearing Do you need help understanding health information?: Never current occupation: disabled Pets and animals: Yes Pets and animals: dog(s) Sexually active: No Do you think of yourself as: straight/heterosexual Current gender identity: neither exclusively male nor female What is your relationship status?: living with partner How often do you talk on the phone with friends or family?: three or more times per week How often do you get together with friends or relatives?: once per week How often do you attend cheondoism or confucianist services?: decline to answer Do you belong to any clubs or organized social groups?: no Panel score (0-1 are the most socially isolated patients): 2 Duration: < 15 minutes/day Frequency: 1-2 times per week Maira/Nondenominational: Other Special maira needs: No Seatbelt use: always Helmet use: No 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 Do you feel safe at home: Yes Do you feel safe in your relationship?: Yes Exam <ELOISA Hendrix - Last Filed: 09/29/22 07:39> Const General: cooperative, healthy appearing, comfortable, no acute distress, well developed and well groomed Nutritional Appearance: average body habitus and well nourished Orientation: alert and awake [facility] Head: normal to inspection, normocephalic and atraumatic Ears: hearing grossly normal bilaterally, external ears normal and TM's normal bilaterally General nose exam: external nose normal and nares normal Face and sinus: normal facial exam, sinuses nontender and face symmetric Mouth: oral mucosae normal, lip normal, tongue normal, oropharynx normal and moist mucous membranes Teeth and gingiva: dentition normal Throat: posterior oropharynx normal, tonsils normal and uvula midline Eyes General: appearance normal, both eyes and all related structures Neck Neck: normal visual inspection, full ROM, no lymphadenopathy and no meningeal signs Resp Effort & Inspection: normal respiratory effort, able to speak in complete sentences and no respiratory distress Auscultation: crackles on the left at the base, no rales, no rhonchi and no wheezes Cardio Rate: regular rate Rhythm: regular rhythm Heart Sounds: S1 normal and S2 normal Skin General skin exam: no rashes or lesions noted Neuro General: patient alert and patient awake Cognition: normal cognition Speech: speech normal Gait: normal gait Psych Appearance: grossly normal and well kempt Mental Status: mental status grossly normal Speech and Movement: speech and movement normal Course <ELOISA Hendrix - Last Filed: 09/29/22 07:39> Vital Signs Vital signs: Vital Signs Temperature 37.4 C 09/14/22 14:04 Pulse 55 L 09/14/22 14:04 Respiratory Rate 16 09/14/22 14:04 Blood Pressure 141/100 H 09/14/22 14:04 Pulse Oximetry 96 09/14/22 14:04 Temperature 37.4 C 09/14/22 14:04 Temperature Source Skin 09/14/22 14:04 Pulse 55 L 09/14/22 14:04 Respiratory Rate 16 09/14/22 14:04 Respiratory Effort 09/14/22 14:06 Blood Pressure 141/100 H 09/14/22 14:04 Blood Pressure Position Sitting 09/14/22 14:04 Pulse Oximetry 96 09/14/22 14:04 Oxygen Delivery Method Room Air 09/14/22 14:04 Oxygen Flow Rate 0 09/14/22 14:04 Pain Level 0 09/14/22 14:04
[2022-09-14 15:12] LABS: Abs Immature Grans 0.03 10^3/uL (0.0-0.06); Absolute Basophil Count 0.05 10^3/uL (0.0-0.2); Absolute Eosinophil Count 0.22 10^3/uL (0.0-0.7); Absolute Lymphocyte Count 2.12 10^3/uL (1.2-3.4); Absolute Monocyte Count 0.48 10^3/uL (0.1-0.8); Absolute Neutrophil Count 3.73 10^3/uL (1.2-6.7); Basophils % 0.8; Eosinophils % 3.3; HCT 47.7 % (40.0-50.0); HGB 16.8 g/dL (13.5-17.5); Immature Grans % 0.5; MCH 30.9 pg (27.0-33.0); MCHC 35.2 % (32.0-36.0); MCV 88 fL (80-95); MPV 9.2 fL (8.0-11.0); Monocytes % 7.2; Neutrophils % 56.2; Platelet Count 215 10^3/uL (130-400); RBC 5.43 10^6/uL (4.36-5.78); RDW 12.7 % (11.8-14.1); WBC 6.63 10^3/uL (4.4-10.8)
[2022-09-14] MEDS: Ondansetron 4 MG/2 ML VIAL IVP (15:13)
[2022-09-14] MEDS: Normal Saline 500 ML IV (15:14)
[2022-09-14 15:16] VITALS: RESP 18
[2022-09-14 15:48] LABS: ALT 29 U/L (16-63); AST 21 U/L (15-37); Albumin 3.8 g/dL (3.4-5.0); Alkaline Phosphatase 62 U/L (46-116); Anion Gap 7.5 mmol/L (3-11); BUN 13 mg/dL (7-18); Bilirubin, Total 0.8 mg/dL (0.2-1.0); CO2 27.5 mmol/L (21.0-32.0); Calcium 8.5 mg/dL (8.5-10.1); Chloride 100 mmol/L (98-107); Estimated GFR 86.16 (mL/min/1.73m2); Glucose 135 mg/dL (74-106); Magnesium 2.1 mg/dL (1.8-2.4); Potassium 3.9 mmol/L (3.5-5.1); Sodium 135 mmol/L (136-145); Total Protein 7.2 g/dL (6.4-8.2)
[2022-09-14 16:19] VITALS: BP 136/85; PULSE 54; O2SAT 94
[2022-09-14 16:35] VITALS: BP 135/99; PULSE 57; RESP 16; TEMP 36.8; O2SAT 95
== END 2022-09-14 16:37 | disposition home or self-care (01) ==
PROVIDERS: Emergency Provider Physician Assistant; PCP Nurse Practitioner Family
DX: J11.1 Influenza due to unidentified influenza virus with other respiratory manifestations (principal); J18.9 Pneumonia, unspecified organism; E11.9 Type 2 diabetes mellitus without complications; J44.9 Chronic obstructive pulmonary disease, unspecified; R11.0 Nausea
CPT/HCPCS: 80053; 96361; 96374; 99284; 71046; 83735; 85025; J2405

== ENCOUNTER → 2022-10-20 12:30 | Outpatient (BNVA) | payer OTHER, MEDICAID, SELFPAY | PROVIDERS: PCP Nurse Practitioner Family; Referring Provider Nurse Practitioner Family; Visit Provider Psychiatry & Neurology Neurology | DX: R26.89 Other abnormalities of gait and mobility (principal); E11.42 Type 2 diabetes mellitus with diabetic polyneuropathy; D68.51 Activated protein C resistance; M48.02 Spinal stenosis, cervical region; G95.9 Disease of spinal cord, unspecified; G25.0 Essential tremor | CPT/HCPCS: 99214 ==

== ENCOUNTER 2023-03-16 18:36 | Outpatient (CLI) | payer OTHER, MEDICAID, SELFPAY ==
--- NOTE | 2023-03-16 15:03 | DI.RAD_ITS ---
Exam(s) XR LUMBAR SPINE COMPLETE EXAM: XR LUMBAR SPINE COMPLETE CLINICAL HISTORY: back pain with radiation M54.9 DORSALGIA. TECHNIQUE: 2D digital imaging was performed. COMPARISON: CT CT CHEST/ABD/PEL W from 11/30/2021 FINDINGS: Five views No evidence of fracture, listhesis, nor pars interarticularis defects. There is multilevel disc space narrowing which is noted to be most prominent at L1-2 and L2-3 levels. At these levels are also left-sided bridging osteophytes. Lesser amount of disc space narrowing at L3-4 noted. Relative preservation of disc height at L4-5 and L5-S1 level noted.. No osseous lesion s. Bone density normal. There appears to be short AP dimensions of the pedicles. There may be an element of multilevel spina l canal stenosis here. IMPRESSION: As above. Clinically indicated MRI can be performed to determine the amount of spinal canal stenosis here. Also noted is calcification in the distal abdominal aorta which appears slightly aneurysmal. DATA REPOSITORY: RADIATION DOSE DELIVERED:
== END 2023-03-16 18:56 ==
LOC: DI 18:36
PROVIDERS: PCP Nurse Practitioner Family; Visit Provider Physician Assistant
DX: I70.0 Atherosclerosis of aorta; M48.062 Spinal stenosis, lumbar region with neurogenic claudication
CPT/HCPCS: 72110

== ENCOUNTER 2023-04-05 01:46 | Outpatient (CLI) | payer OTHER, MEDICAID, SELFPAY ==
--- NOTE | 2023-04-05 07:45 | DI.MRI_ITS ---
Exam(s) MR LUMBAR SPINE WO EXAM: MR LUMBAR SPINE WO CLINICAL HISTORY: back pain with radiation, M54.9, DORSALGIA. TECHNIQUE: Multiplanar multisequence MRI of the Lumbar spine was performed. COMPARISON: CR XR LUMBAR SPINE COMPLETE from 03/16/2023 FINDINGS: Bones: The last intervertebral disc space is designated the L5/S1 level for the numbering purpose of this examination. The vertebral body heights are well maintained. Alignment is satisfactory. The ma rrow signal characteristics are unremarkable. There is a hemangioma in the L2 vertebral body. Cord: The conus tip ends at the T12 level. It is of normal size and signal intensity. T12-L1: No disc herniations or bulges are present. No central spinal canal or neural foraminal stenos is. L1-2: Loss of disc height. Endplate osteophytes which project mainly anteriorly. No central spinal canal or neural foraminal stenosis. L2-3: Loss of disc height. Endplate osteophytes anteriorly and toward the right, causing right neura l foraminal narrowing.. No central spinal canal or left foraminal stenosis. L3-4: Disc height is maintained. Endplate osteophytes and broad-based disc bulging, eccentric toward the right. This causes severe right bilateral foraminal and mild central spinal canal stenosis. L4-5: Broad-based disc bulging eccentric toward the right. Severe bilateral neural foraminal narrowi ng. Mild facet degenerative changes. Mild central canal stenosis.. L5-S1: Mild disc bulging. Mild facet degenerative changes. Amlk-[id number] left neural foraminal n arrowing. No central canal stenosis. The visualized SI joints show spurring. Soft tissues: The paraspinal soft tissues are unremarkable. IMPRESSION: Multilevel degenerative disc changes. There is severe bilateral neural foraminal narrowing and mild central canal stenosis at L3-4 and L4-5. DATA REPOSITORY:
== END 2023-04-05 02:06 ==
LOC: DI 01:46
PROVIDERS: PCP Nurse Practitioner Family; Visit Provider Physician Assistant
DX: M47.25 Other spondylosis with radiculopathy, thoracolumbar region
CPT/HCPCS: 72148

== ENCOUNTER → 2023-05-14 00:34 | Outpatient (CLI) | payer OTHER, MEDICAID, SELFPAY ==
--- NOTE | 2023-05-14 07:15 | DI.CT_ITS ---
Exam(s) CT THORAX ABD/PEL CTA EXAM: CT THORAX ABD/PEL CTA CLINICAL HISTORY: MONITOR ASCENDING AORTIC ANEURYSM,I71.2. TECHNIQUE: Imaging Protocol: Axial CT angiography was performed with multi-slice acquisition and mu lti-planar and/or 3D reconstructions. CONTRAST MATERIAL: Intravenous: Omnipaque 350 Contrast volume:100 ml COMPARISON: CT CT CHEST/ABD/PEL W from 11/30/2021 FINDINGS: CHEST: Ascending aorta is stable at 4.2 cm. Descending aorta 2.7 cm. Mild coronary artery calcifications. Heart normal size. Minimal calcifications at aortic arch. Lungs generally clear with exception of mild scarring or atelectasis at the right posterior lung base . Minimal emphysematous changes. ABDOMEN and pelvis: Liver is enlarged and shows severe fatty infiltration, unchanged. Spleen, pancreas, kidneys, gallbladder and adrenals are unremarkable. Bowel unremarkable. Bladder a nd prostate unremarkable. Degenerative changes are seen in the spine. Aorta in shows moderate atherosclerotic changes. There is a mild amount of mural thrombus.. Maximum dimension 2.7 cm.. Iliac arteries show no evidence of occlusion or significant stenosis.. IMPRESSION: 1. Stable dilatation of ascending aorta 4.2 cm 2. Stable appearance of atherosclerotic changes of the abdominal aorta maximal dimension 2.7 cm. RADIATION DOSE DELIVERED: 1,279.21mGy.cm Total DLP DATA REPOSITORY: All CT scans at this facility are submitted to the National Radiology Data Registry (NRDR) Dose Index Registry (DIR) with the [employer] (A[employer]). RADIATION OPTIMIZATION: All CT scans at this facility use at least one of these dose optimization te chniques: automated exposure control; mA and/or kV adjustment per patient size (includes targeted exa ms where dose is matched to clinical indication); or iterative reconstruction.
[2023-05-14 09:44] LABS: CREATININE 1.1 mg/dL (0.70-1.30); Estimated GFR 76.37 (mL/min/1.73m2)
[2023-05-14] MEDS: Normal Saline - Diluent 50 ML VIAL IJ (09:58)
[2023-05-14] MEDS: Omnipaque 350 MG/ML 500 ML BTL-Imaging package IJ (09:59)
[2023-05-14 10:04] LABS: Calculated LDL 63 mg/dL (<100); Cholesterol 128 mg/dL (<200); HDL Cholesterol 30 mg/dL (40-60); TSH (W/Ref FT4) 0.76 uIU/mL (0.36-3.74); Triglyceride 175 mg/dL (<150)
== END ==
PROVIDERS: PCP Nurse Practitioner Family; Visit Provider Nurse Practitioner Family
DX: E78.5 Hyperlipidemia, unspecified (principal); E03.9 Hypothyroidism, unspecified; I71.20 Thoracic aortic aneurysm, without rupture, unspecified
CPT/HCPCS: 71275; 80061; 74174; 82565; 84443

== ENCOUNTER 2023-07-29 10:47 | Outpatient (CLI) | payer OTHER, MEDICAID, SELFPAY ==
[2023-07-29 11:00] VITALS: BP 131/90; PULSE 64; RESP 20; TEMP 36.8; O2SAT 95
[2023-07-29 11:49] VITALS: BP 136/93; PULSE 63; RESP 20; O2SAT 95
--- NOTE | 2023-07-29 11:50 | DI.RAD_ITS ---
Exam(s) XR PAIN CLINIC LUMBAR SP 2V EXAM: XR PAIN CLINIC LUMBAR SP 2V CLINICAL HISTORY: DX: Lumbar spondylosis. TECHNIQUE: Fluoroscopy was provided for the referring physician for guidance with performing pain cl inic injection procedure. COMPARISON: No exams were available for comparison FINDINGS: Please see procedure note for details. Fluoro time: 60.3 seconds RADIATION DOSE DELIVERED: Chaitanyar=22.7 mGy
[2023-07-29] MEDS: Omnipaque 240 MG/ML 50 ML BTL IJ (11:58)
[2023-07-29] MEDS: Bupivacaine 0.5% Pres-Free 10 ML VIAL IJ (11:58)
--- NOTE | 2023-08-03 08:34 | PDOC.PAIN_ITS ---
Date of service: 07/29/23 Time of Service: 11:30 Pain Managment Procedure Note Procedure Note Procedure Note: PROCEDURE NOTE Bilateral Lumbar Medial Branch Blocks #1 Date of Service: July 29, 2023 Patient: Morro Sahni Provider: Niels Nogueira DO, MPH Morro Sahni has been [facility] to the [facility] for lumbar medial branch blocks. Pre-operative diagnosis: Lumbar Spondylosis without Myelopathy Post-operative diagnosis: Same Pre-procedure pain: VAS= 7/10 COMMENTS: I previously evaluated him in the office. There is a no-stop on the Xarelto and he will stop the Ibuprofen for 24 hours after the procedure. Jamie was interviewed and the medical records were reviewed. There were no medical, pharmacologic, radiographic or other structural contraindications to attempting fluoroscopically guided local anesthetic lumbar medial branch blocks. Risks and potential side effects were discussed. I also discussed the potential benefit(s) of the procedure with Morro, and voiced concerns were addressed. After Morro was completely informed about the procedure, the printed consent form was signed. A standard time-out procedure was performed. Morro was placed in the prone position on the fluoroscopy table. Automated blood pressure cuff and pulse oximeter were applied. The skin entry points for approaching the anatomic target points of the segmental medial branches of bilateral L3,L4,L5 were identified with fluoroscopy and marked. The skin at the target site area was thoroughly prepared with Chlorhexadine. The skin was then draped. Next, a 25 gauge 3.5 spinal needle was placed under fluoroscopic guidance down on to the target point (the articular pillar) for each respective segmental medial branch. Position was confirmed in A/P and lateral views. Aspiration revealed no blood or clear fluid. Next, 0.25ml of omnipaque 240 was injected at each level. No contrast following a vascular or neural pattern was visualized under continuous fluoroscopy. Next, 0.25 ml of preservative-free 0.5% bupivicaine was injected at each level. There was no unusual discomfort expressed by Morro. The needles were withdrawn without difficulty. (49 mls of Omnipaque was wasted) Morro was observed and was without hemodynamic, neurologic, or allergic reactions.? Fluoroscopic images were digitally archived. Provacative testing using the Modified Muse's facet loading test- Left side Right Side Directly before the block VAS (0-10) = 7/10 VAS (0-10) = 7/10 Five minutes after the block VAS (0-10) = 1/10 VAS (0-10) = 1/10 Percentage relief obtained with this diagnostic block 80% 80% Any improved physical functioning directly after the blocks? Able to move much easier. Follow up plans and appointments were discussed with Morro. Morro was instructed to keep careful note of how the usual pain was modified by these injections. Specifically, to keep a pain diary for the next 4 hours using a numeric pain scale of 0-10 and report these results. Post procedure instruction was given as documented in the nursing documentation and having met discharge criteria, the patient was [facility] from the [facility]. Based on the medial branches blocked today, if they patient has adequate relief and we are able to proceed to radiofrequency ablation, the treatment should result in the denervation of the bilateral L4-L5 and L5-S1 facet joints. We would expect to denervate a total of 4 facets during the radiofrequency ablati on. COMMENTS: No apparent complications. Post-procedure pain: VAS= 1/10 Morro will call back with 0-4 hour post-procedure pain scores. I personally performed the entire procedure. NIELS NOGUEIRA DO, MPH ABPM&R-subspecialty board certification in Pain Medicine [facility] [facility]
== END 2023-07-29 10:48 | disposition home or self-care (01) ==
LOC: PC 10:48
PROVIDERS: PCP Nurse Practitioner Family; Visit Provider Preventive Medicine Occupational Medicine
DX: M54.50 Low back pain, unspecified (principal); M47.816 Spondylosis without myelopathy or radiculopathy, lumbar region
CPT/HCPCS: 00123; 64493; 64494; 72100; Q9967

== ENCOUNTER 2023-09-09 07:39 | Outpatient (CLI) | payer OTHER, SELFPAY ==
[2023-09-09 07:45] VITALS: BP 150/92; PULSE 63; RESP 20; TEMP 36.7; O2SAT 96
--- NOTE | 2023-09-09 08:17 | PDOC.PAIN ---
Date of service: 09/09/23 Time of Service: 08:18 Pain Managment Procedure Note Procedure Note Procedure Note: PROCEDURE NOTE Bilateral Lumbar Medial Branch Blocks #2 Date of Service: September 09, 2023 Patient: Morro Sahni Provider: Niels Nogueira DO, MPH Morro Sahni has been referred to the [facility] for lumbar medial branch blocks. Pre-operative diagnosis: Lumbar Spondylosis without Myelopathy Post-operative diagnosis: Same Pre-procedure pain: VAS= 7/10 COMMENTS: He did very well with his first LMBB on 08/03/23. His symptoms have returned. Jamie was interviewed and the medical records were reviewed. There were no medical, pharmacologic, radiographic or other structural contraindications to attempting fluoroscopically guided local anesthetic lumbar medial branch blocks. Risks and potential side effects were discussed. I also discussed the potential benefit(s) of the procedure with Morro, and voiced concerns were addressed. After Morro was completely informed about the procedure, the printed consent form was signed. A standard time-out procedure was performed. Morro was placed in the prone position on the fluoroscopy table. Automated blood pressure cuff and pulse oximeter were applied. The skin entry points for approaching the anatomic target points of the segmental medial branches of bilateral L3,L4,L5 were identified with fluoroscopy and marked. The skin at the target site area was thoroughly prepared with Chlorhexadine. The skin was then draped. Next, a 25 gauge 3.5 spinal needle was placed under fluoroscopic guidance down on to the target point (the articular pillar) for each respective segmental medial branch. Position was confirmed in A/P and lateral views. Aspiration revealed no blood or clear fluid. Next, 0.25ml of omnipaque 240 was injected at each level. No contrast following a vascular or neural pattern was visualized under continuous fluoroscopy. Next, 0.25 ml of preservative-free 0.5% bupivicaine was injected at each level. There was no unusual discomfort expressed by Morro. The needles were withdrawn without difficulty. (49 mls of Omnipaque was wasted) Morro was observed and was without hemodynamic, neurologic, or allergic reactions.? Fluoroscopic images were digitally archived. Provacative testing using the Modified Muse's facet loading test- Left side Right Side Directly before the block VAS (0-10) = 7/10 VAS (0-10) = 7/10 Five minutes after the block VAS (0-10) = 1/10 VAS (0-10) = 1/10 Percentage relief obtained with this diagnostic block 80% 80% Any improved physical functioning directly after the blocks? Able to move easily Follow up plans and appointments were discussed with Morro. Morro was instructed to keep careful note of how the usual pain was modified by these injections. Specifically, to keep a pain diary for the next 4 hours using a numeric pain scale of 0-10 and report these results. Post procedure instruction was given as documented in the nursing documentation and having met discharge criteria, the patient was discharged from the [facility]. Based on the medial branches blocked today, if they patient has adequate relief and we are able to proceed to radiofrequency ablation, the treatment should result in the denervation of the bilateral L4-L5 and L5-S1 facet joints. We would expect to denervate a total of 4 facets during the radiofrequency ablation. COMMENTS: No apparent complications. Post-procedure pain: VAS= 1/10 Morro will call back with 0-4 hour post-procedure pain scores. I personally performed the entire procedure. NIELS NOGUEIRA DO, MPH ABPM&R-subspecialty board certification in Pain Medicine [facility] [facility]
--- NOTE | 2023-09-09 08:20 | DI.RAD_ITS ---
Exam(s) XR PAIN CLINIC LUMBAR SP 2V EXAM: XR PAIN CLINIC LUMBAR SP 2V CLINICAL HISTORY: DX: Lumbar spondylosis. TECHNIQUE: Fluoroscopy was provided for the referring physician for guidance with performing pain cl inic injection procedure. COMPARISON: No exams were available for comparison FINDINGS: Please see procedure note for details. Fluoro time: 58.8 seconds RADIATION DOSE DELIVERED: Chaitanyar=21.8 mGy
[2023-09-09 08:23] VITALS: BP 121/71; PULSE 63; RESP 19; O2SAT 96
[2023-09-09] MEDS: Omnipaque 240 MG/ML 50 ML BTL IJ (08:25)
[2023-09-09] MEDS: Bupivacaine 0.5% Pres-Free 10 ML VIAL IJ (08:25)
== END 2023-09-09 07:40 | disposition home or self-care (01) ==
LOC: PC 07:40
PROVIDERS: PCP Nurse Practitioner Family; Visit Provider Preventive Medicine Occupational Medicine
DX: M54.50 Low back pain, unspecified (principal); M47.816 Spondylosis without myelopathy or radiculopathy, lumbar region
CPT/HCPCS: 00123; 64493; 64494; 72100; Q9967

== ENCOUNTER 2023-12-29 13:40 | Outpatient (CLI) | payer OTHER, SELFPAY ==
--- NOTE | 2023-12-29 06:00 | DI.RAD_ITS ---
Exam(s) XR PAIN CLINIC LUMBAR SP 2V EXAM: XR PAIN CLINIC LUMBAR SP 2V CLINICAL HISTORY: DX: Lumbar spondylosis. TECHNIQUE: Fluoroscopy was provided for the referring physician for guidance with performing pain cl inic injection procedure. COMPARISON: No exams were available for comparison FINDINGS: Please see procedure note for details. Fluoro time: 57.6 seconds RADIATION DOSE DELIVERED: laci Tavares=26.73 mGy
[2023-12-29 13:51] VITALS: BP 172/97; PULSE 59; RESP 20; TEMP 36.6; O2SAT 97
[2023-12-29] MEDS: Midazolam 2 MG/2 ML VIAL IVP (14:25)
[2023-12-29] MEDS: fentaNYL 100 MCG/2 ML VIAL IVP (14:25)
--- NOTE | 2023-12-29 15:04 | PDOC.PAIN_ITS ---
Date of service: 12/29/23 Time of Service: 15:04 Pain Managment Procedure Note Procedure Note Procedure Note: PROCEDURE NOTE BILATERAL LUMBAR RADIOFREQUENCY ABLATION Date of Service: December 29, 2023 Patient:Morro Merrill? Provider:? Niels Washington DO, MPH Morro Sahni has been [facility] to the [facility] for Bilateral Lumbar Radiofrequency Ablation with the [employer] Machine.? Pre Operative Diagnosis: Lumbosacral Spondylosis without Myelopathy Post Operative Diagnosis: Same Pre procedure pain; VAS= 8/10 Comments: Excellent relief with his LMBBs. His blood pressure was slightly elevated prior to the procedure. He denied headache, dizziness, blurred vision or any other new symptom. His blood pressure was near normal and stable during the procedure and he remained asymptomatic in terms of those potentially related to an elevated blood pressure. PROCEDURE: Radiofrequency Ablation of medial branches - bilateral L3, L4, L5 and lateral branches of bilateral S1. Morro?was interviewed and the medical record was reviewed.? There were no medical, pharmacologic, radiographic or other structural contraindications to attempting fluoroscopically guided BILATERAL Lumbar Radiofrequency Ablation.?Risks and expected side effects as well as potential benefit of the procedure were reviewed with Morro, and the patient's voiced concerns were addressed.? The printed consent form was signed.? Standard time-out procedure was performed. Morro was brought into the fluoroscopy suite and positioned into the prone position on the fluoroscopy table and allowed to adjust to a position of comfort. A grounding pad was placed on the left abdomen. The sterile field was prepared using chlorhexidine preparation of the skin and sterile draping. Local anesthesia superficial and deep was provided by local infiltration of 2% lidocaine. A 17g 100 mm radiofrequency introducer needle was placed to the planned anatomic targets guided with intermittent fluoroscopy with a perpendicular approach to terminally place at the junction of the superior articular process and the transverse process of the bilateral L4, L5, the base of the sacral ala on the bilateral for the L5 medial branch nerve and the area between base of the sacral ala to the S1 foramen bilaterally. The stylets were removed and radiofrequency probes with a 4mm active tip were then inserted. Needle tip position of the probes was verified in the AP, oblique, and lateral views. At each site, the medial branch nerve was stimulated at 2 Hz to a maximum 1-2 volts determined to finalize safe needle and electrode placement. The patient was awake and responsive during this portion of the procedure. Each target was anesthetized with 1-2 mL of 2 % Lidocaine for anesthesia for lesioning and then each target was lesioned at 80 degrees Celsius for 2 minutes and 30 seconds. Tissue impedances were noted to be between 250 and 500 Ohms. I then injected 1/4 cc of Depomedrol (40 mg/cc) followed by 1 cc of 0.5% Bupivacaine. There was no unusual discomfort expressed by Morro. The needles were withdrawn without difficulty and bandages placed over the needle placement sites, the patient was observed and was without hemodynamic, neurologic, or allergic reactions. Fluoroscopic images were digitally archived. POST PROCEDURE EVALUATION: IMPRESSION: 1. Summary of procedure. Medication given is documented in the MAR. 2. Follow up plan: Morro to contact [place] [facility] as needed.?This procedure may be repeated if the patient achieves at least 50% improvement in pain/function for at least 6 months. 3. Estimated Blood Loss: <5 mls 4. Fluoroscopy time: Documented in the EMR. Follow up plans and appointments were discussed with the Morro. Post procedure instruction was given as documented in nursing documentation and having met discharge criteria, Morro was discharged from the [facility]. COMMENTS: No apparent complications. Post-procedure pain: VAS= 0/10. I personally completed the entire procedure. NIELS WASHINGTON DO, MPH ABPM&R - Subspecialty board certification in Pain Medicine [facility]-[place] [facility]
[2023-12-29] MEDS: Nerve Block Tray 1 EACH MC (15:05)
[2023-12-29] MEDS: Lidocaine 2% Pres-Free 5 ML VIAL IJ (15:06)
[2023-12-29] MEDS: Bupivacaine 0.5% Pres-Free 10 ML VIAL IJ (15:06)
[2023-12-29] MEDS: methylPREDNISolone ACETATE 40 MG/ML VIAL IJ (15:09)
[2023-12-29] MEDS: Lactated Ringers 500 ML 80 ML IV (15:10)
[2023-12-29 15:14] VITALS: BP 140/103; PULSE 62; RESP 14; O2SAT 94
== END 2023-12-29 13:41 | disposition home or self-care (01) ==
LOC: PC 13:40
PROVIDERS: PCP Nurse Practitioner Family; Visit Provider Preventive Medicine Occupational Medicine
DX: M54.50 Low back pain, unspecified (principal); M47.817 Spondylosis without myelopathy or radiculopathy, lumbosacral region
CPT/HCPCS: 00123; 64635; 64636; 72100; J0665; J1030; J2250; J3010

== ENCOUNTER 2024-05-04 11:47 | Outpatient (REF) | payer OTHER, SELFPAY ==
[2024-05-04 13:03] LABS: Abs Immature Grans 0.05 10^3/uL (0.0-0.06); Absolute Basophil Count 0.04 10^3/uL (0.0-0.2); Absolute Eosinophil Count 0.12 10^3/uL (0.0-0.7); Absolute Neutrophil Count 5.83 10^3/uL (1.2-6.7); Basophils % 0.4 %; Eosinophils % 1.1 %; HCT 47.6 % (40.0-50.0); HGB 16.1 g/dL (13.5-17.5); Immature Grans % 0.5 %; Lymphocytes % 35.1 %; MCH 30.8 pg (27.0-33.0); MCHC 33.8 % (32.0-36.0); MCV 91 fL (80-95); MPV 10.3 fL (8.0-11.0); Monocytes % 7.6 %; Neutrophils % 55.3 %; Platelet Count 246 10^3/uL (130-400); RBC 5.23 10^6/uL (4.36-5.78); RDW 12.5 % (11.8-14.1); RDW-SD 41.7 fL; WBC 10.54 10^3/uL (4.4-10.8)
[2024-05-05 11:29] LABS: Campylobacter PCR Negative (Negative); Salmonella PCR Negative (Negative); Shiga Toxin PCR Negative (Negative); Shigella/Enteroinvasive Ecoli Negative (Negative)
[2024-05-08 13:11] LABS: IgA 189 mg/dL (85-499); Interpretation (See Note); Tissue Transglutaminase IgA <4.0 CU (<20.0)
== END 2024-05-04 11:48 | disposition home or self-care (01) ==
LOC: LBN 11:47
PROVIDERS: PCP Nurse Practitioner Family; Visit Provider Nurse Practitioner Family
DX: R19.7 Diarrhea, unspecified (principal)
CPT/HCPCS: 82784; 83516; 87329; 87493; 87505; 83630; 85025; 87177

== ENCOUNTER → 2024-11-13 12:21 | Outpatient (BNVA) | payer MEDICARE, SELFPAY | PROVIDERS: PCP Nurse Practitioner Family; Referring Provider Nurse Practitioner Family; Visit Provider Psychiatry & Neurology Neurology | DX: R26.89 Other abnormalities of gait and mobility (principal); R29.2 Abnormal reflex; G25.0 Essential tremor; M48.02 Spinal stenosis, cervical region; G99.2 Myelopathy in diseases classified elsewhere; E11.42 Type 2 diabetes mellitus with diabetic polyneuropathy | CPT/HCPCS: 99214 ==

== ENCOUNTER 2025-01-15 01:06 | Outpatient (CLI) | payer MEDICARE, MEDICAID, SELFPAY ==
--- NOTE | 2025-01-15 06:30 | DI.CTLCSR_ITS ---
Exam(s) CT CHEST LUNG CANCER SCREEN EXAM: CT CHEST LUNG CANCER SCREEN CLINICAL HISTORY: Screening for lung cancer,cigarette nicotine dependence,f17.210. TECHNIQUE: Imaging Protocol: Low Dose Technique CONTRAST MATERIAL: None COMPARISON: CT CT CHEST/ABD/PEL W from 11/30/2021 FINDINGS: CHEST: LUNGS: There is some unchanged sub pleural scarring-infiltrate in the posterior aspect of the right l ower lobe, unchanged from 11/30/2021 CT scan are not associated with pleural effusion nor rib destruc tion. There is a small 2 millimeter nodule in the lateral aspect of the right middle lobe. There ar e no new ominous pulmonary nodules. There are no pleural effusions. No new findings in the trachea and mainstem bronchi. MEDIASTINUM: There is no obvious new hilar adenopathy. No subcarinal adenopathy. No adenopathy in t he anterior mediastinal fat. Previously described right paratracheal node or fluid collection is aga in noted, unchanged, measuring 2.5 cm AP by 2.8 cm wide by 3.7 cm craniocaudal. CARDIAC: Heart size is normal. There is no pericardial effusion.The diameter of the ascending thorac ic aorta is again noted be enlarged, presently measuring 4.8 cm which is larger than previous (4.2 cm ). OTHER: No new adrenal masses. No splenomegaly. OSSEOUS: No significant osseous lesions.No fractures.. IMPRESSION: 1. Stable unchanged subpleural scarring in the right lower lobe, unchanged from 11/30/2021 (3 years). There is a small 2 mm benign-appearing nodule in the lateral aspect of the right middle lobe, more evident than previous. 2. Stable right paratracheal fluid collection with measurements as above. 3. Lung RADS Cat 2 - Benign Appearance / Behavior: Nodules with a very low likelihood of becoming a c linically active cancer due to size or lack of growth Lung-RADS 1.0 CATEGORIES: Category 0 - Prior chest CT exam(s) being located for comparison. Category 1 - Annual screening in 12 months. No nodules or definitely benign nodules. Category 2 - Annual screening in 12 months. Benign appearance. Nodules with low likelihood of becomin g active cancer. Category 3 - 6-month follow-up. Probably benign. Short-term follow-up suggested. Nodules with low lik elihood of becoming active cancer. Category 4A - 3-month follow-up and CT/PET if >8 mm in size. Suspicious finding. Findings which requi re additional testing. Category 4B - Findings which require additional testing and tissue sampling. Category 4X - Category 3 or 4 nodules with additional features or imaging findings that increases the suspicion of malignancy. Modifier S- Potentially clinically significant findings (non lung cancer) RADIATION DOSE DELIVERED: 102.55mGy.cm Total DLP DATA REPOSITORY: All CT scans at this facility are submitted to the National Radiology Data Registry (NRDR) Dose Index Registry (DIR) with the [employer] (ACR). RADIATION OPTIMIZATION: All CT scans at this facility use at least one of these dose optimization te chniques: automated exposure control; mA and/or kV adjustment per patient size (includes targeted exa ms where dose is matched to clinical indication); or iterative reconstruction.
--- NOTE | 2025-01-15 06:30 | DI.US_ITS ---
Exam(s) US RENAL EXAM: US RENAL CLINICAL HISTORY: urgency of urination with incontinence TECHNIQUE: Ultrasound of both kidneys performed using standard protocol. COMPARISON: US US ABDOMEN LIMITED from 11/28/[address] THORAX ABD/PEL CTA from 05/14/2023 FINDINGS: RIGHT KIDNEY: Measures 12 cm in length. There is a 2.6 x 2.1 cm cyst in the superior pole. Does not require furthe r imaging investigation. Normal cortical thickness and corticomedullary differentiation .No solid ma sses No intrarenal calculi nor hydronephrosis. LEFT KIDNEY: Measures 11 cm in length. There is a small 8 x 9 mm cyst in the inferior pole. Normal cortical thic kness and corticomedullary differentiaion. No solids masses. No intrarenal calculi nor hydonephrosis . URINARY BLADDER: Prevoid volume is 64 cc Postvoid volume is 0 cc No evidence of bladder mass nor diverticuli. Ureterovesical jets: Right identified; left was not seen. PROSTATE GLAND: Measures 4 cm wide x 3 cm x 2.75 cm: Volume = 17 cc (normal). IMPRESSION: 1. No significant ultrasound findings in the kidneys. No solid renal masses. No calculi. No hydro nephrosis. 2. No obvious abnormality in urinary bladder. Prostate size upper normal. DATA REPOSITORY:
== END 2025-01-15 01:26 ==
PROVIDERS: PCP Nurse Practitioner Family; Visit Provider Nurse Practitioner Family
DX: F17.210 Nicotine dependence, cigarettes, uncomplicated (principal); R39.15 Urgency of urination; Z12.2 Encounter for screening for malignant neoplasm of respiratory organs; R91.8 Other nonspecific abnormal finding of lung field
CPT/HCPCS: 71271; 76770

== ENCOUNTER → 2025-03-27 12:57 | Outpatient (BNVA) | payer MEDICARE, MEDICAID, SELFPAY | PROVIDERS: PCP Nurse Practitioner Family; Referring Provider Nurse Practitioner Family; Visit Provider Nurse Practitioner Gerontology | DX: R39.15 Urgency of urination (principal); R35.0 Frequency of micturition; N40.1 Benign prostatic hyperplasia with lower urinary tract symptoms; R39.9 Unspecified symptoms and signs involving the genitourinary system | CPT/HCPCS: 99215; 81002 ==

== ENCOUNTER 2025-03-27 13:47 | Outpatient (CLI) | payer MEDICARE, SELFPAY ==
[2025-03-27 14:21] LABS: Hemoglobin A1C 5.8 % (<5.7)
[2025-03-27 14:32] LABS: ALT 22 U/L (16-63); AST 11 U/L (15-37); Albumin 3.6 g/dL (3.4-5.0); Alkaline Phosphatase 54 U/L (46-116); Anion Gap 5.4 mmol/L (3-11); BUN 23 mg/dL (7-18); Bilirubin, Total 0.6 mg/dL (0.2-1.0); CO2 28.6 mmol/L (21.0-32.0); Calcium 8.7 mg/dL (8.5-10.1); Calculated LDL 75 mg/dL (<100); Chloride 102 mmol/L (98-107); Cholesterol 126 mg/dL (<200); Estimated GFR 84.57 (mL/min/1.73m2); Glucose 131 mg/dL (74-106); HDL Cholesterol 31 mg/dL (>or=40); Potassium 4.4 mmol/L (3.5-5.1); Sodium 136 mmol/L (136-145); TSH (W/Ref FT4) 0.83 uIU/mL (0.36-3.74); Total Protein 6.9 g/dL (6.4-8.2); Triglyceride 104 mg/dL (<150)
[2025-03-28 09:26] LABS: PSA, Screening 0.8 ng/mL (<=4.5)
[2025-03-28 10:17] LABS: HBs Antibody, Quant <3.1 mIU/mL (See Note); Hep B Surface Ab Negative (See Note); Hepatitis B Core Antibody Negative (Negative); Hepatitis B Surface Antigen Negative (Negative)
== END 2025-03-27 13:48 | disposition home or self-care (01) ==
LOC: LBO 13:49
PROVIDERS: PCP Nurse Practitioner Family; Visit Provider Nurse Practitioner Gerontology
DX: E78.5 Hyperlipidemia, unspecified (principal); E11.9 Type 2 diabetes mellitus without complications; E03.9 Hypothyroidism, unspecified; Z11.59 Encounter for screening for other viral diseases; N40.1 Benign prostatic hyperplasia with lower urinary tract symptoms; R39.9 Unspecified symptoms and signs involving the genitourinary system
CPT/HCPCS: 36415; 80053; 80061; 84153; 86704; 86706; 87340; 83036; 84443

== ENCOUNTER 2025-04-05 15:48 | Outpatient (REF) | payer MEDICARE, SELFPAY ==
[2025-04-06 23:52] LABS: Campylobacter PCR Negative (Negative); Shiga Toxin PCR Negative (Negative); Shigella/Enteroinvasive Ecoli Negative (Negative)
== END 2025-04-05 15:49 | disposition home or self-care (01) ==
LOC: LBN 15:48
PROVIDERS: PCP Nurse Practitioner Family; Visit Provider Nurse Practitioner Family
DX: R19.7 Diarrhea, unspecified (principal)
CPT/HCPCS: 87015; 87269; 87272; 87505

== ENCOUNTER → 2025-04-27 10:24 | Outpatient (BNVA) | payer MEDICARE, SELFPAY | PROVIDERS: PCP Nurse Practitioner Family; Referring Provider Nurse Practitioner Family; Visit Provider Surgery | DX: R19.7 Diarrhea, unspecified (principal); R39.15 Urgency of urination; K21.9 Gastro-esophageal reflux disease without esophagitis; D68.51 Activated protein C resistance; Z79.01 Long term (current) use of anticoagulants | CPT/HCPCS: 99214 ==

== ENCOUNTER 2025-05-21 10:11 | Day surgery (SDC) | payer MEDICARE, SELFPAY ==
[2025-05-21 10:37] VITALS: BP 156/93; PULSE 63; RESP 18; TEMP 36.4; O2SAT 97
[2025-05-21] MEDS: Lactated Ringers 1,000 ML 80 ML IV (10:50)
--- NOTE | 2025-05-21 11:10 | W.ANESPRE ---
General Info Date of Service Date Performed: 05/21/25 Height: 5 ft 11 in Weight: 101.3 kg Body Mass Index (BMI): 31.1 Surgical Procedure: Operation Date: 05/21/25 11:35 Proposed Procedure Side Surgeon p Colonoscopy/Gastroscopy Angelica Barrow MD Meds Allergies and Home Medications Allergies Allergy/AdvReac Type Severity Reaction Status Date / Time bee pollen Allergy Unknown Anaphylaxis Verified 05/21/25 10:42 bee venom protein (honey bee) Allergy Unknown Anaphylaxis Verified 05/21/25 10:42 varenicline (From Chantix) AdvReac Severe Nausea Verified 05/21/25 10:42 Home Medication ?Medication ?Instructions ?Recorded vitamin B12 500 mcg-folic acid 400 1 tab PO DAILY 05/31/21 mcg tablet albuterol sulfate 90 mcg/actuation 2 puff inhalation Q6H PRN 04/28/24 aerosol inhaler shortness of breath or wheezing #8.5 grams quetiapine 100 mg tablet 100 mg PO QHS #90 tabs 06/12/24 amlodipine 5 mg tablet 5 mg PO DAILY #90 tabs 06/26/24 prazosin 2 mg capsule 2 mg PO QHS 06/26/24 sertraline 100 mg tablet See Rx Instructions .Route 06/29/24 .COMPLEX #135 tabs omeprazole 40 mg capsule,delayed 40 mg PO DAILY #90 caps 08/23/24 release propranolol 20 mg tablet 20 mg PO BID #180 tabs 11/13/24 insulin syringe-needle U-100 1 mL #10 ea 11/17/24 30 gauge x 5/16 (Advocate Syringes) levothyroxine 175 mcg tablet 175 mcg PO DAILY #90 tabs 02/14/25 rivaroxaban 20 mg tablet (Xarelto) 20 mg PO HS #90 tabs 02/19/25 vibegron 75 mg tablet (Gemtesa) 75 mg PO DAILY #30 tabs 03/27/25 cyanocobalamin (vitamin B-12) 1,000 mcg IM QMONTH #10 mL 04/19/25 1,000 mcg/mL injection solution epinephrine 0.3 mg/0.3 mL 0.3 ml subcut ONCE PRN 04/19/25 injection, auto-injector (EpiPen) hypersensitivity reaction #2 ea atorvastatin 20 mg tablet See Rx Instructions .Route 05/15/25 .COMPLEX #90 tabs fluticasone fur. 100 mcg-umeclid 1 inh inhalation DAILY #60 ea 05/15/25 62.5 mcg-vilant 25 mcg inhalat.powder (Trelegy Ellipta) lisinopril 20 mg tablet 20 mg PO DAILY #90 tabs 05/15/25 metformin 500 mg tablet,extended See Rx Instructions .Route 05/15/25 release 24 hr .COMPLEX #360 tabs bisacodyl 5 mg tablet,delayed 5 mg PO ONCE #4 tabs 05/16/25 release (Dulcolax (bisacodyl)) polyethylene glycol 3350 17 17 g PO ONCE #238 grams 05/16/25 gram/dose oral powder Current Visit Medications: Current Medications Generic Name Dose Route Start Last Admin Trade Name Freq PRN Reason Stop Dose Admin Ringer's Solution 1,000 mls @ 80 mls/hr 05/21/25 06:00 05/21/25 10:50 IV 05/21/25 23:59 80 mls/hr INFUSION CITLALI Administration IV Miscellaneous Supplies 1 each 05/21/25 06:00 Iv Access IV 05/21/25 23:59 DIRECTED CITLALI Sodium Biphosphate/Sodium Phosphate 133 ml 05/21/25 06:00 Na Phosphate Enema-Adult 133 Ml Btl MD 05/21/25 23:59 DIRECTED PRN Sodium Chloride 0 ml 05/21/25 06:00 Normal Saline Flush 10 Ml Syr IV 05/21/25 23:59 PRN PRN Sodium Chloride 0 ml 05/21/25 06:00 Normal Saline 10 Ml Vial IJ 05/21/25 23:59 DIRECTED PRN Sterile Water 0 ml 05/21/25 06:00 Water,Injection,Sterile 10 Ml Vial IJ 05/21/25 23:59 DIRECTED PRN PFSH Active Problems Active Problems: Problem Status Onset Code Hypertension Chronic I10 Ganglion, right hand Acute M67.441 Post traumatic stress disorder (PTSD) Acute F43.10 Spondylosis of lumbar region without myelopathy or radiculopathy Acute M47.816 Sensorineural hearing loss Acute H90.5 Back pain of lumbar region with sciatica Acute M54.40 Nightmares associated with chronic post-traumatic stress disorder Acute F51.5, F43.12 Diabetic peripheral neuropathy Acute E11.42 Obstructive sleep apnea Chronic G47.33 Ascending aortic aneurysm Acute I71.2 Personal history of nicotine dependence Acute Z87.891 Hypothyroidism (acquired) Acute E03.9 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 Bowel incontinence Acute R15.9 Multinodular goiter Acute E04.2 Peritracheal mass Acute R22.2 Tubular adenoma of colon Acute D12.6 Barretts esophagus Acute K22.70 Myelopathy concurrent with and due to spinal stenosis of cervical region Acute M48.02, G99.2 Essential tremor Acute G25.0 Type 2 diabetes mellitus without complications Acute E11.9 Hyperlipidemia Acute E78.5 COPD (chronic obstructive pulmonary disease) Chronic J44.9 Urgency of urination Acute R39.15 Bipolar disorder Acute F31.9 Sensorineural hearing loss of both ears Acute H90.3 Factor V Leiden Acute D68.51 Hypothyroid Chronic E03.9 Medical History Medical History Dysphagia Left rib fracture Pulmonary embolism History of drug overdose History of neck injury DVT (deep venous thrombosis) History of neck pain Smoker Clotting disorder Dactor V Leiden Mass of thoracic structure BMI 36.0-36.9,adult Type 2 diabetes mellitus Bilateral lower extremity edema Intention tremor DVT (deep venous thrombosis) Peripheral vascular disease ROYCE (obstructive sleep apnea) uses device GERD (gastroesophageal reflux disease) Suicide attempt (~2011) Depression Neuropathy Enlarged lymph nodes Anxiety Lipoma Insomnia Tobacco abuse Obesity (BMI 35.0-39.9 without comorbidity) COPD (chronic obstructive pulmonary disease) Surgical History Surgical History H/O total thyroidectomy (~2015) History of surgical procedure parathroid autotransplantation History of biopsy thyroid fna, stomach and esophagus 12/01/19 H/O arthroscopy of right knee History of esophagogastroduodenoscopy (EGD) (~09/2021) History of colonoscopy (~09/2021) S/P appendectomy S/P partial thyroidectomy pt. states this is a total thyroidectomy History of discectomy c5-c6 Tobacco Smoking/Tobacco Use Status: Current every day Tobacco Type: cigarettes and pipe Passive smoking exposure: No Second hand exposure: Yes Alcohol Alcohol Intake: former Substance Use Substance use: Current Sobriety Substance use type: does not use Vital Signs and Lab Results Vital Signs Most Recent Vital Signs in EMR: Most Recent Vital Signs Temp Pulse Resp BP Pulse Ox 36.4 C L 63 18 156/93 H 97 05/21/25 10:37 05/21/25 10:37 05/21/25 10:37 05/21/25 10:37 05/21/25 10:37 Point of Care Results Point of Care Results: Finger Stick Blood Glucose 114 05/21/25 10:45 Imaging and Studies Imaging and Studies Study information below may be from another EMR and interpreted by another provider. Please see original notes in EMR for more complete details. EKG Summary: 11/30/21 Conclusion Sinus bradycardia...rate< 60. Sinus. No STEMI. Stress Test Summary: 02/09/18 Stress results: Maximal heart rate during stress was 145bpm (88% of maximal predicted heart rate). The maximal predicted heart rate was 164bpm. The target heart rate was achieved. The heart rate response to stress is normal. There is a normal resting blood pressure with an appropriate response to stress. The rate-pressure product for the peak heart rate and blood pressure was 74753ua Hg/min. The patient experienced no chest pain during stress. Exercise capacity is average for age. Stress ECG: STRESS TEST ENDED IN 8 MINUTES & 30 SECONDS DUE TO FATIGUE NORMAL BLOOD PRESSURE AND HEART RATE RESPONSE TO EXERCISE MAX HR = 145 % OF TARGET = 88 NO ECTOPY APPROXIMATE METS ACHIEVED = 10.16 NO ANGINA NO SIGNIFICANT ST SEGMENT CHANGES AVERAGE FUNCTIONAL CAPACITY FOR EXERCISE. The stress ECG is negative. Soriano treadmill score: 9. This score predicts a low risk of cardiac events. Pulmonary Function Summary: 08/22/18 IMPRESSION Mild obstructive airways disease with no significant bronchodilator response. Clinical correlation recommended. Anesthesia Assessment and Plan Anesthesia History Personal History: No History of Anesthesia Complications Family History: No Family History of Anesthesia Complications Exercise Tolerance Exercise Tolerance: Metabolic Equivalents<4 Pertinent Negatives Pertinent Negatives: No Major Cardiovascular Symptoms or Complaints, No Major Pulmonary Symptoms or Complaints and No History of CVA/TIA Cardiac & Pulmonary Exam Cardiac Exam: Normal S1/S2 Heart Sounds Pulmonary Exam: Clear Bilateral Breath Sounds Cardiac and Pulmonary Comment:: No inhaler use for a few weeks Implantable Cardiac Device Does patient have a Pacemaker or an ICD?: No Airway Exam Known Difficult Airway: No Mallampati Class: 2 Mouth Opening: Normal (> 3cm) Thyromental Distance: Greater than 3 cm Neck Range of Motion: Full ROM Neck Circumference: Normal Teeth Condition: Edentulous (dentures left at home) ASA Classification ASA Score: ASA 3 Emergency Case?: No NPO Status NPO Status: NPO Clears >2 hours, Solids >8 hours Anesthesia Plan Resuscitation Status: Full Code Anesthesia Technique: General Anesthesia Airway Planned: Natural Airway Monitors Used: Standard Monitors
[2025-05-21 11:57] VITALS: BMI 31.1
--- NOTE | 2025-05-21 12:07 | BOWEL_PTH ---
PATIENT: Morro Sahni LOC: [facility] U#:[id number] AGE/SX: 65/M ROOM: RE05/21/[address]: Angelica Barrow MD : [id number] BED: DIS: 05/21/2025 SPEC #: [id number] RECD: 05/21/25 13:27 STATUS: NCIK RE #: [id number] FRANCIS: 05/21/25 12:[address]: Angelica Barrow DEPT: Surgical Specimen RECD BY: Chantel Moran ENTERED: 05/21/25 13:28 SP TYPE: Bowel OTHR DR: Yanick Haskins, ILANA Tissues: 1 - BIOPSY BOWEL 2 - STOMACH BIOPSY 3 - STOMACH BIOPSY 4 - ESOPHAGUS BIOPSY 5 - BIOPSY BOWEL 6 - BIOPSY BOWEL 7 - BIOPSY BOWEL 8 - BIOPSY BOWEL 9 - BIOPSY BOWEL 10 - BIOPSY BOWEL Procedures: GROSS AND MICRO LEVEL 4 Comments: [id number]
--- NOTE | 2025-05-21 12:32 | W.PM.DS.N ---
Date of service: 05/21/25 Time of Service: 12:32 DS: Diagnosis Discharge Diagnosis (1) GERD (gastroesophageal reflux disease): Asessment and Plan: continue current medication, reflux appears well controlled on todays examination. (2) Chronic diarrhea: Status: Acute Asessment and Plan: your diarrhea has resolved with the medication I gave you. I took samples of the colon today to rule out microcopic problems, but overall your colon and rectum look healthy and hopefully the diarrhea problem never comes back. I will notofy you in writing of the biopsy results. (3) Barretts esophagus: Status: Acute Asessment and Plan: Remote history of barretts esophagus changes on EGD in 2021. I took another sample of that esophagus area today to see if you still have Barretts, Barretts us a sign of acid damage, so its a sign that you should always stay on your acid todd medication. even if we dont see it on this biopsy, you have had it in the past and so the acid todd therapy is the right answer. (4) Polyp of descending colon: Status: Acute Asessment and Plan: One small polyp seen and removed from colon. Timing of next colonoscopy will depend on the biopsy result of this polyp. I will notify you in writing. (5) Polyp of stomach: Status: Acute Asessment and Plan: Stomach polyps are not like colon polyps. I will see what kind of stomach polyp this was, and if it was a typical innocent/benign stomach polyp, you WILL NOT need a repeat EGD the way we do repeat colonoscopies for colon polyps. I will let you know in writing. Discharge Plan Disposition Patient Disposition: Home Discharge Details Attending Provider: Angelica Barrow Primary Care Provider: Yanick Gauthier Recommendations for Follow Up Recommended tests to be ordered by follow up provider: Timing of next colonoscopy. Home Meds and New Rx's Prescriptions: Continued prazosin 2 mg capsule 2 mg PO QHS Rx Instructions: 8 mg per CL at [facility] amlodipine 5 mg tablet 5 mg PO DAILY Qty: 90 4RF albuterol sulfate 90 mcg/actuation HFA aerosol inhaler 2 puff IH Q6H PRN (Reason: shortness of breath or wheezing) Qty: 8.5 11RF cyanocobalamin (vitamin B-12) 1,000 mcg/mL solution 1,000 mcg IM QMONTH Qty: 10 1RF epinephrine [EpiPen] 0.3 mg/0.3 mL auto-injector 0.3 ml subcut ONCE PRN (Reason: hypersensitivity reaction) Qty: 2 1RF Rx Instructions: as a single dose; may repeat once propranolol 20 mg tablet 20 mg PO BID Qty: 180 3RF Gemtesa 75 mg tablet 75 mg PO DAILY Qty: 30 1RF quetiapine 100 mg tablet 100 mg PO QHS Qty: 90 1RF sertraline 100 mg tablet See Rx Instructions .ROUTE .COMPLEX Qty: 135 4RF Dose Instruction: TAKE 1 & 1/2 TABLETS BY MOUTH ONCE DAILY Rx Instructions: TAKE 1 & 1/2 TABLETS BY MOUTH ONCE DAILY omeprazole 40 mg capsule,delayed release(DR/EC) 40 mg PO DAILY Qty: 90 4RF (DME) insulin syringe-needle U-100 [Advocate Syringes] 1 mL 30 gauge x 5/16 syringe See Rx Instructions .Route Qty: 10 4RF Rx Instructions: One once monthly as directed levothyroxine 175 mcg tablet 175 mcg PO DAILY Qty: 90 3RF Xarelto 20 mg tablet 20 mg PO HS Qty: 90 3RF metformin 500 mg tablet extended release 24 hr See Rx Instructions .ROUTE .COMPLEX Qty: 360 2RF Dose Instruction: TAKE TWO TABLETS BY MOUTH TWICE A DAY Rx Instructions: TAKE TWO TABLETS BY MOUTH TWICE A DAY atorvastatin 20 mg tablet See Rx Instructions .ROUTE .COMPLEX Qty: 90 2RF Dose Instruction: TAKE ONE TABLET BY MOUTH AT BEDTIME Rx Instructions: TAKE ONE TABLET BY MOUTH AT BEDTIME Trelegy Ellipta 100-62.5-25 mcg blister with device 1 inh inhalation DAILY Qty: 60 5RF lisinopril 20 mg tablet 20 mg PO DAILY Qty: 90 4RF vitamin F80-qgnpl acid 500-400 mcg Tablet 1 tab PO DAILY Discontinued polyethylene glycol 3350 17 gram/dose powder 17 g PO ONCE Qty: 238 0RF Rx Instructions: Take per colonoscopy instructions provided by ordering providers office bisacodyl [Dulcolax (bisacodyl)] 5 mg tablet,delayed release (DR/EC) 5 mg PO ONCE Qty: 4 0RF Rx Instructions: Take per colonoscopy instructions provided by ordering providers office Discharge Instructions Additional Instructions: Notes above on todays findings. Overall, healthy stomach, esophagus and colon. One polyp of stomach and one polyp of colon. Otherwise things look healthy. no clear cause for your diarrhea. See me in office to review symptoms and results of all testing. I will mail you a letter when your biopsy results from todays routine samples and polyp removal biopsies have returned. Stand Alone Forms: Anesthesia Discharge Inst., DSU Post EGD Instructions, Colonoscopy Post Instructions, Press Ganey (DSU) Activity:: Activity as Tolerated Diet:: As Tolerated Discharge Orders Discharge Orders: Discharge Order (Routine); Ordered 05/21/25 Ordered By: Angelica Barrow DS: Data Vitals/I&O Vitals and I&O: Vital Signs Temperature 97.5 F L 05/21/25 10:37 Pulse 63 05/21/25 10:37 Pulse Rhythm Regular 05/21/25 10:37 Respiratory Rate 18 05/21/25 10:37 Respiratory Depth Normal 05/21/25 10:37 Blood Pressure 156/93 H 05/21/25 10:37 Pulse Oximetry 97 05/21/25 10:37 Oxygen Delivery Method Room Air 05/21/25 10:37 Oxygen Flow Rate 0 05/21/25 10:37 Pain Level 0 05/21/25 10:37 Intake & Output 05/20/25 05/21/25 05/21/25 23:59 11:59 23:59 Intake Total 200 / 200 Balance 200 / 200 Weight 101.3 kg Intake: IV 200 / 200 PFSH All Active Problems (Updated 05/21/25 @ 12:34 by Angelica Barrow MD) Polyp of stomach (Acute) Polyp of descending colon (Acute) Chronic diarrhea (Acute) Hypertension (Chronic) Ganglion, right hand (Acute) Post traumatic stress disorder (PTSD) (Acute) Spondylosis of lumbar region without myelopathy or radiculopathy (Acute) Sensorineural hearing loss (Acute) Back pain of lumbar region with sciatica (Acute) Nightmares associated with chronic post-traumatic stress disorder (Acute) Diabetic peripheral neuropathy (Acute) Obstructive sleep apnea (Chronic) 03/2022, PCPAP recommneded Ascending aortic aneurysm (Acute) 12/2021-4.[address] scan, no growth 05/26, monitor q3-5 years Personal history of nicotine dependence (Acute) 12/2019-10/05 ppd, prior 1 to 2 pack/day history, estimated 76-62-orls-year history Hypothyroidism (acquired) (Acute) Spindle cell lipoma (Acute) soft tissue of scalp, excision Bowel incontinence (Acute) Multinodular goiter (Acute) s/p thyroidectomy 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-2021 Tubular adenoma of colon (Acute) 2020, due 2025 Barretts esophagus (Acute) Remote diagnosis, unclear how this was diagnosed 12/2021-EGD with biopsy was unremarkable Myelopathy concurrent with and due to spinal stenosis of cervical region (Acute) 12/2021-cervical fusion at [facility] Essential tremor (Acute) Type 2 diabetes mellitus without complications (Acute) [id number] 8.5% Hyperlipidemia (Acute) COPD (chronic obstructive pulmonary disease) (Chronic) Urgency of urination (Acute) Bipolar disorder (Acute) Sensorineural hearing loss of both ears (Acute) hearing aids Factor V Leiden (Acute) Per patient 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 Hypothyroid (Chronic) Associated with thyroidectomy for benign reasons Medical History (Updated 05/21/25 @ 12:34 by Angelica Barrow MD) Dysphagia Left rib fracture Pulmonary embolism History of drug overdose History of neck injury DVT (deep venous thrombosis) History of neck pain Smoker Clotting disorder Dactor V Leiden Mass of thoracic structure BMI 36.0-36.9,adult Type 2 diabetes mellitus Bilateral lower extremity edema Intention tremor DVT (deep venous thrombosis) Peripheral vascular disease ROYCE (obstructive sleep apnea) uses device GERD (gastroesophageal reflux disease) Suicide attempt (~2011) Depression Neuropathy Enlarged lymph nodes Anxiety Lipoma Insomnia Tobacco abuse Obesity (BMI 35.0-39.9 without comorbidity) COPD (chronic obstructive pulmonary disease) Surgical History H/O total thyroidectomy (~2015) History of surgical procedure parathroid autotransplantation History of biopsy thyroid fna, stomach and esophagus 12/01/19 H/O arthroscopy of right knee History of esophagogastroduodenoscopy (EGD) (~09/2021) History of colonoscopy (~09/2021) S/P appendectomy S/P partial thyroidectomy pt. states this is a total thyroidectomy History of discectomy c5-c6 Family History Mother , 67 Heart disease Father , 82 Depression Diabetes Sister , 11 Brain cancer Sister Depression Diabetes Hyperlipidemia Hypertension Son Substance use disorder Daughter Depression Diabetes Paternal Grandfather , 73 Diabetes Hyperlipidemia Paternal Grandmother , 83 Diabetes Heart disease Social History Smoking/Tobacco Use Status: Current every day Tobacco Type: cigarettes and pipe Tobacco: How many years used: 46 Quit status: considering quitting Second Hand Exposure: Yes Smoking risk assessment performed?: Yes Alcohol Intake: former Drug use: Current Sobriety Substance use type: does not use Household members: significant other Housing: house Number of Children: 2 number of grandchildren: 5 Communication Needs: Hard of Hearing and Corrective Lenses Do you need help understanding health information?: Never current occupation: disabled Pets and animals: Yes Pets and animals: dog(s) Current gender identity: male What is your relationship status?: living with partner How often do you talk on the phone with friends or family?: once per week How often do you get together with friends or relatives?: never How often do you attend baptism or church services?: decline to answer Do you belong to any clubs or organized social groups?: no Panel score (0-1 are the most socially isolated patients): 1 What type of physical activity do you participate in: walking Duration: 15-30 minutes/day Frequency: 5-6 times per week Maira/Baptism: No preference Special maira needs: No Seatbelt use: always Helmet use: No Drive intox or ride w/intox milk delivery driver: No Do you feel safe at home: Yes Do you feel safe in your relationship?: Yes
[2025-05-21 12:35] VITALS: BP 98/70; PULSE 59; RESP 17; TEMP 36.5; O2SAT 92
--- NOTE | 2025-05-21 12:46 | W.PM.DSUDISC ---
Date of service: 05/21/25 Discharge Plan Disposition Patient Disposition: Home Condition: Stable Discharge Details Attending Provider: Angelica Barrwo Primary Care Provider: Yanick Gauthier Recommendations for Follow Up Recommended tests to be ordered by follow up provider: Timing of next colonoscopy. Home Meds and New Rx's Prescriptions: Continued prazosin 2 mg capsule 2 mg PO QHS Rx Instructions: 8 mg per CL at [facility] amlodipine 5 mg tablet 5 mg PO DAILY Qty: 90 4RF albuterol sulfate 90 mcg/actuation HFA aerosol inhaler 2 puff IH Q6H PRN (Reason: shortness of breath or wheezing) Qty: 8.5 11RF cyanocobalamin (vitamin B-12) 1,000 mcg/mL solution 1,000 mcg IM QMONTH Qty: 10 1RF epinephrine [EpiPen] 0.3 mg/0.3 mL auto-injector 0.3 ml subcut ONCE PRN (Reason: hypersensitivity reaction) Qty: 2 1RF Rx Instructions: as a single dose; may repeat once propranolol 20 mg tablet 20 mg PO BID Qty: 180 3RF Gemtesa 75 mg tablet 75 mg PO DAILY Qty: 30 1RF quetiapine 100 mg tablet 100 mg PO QHS Qty: 90 1RF sertraline 100 mg tablet See Rx Instructions .ROUTE .COMPLEX Qty: 135 4RF Dose Instruction: TAKE 1 & 1/2 TABLETS BY MOUTH ONCE DAILY Rx Instructions: TAKE 1 & 1/2 TABLETS BY MOUTH ONCE DAILY omeprazole 40 mg capsule,delayed release(DR/EC) 40 mg PO DAILY Qty: 90 4RF (DME) insulin syringe-needle U-100 [Advocate Syringes] 1 mL 30 gauge x 5/16 syringe See Rx Instructions .Route Qty: 10 4RF Rx Instructions: One once monthly as directed levothyroxine 175 mcg tablet 175 mcg PO DAILY Qty: 90 3RF Xarelto 20 mg tablet 20 mg PO HS Qty: 90 3RF metformin 500 mg tablet extended release 24 hr See Rx Instructions .ROUTE .COMPLEX Qty: 360 2RF Dose Instruction: TAKE TWO TABLETS BY MOUTH TWICE A DAY Rx Instructions: TAKE TWO TABLETS BY MOUTH TWICE A DAY atorvastatin 20 mg tablet See Rx Instructions .ROUTE .COMPLEX Qty: 90 2RF Dose Instruction: TAKE ONE TABLET BY MOUTH AT BEDTIME Rx Instructions: TAKE ONE TABLET BY MOUTH AT BEDTIME Orlandolebetina Ellipta 100-62.5-25 mcg blister with device 1 inh inhalation DAILY Qty: 60 5RF lisinopril 20 mg tablet 20 mg PO DAILY Qty: 90 4RF vitamin A79-ycldj acid 500-400 mcg Tablet 1 tab PO DAILY Discontinued polyethylene glycol 3350 17 gram/dose powder 17 g PO ONCE Qty: 238 0RF Rx Instructions: Take per colonoscopy instructions provided by ordering providers office bisacodyl [Dulcolax (bisacodyl)] 5 mg tablet,delayed release (DR/EC) 5 mg PO ONCE Qty: 4 0RF Rx Instructions: Take per colonoscopy instructions provided by ordering providers office Discharge Instructions Additional Instructions: Notes above on todays findings. Overall, healthy stomach, esophagus and colon. One polyp of stomach and one polyp of colon. Otherwise things look healthy. no clear cause for your diarrhea. See me in office to review symptoms and results of all testing. I will mail you a letter when your biopsy results from todays routine samples and polyp removal biopsies have returned. Stand Alone Forms: Anesthesia Discharge Inst., DSU Post EGD Instructions, Colonoscopy Post Instructions, Annemarie Benitez (DSU) Activity:: Activity as Tolerated Diet:: As Tolerated Discharge Orders Discharge Orders: Discharge Order (Routine); Ordered 05/21/25 Ordered By: Angelica Barrow DS: Diagnosis Discharge Diagnosis (1) GERD (gastroesophageal reflux disease): Asessment and Plan: continue current medication, reflux appears well controlled on todays examination. (2) Chronic diarrhea: Status: Acute Asessment and Plan: your diarrhea has resolved with the medication I gave you. I took samples of the colon today to rule out microcopic problems, but overall your colon and rectum look healthy and hopefully the diarrhea problem never comes back. I will notofy you in writing of the biopsy results. (3) Barretts esophagus: Status: Acute Asessment and Plan: Remote history of barretts esophagus changes on EGD in 2021. I took another sample of that esophagus area today to see if you still have Barretts, Barretts us a sign of acid damage, so its a sign that you should always stay on your acid todd medication. even if we dont see it on this biopsy, you have had it in the past and so the acid todd therapy is the right answer. (4) Polyp of descending colon: Status: Acute Asessment and Plan: One small polyp seen and removed from colon. Timing of next colonoscopy will depend on the biopsy result of this polyp. I will notify you in writing. (5) Polyp of stomach: Status: Acute Asessment and Plan: Stomach polyps are not like colon polyps. I will see what kind of stomach polyp this was, and if it was a typical innocent/benign stomach polyp, you WILL NOT need a repeat EGD the way we do repeat colonoscopies for colon polyps. I will let you know in writing.
--- NOTE | 2025-05-21 12:57 | ENDO_ITS ---
Date of service: 05/21/25 Time of Service: 12:57 Endoscopy Report DATE OF PROCEDURE: 05/21/25 PRE-OP DIAGNOSIS: GERD, history of Barretts esophagus POST-OP DIAGNOSIS: other (GERD, history of Barretts esophagus. Mild esophagitis. Antrum polyp. ) PROCEDURE: EGD with biopsy SURGEON: Angelica Barrow ANESTHESIA TYPE: General:No Airway ESTIMATED BLOOD LOSS: 2 PATHOLOGY: other (1. Duodenum biopsy. 2. Antrum biopsy. 3. antrum polyp) COMPLICATIONS: None DISPOSITION: same day PROCEDURE DESCRIPTION: Lubricated endoscope was passed through a bite block into the second portion of the duodenum. The endoscope was withdrawn and the duodenum stomach and esophageal mucosa examined. The duodenum appeared normal. There is no inflammation or ulceration or erosion. Due to chronic diarrhea, cold forceps biopsy obtained to rule out c eliac sprue. The antrum appears normal. Cold forceps biopsy obtained to rule out H pylori given chronic diarrhea and reflux. Antrum with 7mm sessile polyp with surface erosion. Cold forceps biopsy obtained for microscopic assessment. The fundus appears normal. The cardia appears normal and there is no evidence of hiatal hernia upon retroflexion. The distal esophagus shows evidence of mild chronic inflammation without ulceration varices or candidiasis. 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 Cold forceps biopsy obtained for microscopic assessment. Remainder of the esophagus appears normal The upper digestive system was desufflated and the endoscope withdrawn. No complications. Assessment and plan: Mild esophagitis. Antrum polyp. Duuodenum, antral and esophageal biopsies will determine next steps in care. recommend continued PPI daily. Office follow up in 2-4 weeks.
--- NOTE | 2025-05-21 13:02 | W.COLOREPORT ---
Date of service: 05/21/25 Time of Service: 13:03 Colonoscopy Report Date of procedure: 05/21/25 Pre-op diagnosis general: Chronic diarrhea Post-op diagnosis procedure note: same (chronic diarrhea and descending colon polyp) Procedure: Colonoscopy with biopsy, cold forcep polypectomy Surgeon: Angelica Barrow Anesthesia Type: General:No Airway Estimated blood loss (mL): 3 Pathology: other (1. TI biopsy. 2. Ascending colon biopsy. 3. Transverse colon biopsy. 4. Descending colon biopsy. 5. Descending colon polyp. 6. Rectum biopsy) Complications: None Disposition: same day Prep: Miralax/Dulcolax (Fair to good) Procedure Description: Informed consent was obtained and the patient was taken to the procedure area. The patient was placed in left lateral decubitus position on the procedure table. Timeout was performed. Anesthesia was induced. A lubricated colonoscope was inserted through the anus and passed to the cecum. The cecum was identified by the ileocecal valve and the appendiceal orifice. The scope was then slowly withdrawn and the colonic and rectal mucosa examined. TI intubated and examined. It appears normal. There are no colon or rectal mass lesions, AVMs. There is no inflammatory change. No diverticulosis was seen. Descending colon polyp 5mm sessile excised with cold forceps. Cold forceps biopsies obtained for evaluation for microscopic colitis. Biopsies obtained from terminal ileum, ascending colon, transverse colon, descending colon and rectum. The scope was retroflexed in the anorectal junction examined. Uncomplicated internal hemorrhoids present. Assessment and plan; Unremarkable colonoscopy for a cause for diarrhea. Diarrhea has improved on colestipol. Will follow up biopsy results and polypectomy results. Next steps in care and timing of next colonoscopy will depend on pathology results.
[2025-05-21 13:05] VITALS: BP 146/95; PULSE 63; RESP 17; TEMP 36.4; O2SAT 93
--- NOTE | 2025-05-21 13:32 | W.ANESPOSTOP ---
Postoperative Evaluation Date, Time and Location Date Performed: 05/21/25 Time Performed: 13:05 Patient Location: Day Surgery Unit Vital Signs Most Recent Imported Vital Signs: Most Recent Vital Signs Temp Pulse Resp BP Pulse Ox 36.4 C L 63 17 146/95 H 93 05/21/25 13:05 05/21/25 13:05 05/21/25 13:05 05/21/25 13:05 05/21/25 13:05 Pain Score Most Recent Pain Score: Most Recent Pain Score Pain Level 0 05/21/25 13:05 Assessment Mental Status: Awake (Alert & Oriented to Patient Baseline) Airway and Respiratory Function: Patent airway with normal (patient baseline) respiratory exam Cardiovascular Function: Hemodynamically Stable Hydration Status: Adequately Hydrated Nausea & Vomiting: No Nausea or Vomiting Pain: Pt. Denies Any Pain Peripheral Nerve Block: Patient did not receive a nerve block
== END 2025-05-21 13:16 | disposition home or self-care (01) ==
LOC: SUR 10:12
PROVIDERS: PCP Nurse Practitioner Family; Visit Provider Surgery
PROC: (CPT 43239; principal; 2025-05-21 11:30)
DX: K21.00 Gastro-esophageal reflux disease with esophagitis, without bleeding (principal); K22.70 Barrett's esophagus without dysplasia; K31.7 Polyp of stomach and duodenum; D12.4 Benign neoplasm of descending colon; K52.9 Noninfective gastroenteritis and colitis, unspecified; K31.9 Disease of stomach and duodenum, unspecified
CPT/HCPCS: 43239; 45380; 88305; J2003; J2405; J2704

== ENCOUNTER 2025-09-07 13:39 | Outpatient (CLI) | payer MEDICARE, SELFPAY ==
[2025-09-07 16:11] LABS: Abs Immature Grans 0.02 10^3/uL (0.0-0.06); HCT 44.1 % (40.0-50.0); HGB 14.6 g/dL (13.5-17.5); Immature Grans % 0.4 %; MCH 30.5 pg (27.0-33.0); MCHC 33.1 % (32.0-36.0); MCV 92 fL (80-95); MPV 10.4 fL (8.0-11.0); Platelet Count 179 10^3/uL (130-400); RBC 4.78 10^6/uL (4.36-5.78); RDW 12.9 % (11.8-14.1); RDW-SD 44.0 fL; WBC 5.34 10^3/uL (4.4-10.8)
[2025-09-07 16:16] LABS: ALT 13 U/L (10-49); AST 17 U/L (<34); Albumin 4.2 g/dL (3.2-5.0); Alkaline Phosphatase 45 U/L (46-116); Anion Gap 6.7 mmol/L (3-11); BUN 20 mg/dL (9-23); Bilirubin, Total 0.30 mg/dL (0.2-1.2); CO2 25.3 mmol/L (20.0-31.0); Calcium 8.8 mg/dL (8.3-10.6); Chloride 106 mmol/L (98-107); Glucose 96 mg/dL (74-106); Potassium 4.4 mmol/L (3.5-5.1); Sodium 138 mmol/L (136-145); Total Protein 6.7 g/dL (5.7-8.2)
[2025-09-07 16:19] LABS: Folate 6.5 ng/mL (>5.38); TSH (W/Ref FT4) 0.93 uIU/mL (0.55-4.78); Vitamin B12 402 pg/mL (211-911)
[2025-09-10 10:32] LABS: Syphilis Serology (RPR) Negative (Negative)
== END 2025-09-07 13:40 | disposition home or self-care (01) ==
PROVIDERS: PCP Nurse Practitioner Family; Visit Provider Nurse Practitioner Family
DX: E03.9 Hypothyroidism, unspecified (principal); R41.89 Other symptoms and signs involving cognitive functions and awareness
CPT/HCPCS: 36415; 80053; 82607; 82746; 84443; 85025; 86592